=== PATIENT | female | born 1950 | race Caucasian/White ===

== ENCOUNTER 2018-03-30 14:56 | Emergency (ER) | payer MEDICARE, BC ==
[~2018-03-30] VITALS: Ht 165.1 cm; Wt 73.9 kg
--- OUTSIDE RECORDS SUMMARY | ~2018-03-30 | XMS | Encounter Summary ---
Demographics + + + | Address | [address] | | | [place] [address] | + + + | Home Phone | | + + + | Preferred Language | Unknown | + + + | Marital Status | | + + + | Taoism Affiliation | Unknown | + + + | Race | Unknown | + + + | Ethnic Group | Unknown | + + + Author + + + | Author | [facility] | | | and Nikoana | + + + | Organization | [facility] | | | and Nikoana | + + + | Address | Unknown | + + + | Phone | Unavailable | + + + Support + + +---------+ + | Name | Relationship | Address | Phone | + + +---------+ + | Javier Parra | ECON | Unknown | | + + +---------+ + Care Team Providers + +------+ + | Care Matte Cutter Name | Role | Phone | + +------+ + | Vince Cintron DO | PCP | | + +------+ + Encounter Details +--------+---------+ + + + | Date | Type | Department | Care Team | Description | +--------+---------+ + + + | 12/31/ | Office | [facility] | Keely Holt MS | Dizziness and | | 2018 | Visit | AUDIOLOGY AND | [facility] [address] | david (Primary | | | | HEARING AID SERVICES | [address] | Dx) | | | | [address] | [place] [address] | | | | | [address] | [phone] | | | | | [place] [address] | | | | | | [phone] | | | +--------+---------+ + + + Social History + +-------+ [...] + + + as of this encounter Progress Notes Keely Holt MS CCC-A - 12/31/2017 1330 PDTReferring Provider: No additional provider dorota dozier M.D. Ms. Parra related that she has been feeling dizzy recently. She suffered a heart attack last year. Results of Hearing Test: Right ear--Pure tone air and bone conduction testing showed 20-15d B threshold at 250 Hz through 2 KHz, sloping to 40-55dB at 4 KHz through 8 KHz. Left ear --Pure tone air and bone conduction testing showed 15-25dB at 250 Hz through 2 KHz, sloping to 45-60dB at 4 KHz through 8 KHz. Speech Recognition Thresholds were 20dB in the right ear and 25dB in the left ear. Speech Discrimination Scores were 92% in right ear and 96% in the left ear. Tympanometry showed normal type A tracings in both ears. Impression and Recommendation: Dizziness Follow-up care with Dr. Valles, ENT. Thank you. in this encounter Plan of Treatment Not on fileas of this encounter Procedures + +--------+ + + + | Procedure Name | Priori | Date/Time | Associated Diagnosis | Comments | | | ty | | | | + +--------+ + + + | DIAGNOSTIC REPORT - | | 12/31/2017 | | Results for this | | EXTERNAL SCAN | | 0000 PDT | | procedure are in the | | | | | | results section. | + +--------+ + + + in this encounter Results DIAGNOSTIC REPORT - EXTERNAL SCAN (12/31/2017) + + + | Narrative | Performed At | + + + | Ordered by an | | | unspecified provider. | | + + + in this encounter Visit Diagnoses + + | Diagnosis | + + | Dizziness and giddiness - Primary | + +"
--- OUTSIDE RECORDS SUMMARY | ~2018-03-30 | XMS | Encounter Summary ---
Demographics + + + | Address | [address] | | | [place] [address] | + + + | Home Phone | | + + + | Preferred Language | Unknown | + + + | Marital Status | | + + + | Latter-Day Affiliation | Unknown | + + + | Race | Unknown | + + + | Ethnic Group | Unknown | + + + Author + + + | Author | [facility] | | | and Nikoana | + + + | Organization | [facility] | | | and Nikoana | [...] Team Providers + +------+ + | Care Lead Technical Architect Name | Role | Phone | + [...] 2018 | Visit | AUDIOLOGY AND | [facility] [address] | david (Primary | | | | HEARING AID SERVICES | [address] | Dx) | | | | [address] | [place] [address] | | | | | [address] | [phone] | | | | | [place] [address] | | | | | | [phone] | | | +--------+---------+ + + + [...]
--- OUTSIDE RECORDS SUMMARY | ~2018-03-30 | XMS | Clinical Summary ---
Demographics + + + | Address | [address] | | | [place] [address] | + + + | Home Phone | | + + + | Preferred Language | Unknown | + + + | Marital Status | | + + + | Presybeterian Affiliation | Unknown | + + + | Race | Unknown | + + + | Ethnic Group | Unknown | + + + Author + + + | Author | [facility] | | | and Nikoana | + + + | Organization | [facility] | | | and Nikoana | [...] Team Providers + +------+ + | Care Police Officer Booking Name | Role | Phone | + [...] + +-------+---------+------+------+-------+ Active Problems Not on file Encounters +--------+---------+ + + + | Date | Type | Specialty | Care Team | Description | +--------+---------+ + + + | 12/31/ | Office | | Keely Holt MS | Dizziness and | | 2018 | Visit | | CCC-A | giddiness (Primary | | | | | | Dx) | +--------+---------+ + + + from Last 3 Months Social [...] + + from Last 3 Months Results DIAGNOSTIC REPORT - EXTERNAL SCAN (12/31/2017) + + + | Narrative | Performed At | + + + | Ordered by an | | | unspecified provider. | | + + + from Last 3 Months Insurance + +--------+ +--------+ +---------+ | Payer | Benefi | Subscriber | Type | Phone | Address | | | t Plan | ID | | | | | | / | | | | | | | Group | | | | | + +--------+ +--------+ +---------+ | MEDICARE | MEDICA | [id number] | Medica | [phone] | | | | RE | | re | [phone] | | | | PART A | | | | | | | AND B | | | | | + +--------+ +--------+ +---------+ | BCBS | BCBS | [id number] | PPO | | | | | [...] | Self | [birth year] | Home: | [address] | | | [place] | | 1950 | [phone] | [place] | | | tessie | | | [phone] | + +--------+ +--------+ + +"
--- OUTSIDE RECORDS SUMMARY | ~2018-03-30 | XMS | Clinical Summary ---
Demographics + + + | Address | [address] | | | [place] [address] | + + + | Home Phone | | + + + | Preferred Language | Unknown | + + + | Marital Status | | + + + | Buddhist Affiliation | Unknown | + + + | Race | Unknown | + + + | Ethnic Group | Unknown | + + + Author + + + | Author | [facility] | | | and Nikoana | + + + | Organization | [facility] | | | and Nikoana [...] Team Providers + +------+ + | Care Greige Goods Examiner Name | Role | Phone | + [...] +--------+ +---------+ | MEDICARE | MEDICA | [id number] | Medica | [phone] | | | | RE | | re | [phone] | | | | PART A | | | | | | | AND B | | | | | + +--------+ +--------+ +---------+ | BCBS | BCBS | [id number] | PPO | | | | | [...] | Self | [birth year] | Home: | [address] | | | [place] | | 1950 | [phone] | [place] | | | tessie | | | [phone] | + +--------+ +--------+ + +"
[~2018-03-30 14:56] MED LIST: AMITRIPTYLINE H50 MG PO; BENZONATATE200 MG PO; BETAXOLOL HCL10 MG PO; CRANBERRY200 MG PO; HYDROXYZINE HCL25 MG PO; IBUPROFEN600 MG PO; JANUVIA100 MG PO; LINZESS145 MCG; LINZESS145 MCG PO; LORAZEPAM0.5 MG PO; MAGNESIUM200 MG PO; NITROFURANTOIN100 MG PO; SUPER B COMPLE150 MG PO; TOVIAZ8 MG PO; VITAMIN D250000 UNIT PO; VITAMIN E400 UNI5 PO
--- NOTE | 2018-03-30 20:32 | EKG ---
[facility] [address] [facility] [address] [place] [address] Signed Normal sinus rhythm Left bundle branch block Abnormal ECG No previous ECGs available Confirmed by RADHA VELA MD ([id number]) on 03/30/2018 8:31:54 PM Electronically Signed By: RADHA VELA MD 03/30/182031 PATIENT NAME: STEFANI BHATIA Electrocardiogram DATE OF : 46 PHYSICIAN: RADHA VELA MD REPORT #: [id number] REPORT IS CONFIDENTIAL AND NOT TO BE RELEASED WITHOUT AUTHORIZATION
== END 2018-03-30 16:25 | disposition short-term general hospital (02) ==
LOC: ED 14:56
DX: S06.5X9A Traumatic subdural hemorrhage with loss of consciousness of unspecified duration, initial encounter (principal); W01.198A Fall on same level from slipping, tripping and stumbling with subsequent striking against other object, initial encounter; Z91.013 Allergy to seafood; Z79.899 Other long term (current) drug therapy
CPT/HCPCS: 70450; 71045; 73502; 80053; 84484; 85025; 85610; 85730; 93005; 93010; 96374; 99291; 99292; J1953

== ENCOUNTER 2018-05-11 15:05 | Emergency (ER) | payer MEDICARE, BC ==
[~2018-05-11] VITALS: Ht 165.1 cm; Wt 72.6 kg
--- OUTSIDE RECORDS SUMMARY | ~2018-05-11 | XMS | Encounter Summary ---
Demographics + + + | Address | [address] | | | [place] [address] | + + + | Home Phone | | + + + | Preferred Language | Unknown | + + + | Marital Status | | + + + | Baptist Affiliation | 1076 | + + + | Race | Unknown | + + + | Ethnic Group | Unknown | + + + Author + + + | Author | [facility] | + + + | Organization | [facility] [employer] [facility] | + + + | Address | Unknown | + + + | Phone | Unavailable | + + + Support + + + + + | Name | Relationship | Address | Phone | + + + + + | Jamaal Parra | ELSY | [address] | | | [place] | | [place] | | | | | [address] | | + + + + + Care Team Providers + +------+ + | Care Maintenance Parts Technician Name | Role | Phone | + +------+ + | Vince Cintron DO | PCP | | + +------+ + Encounter Details +--------+ + + + + | Date | Type | Department | Care Team | Description | +--------+ + + + + | 04/03/ | Procedure | [facility] | | | | 2018 | [facility] | | | | | | Inpatient Rehab [address] | | | | | | [address] | | | | | | [place] [address] | | | | | | [phone] | | | +--------+ + + + + Social History + +-------+ +--------+------+ | Tobacco Use | Types | Packs/Day | Years | Date | | | | | Used | | + +-------+ +--------+------+ | Never Smoker | | | | | + +-------+ +--------+------+ + +---+---+---+ | Smokeless Tobacco: | | | | | Never Used | | | | + +---+---+---+ + + + | Sex Assigned at | Date Recorded | | | | + + + | Not on file | | + + + as of this encounter Plan of Treatment Not on fileas of this encounter Visit Diagnoses Not on filein this encounter"
--- OUTSIDE RECORDS SUMMARY | ~2018-05-11 | XMS | Encounter Summary ---
Demographics + + + | Address | [address] | | | [place] [address] | + + + | Home Phone | | + + + | Preferred Language | Unknown | + + + | Marital Status | | + + + | Synagogue Affiliation | 1076 | + + + | Race | Unknown | + + + | Ethnic Group | Unknown | + + + Author + + + | Author | [facility] [employer] [employer] | + + + | Organization | [facility] [employer] [facility] | + + + | Address | Unknown | + + + | Phone | Unavailable | + + + Support + + + + + | Name | Relationship | Address | Phone | + + + + + | Jamaal Parra | ELSY | [address] | | | [place] | | [place] | | | | | [address] | | + + + + + Care Team Providers + +------+ + | Care Automatic Driller And Reamer Name | Role | Phone | + +------+ + PCP | Unavailable | + +------+ + Reason for Visit MRI/CAT Scan (Routine) + +--------+ + + [...] + + + + | 03/30/ | Hospital | [facility] | See, Medical | Diagnosis unknown | | 2018 | Encounter | [facility] | Record | | | | | RADIOLOGY [address] | | [address] | | | | | | [place] [address] | | | | | | [phone] | | | +--------+ + + + [...] + + + as of this encounter Medications at Time of Discharge + + + +---------+ + + | Medication | Sig. | Disp. | Refills | Start | End Date | | | | | | Date | | + + + +---------+ + + | Cholecalciferol | Take 2,000 Units by | | | 04/02/20 | | | 2000 units TABS | mouth daily. | | | 18 | 9 | + + + +---------+ + + | metoprolol | Take 1 tablet by | 60 | 11 | 04/02/20 | | | (LOPRESSOR) 25 MG | mouth 2 (two) times | tablet | | 18 | 9 | | tablet | daily. | | | | | + + + +---------+ + + | phosphorus (K PHOS | Take 1 tablet by | 30 | 11 | 04/02/20 | | | NEUTRAL) tablet | mouth daily. | tablet | | 18 | 9 | + + + +---------+ + + | acetaminophen | Take 2 tablets by | 30 | 0 | 04/02/20 | | | (TYLENOL) 325 MG | mouth every 6 (six) | tablet | | 18 | 8 | | tablet | hours as needed for | | | | | | | up to 10 days. | | | | | + + + +---------+ + + | acetaminophen | Place 1 suppository | 12 | 0 | 04/02/20 | | | (TYLENOL) 650 MG | rectally every 6 | supposito | | 18 | 8 | | suppository | (six) hours as | ry | | | | | | needed for up to 10 | | | | | | | days. | | | | | + + + +---------+ + + | amitriptyline | Take 50 mg by mouth | | | | | | (ELAVIL) 50 MG | nightly. | | | | 8 | | tablet | | | | | | + + + +---------+ + + | betaxolol | Take 10 mg by mouth | | | | | | (KERLONE) 10 MG | daily. | | | | 8 | | tablet | | | | | | + + + +---------+ + + | hydrOXYzine | Take 25 mg by mouth | | | | | | (ATARAX) 25 MG | 4 (four) times | | | | 8 | | tablet | daily. | | | | | + + + +---------+ + + | insulin detemir | Inject 10 Units into | 15 mL | 12 | 04/02/20 | | | (LEVEMIR) 100 | the skin 2 (two) | | | 18 | 8 | | UNIT/ML injection | times daily. | | | | | + + + +---------+ + + | insulin lispro, | Inject 0-3 Units | 10 mL | 12 | 04/02/20 | | | human, (HUMALOG) 100 | into the skin | | | 18 | 8 | | UNIT/ML injection | Nightly. | | | | | + + + +---------+ + + | insulin lispro, | Inject 0-6 Units | 10 mL | 12 | 04/02/20 | | | human, (HUMALOG) 100 | into the skin 3 | | | 18 | 8 | | UNIT/ML injection | (three) times daily | | | | | | | before meals. | | | | | + + + +---------+ + + | levetiracetam | Take 1 tablet by | 60 | 12 | 04/02/20 | | | (KEPPRA) 1000 MG | mouth 2 (two) times | tablet | | 18 | 8 | | tablet | daily. | | | | | + + + +---------+ + + | lisinopril | Take 1 tablet by | 30 | 11 | 04/02/20 | | | (ZESTRIL) 5 MG | mouth daily. | tablet | | 18 | 8 | | tablet | | | | | | + + + +---------+ + + | LORazepam (ATIVAN) | Take 0.5 mg by mouth | | | | | | 0.5 MG tablet | every evening. | | | | 8 | + + + +---------+ + + | nitrofurantoin | Take 100 mg by mouth | | | | | | (MACRODANTIN) 100 MG | nightly. | | | | 8 | | capsuleIndications: | | | | | | | Uncomplicated | | | | | | | Urinary Tract | | | | | | | Infection | | | | | | + + + +---------+ + + | ondansetron | Take 1 tablet by | 20 | 0 | 04/02/20 | | | (ZOFRAN-ODT) 4 MG | mouth every 6 (six) | tablet | | 18 | 8 | | disintegrating | hours as needed for | | | | | | tablet | up to 7 days. | | | | | + + + +---------+ + + | sitagliptan | Take 100 mg by mouth | | | | | | (JANUVIA) 100 MG | daily. | | | | 8 | | tablet | | | | | | + + + +---------+ + + as of this encounter Plan of Treatment Not on fileas of this encounter Procedures + +--------+ + + + | Procedure Name | Priori | Date/Time | Associated Diagnosis | Comments | | | ty | | | | + +--------+ + + + | CT HEAD WO CONTRAST | Routin | 03/30/2018 | Diagnosis unknown | Results for this | | | e | 3:26 PM | | procedure are in the | | | | PDT | | results section. | + +--------+ + + + in this encounter Results CT head without contrast (03/30/2018 3:26 PM) + + + | Narrative | Performed At | + + + | This is a non-reportable procedure without a radiologist report and | [facility] | | is used for image storage only | RADIOLOGY | + + + + + + + + | Performing | Address | City/State/Zipcode | Phone Number | | Organization | | | | + + + + + | [facility] | [address] | [place] [address] | | + + + + + in this encounter Visit Diagnoses + + | Diagnosis | + + | Diagnosis unknown | + + | Other unknown and unspecified cause of morbidity or mortality | + +"
--- OUTSIDE RECORDS SUMMARY | ~2018-05-11 | XMS | Encounter Summary ---
Demographics + + + | Address | [address] | | | [place] [address] | + + + | Home Phone | | + + + | Preferred Language | Unknown | + + + | Marital Status | | + + + | Latter-Day Affiliation | 1076 | + + + | Race | Unknown | + + + | Ethnic Group | Unknown | + + + Author + + + | Author | [facility] | + + + | Organization | [facility] [employer] [facility] | + + + | Address | Unknown | + + + | Phone | Unavailable | + + + Support + + + + + | Name | Relationship | Address | Phone | + + + + + | Jamaal Parra | ELSY | [address] | | | [place] | | [place] | | | | | [address] | | + + + + + Care Team Providers + +------+ + | Care Natural Foods Clerk Name | Role | Phone | + [...] + + | 03/30/ | Hospital | [facility] | See, Medical | Diagnosis unknown | | 2018 | Encounter | [facility] | Record | | | | | RADIOLOGY [address] | | | | | [address] | | | | | | [place] [address] | | | | | | [phone] | | | +--------+ + + + [...] | + + + + + | [facility] | [address] | [place] [address] | | + + + + + in this encounter Visit Diagnoses + + | Diagnosis | + + | Diagnosis unknown | + + | Other unknown and unspecified cause of morbidity or mortality | + +"
--- OUTSIDE RECORDS SUMMARY | ~2018-05-11 | XMS | Encounter Summary ---
Demographics + + + | Address | [address] | | | [place] [address] | + + + | Home Phone | | + + + | Preferred Language | Unknown | + + + | Marital Status | | + + + | Jainism Affiliation | 1076 | + + + | Race | Unknown | + + + | Ethnic Group | Unknown | + + + Author + + + | Author | [facility] | + + + | Organization | [facility] [employer] [facility] | + + + | Address | Unknown | + + + | Phone | Unavailable | + + + Support + + + + + | Name | Relationship | Address | Phone | + + + + + | Jamaal Parra | ELSY | [address] | | | [place] | | [place] | | | | | [address] | | + + + + + Care Team Providers + +------+ + | Care Cryptologic Support Specialist Name | Role | Phone | + [...] + + | 03/30/ | Ancillary | [facility] | See, Medical | Diagnosis unknown | | 2018 | [facility] | [facility] [address] | Record | | | | | [address] | | | | | | [place] [address] | | | | | | [phone] | | | +--------+ + + + [...] + + | [facility] | [address] | [place] [address] | | + + + + + in this encounter Visit Diagnoses + + | Diagnosis | + + | Diagnosis unknown | + + | Other unknown and unspecified cause of morbidity or mortality | + +"
--- OUTSIDE RECORDS SUMMARY | ~2018-05-11 | XMS | Encounter Summary ---
Demographics + + + | Address | [address] | | | [place] [address] | + + + | Home Phone | | + + + | Preferred Language | Unknown | + + + | Marital Status | | + + + | Evangelical Affiliation | 1076 | + + + | Race | Unknown | + + + | Ethnic Group | Unknown | + + + Author + + + | Author | [facility] | + + + | Organization | [facility] [facility] | + + + | Address | Unknown | + + + | Phone | Unavailable | + + + Support + + + + + | Name | Relationship | Address | Phone | + + + + + | Jamaal Parra | ELSY | [address] | | | [place] | | [place] | | | | | [address] | | + + + + + Care Team Providers + +------+ + | Care Family Practice Physician Assistant Name | Role | Phone | + [...] + + | 03/30/ | Ancillary | [facility] | See, Medical | Diagnosis unknown | | 2018 | [facility] | [facility] [address] | Record | | | | | [address] [facility] | | | | | | [place] [address] | | | | | | [phone] | | | +--------+ + + + [...] [facility] | [address] | [place] [address] | | + + + + + in this encounter Visit Diagnoses + + | Diagnosis | + + | Diagnosis unknown | + + | Other unknown and unspecified cause of morbidity or mortality | + +"
--- OUTSIDE RECORDS SUMMARY | ~2018-05-11 | XMS | Encounter Summary ---
Demographics + + + | Address | [address] | | | [place] [address] | + + + | Home Phone | | + + + | Preferred Language | Unknown | + + + | Marital Status | | + + + | Buddhism Affiliation | 1076 | + + + | Race | Unknown | + + + | Ethnic Group | Unknown | + + + Author + + + | Author | [facility] | + + + | Organization | [facility] [employer] [facility] | + + + | Address | Unknown | + + + | Phone | Unavailable | + + + Support + + + + + | Name | Relationship | Address | Phone | + + + + + | Jamaal Parra | ELSY | [address] | | | [place] | | [place] | | | | | [address] | | + + + + + Care Team Providers + +------+ + | Care River Crossing Supervisor Name | Role | Phone | + +------+ + | Vince Cintron DO | PCP | | + +------+ + Encounter Details +--------+ + + + + | Date | Type | Department | Care Team | Description | +--------+ + + + + | 04/03/ | Procedure | [facility] | | | | 2018 | [facility] | | | | | | Inpatient Rehab [address] | | | | | | [address] | | | | | | [place] [address] | | | | | | [phone] | | | +--------+ + + + [...]
--- OUTSIDE RECORDS SUMMARY | ~2018-05-11 | XMS | Clinical Summary ---
Demographics + + + | Address | [address] | | | [place] [address] | + + + | Home Phone | | + + + | Preferred Language | Unknown | + + + | Marital Status | | + + + | Denominational Affiliation | Unknown | + + + | Race | Unknown | + + + | Ethnic Group | Unknown | + + + Author + + + | Author | [facility] | | | and [place] | + + + | Organization | [facility] | | | and [place] | [...] Team Providers + +------+ + | Care Patternmaker Metal Bench Name | Role | Phone | + +------+ + | Vince Cintron DO | PP | | + +------+ + Allergies No Known Allergies Current Medications + + +-------+---------+------+------+-------+ | Prescription | Sig. | Disp. | Refills | Star | End | Statu | | | | | | t | Date | s | | | | | | Date | | | + + +-------+---------+------+------+-------+ | sitaGLIPtin | Take 100 mg by mouth | | | | | Activ | | (JANUVIA) 100 mg | Daily. | | | | | e | | tablet | | | | | | | + + +-------+---------+------+------+-------+ | triamcinolone | 80 g Topically as | | | | | Activ | | (KENALOG) 0.1% | needed | | | | | e | | ointment | | | | | | | + + +-------+---------+------+------+-------+ | tolterodine | Take 4 mg by mouth | | | | | Activ | | (DETROL LA) 4 MG 24 | Daily. | | | | | e | | hr capsule | | | | | | | + + +-------+---------+------+------+-------+ | Sertraline HCl | Take 150 mg by mouth | | | | | Activ | | (ZOLOFT PO) | Daily. | | | | | e | + + +-------+---------+------+------+-------+ | LORazepam (ATIVAN) | Take 0.5 mg by mouth | | | | | Activ | | 0.5 mg tablet | Daily. | | | | | e | + + +-------+---------+------+------+-------+ | estradiol | Take 2 mg by mouth | | | | | Activ | | (ESTRACE) 2 MG | Daily. | | | | | e | | tablet | | | | | | | + + +-------+---------+------+------+-------+ | diclofenac | Take 75 mg by mouth. | | | | | Activ | | (VOLTAREN) 75 mg EC | | | | | | e | | tablet | | | | | | | + + +-------+---------+------+------+-------+ | CRANBERRY EXTRACT | Take 300 mg by mouth | | | | | Activ | | PO | Daily. | | | | | e | + + +-------+---------+------+------+-------+ | Cinnamon 500 MG | Take 500 mg by | | | | | Activ | | TABS | mouth. 1-2 times | | | | | e | | | daily | | | | | | + + +-------+---------+------+------+-------+ | betaxolol | Take 10 mg by mouth | | | | | Activ | | (KERLONE) 10 mg | Daily. | | | | | e | | tablet | | | | | | | + + +-------+---------+------+------+-------+ | amitriptyline | Take 50 mg by mouth | | | | | Activ | | (ELAVIL) 50 mg | nightly. | | | | | e | | tablet | | | | | | | + + +-------+---------+------+------+-------+ | acyclovir | Apply topically as | | | | | Activ | | (ZOVIRAX) 5% | directed | | | | | e | | ointment | | | | | | | + + +-------+---------+------+------+-------+ | ALPRAZolam (XANAX) | Take 0.25 mg by | | | | | Activ | | 0.25 mg tablet | mouth as needed. | | | | | e | + + +-------+---------+------+------+-------+ Active Problems Not on file Social History + +-------+ +--------+------+ | Tobacco [...] on file | | + + + Plan of Treatment + + + + + | Health Maintenance | Due Date | Last Done | Comments | + + + + + | Hepatitis C | | | | | Screening | 8 | | | + + + + + | Vaccine: | | | | | Dtap/Tdap/Td (1 - | 7 | | | | Tdap) | | | | + + + + + | BREAST CANCER | | | | | SCREENING (MAMM Q2 | 8 | | | | YEARS 50-74) | | | | + + + + + | Colorectal Cancer | | | | | Screening | 8 | | | | (Colonoscopy) | | | | + + + + + | Vaccine: Zoster (1 | | | | | of 2) | 8 | | | + + + + + | Vaccine: Influenza | | 07/02/2017, 06/10/2016 | | | (#1) | 8 | | | + + + + + | Vaccine: | Completed | 06/10/2016, 08/07/2014, | | | Pneumococcal 65+ | | 07/27/2012 | | | Low/Medium Risk | | | | + + + + + Results Not on filefrom Last 3 Months Insurance + +--------+ +--------+ +---------+ | Payer | Benefi | Subscriber | Type | Phone | Address | | | t Plan | ID | | | | | | / | | | | | | | Group | | | | | + +--------+ +--------+ +---------+ | MEDICARE | MEDICA | [id number] | Medica | [phone]- | | | | RE | | re | [phone] | | | | PART A | | | | | | | AND B | | | | | + +--------+ +--------+ +---------+ | BCBS | BCBS | [id number] | PPO | | | | | [place] | | | | | | | L FEP | | | | | + +--------+ +--------+ +---------+ + +--------+ +--------+ + + | Guarantor Name | Accoun | Relation to | Date | Phone | Billing Address | | | t Type | Patient | of | | | | | | | | | | + +--------+ +--------+ + + | STEFANI PARRA | Person | Self [birth year] Home: | [address] | | | al/Randy | | 1950 | [phone] [place] | | | tessie | | | [phone] | [phone] | + +--------+ +--------+ + +"
--- OUTSIDE RECORDS SUMMARY | ~2018-05-11 | XMS | Encounter Summary ---
Demographics + + + | Address | [address] | | | [place] [address] | + + + | Home Phone | | + + + | Preferred Language | Unknown | + + + | Marital Status | | + + + | Islam Affiliation | [id number] | + + + | Race | Unknown | + + + | Ethnic Group | Unknown | + + + Author + + + | Author | [facility] [employer] | + + + | Organization | [facility] [employer] | + + + | Address | Unknown | + + + | Phone | Unavailable | + + + Support + + + + + | Name | Relationship | Address | Phone | + + + + + | Stefani Bhatia | ELSY | [address] | | | [place] | | [place] | | | | | [phone] | | + + + + + Care Team Providers + +------+ + | Care Cardiac Monitor Technician Name | Role | Phone | + +------+ + | Vince Cintron DO | PCP | | + +------+ + Reason for Visit Auth/Cert +--------+--------+ + + + + | Status | Reason | Specialty | Diagnoses / | Referred By | Referred To | | | | | Procedures | Contact | Contact | +--------+--------+ + + + + | | | | Diagnoses | | | | | | | Pain | | | | | | | Subdural | | | | | | | Hematoma | | | +--------+--------+ + + + + Encounter Details +--------+ + + + + | Date | Type | Department | Care Team | Description | +--------+ + + + + | 03/30/ | Hospital | [facility] | Dayan Schreiber, | Thrombocytopenia | | 2018 - | Encounter | [facility] | MD Mercedes PARIS | ([facility]) (Primary Dx); | | | | Floor [address] | [place] [address] | Pain; Chronic ITP | | 04/02/ | [address] | [phone] | (idiopathic | | 2018 | | [place] [address] | Piryani Robe | thrombocytopenia) | | | | [phone] | MD Mercedes Herbert | ([facility]) | | | | | vd [place], [place] | | | | | | [address] | | | | | | | | +--------+ + + [...] + + + | Blood Pressure | 138/77 | 04/02/2018 2:02 PM PDT | + + + + | Pulse | 63 | 04/02/2018 2:02 PM PDT | + + + + | Temperature | 36.8 C (98.3 F) | 04/02/2018 2:02 PM PDT | + + + + | Respiratory Rate | 16 | 04/02/2018 2:02 PM PDT | + + + + | Oxygen Saturation | 97% | 04/02/2018 2:02 PM PDT | + + + + | Inhaled Oxygen | - | - | | Concentration | | | + + + + | Weight | 69 kg (152 lb 1.9 | 03/31/2018 4:08 AM PDT | | | oz) | | + + + + | Height | 167.6 cm (5' 6") | 03/30/2018 6:00 PM PDT | + + + + | Body Mass Index | 24.55 | 03/31/2018 4:08 AM PDT | + + + + in this encounter Discharge Summaries Robe Ferguson MD - 04/02/2018 8:36 AM PDTFormatting of this note may be different from the original. [facility] Service: Hospitalist Physician Discharge Summary Pt: Stefani Bhatia AGE/SEX: 67 y.o. female ROOM: 9102/9102-1 PCP: VINCE CINTRON : 1950 Admit date: 03/30/2018 Discharge date and time: 04/02/18 Admitting Physician: Dayan Schreiber MD Discharge Physician: Robe Ferguson MD Consults: Dr. Khurram Duran Primary Discharge Diagnoses: Principal Problem: SDH (subdural hematoma) (HCC) Active Problems: Falls frequently Metabolic encephalopathy Thrombocytopenia (HCC) Chronic ITP (idiopathic thrombocytopenia) (HCC) Type 2 diabetes mellitus with complication (HCC) Essential hypertension H/O dizziness Resolved Problems: * No resolved hospital problems. * Secondary Discharge Diagnoses: Vitamin D deficiency. Hypertrophic cardiomyopathy Discharged Condition: stable Significant Diagnostic Studies: Cta Head Neck Result Date: 03/30/2018 1. Acute subdural hemorrhage noted along the left tentorium. Focus of acute subarachnoid h emorrhage along the left temporal lobe. 2. No hemodynamically significant narrowing seen in volving the major intracranial arteries of the anterior and posterior circulation. No aneury sm seen. 3. No hemodynamically significant narrowing seen involving the major extracranial arteries of the anterior and posterior circulation. Less than 50% narrowing of the internal carotid arteries utilizing NASCET criteria. 4. Multiple thyroid nodules. These can be lou r assessed with thyroid ultrasound examination if clinically warranted. Electronically sravan d by Oli Johnson MD on 03/30/2018 11:32 PM Echo Cardiac Adult Complete Result Date: 04/01/2018 1. Overall left ventricular systolic function is normal with, an EF between 60 - 65 %. 2. M oderate asymmetric septal hypertrophy with septal thickness 16 - 19 mm. 3. The right ventric le is mildly enlarged measuring between 3.4 - 3.7 cm. 4. The left atrium is mildly dilated. 5. The right atrium is mildly enlarged. 6. The aortic valve was not well visualized. 7. Ther e is mild aortic valve sclerosis without stenosis. 8. Trace amount of aortic regurgitation. 9. There is minimal aortic stenosis present. 10. Msqd-[id number] mitral regurgitation is pr esent. 11. There may be moderate pulmonary hypertension. 12. The right ventricular systolic pressure (pulmonary artery systolic pressure), as measured by Doppler, is . HPI and Hospital Course: Ms. Bhatia is a 67-year-old female who has a past medical history of idiopathic thrombocy topenic purpura and sees Dr. Green in [place], [place]. Her other problems are essen tial hypertension, diabetes mellitus, generalized anxiety disorder and depression. Patient was brought to the emergency department after she sustained a fall and became confused. CT of head showed left-sided subdural hematoma and mild subarachnoid hemorrhage. HOSPITAL COURSE: Patient was admitted to ICU and was monitored very closely. Dr. Jasmyn medellin, neurosurgeon, saw the patient and did not think the patient needs any surgical interventi on. She was started on Keppra for seizure prophylaxis. She remained stable and did not hav e any new deficits. She was transferred out of the unit on the next day of admission. Sinc e then patient has remained neurologically intact and denies any headache, difficulty swallo wing, difficulty talking, and also denies any focal motor or sensory deficits. Physical the rapist made her walk twice, and apart from mild dysequilibrium, patient performed well with the physical therapist. IPR consult was obtained and Dr. Wing Quintero was kind enough to see t his patient and agreed that she will benefit from transfer to inpatient rehab facility of [facility] for continuation of physical therapy and occupational therapy. I had a detailed discussion with the patient about her dizziness. She mentioned to me that for the last few years she has been falling a lot but does not lose any consciousness prior to fall but feels very dizzy and lightheaded. According to patient, she was diagnosed with a heart murmur and she may also have had a mild heart attack last year. Hence, I ordered e chocardiogram that showed asymmetric hypertrophy of septum. I reviewed echocardiogram with Dr. Patricio, who does not think that the patient has hypertrophic cardiomyopathy and finding s are likely due to hypertension. She also has history of ITP and follows with Dr. Petr bauer in [place], [place]. At the time of presentation, her platelet count was 93, but then it dropped to [address] Vee ordered IVIG times 2. Plan is to continue monitoring mervin mcdonald's platelet count, and if it remains stable, then she should follow with Dr. Green upon discharge. However, if she has further drop in platelet count or has another episode of bleeding, then we will formally consult Dr. Vee to see this patient in inpatient rehabi litation facility. Patient also has mild hypokalemia and that was supplemented. I also checked the vitamin D levels as vitamin D deficiency is known to cause falls. This came back low at 26; hence, I put patient on vitamin D 2000 units every day. Discharge Vitals: Vitals: 04/01/18 1900 04/02/18 0015 04/02/18 0530 04/02/18 0754 BP: (!) 152/101 175/71 164/74 172/76 BP Location: Right upper arm Left upper arm Pulse: 72 67 68 66 Resp: 16 20 20 Temp: 98.7 F (37.1 C) 98.2 F (36.8 C) 98.2 F (36.8 C) TempSrc: Oral Oral Axillary SpO2: 97% 94% Weight: Height: Discharge Exam: Constitutional: Alert and oriented to person, place, and time. Appears well-developed and w ell-nourished. Cardiovascular: Normal rate, regular rhythm, normal heart sounds with S1 and S2 and intact distal pulses. Exam reveals no gallop and no friction rub. Systolic Murmur grade II/ ov er left sternal border. Pulmonary/Chest: Effort normal and breath sounds normal. No stridor. No respiratory distres s. no wheezes. no rales. exhibits no tenderness. Abdominal: Soft. Bowel sounds are normal. exhibits no distension and no mass. There is no t enderness. There is no rebound and no guarding. Musculoskeletal: Normal range of motion.exhibits no tenderness. exhibits no edema. Neurological: Alert and oriented to person, place, and time. No cranial nerve deficit. Ex hibits normal muscle tone. Coordination normal. Skin: Skin is warm and dry. No rash noted. No erythema. No pallor. Mild ecchymosis over for ehead and neck. Psychiatric: Has a normal mood and affect. Behavior is normal. Impulsive at times. Short an d penitentiary memory impairment. LABS: Recent Labs Lab 04/02/18 0356 04/01/18 0405 03/31/18 1301 03/31/18 0402 WBC 4.24 4.83 -- 5.62 HGB 10.7* 10.9* -- 11.4 HCT 29.4* 30.1* -- 31.8* PLT 76* 78* 82* 93* NEUTOPHILPCT 52.94 60.83 -- 62.11 MONOPCT 14.10 9.88 -- 9.17 Recent Labs Lab 04/02/18 0356 04/01/18 0405 03/31/18 0402 03/30/18 2329 NA 140 139 140 140 K 3.4* 3.6 3.6 3.1* CL 104 102 104 104 CO2 24 28 27 29 BUN 6* 8 7* 8 CREATININE 0.4* 0.5 0.5 0.49* PROT -- -- -- 6.2* BILITOT -- -- -- 1.4 ALT -- -- -- 32 AST -- -- -- 30 Invalid input(s): LABALBU Recent Labs Lab 04/02/18 0356 04/01/18 0405 03/31/18 0402 MG 1.7 1.9 1.9 No results for input(s): AMYLASE in the last 168 hours. No results for input(s): PHART, PO2ART, QBY6BWR, Y1TFJLFJ, BEART in the last 168 hours. No results for input(s): APTT, INR, PTT in the last 168 hours. No results for input(s): CKTOTAL, TROPONINI, TROPONINT, CKMBINDEX in the last 168 hours. Disposition: Final discharge disposition not confirmed Patient Instructions: Medication List You have not been prescribed any medications. Activity: activity as tolerated Diet: cardiac diet Wound Care: not applicable Total time of discharge: 35 minutes. This included talking to patient, examining patient, d iscussing outpatient plan of care, reconciling home medications and dictating discharge summ jenn. Follow-up with PCP in 2 weeks. Signed: Robe Ferguson MD 04/02/2018 8:36 Jauregui this encounter Medications at Time of Discharge [...] + + + +---------+ + + | gabapentin | Take 1 capsule by | 30 | 0 | 04/15/20 | | | (NEURONTIN) 100 MG | mouth daily. | capsule | | 18 | 9 | | capsule | | | | | | + + + +---------+ + + | gabapentin | Take 1 [...] + + + +---------+ + + | scopolamine | Place 1 [...] +---------+ + + | sitagliptan | Take 1 tablet by | 30 | 0 | 04/14/20 | | | (JANUVIA) 100 MG | mouth daily. | tablet | | 18 | | | tablet | | | | | | + + + +---------+ + + | traMADol (ULTRAM) | Take [...] +---------+ + + as of this encounter Progress Notes Robe Ferguson MD - 04/01/2018 8:55 AM PDTFormatting of this note may be different from the original. [facility] Service: Hospitalist Progress Note Hospital Day: LOS: 2 days Post-Op Day: * No surgery found * SUBJECTIVE Patient Summary: Events Overnight: Transferred out of ICU yesterday. Admitted for acute left SDH and s ubarachnoid hemorrhage secondary to fall. History of ITP and sees Dr. Joseph, a hemat ologist in [place]. [place]. Hx. of dizziness and recurrent falls without loss of consciousness . Patient C/O SANCHES today but denies any confusion, focal weakness. No fever or chills. Scheduled Medications insulin detemir 10 Units Subcutaneous BID insulin lispro (human) 0-3 Units Subcutaneous Nightly insulin lispro (human) 0-6 Units Subcutaneous TID AC levETIRAcetam 1,000 mg Oral BID Continuous Infusions dextrose immune globulin (Human) Followed by immune globulin (Human) niCARdipine in NaCl Stopped (03/31/18 0557) PRN Medications acetaminophen OR acetaminophen, dextrose, dextrose, dextrose, glucagon, glucagon, HYDRO codone-acetaminophen, magnesium sulfate OR magnesium sulfate OR magnesium sulfate OR magnesium sulfate, nystatin, ondansetron OR ondansetron, petrolatum, phosphorus O R sodium phosphate IVPB 15 mmol OR sodium phosphate IVPB 30 mmol, potassium chloride * *OR potassium chloride OR potassium chloride OBJECTIVE Vital Signs: BP 155/69 (BP Location: Left upper arm) | Pulse 83 | Temp 98.5 F (36.9 C) (Oral) | R yarely 20 | Ht 1.676 m (5' 6") | Wt 69 kg (152 lb 1.9 oz) | SpO2 95% | ? No | BMI 24.55 kg/m Temp: [97.7 F (36.5 C)-98.9 F (37.2 C)] 98.5 F (36.9 C) (04/01 742) BP: (116-161)/(54-116) 155/69 (04/01 742) Heart Rate: [80-90] 83 (04/01 742) Resp: [17-42] 20 (04/01 742) SpO2: [81 %-98 %] 95 % (04/01 742) I&O Last 3 Shifts: 03/30 1900 - 04/01 0659 In: 1535 [I.V.:708] Out: 1585 [Urine:1585] Physical Exam Constitutional: She is oriented to person, place, and time. No distress. HENT: Head: Normocephalic. Mouth/Throat: No oropharyngeal exudate. Eyes: Pupils are equal, round, and reactive to light. No scleral icterus. Neck: Neck supple. No JVD present. Cardiovascular: Normal rate, regular rhythm and intact distal pulses. Exam reveals no gall op and no friction rub. Systolic murmur over lwft sternal border grade II/. Pulmonary/Chest: Effort normal and breath sounds normal. No respiratory distress. She has n o wheezes. She has no rales. She exhibits no tenderness. Abdomina/Gl: Soft. Bowel sounds are normal. She exhibits no distension and no mass. There i s no tenderness. There is no rebound and no guarding. No hernia. Musculoskeletal: She exhibits no edema, tenderness or deformity. Neurological: She is alert and oriented to person, place, and time. No cranial nerve defici t. Power 5/5 and symmetric. Skin: Skin is warm and dry. No rash noted. She is not diaphoretic. No erythema. No pallor. Small ecchymosis over forehead. Psychiatric: She has a normal mood and affect. Her behavior is normal. Thought content norm al. DATA CBC: Lab Results Component Value Date WBC 4.83 04/01/2018 RBC 3.27 (L) 04/01/2018 HGB 10.9 (L) 04/01/2018 HCT 30.1 (L) 04/01/2018 MCV 92.0 04/01/2018 MCH 33.3 04/01/2018 MCHC 36.1 (H) 04/01/2018 RDW 44.6 04/01/2018 PLT 78 (L) 04/01/2018 MPV 7.6 04/01/2018 DIFFTYPE AUTOMATED 04/01/2018 CMP: Lab Results Component Value Date NA 139 04/01/2018 K 3.6 04/01/2018 CL 102 04/01/2018 CO2 28 04/01/2018 ANIONGAP 13 04/01/2018 GLUF 93 04/01/2018 BUN 8 04/01/2018 CREATININE 0.5 04/01/2018 BCR 16 04/01/2018 CA 7.9 (L) 04/01/2018 PROT 6.2 (L) 03/30/2018 ALB 2.7 (L) 03/30/2018 GLOB 3.6 03/30/2018 BILITOT 1.4 03/30/2018 ALP 96 03/30/2018 AST 30 03/30/2018 ALT 32 03/30/2018 EGFR >60 04/01/2018 Magnesium: Lab Results Component Value Date MG 1.9 04/01/2018 Phosphorus: Lab Results Component Value Date PHOS 2.6 04/01/2018 Cta Head Neck Result Date: 03/30/2018 1. Acute subdural hemorrhage noted along the left tentorium. Focus of acute subarachnoid h emorrhage along the left temporal lobe. 2. No hemodynamically significant narrowing seen in volving the major intracranial arteries of the anterior and posterior circulation. No aneury sm seen. 3. No hemodynamically significant narrowing seen involving the major extracranial arteries of the anterior and posterior circulation. Less than 50% narrowing of the internal carotid arteries utilizing NASCET criteria. 4. Multiple thyroid nodules. These can be lou r assessed with thyroid ultrasound examination if clinically warranted. Electronically sravan d by Oli Johnson MD on 03/30/2018 11:32 PM PROBLEM LIST Principal Problem: SDH (subdural hematoma) (HCC) Active Problems: Falls frequently Metabolic encephalopathy Thrombocytopenia (HCC) Chronic ITP (idiopathic thrombocytopenia) (HCC) Type 2 diabetes mellitus with complication (HCC) Essential hypertension H/O dizziness ASSESSMENT & PLAN Subdural and subarachnoid hematoma due to fall. She also has history of ITP and platelet co unt was 93 at the time of admission and she received 2 units of platelets. Patient remains n eurologically intact. Dr. Duran has been following patient. No neurosurgical interventio n required at this stage. Will continue Keppra for 5 more days for seizure prophylaxis. ITP. Patient follows clinical geneticist in [place]. Dr. vee to evaluate patient. She will receive second dose of IVIG today. Further management of ITP per hematology services. Recurrent falls. Unclear etiology. Patient also has recurrent episodes of dizziness and has a significant murmur on physical examination. Will order echocardiogram and check vitamin D levels. Will check orthostatics. PT and OT consult obtained. DM type 2. Patient takes sitagliptan. A1C 6.8. Will continue sitagliptan. Essential hypertension. Will restart beta blockers that patient stopped taking on her own. She used to be on betaxolol. DVT prophylaxis only with SCDs. Disposition: Will benefit from either IPR or SNF upon discharge. Code Status: Full Code Robe Ferguson MD 04/01/2018Dayan Schreiber MD - 03/31/2018 9:02 AM PDTFormatting of this note may be differ ent from the original. [facility] Service: Crystal Report Developer Progress Note Stefani Mathew Fidel 67 y.o. Hospital Day: LOS: 1 day Post-Op Day: * No surgery found * Consulting Physicians Treatment Team: Consulting Physician: Elvira Duran MD Consulting Physician: Wing Tyshawn Quintero MD Admitting Provider: Dayan Schreiber MD SUBJECTIVE Patient Summary: The patient is a 67 y.o. female with significant past medical history of apparently chronic thrombocytopenia(no records), diabetic, hx of htn, anxiety and depression who presents with 2 week hx of frequent falls. Pt does not take any blood thinner per report. She fell the da y of admission and became confused, there is some report from neighbor that this confusion i s not acute. Of note that the pt takes ativan nightly, she was neurologically "stable " en r oute with EMS but became agitated after she was given 2 mg of ativan. At [facility] her plt count were 65 ct head with acute sdh along the left tentorium, and a/c left temporal sdh. ICU Timeline: 8-14: 3 units of plt transfused Events Overnight: REMaiNED ON NICRADIPINE, c colar in SCHEDULED MEDICATIONS CONTINUOUS INFUSIONS niCARdipine in NaCl Stopped (03/31/18 0557) OBJECTIVE VITAL SIGNS Temp: [97.5 F (36.4 C)-98.6 F (37 C)] 98.6 F (37 C) Heart Rate: [75-88] 78 Resp: [9-52] 21 BP: (107-193)/(51-106) 118/56 Intake/Output Summary (Last 24 hours) at 03/31/18 0902 Last data filed at 03/31/18 0757 Gross per 24 hour Intake 1535 ml Output 760 ml Net 775 ml EXAM GEN: awake, alert, oriented to person and place, calmer than admission NEURO: PERRLA, EOMI, shrugs shoulders bilat sym, protrudes tongue midline, no facial asymm etry, moves all extremities well prox and distally 5/5, no sensory deficits or levels GCS: 15 HEENT: sclerae clear, nonicteric, oral mmm, pink, no exudates NECK: supple, trachea midline CV: RRR,holosystolic diffuse murmur, peripheral pulses palpable, cap refill brisk LUNGS: clear b/l, no wheezing, rales or rhonchi, symmetric chest expansion, even/unlabored respirations ABD: soft, nondistended, nontender to palpation, no masses, no hepatosplenomegaly EXTR: no edema, clubbing or cyanosis SKIN: warm, dry, no rash or mottling; no e/o skin breakdown over the occiput, scapulae, elb ows, sacrum or heels. E/o bruises in both knees and front head LINES/TUBES: piv DATA Recent Labs Lab 03/31/18 0402 03/30/18 2329 WBC 5.62 5.91 RBC 3.45* 3.38* HGB 11.4 10.9* HCT 31.8* 31.7* MCV 92.4 93.9 MCH 33.0 32.4 MCHC 35.7* 34.5 RDW 42.9 44.6 PLT 93* 93* MPV 7.9 7.6 NEUTROABS 3.49 3.78 LYMPHSABS 1.08 1.06 MONOSABS 0.52 0.59 BASOSABS 0.05 0.03 EOSABS 0.48 0.45 Recent Labs Lab 03/31/18 0402 03/30/18 2329 NA 140 140 K 3.6 3.1* CL 104 104 CO2 27 29 ANIONGAP 13 11 GLUF 162* 137* BUN 7* 8 CREATININE 0.5 0.49* BCR 14 16 CA 8.0* 8.0* ALB -- 2.7* GLOB -- 3.6 AG -- 0.7* PROT -- 6.2* BILITOT -- 1.4 ALT -- 32 AST -- 30 EGFR >60 >60 PHOS 2.2* -- MG 1.9 -- No results for input(s): INR in the last 168 hours. IMAGING Reviewed PROBLEM LIST Active Problems: Falls frequently SDH (subdural hematoma) (HCC) Metabolic encephalopathy Thrombocytopenia (HCC) Resolved Problems: * No resolved hospital problems. * ASSESSMENT & PLAN NEURO: Sdh:will repeat cta head and neck , neuro checks and bp control per protocol, dr maricarmen roberson on board, will transfuse plt with goal to be as close to 100.000 as possible Keep c collar for now CV: bp control as per protocol PULM: Protecting her airway GI/NUTRITION: Speech eval RENAL/LYTES: No issues, watch uo ID: No e/o infection HEME: thrombocytopenia of itp origin per records, appreciate hematology input, start ivig. ENDO: bs goal 80-180 MUSC/SKIN: Early mobility when appropriate PROPHYLAXIS: Stress ulcer prophylaxis: n/a DVT prophylaxis: only scd's VAP bundle: chlorhexidine oral care, HOB >30 degrees. Disposition: Plan as above, might tx out of icu if ok with NS Code Status: Full Code *Please bill 45 minutes of critical care time spent evaluating the patient, reviewing the d shelley and formulating a plan exclusive of all other procedures. DAYAN SCHREIBER MD 03/31/2018 in this encounter Plan of Treatment + +--------+ + + | Name | Priori | Associated Diagnoses | Order Schedule | | | ty | | | + +--------+ + + | CBC w/auto diff (reflex to | Routin | Thrombocytopenia | Expected: | | manual) | e | ([facility]) | 04/03/2018, Expires: | | | | | 04/02/2019 | + +--------+ + + as of this encounter Procedures + +--------+ + [...] | + +--------+ + + + | EKG STANDARD 12 LEAD | STAT | 03/30/2018 [...] + + + in this encounter Results POCT glucose (04/02/2018 11:20 AM) + + + + + | Component | Value | Ref Range | Performed At | + + + + + | GLUCOSE,POC SCREEN | 143 (H)Comment: Testing | 65 - 99 mg/dL | [facility] | | | performed at [facility];[address] | | | | | [address];[place], [place] | | | | | [address] | | | + + + + + + + + + + | Performing | Address | City/State/Zipcode | Phone Number | | Organization | | | | + + + + + | [facility] | [address] | [place] [address] | | + + + + + POCT glucose (04/02/2018 5:30 AM) + + + + + | Component | Value | Ref Range | Performed At | + + + + + | GLUCOSE,POC SCREEN | 136 (H)Comment: Testing | 65 - 99 mg/dL | [facility] | | | performed at [facility];[address] | | | | | [address];[place] | | | | | [address] | | | + + + + + + + + + + | Performing | Address | City/State/Zipcode | Phone Number | | Organization | | | | + + + + + | [facility] | [address] | [place] [address] | | + + + + + Phosphorus (04/02/2018 3:56 AM) + + + + + | Component | Value | Ref Range | Performed At | + + + + + | PHOSPHORUS | 2.9Comment: Testing | 2.3 - 4.8 mg/dL | [facility] | | | performed at [facility], [address] | | LABORATORY | | | [address], | | | | | [place] [address] | | | + + + + + + + | Specimen | + + | Blood | + + + + + + + | Performing | Address | City/State/Zipcode | Phone Number | | Organization | | | | + + + + + | [facility] | [address] | [place] [address] | [phone] | | LABORATORY | [address] | | | + + + + + Magnesium (04/02/2018 3:56 AM) + + + + + | Component | Value | Ref Range | Performed At | + + + + + | MAGNESIUM | 1.7Comment: Testing | 1.7 - 2.4 mg/dL | [facility] | | | performed at [facility], [address] | | LABORATORY | | | [facility], | | | | | [place] [address] | | | + + + + + + + | Specimen | + + | Blood | + + + + + + + | Performing | Address | City/State/Zipcode | Phone Number | | Organization | | | | + + + + + | [facility] | [address] | [place] [address] | [phone] | | LABORATORY | [address] | | | + + + + + Basic metabolic panel (04/02/2018 3:56 AM) + + + + + | [...] + + | ANION GAP AGAP | 15 | 5 - 20 mmol/L | [facility] | | | | | LABORATORY | + + + + + | GLUCOSE | 131 (H) | 65 - 99 mg/dL | [facility] | | | | | LAB[facility]ATORY | + + + + + | BUN | 6 (L) | 8 - 25 mg/dL | [facility] | | | | | LABORATORY | + + + + + | CREATININE | 0.4 (L) | 0.50 - 1.00 mg/dL | [facility] | | | | | LABORATORY | + + + + + | BUN/CREAT | 15 | | [facility] | | | | | LABORATORY | + + + + + | CALCIUM | 7.9 (L) | 8.5 - 10.5 mg/dL | [...] | | | | | performed at [facility], [address] | | | | [facility], | | | | | [place] [address] | | | + + + + + + + | Specimen | + + | Blood | + + + + + + + | Performing | Address | City/State/Zipcode | Phone Number | | Organization | | | | + + + + + | [facility] | [address] | [place] [address] | [phone] | | LABORATORY | [address] | | | + + + + + CBC w/auto diff (reflex to manual) (04/02/2018 3:56 AM) + + + + + | Component | Value | Ref Range | Performed At | + + + + + | WBC | 4.24 | 3.80 - 11.00 K/uL | [facility] | | | | | LABORATORY | + + + + + | RBC | 3.21 (L) | 3.70 - 5.10 M/uL | [facility] | | | | | LABORATORY | + + + + + | HGB | 10.7 (L) | 11.3 - 15.5 g/dL | [facility] | | | | | LABORATORY | + + + + + | HCT | 29.4 (L) | 34.0 - 46.0 % | [facility] | | | | | LABORATORY | + + + + + | MCV | 91.6 | 80.0 - 100.0 fl | [facility] | | | | | LABORATORY | + + + + + | MCH | 33.3 | 27.0 - 34.0 pg | [facility] | | | | | LABORATORY | + + + + + | MCHC | 36.3 (H) | 32.0 - 35.5 g/dL | [facility] | | | | | LABORATORY | + + + + + | RDW SD | 43.8 | 37 - 53 fl | [facility] | | | | | LABORATORY | + + + + + | PLT | 76 (L) | 150 - 400 K/uL | [facility] | | | | | LABORATORY | + + + + + | MPV | 7.8 | fl | [facility] | | | | | LABORATORY | + + + + + | DIFF TYPE | AUTOMATED | | [facility] | | | | | LABORATORY | + + + + + | NEUTROPHILS | 52.94 | % | [facility] | | | | | LABORATORY | + + + + + | LYMPHOCYTES | 23.37 | % | [facility] | | | | | LABORATORY | + + + + + | MONOCYTES | 14.10 | % | [facility] | | | | | LABORATORY | + + + + + | EOSINOPHILS | 8.41 | % | [facility] | | | | | LABORATORY | + + + + + | BASOPHILS | 1.18 | % | [facility] | | | | | LABORATORY | + + + + + | NEUTROPHILS ABS | 2.25 | 1.90 - 7.40 K/uL | [facility] | | | | | LABORATORY | + + + + + | LYMPHOCYTES ABS | 0.99 (L) | 1.00 - 3.90 K/uL | [facility] | | | | | LABORATORY | + + + + + | MONOCYTES ABS | 0.60 | 0.00 - 0.80 K/uL | [facility] | | | | | LABORATORY | + + + + + | EOSINOPHILS ABS | 0.36 | 0.00 - 0.50 K/uL | [facility] | | | | | LABORATORY | + + + + + | BASOPHILS ABS | 0.05Comment: Testing | 0.00 - 0.10 K/uL | [facility] | | | performed at [facility], [address] | | LABORATORY | | | [place] [address], | | | | | [place] [address] | | | + + + + + + + | Specimen | + + | Blood | + + + + + + + | Performing | Address | City/State/Zipcode | Phone Number | | Organization | | | | + + + + + | [facility] | [address] | [place] [address] | [phone] | | LABORATORY | [address] | | | + + + + + POCT glucose (04/01/2018 9:46 PM) + + + + + | Component | Value | Ref Range | Performed At | + + + + + | GLUCOSE,POC SCREEN | 272 (H)Comment: Testing | 65 - 99 mg/dL | [facility] | | | performed at [facility];[address] | | | | | [address];[place] | | | | | [address] | | | + + + + + + + + + + | Performing | Address | City/State/Zipcode | Phone Number | | Organization | | | | + + + + + | [facility] | [address] | [place] [address] | | + + + + + POCT glucose (04/01/2018 4:48 PM) + + + + + | Component | Value | Ref Range | Performed At | + + + + + | GLUCOSE,POC SCREEN | 140 (H)Comment: Testing | 65 - 99 mg/dL | [facility] | | | performed at [place] [facility];[address] | | | | | [address];[place] | | | | | [address] | | | + + + + + + + + + + | Performing | Address | City/State/Zipcode | Phone Number | | Organization | | | | + + + + + | [facility] | [address] | [place] [address] | | + + + + + [...] There is minimal aortic stenosis present. 10. Xuqw-oy-yvdmmhlv | | | mitral regurgitation is present. 11. There may be moderate pulmonary | | | hypertension. 12. The right ventricular systolic pressure (pulmonary | | | artery systolic pressure), as measured by Doppler, is {RVSP}. | | + + + + + + | Narrative | Performed At | + + + | Patient Name: STEFANI BHATIA Date of : 1950 | [facility] | | Performing Physician: Emanuel Melissa MD [...] There is minimal aortic stenosis present. 10. Kzhe-is-ldgqmxac | | | mitral regurgitation is present. [...] stenosis present. Mitral Valve: | | | Ygpl-fe-czlpltwj mitral regurgitation is present. Mitral Valve: | [...] | | Michael: 0.68 m/s TV Dec [place]: 2.56 m/s2 TV Dec Time: | | | 264.67 ms TV E Michael: 0.67 m/s TV E/A Ratio: 0.99 | | | Comber Fixer: CM Authenticated by: Emanuel Melissa MD Report Date/Time: | | | 04-01-2018 16:50:35 | | + + + + + | Procedure Note | + + | Frank, Rad Results In - 04/01/2018 5:00 PM PDT Patient Name: Latoya BHATIA | | : 1950ccession: [id number] Physician: Emanuel Melissa | | INDICATIONS m [...] is minimal aortic stenosis | | present.10. Gpkb-ez-vbhvizvg mitral regurgitation is present.11. There may be [...] There is minimal aortic stenosis present.Mitral Valve: Pmlu-ab-cxxwfjkb mitral | | regurgitation is present. Mitral [...] | mlLVLs A4C: 7.06 cmLAAs A4C: 14.61 [id number] A-L A4C: 34.22 mlLALs A4C: 5.29 | | cmRAAd: 16.15 [id number] A-L: 43.57 mlRAEDV MOD: 43.26 mlRALd: 5.08 cmAo Diam: | | 3.17 cmAV Cusp: 1.81 cmTAPSE: 2.90 cmAV maxP.78 mmHgAV meanP.51 mmHgAV | | Vmax: 2.10 m/Haley Vmean: 1.53 m/Haley VTI: 57.45 cmAVA Vmax: 1.67 cm2AVA (VTI): | | 1.44 eg2NPLB Vmax: 0.00 cm2/m2AVAI (VTI): 0.00 cm2/m2LVCI Dopp: 3.21 l/pbxf3EBNQ | | Dopp: 5.72 l/minHR: 68.91 BPMLVOT [...] A Michael: 0.68 m/sTV Dec | | [place]: 2.56 m/s2TV Dec Time: 264.67 msTV E Michael: 0.67 m/sTV E/A Ratio: 0.99 | | Comber Fixer: CMAuthenticated by: Emanuel VAZQUEZeport Date/Time: 04-01-2018 | | 16:50:35IMPRESSION:1. Overall left [...] is minimal aortic stenosis present.10. | | Ecbe-fx-eecwqfqk mitral regurgitation is present.11. There may be [...] A Michael: 0.68 m/s | |TV Dec [place]: 2.56 m/s2 | |TV Dec Time: 264.67 ms | |TV E Michael: 0.67 m/s | |TV E/A Ratio: 0.99 | | | |Comber Fixer: CM | |Authenticated by: Emanuel Melissa MD [...] is minimal aortic stenosis present. | |10. Maff-wr-hbuqtppr mitral regurgitation is present. | |11. There may be moderate pulmonary hypertension. | |12. The right ventricular systolic pressure (pulmonary artery systolic pressure), as measur ed by Doppler, is {RVSP}. | + + + + + + + | Performing | Address | City/State/[facility] | Phone Number | | Organization | | | | + + + + + | [facility] | [address] | [place] [address] | | + + + + + POCT glucose (04/01/2018 12:26 PM) + + + + + | Component | Value | Ref Range | Performed At | + + + + + | GLUCOSE,POC SCREEN | 215 (H)Comment: Testing | 65 - 99 mg/dL | [facility] | | | performed at [facility];[address] | | | | | [address];[place] | | | | | [address] | | | + + + + + + + + + + | Performing | Address | City/State/Zipcode | Phone Number | | Organization | | | | + + + + + | [facility] | [address] | [place] [address] | | + + + + + [...] performed | | | | | at [facility], [address] | | | | | [facility], | | | | | [place] [address] | | | + + + + + + + | Specimen | + + | Blood | + + + + + + + | Performing | Address | City/State/Zipcode | Phone Number | | Organization | | | | + + + + + | [facility] | [address] | [place] [address] | [phone] | | LABORATORY | [address] | | | + + + + + POCT glucose (04/01/2018 5:29 AM) + + + + + | Component | Value | Ref Range | Performed At | + + + + + | GLUCOSE,POC SCREEN | 105 (H)Comment: Testing | 65 - 99 mg/dL | [facility] | | | performed at [facility];[address] | | | | | [address];[place] | | | | | [address] | | | + + + + + + + + + + | Performing | Address | City/State/Zipcode | Phone Number | | Organization | | | | + + + + + | [facility] | [address] | [place] [address] | | + + + + + Phosphorus (04/01/2018 4:05 AM) + + + + + | Component | Value | Ref Range | Performed At | + + + + + | PHOSPHORUS | 2.6Comment: Testing | 2.3 - 4.8 mg/dL | [facility] | | | performed at [facility], [address] | | LABORATORY | | | [address], | | | | | [place] [address] | | | + + + + + + + | Specimen | + + | Blood | + + + + + + + | Performing | Address | City/State/Zipcode | Phone Number | | Organization | | | | + + + + + | [facility] | [address] | [place] [address] | [phone] | | LABORATORY | [address] | | | + + + + + Magnesium (04/01/2018 4:05 AM) + + + + + | Component | Value | Ref Range | Performed At | + + + + + | MAGNESIUM | 1.9Comment: Testing | 1.7 - 2.4 mg/dL | [facility] | | | performed at [facility], [address] | | LABORATORY | | | [place], | | | | | [place] [address] | | | + + + + + + + | Specimen | + + | Blood | + + + + + + + | Performing | Address | City/State/Zipcode | Phone Number | | Organization | | | | + + + + + | [facility] | [address] | [place] [address] | [phone] | | LABORATORY | [address] | | | + + + + + Basic metabolic panel (04/01/2018 4:05 AM) + + + + + | Component | Value | Ref Range | Performed At | + + + + + | SODIUM | 139 | 135 - 145 mmol/L | [facility] | | | | | LABORATORY | + + + + + | POTASSIUM | 3.6 | 3.5 - 4.9 mmol/L | [facility] | | | | | LABORATORY | + + + + + | CHLORIDE | 102 | 99 - 109 mmol/L | [facility] [...] + + + + | GLUCOSE | 93 | 65 - 99 mg/dL | [facility] [...] + + + + | CALCIUM | 7.9 (L) | 8.5 - 10.5 mg/dL | [facility] | | | | | LABORATORY | + + + + + | EGFR | >60Comment: GFR <60: | >60 mL/min/1.73m2 | [facility] | | | CHRONIC KIDNEY DISEASE, | [...] | | | | | performed at [facility], [address] | | | | | [facility], | | | | | [place] [address] | | | + + + + + + + | Specimen | + + | Blood | + + + + + + + | Performing | Address | City/State/Zipcode | Phone Number | | Organization | | | | + + + + + | [facility] | [address] | [place] [address] | [phone] | | LABORATORY | [address] | | | + + + + + CBC w/auto diff (reflex to manual) (04/01/2018 4:05 AM) + + + + + | Component | Value | Ref Range | Performed At | + + + + + | WBC | 4.83 | 3.80 - 11.00 K/uL | [facility] | | | | | LABORATORY | + + + + + | RBC | 3.27 (L) | 3.70 - 5.10 M/uL | [facility] | | | | | LABORATORY | + + + + + | HGB | 10.9 (L) | 11.3 - 15.5 g/dL | [facility] | | | | | LABORATORY | + + + + + | HCT | 30.1 (L) | 34.0 - 46.0 % | [facility] | | | | | LABORATORY | + + + + + | MCV | 92.0 | 80.0 - 100.0 fl | [facility] | | | | | LABORATORY | + + + + + | MCH | 33.3 | 27.0 - 34.0 pg | [facility] | | | | | LABORATORY | + + + + + | MCHC | 36.1 (H) | 32.0 - 35.5 g/dL | [facility] | | | | | LABORATORY | + + + + + | RDW SD | 44.6 | 37 - 53 fl | [facility] | | | | | LABORATORY | + + + + + | PLT | 78 (L) | 150 - 400 K/uL | [facility] | | | | | LABORATORY | + + + + + | MPV | 7.6 | fl | [facility] | | | | | LABORATORY | + + + + + | DIFF TYPE | AUTOMATED | | [facility] | | | | | LABORATORY | + + + + + | NEUTROPHILS | 60.83 | % | [facility] | | | | | LABORATORY | + + + + + | LYMPHOCYTES | 21.68 | % | [facility] | | | | | LABORATORY | + + + + + | MONOCYTES | 9.88 | % | [facility] | | | | | LABORATORY | + + + + + | EOSINOPHILS | 6.70 | % | [facility] | | | | | LABORATORY | + + + + + | BASOPHILS | 0.91 | % | [facility] | | | | | LABORATORY | + + + + + | NEUTROPHILS ABS | 2.94 | 1.90 - 7.40 K/uL | [facility] | | | | | LABORATORY | + + + + + | LYMPHOCYTES ABS | 1.05 | 1.00 - 3.90 K/uL | [facility] | | | | | LABORATORY | + + + + + | MONOCYTES ABS | 0.48 | 0.00 - 0.80 K/uL | [facility] | | | | | LABORATORY | + + + + + | EOSINOPHILS ABS | 0.32 | 0.00 - 0.50 K/uL | [facility] | | | | | LABORATORY | + + + + + | BASOPHILS ABS | 0.04Comment: Testing | 0.00 - 0.10 K/uL | [facility] | | | performed at [facility], [address] | | LABORATORY | | | [place], | | | | | [place] [address] | | | + + + + + + + | Specimen | + + | Blood | + + + + + + + | Performing | Address | City/State/Zipcode | Phone Number | | Organization | | | | + + + + + | [facility] | [address] | [place] [address] | [phone] | | LABORATORY | [address] | | | + + + + + POCT glucose (03/31/2018 8:41 PM) + + + + + | Component | Value | Ref Range | Performed At | + + + + + | GLUCOSE,POC SCREEN | 247 (H)Comment: Testing | 65 - 99 mg/dL | [facility] | | | performed at [facility];[address] | | | | | [address];[place] | | | | | [address] | | | + + + + + + + + + + | Performing | Address | City/State/Zipcode | Phone Number | | Organization | | | | + + + + + | [facility] | [address] | [place] [address] | | + + + + + POCT glucose (03/31/2018 4:06 PM) + + + + + | Component | Value | Ref Range | Performed At | + + + + + | GLUCOSE,POC SCREEN | 284 (H)Comment: Testing | 65 - 99 mg/dL | [facility] | | | performed at [facility];[address] | | | | | [address];[place] | | | | | [address] | | | + + + + + + + + + + | Performing | Address | City/State/Zipcode | Phone Number | | Organization | | | | + + + + + | [facility] | [address] | [place] [address] | | + + + + + Platelet count (03/31/2018 1:01 PM) + + + + + | Component | Value | Ref Range | Performed At | + + + + + | PLT | 82 (L)Comment: Testing | 150 - 400 K/uL | [facility] | | | performed at [facility];[address] | | | | | [address];[place] | | | | | [address] | | | + + + + + + + | Specimen | + + | Blood | + + + + + + + | Performing | Address | City/State/Zipcode | Phone Number | | Organization | | | | + + + + + | [facility] | [address] | [place] [address] | | + + + + + POCT glucose (03/31/2018 10:57 AM) + + + + + | Component | Value | Ref Range | Performed At | + + + + + | GLUCOSE,POC SCREEN | 174 (H)Comment: Testing | 65 - 99 mg/dL | [facility] | | | performed at [facility];[address] | | | | | [address] [place] | | | | | [address] | | | + + + + + + + + + + | Performing | Address | City/State/Zipcode | Phone Number | | Organization | | | | + + + + + | [facility] | [address] | [place] [address] | | + + + + + Phosphorus (03/31/2018 4:02 AM) + + + + + | Component | Value | Ref Range | Performed At | + + + + + | PHOSPHORUS | 2.2 (L)Comment: Testing | 2.3 - 4.8 mg/dL | [facility] | | | performed at [facility], [address] | | LABORATORY | | | [facility] [address] | | | | | [place] [address] | | | + + + + + + + | Specimen | + + | Blood | + + + + + + + | Performing | Address | City/State/Zipcode | Phone Number | | Organization | | | | + + + + + | [facility] | [address] | [place] [address] | [phone] | | LABORATORY | [address] | | | + + + + + Magnesium (03/31/2018 4:02 AM) + + + + + | Component | Value | Ref Range | Performed At | + + + + + | MAGNESIUM | 1.9Comment: Testing | 1.7 - 2.4 mg/dL | [facility] | | | performed at [facility], [address] | | LABORATORY | | | [facility], | | | | | [place] [address] | | | + + + + + + + | Specimen | + + | Blood | + + + + + + + | Performing | Address | City/State/Zipcode | Phone Number | | Organization | | | | + + + + + | [facility] | [address] | [place] [address] | [phone] | | LABORATORY | [address] | | | + + + + + Basic metabolic panel (03/31/2018 4:02 AM) + + + [...] 27 | 23 - 32 mmol/L | [facility] | | | | | LABORATORY | + + + + + | ANION GAP AGAP | 13 | 5 - 20 mmol/L | [facility] | | | | | LABORATORY | + + + + + | GLUCOSE | 162 (H) | 65 - 99 mg/dL | [...] >60Comment: GFR <60: | >60 mL/min/1.73m2 | [facility] | | | CHRONIC KIDNEY DISEASE, | [...] the | | | | | MDRD [facility] traceable | | | | | equation.Testing | | | | | performed at [facility], [address] | | | | | [facility], | | | | | [place] [address] | | | + + + + + + + | Specimen | + + | Blood | + + + + + + + | Performing | Address | City/State/Zipcode | Phone Number | | Organization | | | | + + + + + | [facility] | [address] | [place] [address] | [phone] | | LABORATORY | [address] | | | + + + + + CBC w/auto diff (reflex to manual) (03/31/2018 4:02 AM) + + + + + | Component | Value | Ref Range | Performed At | + + + + + | WBC | 5.62 | 3.80 - 11.00 K/uL | [facility] | | | | | LABORATORY | + + + + + | RBC | 3.45 (L) | 3.70 - 5.10 M/uL | [facility] | | | | | LABORATORY | + + + + + | HGB | 11.4 | 11.3 - 15.5 g/dL | [facility] | | | | | LABORATORY | + + + + + | HCT | 31.8 (L) | 34.0 - 46.0 % | [facility] | | | | | LABORATORY | + + + + + | MCV | 92.4 | 80.0 - 100.0 fl | [facility] | | | | | LABORATORY | + + + + + | MCH | 33.0 | 27.0 - 34.0 pg | [facility] | | | | | LABORATORY | + + + + + | MCHC | 35.7 (H) | 32.0 - 35.5 g/dL | [facility] | | | | | LABORATORY | + + + + + | RDW SD | 42.9 | 37 - 53 fl | [facility] | | | | | LABORATORY | + + + + + | PLT | 93 (L) | 150 - 400 K/uL | [facility] | | | | | LABORATORY | + + + + + | MPV | 7.9 | fl | [facility] | | | | | LABORATORY | + + + + + | DIFF TYPE | AUTOMATED | | [facility] | | | | | LABORATORY | + + + + + | NEUTROPHILS | 62.11 | % | [facility] | | | | | LABORATORY | + + + + + | LYMPHOCYTES | 19.29 | % | [facility] | | | | | LABORATORY | + + + + + | MONOCYTES | 9.17 | % | [facility] | | | | | LABORATORY | + + + + + | EOSINOPHILS | 8.47 | % | [facility] | | | | | LABORATORY | + + + + + | BASOPHILS | 0.96 | % | [facility] | | | | | LABORATORY | + + + + + | NEUTROPHILS ABS | 3.49 | 1.90 - 7.40 K/uL | [facility] | | | | | LABORATORY | + + + + + | LYMPHOCYTES ABS | 1.08 | 1.00 - 3.90 K/uL | [facility] | | | | | LABORATORY | + + + + + | MONOCYTES ABS | 0.52 | 0.00 - 0.80 K/uL | [facility] | | | | | LABORATORY | + + + + + | EOSINOPHILS ABS | 0.48 | 0.00 - 0.50 K/uL | [facility] | | | | | LABORATORY | + + + + + | BASOPHILS ABS | 0.05Comment: Testing | 0.00 - 0.10 K/uL | [facility] | | | performed at [facility], [address] | | LABORATORY | | | [address], | | | | | [place] [address] | | | + + + + + + + | Specimen | + + | Blood | + + + + + + + | Performing | Address | City/State/Zipcode | Phone Number | | Organization | | | | + + + + + | [facility] | [address] | [place] [address] | [phone] | | LABORATORY | [address] | | [...] | [facility] | | | performed at [facility], [address] | | LABORATORY | | | [place], | | | | | [place] [address] | | | + + + + + + + | Specimen | + + | Blood | + + + + + + + | Performing | Address | City/State/Zipcode | Phone Number | | Organization | | | | + + + + + | [facility] | [address] | [place] [address] | [phone] | | LABORATORY | [address] | | [...] | ms | [facility] | | (Bezet) | | | | + + + + + | Calculated P Jasper | 26 | degrees | [facility] | + + + + + | Calculated R Jasper | -23 | degrees | [facility] | + + + + + | Calculated T Jasper | 144 | degrees | [facility] | + + + + + | Diagnosis | Sinus rhythm with 1st | | [facility] EKG | | | degree A-V block [...] | + + + + + | [facility] E[facility] | [address] | [place] [place] [place] [address] | | + + + + + Comprehensive metabolic panel (03/30/2018 11:29 PM) + + + + + | Component | Value | Ref Range | Performed At | + + + + + | SODIUM | 140 | 135 - 145 mmol/L | [facility] | + + + + + | POTASSIUM | 3.1 (L) | 3.5 - 4.9 mmol/L | [facility] | + + + + + | CHLORIDE | 104 | 99 - 109 mmol/L | [facility] | + + + + + | CO2 | 29 | 23 - 32 mmol/L | [facility] | + + + + + | ANION GAP AGAP | 11 | 5 - 20 mmol/L | [facility] | + + + + + | GLUCOSE | 137 (H) | 65 - 99 mg/dL | [facility] | + + + + + | BUN | 8 | 8 - 25 mg/dL | [facility] | + + + + + | CREATININE | 0.49 (L) | 0.50 - 1.00 mg/dL | [facility] | + + + + + | BUN/CREAT | 16 | | [facility] | + + + + + | CALCIUM | 8.0 (L) | 8.5 - 10.5 mg/dL | [facility] | + + + + + | TOTAL PROTEIN | 6.2 (L) | 6.3 - 8.2 g/dL | [facility] | + + + + + | Albumin | 2.7 (L) | 3.3 - 4.8 g/dL | [facility] | + + + + [...] 96 | 35 - 115 U/L | [facility] | + + + + + | AST | 30 | 10 - 45 U/L | [facility] | + + + + + | ALT | 32 | 10 - 65 U/L | [facility] | + + + + + | EGFR | >60Comment: GFR <60: | >60 mL/min/1.73m2 | [facility] | | | CHRONIC KIDNEY [...] the | | | | | MDRD IDWY traceable | | | | | equation.Testing | | | | | performed at [facility];[address] | | | | [facility];[place], [place] | | | | | [address] | | | + + + + + + + | Specimen | + + | Blood | + + + + + + + | Performing | Address | City/State/Zipcode | Phone Number | | Organization | | | | + + + + + | [facility] | [address] | [place] [address] | | + + + + + CBC w/auto diff (reflex to manual) (03/30/2018 11:29 PM) + + + + + | Component | Value | Ref Range | Performed At | + + + + + | WBC | 5.91 | 3.80 - 11.00 K/uL | [facility] | + + + + + | RBC | 3.38 (L) | 3.70 - 5.10 M/uL | [facility] | + + + + + | HGB | 10.9 (L) | 11.3 - 15.5 g/dL | [facility] | + + + + + | HCT | 31.7 (L) | 34.0 - 46.0 % | [facility] | + + + + + | MCV | 93.9 | 80.0 - 100.0 fl | [facility] | + + + + + | MCH | 32.4 | 27.0 - 34.0 pg | [facility] | + + + + + | MCHC | 34.5 | 32.0 - 35.5 g/dL | [facility] | + + + + + | RDW SD | 44.6 | 37 - 53 fl | [facility] | + + + + + | PLT | 93 (L) | 150 - 400 K/uL | [facility] | + + + + + | MPV | 7.6 | fl | [facility] | + + + + + | DIFF TYPE | AUTOMATED | | [facility] | + + + + + | NEUTROPHILS | 63.98 | % | [facility] | + + + + + | LYMPHOCYTES | 17.93 | % | [facility] | + + + + + | MONOCYTES | 10.01 | % | [facility] | + + + + + | EOSINOPHILS | 7.53 | % | [facility] | + + + + + | BASOPHILS | 0.55 | % | [facility] | + + + + + | NEUTROPHILS ABS | 3.78 | 1.90 - 7.40 K/uL | [facility] | + + + + + | LYMPHOCYTES ABS | 1.06 | 1.00 - 3.90 K/uL | [facility] | + + + + + | MONOCYTES ABS | 0.59 | 0.00 - 0.80 K/uL | [facility] | + + + + + | EOSINOPHILS ABS | 0.45 | 0.00 - 0.50 K/uL | [facility] | + + + + + | BASOPHILS ABS | 0.03Comment: Testing | 0.00 - 0.10 K/uL | [facility] | | | performed at [facility] [place] [facility];[address] | | | | | [address];[place] | | | | | [address] | | | + + + + + + + | Specimen | + + | Blood | + + + + + + + | Performing | Address | City/State/Zipcode | Phone Number | | Organization | | | | + + + + + | [facility] [facility] | [address] | [place] [address] | | + + + + + [...] years Female CTA HEAD NECK W | MIKKI | | WO CONTRAST 03/30/2018 11:12 PM [...] | data set was also examined with [employer] software for evaluation | | | [...] In - 03/30/2018 11:37 PM PDT STEFANI [id number] years | | FemaleCTA HEAD NECK W [...] The data set was also examined with [employer] | | software for evaluation of [...] [facility] | [address] | [place] [address] | | + + + + + X-ray Chest 1 View (03/30/2018 11:03 PM) + + + | Narrative | Performed At | + + + | This is a non-reportable procedure without a radiologist report and | [facility] | | is used for image storage only | [facility] | + + + + + + + + | Performing | Address | City/State/Zipcode | Phone Number | | Organization | | | | + + + + + | [facility] | [address] | [place] [address] | | + + + + + X-ray hip 2 view left (03/30/2018 10:50 PM) + + + | Narrative | [...] | + + + + + | [facility] | [address] | [facility] [address] | | + + + + + Prepare platelets (Blood Bank) (03/30/2018 6:47 PM) + + + + + | Component | Value | Ref Range | Performed At | + + + + + | BLOOD COMPONENT TYPE | PLATELET GROUP | | [facility] | + + + + + | UNITS ORDERED | 2 | | [facility] | + + + + + | Additional comment: | ORDER RECEIVED IN BLOOD | | [facility] | | | BANK. | | | + + + + + | UNIT NUMBER | [id number] | | [facility] | + + + + + | BLOOD COMPONENT TYPE | PLATELET PHERESIS,LD B | | [facility] | + + + + + | UNIT DIVISION | 00 | | [facility] | + + + + + | STATUS OF UNIT | ISSUED,FINAL | | [facility] | + + + + + | TRANSFUSION STATUS | OK TO TRANSFUSE | | [facility] | + + + + + | UNIT NUMBER | [id number] | | [facility] | + + + + + | BLOOD COMPONENT TYPE | PLATELET PHERESIS,LD B | | [facility] | + + + + + | UNIT DIVISION | 00 | | [facility] | + + + + + | STATUS OF UNIT | ISSUED,FINAL | | [facility] | + + + + + | TRANSFUSION STATUS | OK TO TRANSFUSETesting | | [facility] | | | performed at [facility];[address] | | | | | [address];[place] | | | | | [phone] | | | + + + + + + + | Specimen | + + | Blood | + + + + + + + | Performing | Address | City/State/Zipcode | Phone Number | | Organization | | | | + + + + + | [facility] | [address] | [place] [address] | | + + + + + POCT glucose (03/30/2018 6:42 PM) + + + + + | Component | Value | Ref Range | Performed At | + + + + + | GLUCOSE,POC SCREEN | 169 (H)Comment: Testing | 65 - 99 mg/dL | [facility] | | | performed at [facility];[address] | | | | | [address];[place] | | | | | [address] | | | + + + + + + + + + + | Performing | Address | City/State/Zipcode | Phone Number | | Organization | | | | + + + + + | [facility] | [address] | [place] [address] | | + + + + + Glycohemoglobin A1C (03/30/2018 6:31 PM) + + + + + | Component | Value | Ref Range | Performed At | + + + + + | HEMOGLOBIN A1C | 6.8 (H)Comment: The | 4.0 - 6.0 % | [facility] | | | [place] | | LABORATORY | | | [...] | 148Comment: The ADA | mg/dL | [facility] | | GLUCOSE | considers an eAG [...] | | | | | performed at [facility], [address] | | | | [facility], | | | | | [place], [place] [address] | | | + + + + + + + | Specimen | + + | Blood | + + + + + + + | Performing | Address | City/State/Zipcode | Phone Number | | Organization | | | | + + + + + | [facility] | [address] [facility] | [place] [address] | [phone] | | LABORATORY | [address] | | | + + + + + Type and screen (03/30/2018 6:31 PM) + + + + + | Component | Value | Ref Range | Performed At | + + + + + | ABO/RH(D) | A POSITIVE | | [facility] | + + + + + | ANTIBODY SCREEN | NEGATIVE | | [facility] | + + + + + | ARM BAND NUMBER | [id number] | | [facility] | | | performed at [facility];[address] | | | | | [address];[place] | | | | | [address] | | | + + + + + + + | Specimen | + + | Blood | + + + + + + + | Performing | Address | City/State/Zipcode | Phone Number | | Organization | | | | + + + + + | [facility] | [address] | [place] [address] | | + + + + + MRSA by PCR (03/30/2018 6:30 PM) + + + + + | Component | Value | Ref Range | Performed At | + + + + + | SOURCE | NARES(NOSE) | | [facility] | + + + + + | MRSA PCR | NEGATIVEComment: Testing | NEGATIVE | [facility] | | | performed at [facility];[address] | | | | | [address];[place] | | | | | [address] | | | + + + + + + + | Specimen | + + | Nasopharyngeal - | | Nasopharyngeal | | Culture | + + + + + + + | Performing | Address | City/State/Zipcode | Phone Number | | Organization | | | | + + + + + | [facility] | [address] | [place] [address] | | + + + + + in this encounter Visit Diagnoses + + | Diagnosis | + + | SDH (subdural hematoma) (HCC) - Primary | + + | Subdural hemorrhage | + + | Pain | + + | Generalized pain | + + | Thrombocytopenia (HCC) | + + | Thrombocytopenia, unspecified | + + | Chronic ITP (idiopathic thrombocytopenia) (HCC) | + + | Immune thrombocytopenic purpura | + + | Falls frequently | + + | Personal history of fall | + + | Metabolic encephalopathy | + + | Type 2 diabetes mellitus with complication (HCC) | + + | Essential hypertension | + + | Unspecified essential hypertension | + + | H/O dizziness | + + | Personal history of other specified diseases | + + Admitting Diagnoses + + | Diagnosis | + + | Thrombocytopenia (HCC) | + + | Thrombocytopenia, unspecified | + + | Pain | + + | Generalized pain | + + | Chronic ITP (idiopathic thrombocytopenia) (HCC) - Chronic ITP (idiopathic | | thrombocytopenia) (HCC) | + + | Immune thrombocytopenic purpura | + + | Subdural Hematoma | + + Administered Medications + +--------+---------+------+------+------+ | Medication Order | MAR | Action | Dose | Rate | Site | | | Action | Date | | | | + +--------+---------+------+------+------+ + +---+ | acetaminophen (TYLENOL) | | | suppository 650 mg 650 mg, | | | Rectal, Every 6 Hours PRN, Mild | | | Pain (1-3), Fever, Starting Tue | | | 03/30/18 at 1811 | | + +---+ | | | + +---+ + +-------+ +--------+---+---+ | acetaminophen (TYLENOL) tablet | Given | | 650 mg | | | | 650 mg 650 mg, Oral, Every 6 | | 8 19:57 | | | | | Hours PRN, Mild Pain (1-3), | | PDT | | | | | Fever, Starting 03/30/18 at | | | | | | | 1811 | | | | | | + +-------+ +--------+---+---+ +-------+ +--------+---+---+ | Given | | 650 mg | | | | | 8 19:58 | | | | | | PDT | | | | +-------+ +--------+---+---+ +---+---+ | | | +---+---+ + +-------+ +--------+---+---+ | acetaminophen (TYLENOL) tablet | Given | | 650 mg | | | | 650 mg 650 mg, Oral, Once, Fri | | 8 10:47 | | | | | 04/02/18 at 0930, For 1 dose | | PDT | | | | + +-------+ +--------+---+---+ +---+---+ | | | +---+---+ + +-------+ +--------+---+---+ | cholecalciferol (VITAMIN D-3) | Given | | 2,000 | | | | tablet 2,000 Units 2,000 Units, | | 8 10:47 | Units | | | | Oral, Daily, First dose on Fri | | PDT | | | | | 04/02/18 at 0900 | | | | | | + +-------+ +--------+---+---+ + +---+ | | | + +---+ | dextrose 10 % infusion at | | | 0-100 mL/hr, Intravenous, | | | Continuous PRN, Hypoglycemia, | | | Starting 03/31/18 at 0914, For | | | BG 70 or less run infusion at | | | 100 mL/ hr. Discontinue when BG | | | increases to 100 mg/dl or greater | | | x 2-3 hours and patient is | | | eating. Call provider if BG not | | | maintained after 2-3 hours. | | + +---+ | | | + +---+ | dextrose 50 % solution 12 mL | | | 12 mL, Intravenous, PRN, | | | Hypoglycemia (BG < 70 mg/dL), | | | Starting Thu03/31/18 at 0914 | | + +---+ | | | + +---+ | dextrose 50 % solution 25 mL | | | 25 mL, Intravenous, PRN, | | | Hypoglycemia (BG < 70 mg/dL), | | | Starting Thu03/31/18 at 0914 | | + +---+ | | | + +---+ + +-------+ +---------+---+---+ | diphenhydrAMINE (BENADRYL) | Given | | 12.5 mg | | | | injection 12.5 mg 12.5 mg, | | 8 12:32 | | | | | Intravenous, Once, 04/02/18 at | | PDT | | | | | 0930, For 1 dose | | | | | | + +-------+ +---------+---+---+ + +---+ | | | + +---+ | glucagon (GLUCAGEN) injection | | | 0.5 mg 0.5 mg, Intramuscular, | | | PRN, Hypoglycemia, (BG < 70 | | | mg/dL), Starting 03/31/18 at | | | 0914 | | + +---+ | | | + +---+ | glucagon (GLUCAGEN) injection 1 | | | mg 1 mg, Intramuscular, PRN, | | | Hypoglycemia, (BG < 70 mg/dL), | | | Starting 03/31/18 at 0914 | | + +---+ | | | + +---+ + +-------+ + +---+---+ | HYDROcodone-acetaminophen | Given | | 1 tablet | | | | (NORCO) 5-325 MG per tablet 1 | | 8 15:49 | | | | | tablet 1 tablet, Oral, Every 6 | | PDT | | | | | Hours PRN, Moderate Pain (4-6), | | | | | | | Starting 03/31/18 at 1345 | | | | | | + +-------+ + +---+---+ +-------+ + +---+---+ | Given | | 1 tablet | | | | | 8 22:11 | | | | | | PDT | | | | +-------+ + +---+---+ | Given | | 1 tablet | | | | | 8 13:55 | | | | | | PDT | | | | +-------+ + +---+---+ +---+---+ | | | +---+---+ + +---------+ +------+---+---+ | immune globulin (Human) | New Bag | | 20 g | | | | (GAMUNEX-C) infusion 20 g 20 g, | | 8 15:11 | | | | | Intravenous, Once, [facility] 03/31/18 at | | PDT | | | | | 1330, For 1 dose, Recommended | | | | | | | initial infusion rate is 1 | | | | | | | mg/kg/min. May gradually increase | | | | | | | by 0.5 mg/kg/min increments | | | | | | | every 15 minutes to max rate of 8 | | | | | | | mg/kg/min. | | | | | | + +---------+ +------+---+---+ +---+---+ | | | +---+---+ + +---------+ +------+---+---+ | immune globulin (Human) | New Bag | | 20 g | | | | (GAMUNEX-C) infusion 20 g 20 g, | | 8 14:56 | | | | | Intravenous, Once, [facility] 04/01/18 at | | PDT | | | | | 1300, For 1 dose, Recommended | | | | | | | initial infusion rate is 1 | | | | | | | mg/kg/min. May gradually increase | | | | | | | by 0.5 mg/kg/min increments | | | | | | | every 15 minutes to max rate of 8 | | | | | | | mg/kg/min. | | | | | | + +---------+ +------+---+---+ +---+---+ | | | +---+---+ + +---------+ +------+---+---+ | immune globulin (Human) | New Bag | | 20 g | | | | (GAMUNEX-C) infusion 20 g 20 g, | | 8 12:32 | | | | | Intravenous, Once, 04/02/18 at | | PDT | | | | | 1000, For 1 dose, Recommended | | | | | | | initial infusion rate is 1 | | | | | | | mg/kg/min. May gradually increase | | | | | | | by 0.5 mg/kg/min increments | | | | | | | every 15 minutes to max rate of 8 | | | | | | | mg/kg/min. | | | | | | + +---------+ +------+---+---+ +---+---+ | | | +---+---+ + +---------+ +-----+---+---+ | immune globulin (Human) | New Bag | | 5 g | | | | (GAMUNEX-C) infusion 5 g 5 g, | | 8 15:33 | | | | | Intravenous, Once, [facility] 03/31/18 at | | PDT | | | | | 1330, For 1 dose, Recommended | | | | | | | initial infusion rate is 1 | | | | | | | mg/kg/min. May gradually increase | | | | | | | by 0.5 mg/kg/min increments | | | | | | | every 15 minutes to max rate of 8 | | | | | | | mg/kg/min. | | | | | | + +---------+ +-----+---+---+ +---+---+ | | | +---+---+ + +---------+ +-----+---+---+ | immune globulin (Human) | New Bag | | 5 g | | | | (GAMUNEX-C) infusion 5 g 5 g, | | 8 14:11 | | | | | Intravenous, Once, [facility] 04/01/18 at | | PDT | | | | | 1300, For 1 dose, Recommended | | | | | | | initial infusion rate is 1 | | | | | | | mg/kg/min. May gradually increase | | | | | | | by 0.5 mg/kg/min increments | | | | | | | every 15 minutes to max rate of 8 | | | | | | | mg/kg/min. | | | | | | + +---------+ +-----+---+---+ +---+---+ | | | +---+---+ + +---------+ +-----+---+---+ | immune globulin (Human) | New Bag | | 5 g | | | | (GAMUNEX-C) infusion 5 g 5 g, | | 8 12:38 | | | | | Intravenous, Once, 04/02/18 at | | PDT | | | | | 1000, For 1 dose, Recommended | | | | | | | initial infusion rate is 1 | | | | | | | mg/kg/min. May gradually increase | | | | | | | by 0.5 mg/kg/min increments | | | | | | | every 15 minutes to max rate of 8 | | | | | | | mg/kg/min. | | | | | | + +---------+ +-----+---+---+ +---+---+ | | | +---+---+ + +-------+ + +---+---+ | insulin detemir (LEVEMIR) | Given | | 10 Units | | | | injection 10 Units 10 Units, | | 8 10:13 | | | | | Subcutaneous, 2 Times Daily, | | PDT | | | | | First dose on Thu03/31/18 at 1730 | | | | | | + +-------+ + +---+---+ +-------+ + +---+---+ | Given | | 10 Units | | | | | 8 22:12 | | | | | | PDT | | | | +-------+ + +---+---+ | Given | | 10 Units | | | | | 8 07:57 | | | | | | PDT | | | | +-------+ + +---+---+ +---+---+ | | | +---+---+ + +-------+ +---------+---+---+ | insulin lispro (human) | Given | | 1 Units | | | | (HUMALOG) injection 0-3 Units | | 8 20:45 | | | | | 0-3 Units, Subcutaneous, Nightly, | | PDT | | | | | First dose on Thu03/31/18 at | | | | | | | 2200 | | | | | | + +-------+ +---------+---+---+ +-------+ +---------+---+---+ | Given | | 1 Units | | | | | 8 22:13 | | | | | | PDT | | | | +-------+ +---------+---+---+ +---+---+ | | | +---+---+ + +-------+ +---------+---+---+ | insulin lispro (human) | Given | | 1 Units | | | | (HUMALOG) injection 0-6 Units | | 8 11:00 | | | | | 0-6 Units, Subcutaneous, 3 Times | | PDT | | | | | Daily Before Meals, First dose on | | | | | | | 03/31/18 at 1130 | | | | | | + +-------+ +---------+---+---+ +-------+ +---------+---+---+ | Given | | 3 Units | | | | | 8 16:07 | | | | | | PDT | | | | +-------+ +---------+---+---+ | Given | | 2 Units | | | | | 8 12:27 | | | | | | PDT | | | | +-------+ +---------+---+---+ +---+---+ | | | +---+---+ + +-------+ +--------+---+---+ | iopamidol (ISOVUE-370) 76 % | Given | | 70 mLs | | | | injection 100 mL 100 mL, | | 8 23:13 | | | | | Intravenous, Img Once PRN, Other, | | PDT | | | | | Starting 03/30/18 at 2258, | | | | | | | For 1 dose | | | | | | + +-------+ +--------+---+---+ +---+---+ | | | +---+---+ + +-------+ + +---+---+ | levETIRAcetam (KEPPRA) tablet | Given | | 1,000 mg | | | | 1,000 mg 1,000 mg, Oral, 2 Times | | 8 10:13 | | | | | Daily, First dose on Thu03/31/18 | | PDT | | | | | at 1700 | | | | | | + +-------+ + +---+---+ +-------+ + +---+---+ | Given | | 1,000 mg | | | | | 8 19:59 | | | | | | PDT | | | | +-------+ + +---+---+ | Given | | 1,000 mg | | | | | 8 07:54 | | | | | | PDT | | | | +-------+ + +---+---+ +---+---+ | | | +---+---+ + +-------+ +------+---+---+ | lisinopril (ZESTRIL) tablet 5 | Given | | 5 mg | | | | mg 5 mg, Oral, Daily, First dose | | 8 07:54 | | | | | on Thu04/02/18 at 0900 | | PDT | | | | + +-------+ +------+---+---+ + +---+ | | | + +---+ | magnesium sulfate 1 g/50 mL | | | IVPB 1 g, Intravenous, | | | Administer over 1 Hours, PRN, for | | | serum magnesium 1.9 to 2.1, | | | Starting 03/30/18 at 1812, | | | Recheck level immediately after | | | replacement and next am unless | | | previously ordered. | | + +---+ | | | + +---+ | magnesium sulfate 2 g/50 mL | | | IVPB 2 g, Intravenous, | | | Administer over 2 Hours, PRN, for | | | serum magnesium 1.6 to 1.8, | | | Starting 03/30/18 at 1812, | | | Recheck level immediately after | | | replacement and next am unless | | | previously ordered. | | + +---+ | | | + +---+ | magnesium sulfate 3 g/50 mL | | | IVPB 3 g, Intravenous, | | | Administer over 3 Hours, PRN, for | | | serum magnesium 1.2 to 1.5, | | | Starting 03/30/18 at 1812, | | | Recheck level immediately after | | | replacement and next am unless | | | previously ordered. | | + +---+ | | | + +---+ | magnesium sulfate IVPB 4 g 4 | | | g, Intravenous, Administer over 4 | | | Hours, PRN, for serum magnesium | | | less than or equal to 1.1, | | | Starting [facility] 03/30/18 at 1812, | | | Recheck level immediately after | | | replacement and next am unless | | | previously ordered. | | + +---+ | | | + +---+ + +-------+ +-------+---+---+ | metoprolol (LOPRESSOR) tablet | Given | | 25 mg | | | | 25 mg 25 mg, Oral, 2 Times | | 8 10:13 | | | | | Daily, First dose on [facility] 04/01/18 | | PDT | | | | | at 1000 | | | | | | + +-------+ +-------+---+---+ +-------+ +-------+---+---+ | Given | | 25 mg | | | | | 8 19:58 | | | | | | PDT | | | | +-------+ +-------+---+---+ | Given | | 25 mg | | | | | 8 07:54 | | | | | | PDT | | | | +-------+ +-------+---+---+ +---+---+ | | | +---+---+ + +-------+ +------+---+---+ | midazolam (VERSED) injection 4 | Given | | 4 mg | | | | mg 4 mg, Intravenous, Once, Tue | | 8 22:47 | | | | | 03/30/18 at 2300, For 1 dose | | PDT | | | | + +-------+ +------+---+---+ +---+---+ | | | +---+---+ + +---------+ +---------+ +---+ | niCARdipine in NaCl (CARDENE) | New Bag | | 5 mg/hr | 50 mL/hr | | | 100 mcg/mL infusion 0-15 mg/hr | | 8 22:44 | | | | | (0-150 mL/hr), Intravenous, at | | PDT | | | | | 0-150 mL/hr, Titrated, Starting | | | | | | | 03/30/18 at 1900, Initiate | | | | | | | infusion for SBP great than 160 | | | | | | | mmHg or DPB greater than 105 | | | | | | | mmHg. In emergent situations, | | | | | | | more rapid titration may be | | | | | | | clinically indicated. | | | | | | + +---------+ +---------+ +---+ + + +---------+ +---+ | New Bag | | 5 mg/hr | 50 mL/hr | | | | 8 02:48 | | | | | | PDT | | | | + + +---------+ +---+ | Rate/Dose Change | | 2.5 | 25 mL/hr | | | | 8 05:19 | mg/hr | | | | | PDT | | | | + + +---------+ +---+ +---+---+ | | | +---+---+ + +-------+ +------+---+---+ | ondansetron (ZOFRAN) injection | Given | | 4 mg | | | | 4 mg 4 mg, Intravenous, Every 6 | | 8 19:57 | | | | | Hours PRN, Nausea, Vomiting, | | PDT | | | | | Starting 03/30/18 at 1811 | | | | | | + +-------+ +------+---+---+ +-------+ +------+---+---+ | Given | | 4 mg | | | | | 8 08:58 | | | | | | PDT | | | | +-------+ +------+---+---+ + +---+ | | | + +---+ | ondansetron (ZOFRAN-ODT) | | | disintegrating tablet 4 mg 4 mg, | | | Oral, Every 6 Hours PRN, Nausea, | | | Vomiting, Starting 03/30/18 | | | at 1811 | | + +---+ | | | + +---+ | phosphorus (K PHOS NEUTRAL) | | | tablet 500 mg 500 mg, Oral, PRN, | | | for serum phosphate 2 to 2.2 (if | | | patient able to tolerate oral), | | | Starting [facility] 03/30/18 at 1812 | | + +---+ | | | + +---+ | potassium chloride 20 mEq in | | | 250 mL IVPB 20 mEq, Intravenous, | | | Administer over 2 Hours, PRN, | | | for serum potassium 3.8 to 4, | | | Starting [facility] 03/30/18 at 1812, 1) | | | Recheck level immediately after | | | replacement and next am unless | | | previously ordered. 2) Contact | | | physician if K+ > 5 or < 3. 3) If | | | any present contact physician | | | and verify use of protocol: | | | Dialysis, TPN, crush injury, | | | tumor lysis syndrome, hemolysis, | | | burn, rhabdomyolysis, DKA, UO | | | < 0.5ml/kg or 30 ml/hr x 2 | | | hours or Creatinine > 2 mg/dl. | | + +---+ | | | + +---+ | potassium chloride 40 mEq in | | | 520 mL IVPB 40 mEq, Intravenous, | | | Administer over 4 Hours, PRN, | | | for serum potassium 3.5 to 3.7, | | | Starting Thu03/30/18 at 1812, 1) | | | Recheck level immediately after | | | replacement and next am unless | | | previously ordered. 2) Contact | | | physician if K+ > 5 or < 3. 3) If | | | any present contact physician | | | and verify use of protocol: | | | Dialysis, TPN, crush injury, | | | tumor lysis syndrome, hemolysis, | | | burn, rhabdomyolysis, DKA, UO < | | | 0.5ml/kg or 30 ml/hr x 2 hours or | | | Creatinine > 2 mg/dl. | | + +---+ | | | + +---+ + +-------+ +--------+-------+---+ | potassium chloride 60 mEq in | Given | | 60 mEq | 88.3 | | | 530 mL IVPB 60 mEq, Intravenous, | | 8 02:54 | | mL/hr | | | Administer over 6 Hours, PRN, | | PDT | | | | | for serum potassium less than | | | | | | | 3.5, Starting Thu03/30/18 at | | | | | | | 1812, 1) Recheck level | | | | | | | immediately after replacement and | | | | | | | next am unless previously | | | | | | | ordered. 2) Contact physician if | | | | | | | K+ > 5 or < 3. 3) If any present | | | | | | | contact physician and verify use | | | | | | | of protocol: Dialysis, TPN, | | | | | | | crush injury, tumor lysis | | | | | | | syndrome, hemolysis, burn, | | | | | | | rhabdomyolysis, DKA, UO < | | | | | | | 0.5ml/kg or 30 ml/hr x 2 hours or | | | | | | | Creatinine > 2 mg/dl. | | | | | | + +-------+ +--------+-------+---+ +---+---+ | | | +---+---+ + +-------+ +-------+---+---+ | sitaGLIPtin (JANUVIA) tablet 50 | Given | | 50 mg | | | | mg 50 mg, Oral, Daily, First | | 8 12:21 | | | | | dose on [facility] 04/01/18 at 1000 | | PDT | | | | + +-------+ +-------+---+---+ +-------+ +-------+---+---+ | Given | | 50 mg | | | | | 8 10:49 | | | | | | PDT | | | | +-------+ +-------+---+---+ + +---+ | | | + +---+ | sodium phosphates 15 mmol in | | | sodium chloride (IV) 0.9 % 100 mL | | | IVPB 15 mmol, Intravenous, | | | Administer over 1.5 Hours, PRN, | | | for serum phosphate 2 to 2.2 , | | | Starting 03/30/18 at 1812, | | | Recheck level: immediately after | | | replacement and next am lab draw | | | unless previously ordered. | | + +---+ | | | + +---+ | sodium phosphates 30 mmol in | | | sodium chloride (IV) 0.9 % 100 mL | | | IVPB 30 mmol, Intravenous, | | | Administer over 3 Hours, PRN, for | | | serum phosphate less than 2, | | | Starting 03/30/18 at 1812, | | | Recheck level: immediately after | | | replacement and next am lab draw | | | unless previously ordered. | | + +---+ | | | + +---+ in this encounter
--- OUTSIDE RECORDS SUMMARY | ~2018-05-11 | XMS | Encounter Summary ---
Demographics + + + | Address | [address] | | | [place] [address] | + + + | Home Phone | | + + + | Preferred Language | Unknown | + + + | Marital Status | | + + + | Mormon Affiliation | 1076 | + + + | Race | Unknown | + + + | Ethnic Group | Unknown | + + + Author + + + | Author | [facility] | + + + | Organization | [facility] | + + + | Address | Unknown | + + + | Phone | Unavailable | + + + Support + + + + + | Name | Relationship | Address | Phone | + + + + + | Jamaal Parra | ELSY | [address] | | | [place] | | [place] | | | | | [address] | | + + + + + Care Team Providers + +------+ + | Care Weigher Packing Name | Role | Phone | + +------+ + | Vince Cintron DO | PCP | | + +------+ + Encounter Details +--------+ + + + + | Date | Type | Department | Care Team | Description | +--------+ + + + + | 03/31/ | Orders Only | [facility] | Jennifer Paulson, | | | 2018 | | Hematology and | [address] | | | | Oncology [address] | | | | | [address] | [place] [address] | | | | | [place] | [phone] | | | | | [address] | | | | | | [phone] | | | +--------+ + + + [...]
--- OUTSIDE RECORDS SUMMARY | ~2018-05-11 | XMS | Encounter Summary ---
Demographics + + + | Address | [address] | | | [place] [address] | + + + | Home Phone | | + + + | Preferred Language | Unknown | + + + | Marital Status | | + + + | Yazidism Affiliation | [id number] | + + + | Race | Unknown | + + + | Ethnic Group | Unknown | + + + Author + + + | Author | [facility] | + + + | Organization | [facility] | + + + | Address | Unknown | + + + | Phone | Unavailable | + + + Support + + + + + | Name | Relationship | Address | Phone | + + + + + | Stefani Bhatia | ELSY | [address] | | | [place] | | [place] | | | | | [address] | | + + + + + Care Team Providers + +------+ + | Care Survey Manager Name | Role | Phone | + +------+ + | Vince Cintron DO | PCP | | + +------+ + Encounter Details +--------+ + + + + | Date | Type | Department | Care Team | Description | +--------+ + + + + | 04/02/ | Hospital | [facility] | Missy Rivera, | Chronic ITP | | 2018 - | Encounter | [facility] | MD [address] | (idiopathic | | | | Inpatient Rehab [address] | [address] [place] | thrombocytopenia) | | 04/14/ | | [address] | [phone] | ([facility]); Essential | | 2018 | | [place] [address] | [phone] | hypertension; Falls | | | | [phone] | | frequently; Gait | | | | | Wing Tyshawn Quintero MD | disorder; H/O | | | | | [address] | dizziness; SDH | | | | | [place] [address] | (subdural hematoma) | | | | | [phone] | (HCC); Subarachnoid | | | | | | hemorrhage following | | | | | | injury without open | | | | | | intracranial wound | | | | | | and with no loss of | | | | | | consciousness, | | | | | | sequela ([facility]); | | | | | | Thrombocytopenia | | | | | | ([facility]); 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 [facility] Service: Physical Medicine & Rehab Discharge Summary [...] and has been seeing an Oncologist in [place]. She is a poor historian but does report falls. She could not figure out what happened but i mplied that her dogs might have caused her falls. 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 DATA PLAN the patient is ready for discharge home. Disposition: Home Condition: Good Code Status: Prior No discharge procedures on file. Follow up: DO JULIO Sherman [address] [place] [id number] Follow up Please follow-up with your primary care provider within 1-2 weeks after discharge. Neurology Follow up Please follow-up with a neurologist. [facility] [address] [place] [id number] Follow up A referral was made to [...] e and it works. Date Last Reviewed: 02/15/201619998212-5826 [employer]. [address] [place] [address]. All righ ts reserved. This information is not intended as a substitute for professional medical care. Always follow your healthcare professional's instructions. A 4 wheel walker was obtained from [facility] in [place] (ph [phone]). If you have any issues with the [...] note may be different from the original. [facility] Service: Internal Medicine Progress Note Hospital Day: [...] Chronic ITP. PLTs stable since admission to [facility]. Plan as per Heme. 5. Lower [...] alls, and possible syncope. . F/U with environmental science technician after discharge. Possible c 9. Disposition. SW to assist with discharge planning. Estimated discharge date 03/18. MISSY RIVERA MD 04/12/2018 Galilea Christianson, RD - 04/12/2018 4:04 PM PDTFormatting of this note may be different from t seda original. 04/12/18 7545 Subjective Timepoint Follow up Pt c/o Pt intake improved, no c/o's. Fluid / Beverage Intake Oral Fluids Amount ad morris thins Liquid Meal Replacement or Supplement politely declines supplement Food Intake Amount of Food eating average 70% meals over the past week Type of Food / Meals [facility] [place] working with pt - now on dysphagia advanced/thins for mild aspirat ion risk Meal / Snack Pattern house trays Nutrition-Focused Physical Findings Digestive System (Mouth to Rectum) mild aspiration risk - working with [facility] [place] Biochemical data, medical tests, and procedures reviewed Biochemical data, medical tests, and procedures reviewed labs reviewed Recommendations Recommended energy needs Continue diet as Rx'd, texture per [facility], with house trays. Will f/ u weekly and offer oral nutrition supplements if po intake decreases. Nutritional Risk Nutritional risk Low Follow up date 04/19/18 NICOLE Kruse Barbara, MD - 04/11/2018 5:34 PM PDTFormatting of this note may be different from the original. [facility] Service: Physical Medicine and Rehab Progress Note Hospital Day: LOS: 9 days Post-Op Day: * No surgery found * SUBJECTIVE Patient Summary: history of chronic thrombocytopenia(ITP), Diabetes, HTN, anxiety, and depressionwho presents with hx of frequent falls, confusion, Left Subdural Hematoma. Events Overnight: pt ambulated in hallway with RN and with PERFORATOR LOADER this morning. Contin ued c/o leg pain bilaterally. Mild Lower backache. No SOB or CP. Pt telling nurse that she is going home tomorrow. She refused [facility] in [place]. She thinks she is going home and [...] Chronic ITP. PLTs stable since admission to [facility]. Plan as per Heme. 5. Left [...] note may be different from the original. [facility] Service: Physical Medicine and Rehab Progress Note [...] planning. MISSY RIVERA MD 04/10/2018 Gisel Davies, MCKAYLA-[facility] [place] - 04/10/2018 9:00 AM PDTSPEECH - LANGUAGE - COGNITION [facility] [place] Received On: 04/10/18 Requires [facility] [place] Follow Up: Yes Treatment Plan: Continue with [...] evidence of learning [] Refused Gisel Davies CCC-[facility] [place] Wing Tyshawn Quintero MD - 04/09/2018 7:53 AM PDTFormatting of this note may be different from the original. [facility] Service: Physical Medicine & Rehab Progress Note [...] skin pain sleep. Wing Louisa Quintero MD 04/09/20187:53 AM Wing Tyshawn Quintero MD - 04/08/2018 11:52 AM PDTFormatting of this note may be different from the original. [facility] Service: Physical Medicine & Rehab Progress Note [...] may be differe nt from the original. [facility] Service: Hematology and Oncology Progress Note Hospital Day: LOS: 6 days Patient Summary: Ms. Stefani Bhatia is a 67 year old woman with a history of chronic thrombocytopenia followed by Dr. Green in [place] in addition to progressive confusion, gait inst ability, and multiple falls who apparently fell approximately two weeks prior to admission, hitting the back of her head. She was transported to [facility] in [facility] 2017 secondary to increased confusion and agitation after her most recent fall and fo und to have from cytopenia with platelet level 65,000. CT of the head was performed revealin g a subdural hematoma along the left tentorium and the patient was transferred to [facility] for f urther management and admitted to ICU. She is transitioned to hospitalist services March. The patient was given IVIG 400 mg/kg IV March 31-2017. She was transferred to [facility] April 02, 2018. Hematological opinion [...] thrombocytopenia followed by Dr. Milton dominguez at [facility] in [place], [place]. She is now admitted with subdural [...] may be di fferent from the original. [facility] Service: Physical Medicine & Rehab Progress Note [...] seemed somewhat relieved by this conversation, thanking [facility] for visit. Shannon Wick RD - 04/05/2018 [...] note may be different from the original. [facility] Service: Physical Medicine and Rehab Progress Note [...] disc disease with radiculopathy [facility] 67 [facility] Female with Hx of [...] IVIG x 2 prior to transfer to [facility]. Plts sli ghtly better today. Plan [...] may be elaina nt from the original. [facility] Service: Hematology and Oncology Progress Note Hospital Day: LOS: 3 days Patient Summary: Ms. Stefani Bhatia is a 67 year old woman with a history of chronic thrombocytopenia followed by Dr. Green in [place] in addition to progressive confusion, gait inst ability, and multiple falls who apparently fell approximately two weeks prior to admission, hitting the back of her head. She was transported to [facility] in [facility] 2017 secondary to increased confusion and agitation after her most recent fall and fo und to have from cytopenia with platelet level 65,000. CT of the head was performed revealin g a subdural hematoma along the left tentorium and the patient was transferred to [facility] for f urther management and admitted to ICU. She is transitioned to hospitalist services March. The patient was given IVIG 400 mg/kg IV March 31-2017. She was transferred to [facility] April 02, 2018. Hematological opinion [...] thrombocytopenia followed by Dr. Milton dominguez at [facility] in [place], [place]. She is now admitted with subdural [...] note may be different from the original. [facility] Service: Physical Medicine and Rehab Progress Note [...] to . He is working for the [employer] for [employer]. This is his busy season and he works 12 hours a day. He admits that pt has been confused for at least a franklin h and a half. He believes her fall was 3 weeks ago. She was alone and laid on the ground f or 3 hrs before she was able to get up. This is when she injured her neck. Nrfnoe-md-qnu is visiting pt and says that patient has been confused a long time. 1 1/2 yr s ago they were at pt's cabin in [place]. She fell fracturing ribs. She was extremely confu sed. Lcdkhl-ab-lrt called pt's to come get her because [...] while she was having dental implants but ceeffu-xm-quo thinks she forget s to eat. Scheduled [...] PT and OT. 3. Cognitive Dysfunction. Continue [facility] [place] Therapy. 4. Chronic ITP. Pt recd 2 units Plts and IVIG x 2 prior to transfer to [facility]. Plts sli ghtly better today. Plan [...] note may be different from the original. [facility] Service: Internal Medicine Progress Note Hospital Day: [...] and proprioception intact in all 4 extremities. 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 DATA CBC: Lab Results [...] Apr 2017 but is worse no w. [facility] [place] evaluation and therapy 4. Chronic ITP. Pt [...] Testing | 0.00 - 0.10 K/uL | [facility] | | | performed at [facility], [address] | | LABORATORY | | | [address], | | | | | [place] [address] | | | + + + + + + + | Specimen | + + | Blood | + + + + + + + | Performing | Address | City/State/Zipcode | Phone Number | | Organization | | | | + + + + + | [facility] | [address] | [place] [address] | [phone] | | LABORATORY | [address] | | | + + + + + POCT glucose (04/14/2018 5:34 AM) + + + + + | Component | Value | Ref Range | Performed At | + + + + + | GLUCOSE,POC SCREEN | 97Comment: Testing | 65 - 99 mg/dL | [facility] | | | performed at [facility];[address] | | | [address];[place], [place] | | | | | [address] | | | + + + + + + + + + + | Performing | Address | City/State/Zipcode | Phone Number | | Organization | | | | + + + + + | [facility] | [address] | [place] [address] | | + + + + + POCT glucose (04/13/2018 6:22 AM) + + + + + | Component | Value | Ref Range | Performed At | + + + + + | GLUCOSE,POC SCREEN | 112 (H)Comment: Testing | 65 - 99 mg/dL | [facility] | | | performed at [facility];[address] | | | | | [address];[place] | | | | | [address] | | | + + + + + + + + + + | Performing | Address | City/State/Zipcode | Phone Number | | Organization | | | | + + + + + | [facility] | [address] | [place] [address] | | + + + + + POCT glucose (04/12/2018 8:27 PM) + + + + + | Component | Value | Ref Range | Performed At | + + + + + | GLUCOSE,POC SCREEN | 223 (H)Comment: Testing | 65 - 99 mg/dL | [facility] | | | performed at [facility];[address] | | [address];[place], [place] | | | | | [address] | | | + + + + + + + + + + | Performing | Address | City/State/Zipcode | Phone Number | | Organization | | | | + + + + + | [facility] | [address] | [place] [address] | | + + + + + POCT glucose (04/12/2018 4:22 PM) + + + + + | Component | Value | Ref Range | Performed At | + + + + + | GLUCOSE,POC SCREEN | 146 (H)Comment: Testing | 65 - 99 mg/dL | [facility] | | | performed at [facility];[address] | | | | | [address];[place] | | | | | [address] | | | + + + + + + + + + + | Performing | Address | City/State/Zipcode | Phone Number | | Organization | | | | + + + + + | [facility] | [address] | [place] [address] | | + + + + + POCT glucose (04/12/2018 11:53 AM) + + + + + | Component | Value | Ref Range | Performed At | + + + + + | GLUCOSE,POC SCREEN | 222 (H)Comment: Testing | 65 - 99 mg/dL | [facility] | | | performed at [facility];[address] | | | | | [address];[place], [place] | | | | | [address] | | | + + + + + + + + + + | Performing | Address | City/State/Zipcode | Phone Number | | Organization | | | | + + + + + | [facility] | [address] | [place] [address] | | + + + + + POCT glucose (04/12/2018 6:28 AM) + + + + + | Component | Value | Ref Range | Performed At | + + + + + | GLUCOSE,POC SCREEN | 103 (H)Comment: Testing | 65 - 99 mg/dL | [facility] | | | performed at [facility];[address] | | | | | [address];[place] | | | | | [address] | | | + + + + + + + + + + | Performing | Address | City/State/Zipcode | Phone Number | | Organization | | | | + + + + + | [facility] | [address] | [place] [address] | | + + + + + POCT glucose (04/11/2018 8:47 PM) + + + + + | Component | Value | Ref Range | Performed At | + + + + + | GLUCOSE,POC SCREEN | 224 (H)Comment: Testing | 65 - 99 mg/dL | [facility] | | | performed at [facility];[address] | | | | | [address];[place] | | | | | [address] | | | + + + + + + + + + + | Performing | Address | City/State/Zipcode | Phone Number | | Organization | | | | + + + + + | [facility] | [address] | [place] [address] | | + + + + + POCT glucose (04/11/2018 4:36 PM) + + + + + | Component | Value | Ref Range | Performed At | + + + + + | GLUCOSE,POC SCREEN | 121 (H)Comment: Testing | 65 - 99 mg/dL | [facility] | | | performed at [facility];[address] | | | | | [address];[place] | | | | | [address] | | | + + + + + + + + + + | Performing | Address | City/State/Zipcode | Phone Number | | Organization | | | | + + + + + | [facility] | [address] | [place] [address] | | + + + + + POCT glucose (04/11/2018 11:41 AM) + + + + + | Component | Value | Ref Range | Performed At | + + + + + | GLUCOSE,POC SCREEN | 123 (H)Comment: Testing | 65 - 99 mg/dL | [facility] | | | performed at [facility];[address] | | | | | [address];[place] | | | | | [address] | | | + + + + + + + + + + | Performing | Address | City/State/Zipcode | Phone Number | | Organization | | | | + + + + + | [facility] | [address] | [place] [address] | | + + + + + POCT glucose (04/11/2018 6:02 AM) + + + + + | Component | Value | Ref Range | Performed At | + + + + + | GLUCOSE,POC SCREEN | 126 (H)Comment: Testing | 65 - 99 mg/dL | [facility] | | | performed at [facility];[address] | | | | | [address] [facility];[place], [place] | | | | | [address] | | | + + + + + + + + + + | Performing | Address | City/State/Zipcode | Phone Number | | Organization | | | | + + + + + | [facility] | [address] | [place] [address] | | + + + + + [...] | [facility] | | | performed at [facility], [address] | | LABORATORY | | | [address], | | | | | [place] [address] | | | + + + + + + + | Specimen | + + | Blood | + + + + + + + | Performing | Address | City/State/Zipcode | Phone Number | | Organization | | | | + + + + + | [facility] | [address] | [place] [address] | [phone] | | LABORATORY | [address] | | | + + + + + POCT glucose (04/10/2018 8:46 PM) + + + + + | Component | Value | Ref Range | Performed At | + + + + + | GLUCOSE,POC SCREEN | 254 (H)Comment: Testing | 65 - 99 mg/dL | [facility] | | | performed at [facility];[address] | | | | | [address];[place] | | | | | [address] | | | + + + + + + + + + + | Performing | Address | City/State/Zipcode | Phone Number | | Organization | | | | + + + + + | [facility] | [address] | [place] [address] | | + + + + + POCT glucose (04/10/2018 4:31 PM) + + + + + | Component | Value | Ref Range | Performed At | + + + + + | GLUCOSE,POC SCREEN | 93Comment: Testing | 65 - 99 mg/dL | [facility] | | | performed at [facility];[address] | | | | | [address];[place], [place] | | | | | [address] | | | + + + + + + + + + + | Performing | Address | City/State/Zipcode | Phone Number | | Organization | | | | + + + + + | [facility] | [address] | [place] [address] | | + + + + + POCT glucose (04/10/2018 11:31 AM) + + + + + | Component | Value | Ref Range | Performed At | + + + + + | GLUCOSE,POC SCREEN | 301 (H)Comment: Testing | 65 - 99 mg/dL | [facility] | | | performed at [facility];[address] | | | | | [address];[place] | | | | | [address] | | | + + + + + + + + + + | Performing | Address | City/State/Zipcode | Phone Number | | Organization | | | | + + + + + | [facility] | [address] | [place] [address] | | + + + + + POCT glucose (04/10/2018 5:54 AM) + + + + + | Component | Value | Ref Range | Performed At | + + + + + | GLUCOSE,POC SCREEN | 132 (H)Comment: Testing | 65 - 99 mg/dL | [facility] | | | performed at [facility];[address] | | | | | [address];[place] | | | | | [address] | | | + + + + + + + + + + | Performing | Address | City/State/Zipcode | Phone Number | | Organization | | | | + + + + + | [facility] | [address] | [place] [address] | | + + + + + [...] >60Comment: GFR <60: | >60 mL/min/1.73m2 | [facility] | | | CHRONIC KIDNEY DISEASE, | [...] the | | | | | MDRD IDOR traceable | | | | | equation.Testing | | | | | performed at [facility], [address] | | | | | [facility] [place], | | | | | [place] [address] | | | + + + + + + + | Specimen | + + | Blood | + + + + + + + | Performing | Address | City/State/Zipcode | Phone Number | | Organization | | | | + + + + + | [facility] | [address] | [place] [address] | [phone] | | LABORATORY | [address] | | | + + + + + POCT glucose (04/09/2018 8:54 PM) + + + + + | Component | Value | Ref Range | Performed At | + + + + + | GLUCOSE,POC SCREEN | 185 (H)Comment: Testing | 65 - 99 mg/dL | [facility] | | | performed at [facility];[address] | | | | | [address];[place] | | | | | [address] | | | + + + + + + + + + + | Performing | Address | City/State/Zipcode | Phone Number | | Organization | | | | + + + + + | [facility] | [address] | [place] [address] | | + + + + + POCT glucose (04/09/2018 4:39 PM) + + + + + | Component | Value | Ref Range | Performed At | + + + + + | GLUCOSE,POC SCREEN | 152 (H)Comment: Testing | 65 - 99 mg/dL | [facility] | | | performed at [facility];[address] | | | | | [address];[place] | | | | | [address] | | | + + + + + + + + + + | Performing | Address | City/State/Zipcode | Phone Number | | Organization | | | | + + + + + | [facility] | [address] | [place] [address] | | + + + + + POCT glucose (04/09/2018 11:35 AM) + + + + + | Component | Value | Ref Range | Performed At | + + + + + | GLUCOSE,POC SCREEN | 178 (H)Comment: Testing | 65 - 99 mg/dL | [facility] | | | performed at [facility];[address] | | | | | [address];[place] | | | | | [address] | | | + + + + + + + + + + | Performing | Address | City/State/Zipcode | Phone Number | | Organization | | | | + + + + + | [facility] | [address] | [place] [address] | | + + + + + POCT glucose (04/09/2018 6:10 AM) + + + + + | Component | Value | Ref Range | Performed At | + + + + + | GLUCOSE,POC SCREEN | 181 (H)Comment: Testing | 65 - 99 mg/dL | [facility] | | | performed at [facility];[address] | | | | | [address];[place] | | | | | [address] | | | + + + + + + + + + + | Performing | Address | City/State/Zipcode | Phone Number | | Organization | | | | + + + + + | [facility] | [address] | [place] [address] | | + + + + + [...] | | | | | performed at [facility], [address] | | | | | [facility], [place], | | | | | [place] [address] | | | + + + + + + + | Specimen | + + | Blood | + + + + + + + | Performing | Address | City/State/Zipcode | Phone Number | | Organization | | | | + + + + + | [facility] | [address] | [place] [address] | [phone] | | LABORATORY | [address] | | | + + + + + POCT glucose (04/08/2018 8:35 PM) + + + + + | Component | Value | Ref Range | Performed At | + + + + + | GLUCOSE,POC SCREEN | 218 (H)Comment: Testing | 65 - 99 mg/dL | [facility] | | | performed at [facility];[address] | | | | | [address];[place] | | | | | [address] | | | + + + + + + + + + + | Performing | Address | City/State/Zipcode | Phone Number | | Organization | | | | + + + + + | [facility] | [address] | [place] [address] | | + + + + + POCT glucose (04/08/2018 4:22 PM) + + + + + | Component | Value | Ref Range | Performed At | + + + + + | GLUCOSE,POC SCREEN | 152 (H)Comment: Testing | 65 - 99 mg/dL | [facility] | | | performed at [facility];[address] | | | | | [address] [facility];[place], [place] | | | | | [address] | | | + + + + + + + + + + | Performing | Address | City/State/Zipcode | Phone Number | | Organization | | | | + + + + + | [facility] | [address] | [place] [address] | | + + + + + POCT glucose (04/08/2018 11:26 AM) + + + + + | Component | Value | Ref Range | Performed At | + + + + + | GLUCOSE,POC SCREEN | 274 (H)Comment: Testing | 65 - 99 mg/dL | [facility] | | | performed at [facility];[address] | | | | | [address];[place] | | | | | [address] | | | + + + + + + + + + + | Performing | Address | City/State/Zipcode | Phone Number | | Organization | | | | + + + + + | [facility] | [address] | [place] [address] | | + + + + + [...] MIKKI HERNANDEZ | [address] | [place] [address] | | + + + + + POCT glucose (04/08/2018 6:15 AM) + + + + + | Component | Value | Ref Range | Performed At | + + + + + | GLUCOSE,POC SCREEN | 133 (H)Comment: Testing | 65 - 99 mg/dL | [facility] | | | performed at [facility];[address] | | | | | [address];[place] | | | | | [address] | | | + + + + + + + + + + | Performing | Address | City/State/Zipcode | Phone Number | | Organization | | | | + + + + + | [facility] | [address] | [place] [address] | | + + + + + [...] | [facility] | | | performed at [facility], [address] | | LABORATORY | | | [address], | | | | | [place] [address] | | | + + + + + + + | Specimen | + + | Blood | + + + + + + + | Performing | Address | City/State/Zipcode | Phone Number | | Organization | | | | + + + + + | [facility] | [address] | [place] [address] | [phone] | | LABORATORY | [address] | | [...] (L) | 0.50 - 1.00 mg/dL | [facility] | | | | | LABORATORY | + + + + + | BUN/CREAT | 18 | | [facility] | | | | | LABORATORY | + + + + + | CALCIUM | 8.2 (L) | 8.5 - 10.5 mg/dL | [facility] | | | | | LABORATORY | + + + + + | EGFR | >60Comment: GFR <60: | >60 mL/min/1.73m2 | [facility] | | | CHRONIC KIDNEY DISEASE, | [...] | | | | | performed at [facility], [address] | | | | | [facility] [place], | | | | | [place] [address] | | | + + + + + + + | Specimen | + + | Blood | + + + + + + + | Performing | Address | City/State/Zipcode | Phone Number | | Organization | | | | + + + + + | [facility] | [address] | [place] [address] | [phone] | | LABORATORY | [address]vd[address] | | | + + + + + POCT glucose (04/07/2018 8:55 PM) + + + + + | Component | Value | Ref Range | Performed At | + + + + + | GLUCOSE,POC SCREEN | 231 (H)Comment: Testing | 65 - 99 mg/dL | [facility] | | | performed at [facility];[address] | | | | | [address];[place] | | | | | [address] | | | + + + + + + + + + + | Performing | Address | City/State/Zipcode | Phone Number | | Organization | | | | + + + + + | [facility] | [address] | [place] [address] | | + + + + + POCT glucose (04/07/2018 11:23 AM) + + + + + | Component | Value | Ref Range | Performed At | + + + + + | GLUCOSE,POC SCREEN | 153 (H)Comment: Testing | 65 - 99 mg/dL | [facility] | | | performed at [facility];[address] | | | | | [address];[place] | | | | | [address] | | | + + + + + + + + + + | Performing | Address | City/State/Zipcode | Phone Number | | Organization | | | | + + + + + | [facility] | [address] | [place] [address] | | + + + + + POCT glucose (04/07/2018 6:06 AM) + + + + + | Component | Value | Ref Range | Performed At | + + + + + | GLUCOSE,POC SCREEN | 121 (H)Comment: Testing | 65 - 99 mg/dL | [facility] | | | performed at [facility];[address] | | | | | [address];[place] | | | | | [address] | | | + + + + + + + + + + | Performing | Address | City/State/Zipcode | Phone Number | | Organization | | | | + + + + + | [facility] | [address] | [place] [address] | | + + + + + [...] | [facility] | | | performed at [facility], [address] | | LABORATORY | | | [address], | | | | | [place] [address] | | | + + + + + + + | Specimen | + + | Blood | + + + + + + + | Performing | Address | City/State/Zipcode | Phone Number | | Organization | | | | + + + + + | [facility] | [address] | [place] [address] | [phone] | | LABORATORY | Blvd[address] | | [...] | | | | | performed at [facility], [address] | | | | | [address], | | | | | [place] [address] | | | + + + + + + + | Specimen | + + | Blood | + + + + + + + | Performing | Address | City/State/Zipcode | Phone Number | | Organization | | | | + + + + + | [facility] | [address] | [place] [address] | [phone] | | LABORATORY | [address] | | | + + + + + POCT glucose (04/06/2018 8:22 PM) + + + + + | Component | Value | Ref Range | Performed At | + + + + + | GLUCOSE,POC SCREEN | 190 (H)Comment: Testing | 65 - 99 mg/dL | [facility] | | | performed at [facility];[address] | | | | | [address] [facility];[place], [place] | | | | | [address] | | | + + + + + + + + + + | Performing | Address | City/State/Zipcode | Phone Number | | Organization | | | | + + + + + | [facility] | [address] | [place] [address] | | + + + + + POCT glucose (04/06/2018 4:56 PM) + + + + + | Component | Value | Ref Range | Performed At | + + + + + | GLUCOSE,POC SCREEN | 178 (H)Comment: Testing | 65 - 99 mg/dL | [facility] | | | performed at [facility];[address] | | | | | [address];[place] | | | | | [address] | | | + + + + + + + + + + | Performing | Address | City/State/Zipcode | Phone Number | | Organization | | | | + + + + + | [facility] | [address] | [place] [address] | | + + + + + POCT glucose (04/06/2018 12:09 PM) + + + + + | Component | Value | Ref Range | Performed At | + + + + + | GLUCOSE,POC SCREEN | 266 (H)Comment: Testing | 65 - 99 mg/dL | [facility] | | | performed at [facility];[address] | | | | | [address];[place] | | | | | [address] | | | + + + + + + + + + + | Performing | Address | City/State/Zipcode | Phone Number | | Organization | | | | + + + + + | [facility] | [address] | [place] [address] | | + + + + + POCT glucose (04/06/2018 6:09 AM) + + + + + | Component | Value | Ref Range | Performed At | + + + + + | GLUCOSE,POC SCREEN | 90Comment: Testing | 65 - 99 mg/dL | [facility] | | | performed at [facility];[address] | | | | | [address];[place] | | | | | [address] | | | + + + + + + + + + + | Performing | Address | City/State/Zipcode | Phone Number | | Organization | | | | + + + + + | [facility] | [address] | [place] [address] | | + + + + + CBC w/auto diff (reflex to manual) (04/06/2018 5:44 AM) + + + + + | Component | Value | Ref Range | Performed At | + + + + + | WBC | 6.15 | 3.80 - 11.00 K/uL | [facility] | + + + + + | RBC | 3.58 (L) | 3.70 - 5.10 M/uL | [facility] | + + + + + | HGB | 11.7 | 11.3 - 15.5 g/dL | [facility] | + + + + + [...] 34.9 | 32.0 - 35.5 g/dL | [facility] | + + + + + [...] 0.22 | 0.00 - 0.50 K/uL | [facility] | + + + + + | BASOPHILS ABS | 0.07Comment: Testing | 0.00 - 0.10 K/uL | [facility] | | | performed at [facility];[address] | | | | | [address];[place] | | | | | [address] | | | + + + + + + + | Specimen | + + | Blood | + + + + + + + | Performing | Address | City/State/Zipcode | Phone Number | | Organization | | | | + + + + + | [facility] | [address] | [place] [address] | | + + + + + Basic metabolic panel (04/06/2018 5:44 AM) + + + + + | Component | Value | Ref Range | Performed At | + + + + + | SODIUM | 144 | 135 - 145 mmol/L | [facility] | + + + + + | POTASSIUM | 3.4 (L) | 3.5 - 4.9 mmol/L | [facility] | + + + [...] (L) | 0.50 - 1.00 mg/dL | [facility] | + + + + + | BUN/CREAT | 18 | | [facility] | + + + + + | CALCIUM | 8.3 (L) | 8.5 - 10.5 mg/dL | [facility] | + + + + + | EGFR | >60Comment: GFR <60: | >60 mL/min/1.73m2 | [facility] | | | CHRONIC [...] the | | | | | MDRD AKMS traceable | | | | | equation.Testing | | | | | performed at [facility];[address] | | | | | [facility];[place], [place] | | | | | [address] | | | + + + + + + + | Specimen | + + | Blood | + + + + + + + | Performing | Address | City/State/Zipcode | Phone Number | | Organization | | | | + + + + + | [facility] | [address] | [place] [address] | | + + + + + POCT glucose (04/05/2018 8:19 PM) + + + + + | Component | Value | Ref Range | Performed At | + + + + + | GLUCOSE,POC SCREEN | 213 (H)Comment: Testing | 65 - 99 mg/dL | [facility] | | | performed at [facility];[address] | | | | | [address];[place] | | | | | [address] | | | + + + + + + + + + + | Performing | Address | City/State/Zipcode | Phone Number | | Organization | | | | + + + + + | [facility] | [address] | [place] [address] | | + + + + + POCT glucose (04/05/2018 4:28 PM) + + + + + | Component | Value | Ref Range | Performed At | + + + + + | GLUCOSE,POC SCREEN | 162 (H)Comment: Testing | 65 - 99 mg/dL | [facility] | | | performed at [facility];[address] | | | | | [address];[place], [place] | | | | | [address] | | | + + + + + + + + + + | Performing | Address | City/State/Zipcode | Phone Number | | Organization | | | | + + + + + | [facility] | [address] | [place] [address] | | + + + + + POCT glucose (04/05/2018 11:43 AM) + + + + + | Component | Value | Ref Range | Performed At | + + + + + | GLUCOSE,POC SCREEN | 129 (H)Comment: Testing | 65 - 99 mg/dL | [facility] | | | performed at [facility];[address] | | | | | [address] [facility];[place] | | | | | [address] | | | + + + + + + + + + + | Performing | Address | City/State/Zipcode | Phone Number | | Organization | | | | + + + + + | [facility] | [address] | [place] [address] | | + + + + + POCT glucose (04/05/2018 6:26 AM) + + + + + | Component | Value | Ref Range | Performed At | + + + + + | GLUCOSE,POC SCREEN | 103 (H)Comment: Testing | 65 - 99 mg/dL | [facility] | | | performed at [facility];[address] | | | | | [address];[place] | | | | | [address] | | | + + + + + + + + + + | Performing | Address | City/State/Zipcode | Phone Number | | Organization | | | | + + + + + | [facility] | [address] | [place] [address] | | + + + + + [...] | [facility] | | | performed at [facility], [address] | | LABORATORY | | | [address], | | | | | [place] [address] | | | + + + + + + + | Specimen | + + | Blood | + + + + + + + | Performing | Address | City/State/Zipcode | Phone Number | | Organization | | | | + + + + + | [facility] | [address] | [place] [address] | [phone] | | LABORATORY | [address] | | [...] (L) | 0.50 - 1.00 mg/dL | [facility] | | | | | LABORATORY | + + + + + | BUN/CREAT | 25 | | [facility] | | | | | LABORATORY | + + + + + | CALCIUM | 8.0 (L) | 8.5 - 10.5 mg/dL | [facility] | | | | | LABORATORY | + + + + + | EGFR | >60Comment: GFR <60: | >60 mL/min/1.73m2 | [facility] | | | CHRONIC KIDNEY DISEASE, | [...] | | | | | performed at [facility], [address] | | | | | [facility] [place], | | | | | [place] [address] | | | + + + + + + + | Specimen | + + | Blood | + + + + + + + | Performing | Address | City/State/Zipcode | Phone Number | | Organization | | | | + + + + + | [facility] | [address] | [place] [address] | [phone] | | LABORATORY | [address] | | | + + + + + POCT glucose (04/04/2018 8:42 PM) + + + + + | Component | Value | Ref Range | Performed At | + + + + + | GLUCOSE,POC SCREEN | 224 (H)Comment: Testing | 65 - 99 mg/dL | [facility] | | | performed at [facility];[address] | | | | | [address];[place] | | | | | [address] | | | + + + + + + + + + + | Performing | Address | City/State/Zipcode | Phone Number | | Organization | | | | + + + + + | [facility] | [address] | [place] [address] | | + + + + + POCT glucose (04/04/2018 4:49 PM) + + + + + | Component | Value | Ref Range | Performed At | + + + + + | GLUCOSE,POC SCREEN | 124 (H)Comment: Testing | 65 - 99 mg/dL | [facility] | | | performed at [facility];[address] | | | | | [address];[place] | | | | | [address] | | | + + + + + + + + + + | Performing | Address | City/State/Zipcode | Phone Number | | Organization | | | | + + + + + | [facility] | [address] | [place] [address] | | + + + + + POCT glucose (04/04/2018 11:38 AM) + + + + + | Component | Value | Ref Range | Performed At | + + + + + | GLUCOSE,POC SCREEN | 187 (H)Comment: Testing | 65 - 99 mg/dL | [facility] | | | performed at [facility];[address] | | | | | [facility];[place] | | | | | [address] | | | + + + + + + + + + + | Performing | Address | City/State/Zipcode | Phone Number | | Organization | | | | + + + + + | [facility] | [address] | [place] [place] [place] [address] | | + + + + + POCT glucose (04/04/2018 6:18 AM) + + + + + | Component | Value | Ref Range | Performed At | + + + + + | GLUCOSE,POC SCREEN | 100 (H)Comment: Testing | 65 - 99 mg/dL | [facility] | | | performed at [facility];[address] | | | | | [address];[place] | | | | | [address] | | | + + + + + + + + + + | Performing | Address | City/State/Zipcode | Phone Number | | Organization | | | | + + + + + | [facility] | [address] | [place] [address] | | + + + + + [...] | [facility] | | | performed at [facility], [address] | | LABORATORY | | | [address], | | | | | [place] [address] | | | + + + + + + + | Specimen | + + | Blood | + + + + + + + | Performing | Address | City/State/Zipcode | Phone Number | | Organization | | | | + + + + + | [facility] | [address] | [place] [address] | [phone] | | LABORATORY | [address] | | [...] 0.5 | 0.50 - 1.00 mg/dL | [facility] | | | | | LABORATORY | + + + + + | BUN/CREAT | 20 | | [facility] | | | | | LABORATORY | + + + + + | CALCIUM | 8.4 (L) | 8.5 - 10.5 mg/dL | [facility] | | | | | LABORATORY | + + + + + | EGFR | >60Comment: GFR <60: | >60 mL/min/1.73m2 | [facility] | | | CHRONIC KIDNEY DISEASE, | [...] | | | | | performed at [facility], [address] | | | | | [facility], [place], | | | | | [place] [address] | | | + + + + + + + | Specimen | + + | Blood | + + + + + + + | Performing | Address | City/State/Zipcode | Phone Number | | Organization | | | | + + + + + | [facility] | [address] | [place] [address] | [phone] | | LABORATORY | [address] | | | + + + + + POCT glucose (04/03/2018 8:45 PM) + + + + + | Component | Value | Ref Range | Performed At | + + + + + | GLUCOSE,POC SCREEN | 142 (H)Comment: Testing | 65 - 99 mg/dL | [facility] | | | performed at [facility];[address] | | | | | [address];[place] | | | | | [address] | | | + + + + + + + + + + | Performing | Address | City/State/Zipcode | Phone Number | | Organization | | | | + + + + + | [facility] | [address] | [place] [address] | | + + + + + POCT glucose (04/03/2018 4:35 PM) + + + + + | Component | Value | Ref Range | Performed At | + + + + + | GLUCOSE,POC SCREEN | 156 (H)Comment: Testing | 65 - 99 mg/dL | [facility] | | | performed at [facility];[address] | | | | | [facility];[place] | | | | | [address] | | | + + + + + + + + + + | Performing | Address | City/State/Zipcode | Phone Number | | Organization | | | | + + + + + | [facility] | [address] | [place] [address] | | + + + + + [...] | [address] | [place] [address] | | + + + + + [...] - 04/03/2018 4:23 PM PDT PATRICADYLAN WILLINGHAM [id number] years | | FemaleMRI LUMBAR SPINE WO [...] | [address] | [place] [address] | | + + + + + POCT glucose (04/03/2018 11:33 AM) + + + + + | Component | Value | Ref Range | Performed At | + + + + + | GLUCOSE,POC SCREEN | 125 (H)Comment: Testing | 65 - 99 mg/dL | [facility] | | | performed at [facility];[address] | | | | | [address];[place], [place] | | | | | [address] | | | + + + + + + + + + + | Performing | Address | City/State/Zipcode | Phone Number | | Organization | | | | + + + + + | [facility] | [address] | [place] [address] | | + + + + + [...] [facility] | [address] | [place] [address] | | + + + + + POCT glucose (04/03/2018 6:04 AM) + + + + + | Component | Value | Ref Range | Performed At | + + + + + | GLUCOSE,POC SCREEN | 159 (H)Comment: Testing | 65 - 99 mg/dL | [facility] | | | performed at [facility];[address] | | | | | [address];[place] | | | | | [address] | | | + + + + + + + + + + | Performing | Address | City/State/Zipcode | Phone Number | | Organization | | | | + + + + + | [facility] | [address] | [place] [address] | | + + + + + [...] | [facility] | | | performed at [facility], [address] | | LABORATORY | | | [address], | | | | | [place] [address] | | | + + + + + + + | Specimen | + + | Blood | + + + + + + + | Performing | Address | City/State/Zipcode | Phone Number | | Organization | | | | + + + + + | [facility] | [address] | [place] [address] | [phone] | | LABORATORY | [address] | | [...] | | | | | performed at [facility], [address] | | | | | [facility], [place], | | | | | [place] [address] | | | + + + + + + + | Specimen | + + | Blood | + + + + + + + | Performing | Address | City/State/Zipcode | Phone Number | | Organization | | | | + + + + + | [facility] | [address] | [place] [address] | [phone] | | LABORATORY | [address] | | | + + + + + POCT glucose (04/02/2018 8:48 PM) + + + + + | Component | Value | Ref Range | Performed At | + + + + + | GLUCOSE,POC SCREEN | 201 (H)Comment: Testing | 65 - 99 mg/dL | [facility] | | | performed at [facility];[address] | | | | | [address];[place], [place] | | | | | [address] | | | + + + + + + + + + + | Performing | Address | City/State/Zipcode | Phone Number | | Organization | | | | + + + + + | [facility] | [address] | [place] [address] | | + + + + + POCT glucose (04/02/2018 5:17 PM) + + + + + | Component | Value | Ref Range | Performed At | + + + + + | GLUCOSE,POC SCREEN | 123 (H)Comment: Testing | 65 - 99 mg/dL | [facility] | | | performed at [facility];[address] | | | | | [address];[place] | | | | | [address] | | | + + + + + + + + + + | Performing | Address | City/State/Zipcode | Phone Number | | Organization | | | | + + + + + | [facility] | [address] | [place] [address] | | + + + + + [...]
--- OUTSIDE RECORDS SUMMARY | ~2018-05-11 | XMS | Encounter Summary ---
Demographics + + + | Address | [address] | | | [place] [address] | + + + | Home Phone | | + + + | Preferred Language | Unknown | + + + | Marital Status | | + + + | Adventist Affiliation | [id number] | + + + | Race | Unknown | + + + | Ethnic Group | Unknown | + + + Author + + + | Author | [facility] | + + + | Organization | [facility] | + + + | Address | Unknown | + + + | Phone | Unavailable | + + + Support + + + + + | Name | Relationship | Address | Phone | + + + + + | Stefani Bhatia | ELSY | [address] | | | [place] | | [place] | | | | | [address] | | + + + + + Care Team Providers + +------+ + | Care Telesales Agent Name | Role | Phone | + [...] + + | 03/30/ | Hospital | [facility] | Dayan Schreiber, | Thrombocytopenia | | 2018 - | Encounter | [facility] | MD Mercedes PARIS | ([facility]) (Primary Dx); | | | | Floor [address] | [place] [address] | Pain; Chronic ITP | | 04/02/ | [address] | [phone] | (idiopathic | | 2018 | | [place] [address] | Piryani Robe | thrombocytopenia) | | | | [phone] | MD Mercedes Herbert | ([facility]) | | | | | vd [place], [place] | | | | | | [address] | | | | | | | [...] note may be different from the original. [facility] Service: Hospitalist Physician Discharge Summary Pt: Stefani [...] There is minimal aortic stenosis present. 10. Qdax-xq-yicnligx mitral regurgitation is pr esent. 11. There may be moderate pulmonary hypertension. 12. The right ventricular systolic pressure (pulmonary artery systolic pressure), as measured by Doppler, is . HPI and Hospital Course: Ms. Bhatia is a 67-year-old female who has a past medical history of idiopathic thrombocy topenic purpura and sees Dr. Green in [place], [place]. Her other problems are essen tial [...] from transfer to inpatient rehab facility of [facility] for continuation of physical therapy [...] and follows with Dr. Petr bauer in [place], [place]. At the time of presentation, her [...] normal. Impulsive at times. Short an d alf memory impairment. LABS: Recent Labs Lab 04/02/18 [...] hours. No results for input(s): PHART, PO2ART, FYP7RYG, Q2JPQQYJ, BEART in the last 168 hours. No [...] note may be different from the original. [facility] Service: Hospitalist Progress Note Hospital Day: LOS: 2 days Post-Op Day: * No surgery found * SUBJECTIVE Patient Summary: Events Overnight: Transferred out of ICU yesterday. Admitted for acute left SDH and s ubarachnoid hemorrhage secondary to fall. History of ITP and sees Dr. Joseph, a hemat ologist in [place]. [place]. Hx. of dizziness and recurrent falls [...] days for seizure prophylaxis. ITP. 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 Dr. vee to evaluate patient. She will [...] may be differ ent from the original. [facility] Service: Desktop Operator Progress Note Stefani Mathew Fidel 67 y.o. [...] was given 2 mg of ativan. At [facility] her plt count were 65 ct head [...] Expected: | | manual) | e | ([facility]) | 04/03/2018, Expires: | | | | [...] Testing | 65 - 99 mg/dL | [facility] | | | performed at [facility];[address] | | | | | [address];[place], [place] | | | | | [address] | | | + + + + + + + + + + | Performing | Address | City/State/Zipcode | Phone Number | | Organization | | | | + + + + + | [facility] | [address] | [place] [address] | | + + + + + POCT glucose (04/02/2018 5:30 AM) + + + + + | Component | Value | Ref Range | Performed At | + + + + + | GLUCOSE,POC SCREEN | 136 (H)Comment: Testing | 65 - 99 mg/dL | [facility] | | | performed at [facility];[address] | | | | | [address];[place] | | | | | [address] | | | + + + + + + + + + + | Performing | Address | City/State/Zipcode | Phone Number | | Organization | | | | + + + + + | [facility] | [address] | [place] [address] | | + + + + + Phosphorus (04/02/2018 3:56 AM) + + + + + | Component | Value | Ref Range | Performed At | + + + + + | PHOSPHORUS | 2.9Comment: Testing | 2.3 - 4.8 mg/dL | [facility] | | | performed at [facility], [address] | | LABORATORY | | | [address], | | | | | [place] [address] | | | + + + + + + + | Specimen | + + | Blood | + + + + + + + | Performing | Address | City/State/Zipcode | Phone Number | | Organization | | | | + + + + + | [facility] | [address] | [place] [address] | [phone] | | LABORATORY | [address]vd[address] | | | + + + + + Magnesium (04/02/2018 3:56 AM) + + + + + | Component | Value | Ref Range | Performed At | + + + + + | MAGNESIUM | 1.7Comment: Testing | 1.7 - 2.4 mg/dL | [facility] | | | performed at [facility], [address] | | LABORATORY | | | [facility], | | | | | [place] [address] | | | + + + + + + + | Specimen | + + | Blood | + + + + + + + | Performing | Address | City/State/Zipcode | Phone Number | | Organization | | | | + + + + + | [facility] | [address] | [place] [address] | [phone] | | LABORATORY | Blvd. | | [...] | | | | | performed at [facility], [address] | | | | | [facility], | | | | | [place] [address] | | | + + + + + + + | Specimen | + + | Blood | + + + + + + + | Performing | Address | City/State/Zipcode | Phone Number | | Organization | | | | + + + + + | [facility] | [address] | [place] [address] | [phone] | | LABORATORY | Blvd. | | [...] | [facility] | | | performed at [facility], [address] | | LABORATORY | | | [address], | | | | | [place] [address] | | | + + + + + + + | Specimen | + + | Blood | + + + + + + + | Performing | Address | City/State/Zipcode | Phone Number | | Organization | | | | + + + + + | [facility] | [address] | [place] [address] | [phone] | | LABORATORY | [address] | | | + + + + + POCT glucose (04/01/2018 9:46 PM) + + + + + | Component | Value | Ref Range | Performed At | + + + + + | GLUCOSE,POC SCREEN | 272 (H)Comment: Testing | 65 - 99 mg/dL | [facility] | | | performed at [facility];[address] | | | | | [address];[place] | | | | | [address] | | | + + + + + + + + + + | Performing | Address | City/State/Zipcode | Phone Number | | Organization | | | | + + + + + | [facility] | [address] | [place] [address] | | + + + + + POCT glucose (04/01/2018 4:48 PM) + + + + + | Component | Value | Ref Range | Performed At | + + + + + | GLUCOSE,POC SCREEN | 140 (H)Comment: Testing | 65 - 99 mg/dL | [facility] | | | performed at [facility];[address] | | | | | [address];[place] | | | | | [address] | | | + + + + + + + + + + | Performing | Address | City/State/Zipcode | Phone Number | | Organization | | | | + + + + + | [facility] | [address] | [place] [address] | | + + + + + [...] There is minimal aortic stenosis present. 10. Rbou-rs-ckikaurr | | | mitral regurgitation is present. 11. There may be moderate pulmonary | | | hypertension. 12. The right ventricular systolic pressure (pulmonary | | | artery systolic pressure), as measured by Doppler, is {RVSP}. | | + + + + + + | Narrative | Performed At | + + + | Patient Name: STEFANI BHATIA Date of : 1950 | [facility] | | Performing Physician: Emanuel Melissa [...] There is minimal aortic stenosis present. 10. Mnnw-us-ajjahxbi | | | mitral regurgitation is present. [...] stenosis present. Mitral Valve: | | | Aslt-bg-kjlnfiwn mitral regurgitation is present. Mitral Valve: | [...] | | Michael: 0.68 m/s TV Dec [place]: 2.56 m/s2 TV Dec Time: | | | 264.67 ms TV E Michael: 0.67 m/s TV E/A Ratio: 0.99 | | | Yacht Master: CM Authenticated by: Emanuel Melissa MD Report Date/Time: | | | 04-01-2018 16:50:35 | | + + + + + | Procedure Note | + + | Frank, Rad Results In - 04/01/2018 5:00 PM PDT Patient Name: Latoya BHATIA | | : 1950ccession: [id number] Physician: Emanuel Melissa | | INDICATIONS m [...] is minimal aortic stenosis | | present.10. Pbtn-cu-vuuouyll mitral regurgitation is present.11. There may be [...] There is minimal aortic stenosis present.Mitral Valve: Wwmx-yg-akhljhth mitral | | regurgitation is present. Mitral [...] | mlLVLs A4C: 7.06 cmLAAs A4C: 14.61 ik0LOZAY A-L A4C: 34.22 mlLALs A4C: 5.29 | | cmRAAd: 16.15 he9UJFEY A-L: 43.57 mlRAEDV MOD: 43.26 mlRALd: 5.08 cmAo Diam: | | 3.17 cmAV Cusp: 1.81 cmTAPSE: 2.90 cmAV maxP.78 mmHgAV meanP.51 mmHgAV | | Vmax: 2.10 m/Haley Vmean: 1.53 m/Haley VTI: 57.45 cmAVA Vmax: 1.67 cm2AVA (VTI): | | 1.44 du1RQZV Vmax: 0.00 cm2/m2AVAI (VTI): 0.00 cm2/m2LVCI Dopp: 3.21 l/olaq4KJDZ | | Dopp: 5.72 l/minHR: 68.91 BPMLVOT [...] A Michael: 0.68 m/sTV Dec | | [place]: 2.56 m/s2TV Dec Time: 264.67 msTV E Michael: 0.67 m/sTV E/A Ratio: 0.99 | | Yacht Master: CMAuthenticated by: Emanuel VAZQUEZeport Date/Time: 04-01-2018 | [...] is minimal aortic stenosis present.10. | | Qpjk-ff-ekmmqjpz mitral regurgitation is present.11. There may be [...] A Michael: 0.68 m/s | |TV Dec [place]: 2.56 m/s2 | |TV Dec Time: 264.67 ms | |TV E Michael: 0.67 m/s | |TV E/A Ratio: 0.99 | | | |Yacht Master: CM | |Authenticated by: Emanuel Melissa MD [...] is minimal aortic stenosis present. | |10. Wzbe-zh-mrxgshdr mitral regurgitation is present. | |11. There may be moderate pulmonary hypertension. | |12. The right ventricular systolic pressure (pulmonary artery systolic pressure), as measur ed by Doppler, is {RVSP}. | + + + + + + + | Performing | Address | City/State/[facility] | Phone Number | | Organization | | | | + + + + + | [facility] | [address] | [place] [address] | | + + + + + POCT glucose (04/01/2018 12:26 PM) + + + + + | Component | Value | Ref Range | Performed At | + + + + + | GLUCOSE,POC SCREEN | 215 (H)Comment: Testing | 65 - 99 mg/dL | [facility] | | | performed at [facility];[address] | | | | | [address];[place] | | | | | [address] | | | + + + + + + + + + + | Performing | Address | City/State/Zipcode | Phone Number | | Organization | | | | + + + + + | [facility] | [address] | [place] [address] | | + + + + + [...] performed | | | | | at [facility], [address] | | | | | [facility], | | | | | [place] [address] | | | + + + + + + + | Specimen | + + | Blood | + + + + + + + | Performing | Address | City/State/Zipcode | Phone Number | | Organization | | | | + + + + + | [facility] | [address] | [place] [address] | [phone] | | LABORATORY | [address]vd[address] | | | + + + + + POCT glucose (04/01/2018 5:29 AM) + + + + + | Component | Value | Ref Range | Performed At | + + + + + | GLUCOSE,POC SCREEN | 105 (H)Comment: Testing | 65 - 99 mg/dL | [facility] | | | performed at [facility];[address] | | | | | [address];[place] | | | | | [address] | | | + + + + + + + + + + | Performing | Address | City/State/Zipcode | Phone Number | | Organization | | | | + + + + + | [facility] | [address] | [place] [address] | | + + + + + Phosphorus (04/01/2018 4:05 AM) + + + + + | Component | Value | Ref Range | Performed At | + + + + + | PHOSPHORUS | 2.6Comment: Testing | 2.3 - 4.8 mg/dL | [facility] | | | performed at [facility], [address] | | LABORATORY | | | [address], | | | | | [place] [address] | | | + + + + + + + | Specimen | + + | Blood | + + + + + + + | Performing | Address | City/State/Zipcode | Phone Number | | Organization | | | | + + + + + | [facility] | [address] | [place] [address] | [phone] | | LABORATORY | [address] | | | + + + + + Magnesium (04/01/2018 4:05 AM) + + + + + | Component | Value | Ref Range | Performed At | + + + + + | MAGNESIUM | 1.9Comment: Testing | 1.7 - 2.4 mg/dL | [facility] | | | performed at [facility], [address] | | LABORATORY | | | [address], | | | | | [place] [address] | | | + + + + + + + | Specimen | + + | Blood | + + + + + + + | Performing | Address | City/State/Zipcode | Phone Number | | Organization | | | | + + + + + | [facility] | [address] | [place] [address] | [phone] | | LABORATORY | [address] | | [...] >60Comment: GFR <60: | >60 mL/min/1.73m2 | [facility] | | | CHRONIC KIDNEY DISEASE, [...] | | | | | performed at [facility], [address] | | | | | [facility], | | | | | [place] [address] | | | + + + + + + + | Specimen | + + | Blood | + + + + + + + | Performing | Address | City/State/Zipcode | Phone Number | | Organization | | | | + + + + + | [facility] | [address] | [place] [address] | [phone] | | LABORATORY | [address]vd[address] | | [...] | [facility] | | | performed at [facility], [address] | | LABORATORY | | | [address], | | | | | [place] [address] | | | + + + + + + + | Specimen | + + | Blood | + + + + + + + | Performing | Address | City/State/Zipcode | Phone Number | | Organization | | | | + + + + + | [facility] | [address] | [place] [address] | [phone] | | LABORATORY | [address]vd[address] | | | + + + + + POCT glucose (03/31/2018 8:41 PM) + + + + + | Component | Value | Ref Range | Performed At | + + + + + | GLUCOSE,POC SCREEN | 247 (H)Comment: Testing | 65 - 99 mg/dL | [facility] | | | performed at [facility];[address] | | | | | [address];[place] | | | | | [address] | | | + + + + + + + + + + | Performing | Address | City/State/Zipcode | Phone Number | | Organization | | | | + + + + + | [facility] | [address] | [place] [address] | | + + + + + POCT glucose (03/31/2018 4:06 PM) + + + + + | Component | Value | Ref Range | Performed At | + + + + + | GLUCOSE,POC SCREEN | 284 (H)Comment: Testing | 65 - 99 mg/dL | [facility] | | | performed at [facility];[address] | | | | | [address];[place] | | | | | [address] | | | + + + + + + + + + + | Performing | Address | City/State/Zipcode | Phone Number | | Organization | | | | + + + + + | [facility] | [address] | [place] [address] | | + + + + + Platelet count (03/31/2018 1:01 PM) + + + + + | Component | Value | Ref Range | Performed At | + + + + + | PLT | 82 (L)Comment: Testing | 150 - 400 K/uL | [facility] | | | performed at [facility];[address] | | | | | [employer];[place] | | | | | [address] | | | + + + + + + + | Specimen | + + | Blood | + + + + + + + | Performing | Address | City/State/Zipcode | Phone Number | | Organization | | | | + + + + + | [facility] | [address] | [place] [address] | | + + + + + POCT glucose (03/31/2018 10:57 AM) + + + + + | Component | Value | Ref Range | Performed At | + + + + + | GLUCOSE,POC SCREEN | 174 (H)Comment: Testing | 65 - 99 mg/dL | [facility] | | | performed at [facility];[address] | | | | | [address];[place] | | | | | [address] | | | + + + + + + + + + + | Performing | Address | City/State/Zipcode | Phone Number | | Organization | | | | + + + + + | [facility] | [address] | [place] [address] | | + + + + + Phosphorus (03/31/2018 4:02 AM) + + + + + | Component | Value | Ref Range | Performed At | + + + + + | PHOSPHORUS | 2.2 (L)Comment: Testing | 2.3 - 4.8 mg/dL | [facility] | | | performed at [facility], [address] | | LABORATORY | | | [facility] [address], | | | | | [place] [address] | | | + + + + + + + | Specimen | + + | Blood | + + + + + + + | Performing | Address | City/State/Zipcode | Phone Number | | Organization | | | | + + + + + | [facility] | [address] | [place] [address] | [phone] | | LABORATORY | [address]vd[address] | | | + + + + + Magnesium (03/31/2018 4:02 AM) + + + + + | Component | Value | Ref Range | Performed At | + + + + + | MAGNESIUM | 1.9Comment: Testing | 1.7 - 2.4 mg/dL | [facility] | | | performed at [facility], [address] | | LABORATORY | | | [facility], | | | | | [place] [address] | | | + + + + + + + | Specimen | + + | Blood | + + + + + + + | Performing | Address | City/State/Zipcode | Phone Number | | Organization | | | | + + + + + | [facility] | [address] | [place] [address] | [phone] | | LABORATORY | [address] | | [...] >60Comment: GFR <60: | >60 mL/min/1.73m2 | [facility] | | | CHRONIC KIDNEY DISEASE, [...] the | | | | | MDRD [facility] traceable | | | | | equation.Testing | | | | | performed at [facility], [address] | | | | | [facility], | | | | | [place] [address] | | | + + + + + + + | Specimen | + + | Blood | + + + + + + + | Performing | Address | City/State/Zipcode | Phone Number | | Organization | | | | + + + + + | [facility] | [address] | [place] [address] | [phone] | | LABORATORY | Blvd. | | [...] | [facility] | | | performed at [facility], [address] | | LABORATORY | | | [address], | | | | | [place] [address] | | | + + + + + + + | Specimen | + + | Blood | + + + + + + + | Performing | Address | City/State/Zipcode | Phone Number | | Organization | | | | + + + + + | [facility] | [address] | [place] [address] | [phone] | | LABORATORY | Blvd. | | [...] | [facility] | | | performed at [facility], [address] | | LABORATORY | | | [address], | | | | | [place] [address] | | | + + + + + + + | Specimen | + + | Blood | + + + + + + + | Performing | Address | City/State/Zipcode | Phone Number | | Organization | | | | + + + + + | [facility] | [address] | [place] [address] | [phone] | | LABORATORY | Blvd. | | [...] + + + + | Calculated P Chandler | 26 | degrees | [facility] | + + + + + | Calculated R [place] | -23 | degrees | [facility] | + + + + + | Calculated T Chandler | 144 | degrees | [facility] | + + + + + | Diagnosis | Sinus rhythm with 1st | | [facility] | | | degree A-V [...] | + + + + + | [facility] | [address] | [place] [address] | | + + + + + Comprehensive metabolic panel (03/30/2018 11:29 PM) + + + + + | Component | Value | Ref Range | Performed At | + + + + + | SODIUM | 140 | 135 - 145 mmol/L | [facility] | + + + + + | POTASSIUM | 3.1 (L) | 3.5 - 4.9 mmol/L | [facility] | + + + + + | CHLORIDE | 104 | 99 - 109 mmol/L | [facility] | + + + + + | CO2 | 29 | 23 - 32 mmol/L | [facility] | + + + + + | ANION GAP AGAP | 11 | 5 - 20 mmol/L | [facility] | + + + + + | GLUCOSE | 137 (H) | 65 - 99 mg/dL | [facility] | + + + + + | BUN | 8 | 8 - 25 mg/dL | [facility] | + + + + + | CREATININE | 0.49 (L) | 0.50 - 1.00 mg/dL | [facility] | + + + + + | BUN/CREAT | 16 | | [facility] | + + + + + | CALCIUM | 8.0 (L) | 8.5 - 10.5 mg/dL | [facility] | + + + + + | TOTAL PROTEIN | 6.2 (L) | 6.3 - 8.2 g/dL | [facility] | + + + + + | Albumin | 2.7 (L) | 3.3 - 4.8 g/dL | [facility] | + + + + [...] >60Comment: GFR <60: | >60 mL/min/1.73m2 | [facility] | | | CHRONIC KIDNEY [...] the | | | | | MDRD [facility] traceable | | | | | equation.Testing | | | | | performed at [facility];[address] | | | | | [address];[place], [place] | | | | | [address] | | | + + + + + + + | Specimen | + + | Blood | + + + + + + + | Performing | Address | City/State/Zipcode | Phone Number | | Organization | | | | + + + + + | [facility] | [address] | [place] [address] | | + + + + + CBC w/auto diff (reflex to manual) (03/30/2018 11:29 PM) + + + + + | Component | Value | Ref Range | Performed At | + + + + + | WBC | 5.91 | 3.80 - 11.00 K/uL | [facility] | + + + + + | RBC | 3.38 (L) | 3.70 - 5.10 M/uL | [facility] | + + + + + | HGB | 10.9 (L) | 11.3 - 15.5 g/dL | [facility] | + + + + + [...] 44.6 | 37 - 53 fl | [facility] | + + + + + | PLT | 93 (L) | 150 - 400 K/uL | [facility] | + + + + + | MPV | 7.6 | fl | [facility] | + + + + + | DIFF TYPE | AUTOMATED | | [facility] | + + + + + | NEUTROPHILS | 63.98 | % | [facility] | + + + + + | LYMPHOCYTES | 17.93 | % | [facility] | + + + + + [...] Testing | 0.00 - 0.10 K/uL | [facility] | | | performed at [facility];[address] | | | | | [address];[place] | | | | | [address] | | | + + + + + + + | Specimen | + + | Blood | + + + + + + + | Performing | Address | City/State/Zipcode | Phone Number | | Organization | | | | + + + + + | [facility] | [address] | [place] [address] | | + + + + + [...] years Female CTA HEAD NECK W | MIKIK | | WO CONTRAST 03/30/2018 11:12 PM [...] | data set was also examined with [employer] software for evaluation | | | [...] In - 03/30/2018 11:37 PM PDT STEFANI [id number] years | | FemaleCTA HEAD NECK W [...] The data set was also examined with [employer] | | software for evaluation of [...] [facility] | [address] | [place] [address] | | + + + + + [...] | + + + + + | [facility] | [address] | [place] [address] | | + + + + + [...] [facility] | [address] | [place] [address] | | + + + + + Prepare platelets (Blood Bank) (03/30/2018 6:47 PM) + + + + + | Component | Value | Ref Range | Performed At | + + + + + | BLOOD COMPONENT TYPE | PLATELET GROUP | | [facility] | + + + + + | UNITS ORDERED | 2 | | [facility] | + + + + + | Additional comment: | ORDER RECEIVED IN BLOOD | | [facility] | | | BANK. | | | + + + + + | UNIT NUMBER | [id number] | | [facility] | + + + + + | BLOOD COMPONENT TYPE | PLATELET PHERESIS,LD B | | [facility] | + + + + + | UNIT DIVISION | 00 | | [facility] | + + + + + | STATUS OF UNIT | ISSUED,FINAL | | [facility] | + + + + + | TRANSFUSION STATUS | OK TO TRANSFUSE | | [facility] | + + + + + | UNIT NUMBER | [id number] | | [facility] | + + + + + | BLOOD COMPONENT TYPE | PLATELET PHERESIS,LD B | | [facility] | + + + + + | UNIT DIVISION | 00 | | [facility] | + + + + + | STATUS OF UNIT | ISSUED,FINAL | | [facility] | + + + + + | TRANSFUSION STATUS | OK TO TRANSFUSETesting | | [facility] | | | performed at [facility];[address] | | | | | [address] [place] | | | | | [id number] | | | + + + + + + + | Specimen | + + | Blood | + + + + + + + | Performing | Address | City/State/Zipcode | Phone Number | | Organization | | | | + + + + + | [facility] | [address] | [place] [address] | | + + + + + POCT glucose (03/30/2018 6:42 PM) + + + + + | Component | Value | Ref Range | Performed At | + + + + + | GLUCOSE,POC SCREEN | 169 (H)Comment: Testing | 65 - 99 mg/dL | [facility] | | | performed at [facility];[address] | | | | | [address] [place] | | | | | [address] | | | + + + + + + + + + + | Performing | Address | City/State/Zipcode | Phone Number | | Organization | | | | + + + + + | [facility] | [address] | [place] [address] | | + + + + + Glycohemoglobin A1C (03/30/2018 6:31 PM) + + + + + | Component | Value | Ref Range | Performed At | + + + + + | HEMOGLOBIN A1C | 6.8 (H)Comment: The | 4.0 - 6.0 % | [facility] | | | [facility] Diabetes | | LABORATORY | | | [...] | 148Comment: The ADA | mg/dL | [facility] | | GLUCOSE | considers an eAG [...] | | | | | performed at [facility], [address] | | | | [facility], | | | | | [place], [place] [address] | | | + + + + + + + | Specimen | + + | Blood | + + + + + + + | Performing | Address | City/State/Zipcode | Phone Number | | Organization | | | | + + + + + | [facility] | [address] | [place] [address] | [phone] | | LABORATORY | [address] | | | + + + + + Type and screen (03/30/2018 6:31 PM) + + + + + | Component | Value | Ref Range | Performed At | + + + + + | ABO/RH(D) | A POSITIVE | | [facility] | + + + + + | ANTIBODY SCREEN | NEGATIVE | | [facility] | + + + + + | ARM BAND NUMBER | [id number] | | [facility] | | | performed at [facility];[address] | | | | | [place] | | | | | [address] | | | + + + + + + + | Specimen | + + | Blood | + + + + + + + | Performing | Address | City/State/Zipcode | Phone Number | | Organization | | | | + + + + + | [facility] | [address] | [place] [address] | | + + + + + MRSA by PCR (03/30/2018 6:30 PM) + + + + + | Component | Value | Ref Range | Performed At | + + + + + | SOURCE | NARES(NOSE) | | [facility] | + + + + + | MRSA PCR | NEGATIVEComment: Testing | NEGATIVE | [facility] | | | performed at [facility];[address] | | | | | [address];[place] | | | | | [address] | | | + + + + + + + | Specimen | + + | Nasopharyngeal - | | Nasopharyngeal | | Culture | + + + + + + + | Performing | Address | City/State/Zipcode | Phone Number | | Organization | | | | + + + + + | [facility] | [address] | [place] [address] | | + + + + + [...] | | | | | Intravenous, Once, [facility] 03/31/18 at | | PDT | | [...] | | | | | Intravenous, Once, [facility] 04/01/18 at | | PDT | [...] | | | | | Intravenous, Once, [facility] 03/31/18 at | | PDT | | [...] | | | | | Intravenous, Once, [facility] 04/01/18 at | | PDT | [...] equal to 1.1, | | | Starting [facility] 03/30/18 at 1812, | | | Recheck [...] | | | Daily, First dose on [facility] 04/01/18 | | PDT | | [...] to tolerate oral), | | | Starting [facility] 03/30/18 at 1812 | | + +---+ | | | + +---+ | potassium chloride 20 mEq in | | | 250 mL IVPB 20 mEq, Intravenous, | | | Administer over 2 Hours, PRN, | | | for serum potassium 3.8 to 4, | | | Starting [facility] 03/30/18 at 1812, 1) | | | [...] | | | | | dose on [facility] 04/01/18 at 1000 | | PDT [...]
--- OUTSIDE RECORDS SUMMARY | ~2018-05-11 | XMS | Clinical Summary ---
Demographics + + + | Address | [address] | | | [place] [address] | + + + | Home Phone | | + + + | Preferred Language | Unknown | + + + | Marital Status | | + + + | Mandaeism Affiliation | 1076 | + + + | Race | Unknown | + + + | Ethnic Group | Unknown | + + + Author + + + | Author | [facility] | + + + | Organization | [facility] [employer] [facility] | + + + | Address | Unknown | + + + | Phone | Unavailable | + + + Support + + + + + | Name | Relationship | Address | Phone | + + + + + | Stefani Bhatia | ELSY | [address] | | | [place] | | [place] | | | | | [address] | | + + + + + Care Team Providers + +------+ + | Care Him Director Name | Role | Phone | + +------+ + | Juan José Cintron DO | PP | | + [...] + + + Current Medications + + + +---------+------+------+-------+ | Prescription | Sig. | Disp. | Refills | Star | End | Statu | | | | | | t | Date | s | | | | | | Date | | | + + + +---------+------+------+-------+ | Cholecalciferol | Take 2,000 Units by | | | 03/17 | 03/17 | Activ | | 2000 units TABS | mouth daily. | | | 03/05 | 03/05 | e | | | | | | 18 | 19 | | + + + +---------+------+------+-------+ | metoprolol | Take 1 tablet by | 60 | 11 | 03/17 | 03/17 | Activ | | (LOPRESSOR) 25 MG | mouth 2 (two) times | tablet | | 03/05 | 03/05 | e | | tablet | daily. | | | 18 | 19 | | + + + +---------+------+------+-------+ | phosphorus (K PHOS | Take 1 tablet by | 30 | 11 | 08 | 08 | Activ | | NEUTRAL) tablet | mouth daily. | tablet | | /20 | 7 | e | | | | | | 18 | 19 | | + + + +---------+------+------+-------+ | gabapentin | Take 1 capsule by | 30 | 0 | 08/3 | 08/3 | Activ | | (NEURONTIN) 100 MG | mouth daily. | capsule | | 0/20 | 0/20 | e | | capsule | | | | 18 | 19 | | + + + +---------+------+------+-------+ | gabapentin | Take 1 capsule by | 30 | 0 | 08/2 | 08/2 | Activ | | (NEURONTIN) 300 MG | mouth nightly. | capsule | | 05/06 | 05/06 | e | | capsule | | | | 18 | 19 | | + + + +---------+------+------+-------+ | lisinopril | Take 1 tablet by | 30 | 0 | 08/3 | 08/3 | Activ | | (ZESTRIL) 10 MG | mouth daily. | tablet | | 0/20 | 0/20 | e | | tablet | | | | 18 | 19 | | + + + +---------+------+------+-------+ | scopolamine | Place 1 patch onto [...] | | | | + + + +---------+------+------+-------+ | traMADol (ULTRAM) | Take 2 tablets by | 60 | 0 | 08/2 | | Activ | | 50 MG tablet | mouth every 8 | tablet | | 9/20 | | e | | | (eight) hours as | | | 18 | | | | | needed. | | | | | | + + + +---------+------+------+-------+ | sitagliptan | Take 1 tablet by | 30 | 0 | 08/2 | | Activ | | (JANUVIA) 100 MG | mouth daily. | tablet | | 9/20 | | e | | tablet | | | | 18 | | | + + + +---------+------+------+-------+ | sitagliptan | Take 100 mg by mouth | | | | 08/2 | Disco | | (JANUVIA) 100 MG | daily. | | | | 9/20 | ntinu | | tablet | | | | | 18 | ed | + + + +---------+------+------+-------+ | acetaminophen | Take 2 tablets by | 30 | 0 | 08/1 | 08/2 | Disco | | (TYLENOL) 325 MG | mouth every 6 (six) | tablet | | 7/20 | 9/20 | ntinu | | tablet | hours as needed for | | | 18 | 18 | ed | | | up to 10 days. | | | | | | + + + +---------+------+------+-------+ | acetaminophen | Place 1 suppository | 12 | 0 | 08/1 | 08/2 | Disco | | (TYLENOL) 650 MG | rectally every 6 | supposito | | 7/20 | 9/20 | ntinu | | suppository | (six) hours as | ry | | 18 | 18 | ed | | | needed for up to 10 | | | | | | | | days. | | | | | | + + + +---------+------+------+-------+ | insulin detemir | Inject 10 Units into | 15 mL | 12 | 08/1 | 08/2 | Disco | | (LEVEMIR) 100 | the skin 2 (two) | | | 7/20 | 9/20 | ntinu | | UNIT/ML injection | times daily. | | | 18 | 18 | ed | + + + +---------+------+------+-------+ | insulin lispro, | Inject 0-3 Units | 10 mL | 12 | 08/1 | 08/2 | Disco | | human, (HUMALOG) 100 | into the skin | | | 7/20 | 9/20 | ntinu | | UNIT/ML injection | Nightly. | | | 18 | 18 | ed | + + + +---------+------+------+-------+ | insulin lispro, | Inject 0-6 Units | 10 mL | 12 | 08/1 | 08/2 | Disco | | human, (HUMALOG) 100 | into the skin 3 | | | 7/20 | 9/20 | ntinu | | UNIT/ML injection | (three) times daily | | | 18 | 18 | ed | | | before meals. | | | | | | + + + +---------+------+------+-------+ | levetiracetam | Take 1 tablet by | 60 | 12 | 08/1 | 08/2 | Disco | | (KEPPRA) 1000 MG | mouth 2 (two) times | tablet | | 7/20 | 9/20 | ntinu | | tablet | daily. | | | 18 | 18 | ed | + + + +---------+------+------+-------+ | lisinopril | Take 1 tablet by | 30 | 11 | 08/1 | 08/2 | Disco | | (ZESTRIL) 5 MG | mouth daily. | tablet | | 7/20 | 9/20 | ntinu | | tablet | | | | 18 | 18 | ed | + + + +---------+------+------+-------+ | ondansetron | Take 1 tablet by | 20 | 0 | 08/1 | 08/2 | Disco | | (ZOFRAN-ODT) 4 MG | mouth every 6 (six) | tablet | | 7/20 | 9/20 | ntinu | | disintegrating | hours as needed for | | | 18 | 18 | ed | | tablet | up to 7 days. | | | | | | + + + +---------+------+------+-------+ Active Problems + + + | Problem [...] | | | | | | insulin (HCC); | | | | | | Lumbar [...] | | Wing Jasso | | | Leon | | | Treatment | | | Team: | | | Admitting | | | Provider: | | | Karina | | | Wily, | | | MDDischarge | | | [...] | | | in | | | [place]. 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 Manager Location | | | weaker on | | [...] | | | file.Follow | | | up:Juan José | | | [place], | | | [address] | | | [address] | | | on [place] | | | [id number] | | | [phone] | | | [...] | | | Physical | | | [id number] | | | | | | [place] | | | [place] | | | [id number] | | | [phone] | | | [...] | | | discharge | | | summary.Michael | | | rola Quintero, | | | 04/15/2018 | +---+ + +--------+ +---+ + + | 03/31/ | Orders Only | | Jennifer Paulson, | | | 2017 | | | MD | | +--------+ +---+ + + | 03/30/ | Hospital | | AbdoulCarlos, | Thrombocytopenia | | 2017 - | Encounter | | Robe Dougherty | ([facility]) (Primary Dx); | | | | | MD Keon | Pain; 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 | | | female | | | MRN: | | | [id number] | | | OM: | | | [id number] | | | PCP: JUAN JOSÉ | | | WALK[place] | | | : | | | 1950 | | | Admit | | | date: | | | 03/30/2018Di | | | scharge | | | date and | | | time: | | | 04/02/18 | | | Admitting | | | Physician: | | | Carlos E | | | Abdoul, MD | | | Discharge | | | [...] | | | in | | | [place], | | | [place]. | | | Her other | | [...] | | obtained | | | and | | | Wing Quintero | | [...] | | follows | | | with Dr. | | | Peter | | | in | | | [place], | | | [place]. At | | | the time | [...] | | | Vitals: | | | 16/18 | | | 1900 | | | 04/02/18 | | | 0015 | | | 18 | | | 0530 | | | [...] | | Short and | | | fci | | | memory | | | [...] | | | PO2ART, | | | [id number], | | | [id number], | | | BEART in | | [...] | [facility] | | | performed at [facility], [address] | | LABORATORY | | | [address], | | | | | [place] [address] | | | + + + + + + + | Specimen | + + | Blood | + + + + + + + | Performing | Address | City/State/Zipcode | Phone Number | | Organization | | | | + + + + + | [facility] | [address] | [place] [address] | [phone] | | LABORATORY | [address]vd[address] | | | + + + + + POCT glucose (04/14/2018 5:34 AM)Only the most recent of 53 results within the time period is included. + + + + + | Component | Value | Ref Range | Performed At | + + + + + | GLUCOSE,POC SCREEN | 97Comment: Testing | 65 - 99 mg/dL | [facility] | | | performed at [facility];[address] | | | | | [address];[place] | | | | | [address] | | | + + + + + + + + + + | Performing | Address | City/State/Zipcode | Phone Number | | Organization | | | | + + + + + | [facility] | [address] | [place] [address] | | + + + + + Basic metabolic panel (04/10/2018 5:50 AM)Only the most recent of 11 results within the ti ks period is included. + + + + [...] | | | | | performed at [facility], [address] | | | | | [facility], | | | | | [place] [address] | | | + + + + + + + | Specimen | + + | Blood | + + + + + + + | Performing | Address | City/State/Zipcode | Phone Number | | Organization | | | | + + + + + | [facility] | [address] | [place] [address] | [phone] | | LABORATORY | Blvd[address] | | [...] HEAD WO CONTRAST 04/08/2018 8:00 AM | K[facility] | | HISTORY: 67 years. Female. Subdural [...] | + + + + + | [facility] | [address] | [place] [address] | | + + + + + [...] | + + + + + | [facility] | [address] | [place] [address] | | + + + + + MRI lumbar spine without contrast (04/03/2018 4:03 PM) + + + | Impressions | Performed At | + + + | 1. Annular fissuring of the disc is present at L5-S1. 2. Fat | [facility] | | attenuation lesion is noted at L4-L5 and L5-S1 extending caudally. | RADIOLOGY | | 3. Potential impingement of multiple exiting and transiting nerve | | | roots as discussed above. | | + + + + + + | Narrative | Performed At | + + + | STEFANI BHATIA 1950 67 years Female MRI LUMBAR SPINE | [facility] | | WO CONTRAST 04/03/2018 4:03 PM [...] Rad Results In - 04/03/2018 4:23 PM MYA [id number] years | | FemaleMRI LUMBAR SPINE WO [...] | + + + + + | [facility] | [address] | [place] [address] | | + + + + + X-ray hip 2 view left (04/03/2018 10:27 AM)Only the most recent of 2 results within the is included. + + + | Impressions | Performed At | + + + | 1. No evidence of displaced fractures or dislocations left hip. | [facility] | | If the patient continues to [...] + + | Nate Marie In - 04/03/2018 11:48 AM MYA JAMES 2 VIEW | | LEFT04/03/2018 10:27 AMHISTORY:67 [...] + + | [facility] | [address] | [place] [address] | | + + + + + Phosphorus (04/02/2018 3:56 AM)Only the most recent of 3 results within the time period is included. + + + + + | Component | Value | Ref Range | Performed At | + + + + + | PHOSPHORUS | 2.9Comment: Testing | 2.3 - 4.8 mg/dL | [facility] | | | performed at [facility], [address] | | LABORATORY | | | [address], | | | | | [place] [address] | | | + + + + + + + | Specimen | + + | Blood | + + + + + + + | Performing | Address | City/State/Zipcode | Phone Number | | Organization | | | | + + + + + | [facility] | [address] | [place] [address] | [phone] | | LABORATORY | Blvd[address] | | [...] | [facility] | | | performed at [facility], [address] | | LABORATORY | | | [facility], | | | | | [place] [address] | | | + + + + + + + | Specimen | + + | Blood | + + + + + + + | Performing | Address | City/State/Zipcode | Phone Number | | Organization | | | | + + + + + | [facility] | [address] | [place] [address] | [phone] | | LABORATORY | [address]vd[address] | | [...] There is minimal aortic stenosis present. 10. Fugs-bs-nfzkazye | | | mitral regurgitation is present. 11. There may be moderate pulmonary | | | hypertension. 12. The right ventricular systolic pressure (pulmonary | | | artery systolic pressure), as measured by Doppler, is {RVSP}. | | + + + + + + | Narrative | Performed At | + + + | Patient Name: STEFANI BHATIA Date of : 1950 | [facility] | | Performing Physician: Emanuel Melissa MD [...] There is minimal aortic stenosis present. 10. Nwxg-bj-thgdwguo | | | mitral regurgitation is present. [...] stenosis present. Mitral Valve: | | | Gsvp-df-gehgqrfi mitral regurgitation is present. Mitral Valve: | [...] | | Michael: 0.68 m/s TV Dec Schoolcraft: 2.56 m/s2 TV Dec Time: | | | 264.67 ms TV E Michael: 0.67 m/s TV E/A Ratio: 0.99 | | | Maid Cleaning Cooking: CM Authenticated by: Emanuel Melissa MD Report Date/Time: | | | 04-01-2018 16:50:35 | | + + + + + | Procedure Note | + + | Nate Marie Results In - 04/01/2018 5:00 PM PDT Patient Name: PATRICA BHATIADeon of | | : 1950ccession: [id number] Physician: Emanuel Melissa | | INDICATIONS m [...] is minimal aortic stenosis | | present.10. Sfvz-rw-sybmndbo mitral regurgitation is present.11. There may be [...] There is minimal aortic stenosis present.Mitral Valve: Zvqs-ll-phjblzgg mitral | | regurgitation is present. Mitral [...] | mlLVLs A4C: 7.06 cmLAAs A4C: 14.61 ot1POBOL A-L A4C: 34.22 mlLALs A4C: 5.29 | | cmRAAd: 16.15 jf0TLTVT A-L: 43.57 mlRAEDV MOD: 43.26 mlRALd: 5.08 cmAo Diam: | | 3.17 cmAV Cusp: 1.81 cmTAPSE: 2.90 cmAV maxP.78 mmHgAV meanP.51 mmHgAV | | Vmax: 2.10 m/Haley Vmean: 1.53 m/Haley VTI: 57.45 cmAVA Vmax: 1.67 cm2AVA (VTI): | | 1.44 fg3HMVV Vmax: 0.00 cm2/m2AVAI (VTI): 0.00 cm2/m2LVCI Dopp: 3.21 l/uruw1BNFA | | Dopp: 5.72 l/minHR: 68.91 BPMLVOT [...] A Michael: 0.68 m/sTV Dec | | Schoolcraft: 2.56 m/s2TV Dec Time: 264.67 msTV E Michael: 0.67 m/sTV E/A Ratio: 0.99 | | Maid Cleaning Cooking: CMAuthenticated by: Emanuel VAZQUEZeport Date/Time: 04-01-2018 | [...] is minimal aortic stenosis present.10. | | Fxxy-wd-majjhebr mitral regurgitation is present.11. There may be [...] A Michael: 0.68 m/s | |TV Dec Schoolcraft: 2.56 m/s2 | |TV Dec Time: 264.67 ms | |TV E Michael: 0.67 m/s | |TV E/A Ratio: 0.99 | | | |Maid Cleaning Cooking: CM | |Authenticated by: Emanuel Melissa MD [...] is minimal aortic stenosis present. | |10. Nfno-zv-ypvjzppj mitral regurgitation is present. | |11. There may be moderate pulmonary hypertension. | |12. The right ventricular systolic pressure (pulmonary artery systolic pressure), as measur ed by Doppler, is {RVSP}. | + + + + + + + | Performing | Address | City/State/Zipcode | Phone Number | | Organization | | | | + + + + + | [facility] | [address] | [place] [address] | | + + + + + [...] performed | | | | | at [facility], [address] | | | | | [address], | | | | | [place] [address] | | | + + + + + + + | Specimen | + + | Blood | + + + + + + + | Performing | Address | City/State/Zipcode | Phone Number | | Organization | | | | + + + + + | [facility] | [address] | [place] [address] | [phone] | | LABORATORY | [address]vd[address] | | | + + + + + Platelet count (03/31/2018 1:01 PM) + + + + + | Component | Value | Ref Range | Performed At | + + + + + | PLT | 82 (L)Comment: Testing | 150 - 400 K/uL | [facility] | | | performed at [facility];[address] | | | | | [address];[place] | | | | | [address] | | | + + + + + + + | Specimen | + + | Blood | + + + + + + + | Performing | Address | City/State/Zipcode | Phone Number | | Organization | | | | + + + + + | [facility] | [address] | [place] [address] | | + + + + + [...] | [facility] | | | performed at [facility], [address] | | LABORATORY | | | [address], | | | | | [place] [address] | | | + + + + + + + | Specimen | + + | Blood | + + + + + + + | Performing | Address | City/State/Zipcode | Phone Number | | Organization | | | | + + + + + | [facility] | [address] | [place] [address] | [phone] | | LABORATORY | [address] | | [...] + + + + | Calculated P Wyckoff | 26 | degrees | [facility] | + + + + + | Calculated R Wyckoff | -23 | degrees | [facility] EKG | + + + + + | Calculated T Wyckoff | 144 | degrees | [facility] EKG [...] | + + + + + | [facility] | [address] | [place] [address] | | + + + + + [...] 11 | 5 - 20 mmol/L | [facility] | + + + + + | GLUCOSE | 137 (H) | 65 - 99 mg/dL | [facility] | + + + + + | BUN | 8 | 8 - 25 mg/dL | [facility] | + + + + + | CREATININE | 0.49 (L) | 0.50 - 1.00 mg/dL | [facility] | + + + + + | BUN/CREAT | 16 | | [facility] | + + + + + | CALCIUM | 8.0 (L) | 8.5 - 10.5 mg/dL | [facility] | + + + + + | TOTAL PROTEIN | 6.2 (L) | 6.3 - 8.2 g/dL | [facility] | + + + + + | Albumin | 2.7 (L) | 3.3 - 4.8 g/dL | [facility] | + + + + + | GLOBULIN | 3.6 | 1.3 - 4.9 g/dL | [facility] | + + + + + | A/G | 0.7 (L) | 1.0 - 2.4 | [facility] | + + + + [...] >60Comment: GFR <60: | >60 mL/min/1.73m2 | [facility] | | | CHRONIC KIDNEY [...] | | | | | performed at [facility];[address] | | | | | [address];[place] | | | | | [address] | | | + + + + + + + | Specimen | + + | Blood | + + + + + + + | Performing | Address | City/State/Zipcode | Phone Number | | Organization | | | | + + + + + | [facility] | [address] | [place] [address] | | + + + + + [...] | + + + | STEFANI WILLINGHAM JANNETTE 1950 67 years Female CTA HEAD NECK W | [facility] | | WO CONTRAST 03/30/2018 11:12 PM [...] | data set was also examined with Versa 3D software for evaluation | | | [...] - 03/30/2018 11:37 PM PDT STEFANI WILLINGHAM [id number] years | | FemaleCTA HEAD NECK W [...] The data set was also examined with Versa 3D | | software for evaluation of [...] | + + + + + | [facility] | [address] | [place] [address] | | + + + + + [...] + + | [facility] | [address] | [place] [address] | | + + + + + Transfuse platelets (Nursing) (03/30/2018 10:04 PM)Only the most recent of 2 results within the time period is included.Prepare platelets (Blood Bank) (03/30/2018 6:47 PM) + + + + + | Component | Value | Ref Range | Performed At | + + + + + | BLOOD COMPONENT TYPE | PLATELET GROUP | | [facility] | + + + + + | UNITS ORDERED | 2 | | [facility] | + + + + + | Additional comment: | ORDER RECEIVED IN BLOOD | | [facility] | | | BANK. | | | + + + + + | UNIT NUMBER | [id number] | | [facility] | + + + + + | BLOOD COMPONENT TYPE | PLATELET PHERESIS,LD B | | [facility] | + + + + + | UNIT DIVISION | 00 | | [facility] | + + + + + | STATUS OF UNIT | ISSUED,FINAL | | [facility] | + + + + + | TRANSFUSION STATUS | OK TO TRANSFUSE | | [facility] | + + + + + | UNIT NUMBER | [id number] | | [facility] | + + + + + | BLOOD COMPONENT TYPE | PLATELET PHERESIS,LD B | | [facility] | + + + + + | UNIT DIVISION | 00 | | [facility] | + + + + + | STATUS OF UNIT | ISSUED,FINAL | | [facility] | + + + + + | TRANSFUSION STATUS | OK TO TRANSFUSETesting | | [facility] | | | performed at [facility];[address] | | | | | [address];[place] | | | | | [address] | | | + + + + + + + | Specimen | + + | Blood | + + + + + + + | Performing | Address | City/State/Zipcode | Phone Number | | Organization | | | | + + + + + | [facility] | [address] | [place] [address] | | + + + + + Type and screen (03/30/2018 6:31 PM) + + + + + | Component | Value | Ref Range | Performed At | + + + + + | ABO/RH(D) | A POSITIVE | | [facility] | + + + + + | ANTIBODY SCREEN | NEGATIVE | | [facility] | + + + + + | ARM BAND NUMBER | [id number] | | [facility] | | | performed at [facility];[address] | | | | | [address];[place], [place] | | | | | [address] | | | + + + + + + + | Specimen | + + | Blood | + + + + + + + | Performing | Address | City/State/Zipcode | Phone Number | | Organization | | | | + + + + + | [facility] | [address] | [place] [address] | | + + + + + Glycohemoglobin A1C (03/30/2018 6:31 PM) + + + + + | Component | Value | Ref Range | Performed At | + + + + + | HEMOGLOBIN A1C | 6.8 (H)Comment: The | 4.0 - 6.0 % | [facility] | | | [place] | | LABORATORY | | | [...] | | | | | performed at [facility], [address] | | | | | [facility], | | | | | [place] [address] | | | + + + + + + + | Specimen | + + | Blood | + + + + + + + | Performing | Address | City/State/Zipcode | Phone Number | | Organization | | | | + + + + + | [facility] | [address] | [place] [address] | [phone] | | LABORATORY | [address]vd[address] | | | + + + + + MRSA by PCR (03/30/2018 6:30 PM) + + + + + | Component | Value | Ref Range | Performed At | + + + + + | SOURCE | NARES(NOSE) | | [facility] | + + + + + | MRSA PCR | NEGATIVEComment: Testing | NEGATIVE | [facility] | | | performed at [facility];[address] | | | | | [address];[place] | | | | | [address] | | | + + + + + + + | Specimen | + + | Nasopharyngeal - | | Nasopharyngeal | | Culture | + + + + + + + | Performing | Address | City/State/Zipcode | Phone Number | | Organization | | | | + + + + + | [facility] | [address] | [facility] [place] [address] | | + + + + + [...] +------+-------+ + | MEDICARE | MEDICA | [id number] | | | [address] | | | RE | | | | [place] [address] | | | IP-OP | | | | | + +--------+ +------+-------+ + | PREMERA | PREMER | [id number] | | | [address] [address] | | | A BLUE | | | | [place] | | | CROSS | | | | [address] | | | FED | | | [...] | Self [birth year] Home: | [address] | | PRI[place]ANKA | leeann/Randy | | 1950 | [phone] | [place] | | | tessie | | | [address] | [phone] | + +--------+ +--------+ + +
--- OUTSIDE RECORDS SUMMARY | ~2018-05-11 | XMS | Encounter Summary ---
Demographics + + + | Address | [address] | | | [place] [address] | + + + | Home Phone | | + + + | Preferred Language | Unknown | + + + | Marital Status | | + + + | Orthodox Affiliation | 1076 | + + + | Race | Unknown | + + + | Ethnic Group | Unknown | + + + Author + + + | Author | [facility] | + + + | Organization | [facility] | + + + | Address | Unknown | + + + | Phone | Unavailable | + + + Support + + + + + | Name | Relationship | Address | Phone | + + + + + | Jamaal Parra | ELSY | [address] | | | [place] | | [place] | | | | | [address] | | + + + + + Care Team Providers + +------+ + | [employer] Consultant Name | Role | Phone | + +------+ + | Vince Cintron DO | PCP | | + +------+ + Encounter Details +--------+ + + + + | Date | Type | Department | Care Team | Description | +--------+ + + + + | 04/03/ | Procedure | [facility] | | | | 2018 | [facility] | | | | | | Inpatient Rehab [address] | | | | | | [address] | | | | | | [place] [address] | | | | | | [phone] | | | +--------+ + + + [...]
--- OUTSIDE RECORDS SUMMARY | ~2018-05-11 | XMS | Encounter Summary ---
Demographics + + + | Address | [address] | | | [place] [address] | + + + | Home Phone | | + + + | Preferred Language | Unknown | + + + | Marital Status | | + + + | Scientologist Affiliation | [id number] | + + + | Race | Unknown | + + + | Ethnic Group | Unknown | + + + Author + + + | Author | [facility] | + + + | Organization | [facility] [email or web address] [facility] | + + + | Address | Unknown | + + + | Phone | Unavailable | + + + Support + + + + + | Name | Relationship | Address | Phone | + + + + + | Jamaal Parra | ELSY | [address] | | | [place] | | [place] | | | | | [address] | | + + + + + Care Team Providers + +------+ + | Care Resident Manager Name | Role | Phone | + +------+ + | Vince Cintron DO | PCP | | + +------+ + Encounter Details +--------+ + + + + | Date | Type | Department | Care Team | Description | +--------+ + + + + | 04/03/ | Procedure | [facility] | | | | 2018 | [facility] | | | | | | Inpatient Rehab [address] | | | | | | [address] | | | | | | [place] [address] | | | | | | [phone] | | | +--------+ + + + [...]
--- OUTSIDE RECORDS SUMMARY | ~2018-05-11 | XMS | Encounter Summary ---
Demographics + + + | Address | [address] | | | [place] [address] | + + + | Home Phone | | + + + | Preferred Language | Unknown | + + + | Marital Status | | + + + | Yazidi Affiliation | [id number] | + + + | Race | Unknown | + + + | Ethnic Group | Unknown | + + + Author + + + | Author | [facility] | + + + | Organization | [facility] | + + + | Address | Unknown | + + + | Phone | Unavailable | + + + Support + + + + + | Name | Relationship | Address | Phone | + + + + + | Stefani Bhatia | ELSY | [address] | | | [place] | | [place] | | | | | [address] | | + + + + + Care Team Providers + +------+ + | Care Staff Physical Therapist Name | Role | Phone | + +------+ + | Vince Cintron DO | PCP | | + +------+ + Encounter Details +--------+ + + + + | Date | Type | Department | Care Team | Description | +--------+ + + + + | 04/02/ | Hospital | [facility] | Missy Rivera, | Chronic ITP | | 2018 - | Encounter | [facility] | MD [address] | (idiopathic | | | | Inpatient Rehab [address] | [place] | thrombocytopenia) | | 04/14/ | | [address] | [address] | ([facility]); Essential | | 2018 | | [place] [address] | [phone] | hypertension; Falls | | | | [phone] | | frequently; Gait | | | | | Wing Tyshawn Quintero MD | disorder; H/O | | | | | [address] | dizziness; SDH | | | | | [place] [address] | (subdural hematoma) | | | | | [phone] | (HCC); Subarachnoid | | | | | | hemorrhage following | | | | | | injury without open | | | | | | intracranial wound | | | | | | and with no loss of | | | | | | consciousness, | | | | | | sequela ([facility]); | | | | | | Thrombocytopenia | | | | | | ([facility]); 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 [facility] Service: Physical Medicine & Rehab Discharge [...] and has been seeing an Oncologist in [place]. She is a poor historian but does report falls. She could not figure out what happened but i mplied that her dogs might have caused her falls. 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 Imaging Clerk weaker on right. DATA PLAN the patient is ready for discharge home. Disposition: Home Condition: Good Code Status: Prior No discharge procedures on file. Follow up: DO JULIO Sheramn [address] [place] [id number] Follow up Please follow-up with your primary care provider within 1-2 weeks after discharge. Neurology Follow up Please follow-up with a neurologist. [facility] [address] [place] [id number] Follow up A referral was made to [...] and eat a healthy diet. Get regular kelsae rs of sleep. Have an active social [...] e and it works. Date Last Reviewed: 02/15/[id number] [employer]. [address] [place] [address]. All righ ts reserved. This information is not intended as a substitute for professional medical care. Always follow your healthcare professional's instructions. A 4 wheel walker was obtained from [facility] in [place] (ph [phone]). If you have any issues with the [...] note may be different from the original. [facility] Service: Internal Medicine Progress Note Hospital [...] Chronic ITP. PLTs stable since admission to [facility]. Plan as per Heme. 5. Lower Back [...] alls, and possible syncope. . F/U with portable trackman after discharge. Possible c 9. Disposition. SW to assist with discharge planning. Estimated discharge date 03/18. MISSY RIVERA MD 04/12/2018 Galilea Christianson, RD - 04/12/2018 4:04 PM PDTFormatting of this note may be different from t seda original. 04/12/18 3914 Subjective Timepoint Follow up Pt c/o Pt intake improved, no c/o's. Fluid / Beverage Intake Oral Fluids Amount ad morris thins Liquid Meal Replacement or Supplement politely declines supplement Food Intake Amount of Food eating average 70% meals over the past week Type of Food / Meals HOSPITAL MEDICAL ASSISTANT working with pt - now on dysphagia advanced/thins for mild aspirat ion risk Meal / Snack Pattern house trays Nutrition-Focused Physical Findings Digestive System (Mouth to Rectum) mild aspiration risk - working with HOSPITAL MEDICAL ASSISTANT Biochemical data, medical tests, and procedures reviewed Biochemical data, medical tests, and procedures reviewed labs reviewed Recommendations Recommended energy needs Continue diet as Rx'd, texture per HOSPITAL MEDICAL ASSISTANT, with house trays. Will f/ u weekly and offer oral nutrition supplements if po intake decreases. Nutritional Risk Nutritional risk Low Follow up date 04/19/18 NICOLE Kruse Barbara, MD - 04/11/2018 5:34 PM PDTFormatting of this note may be different from the original. [facility] Service: Physical Medicine and Rehab Progress Note Hospital Day: LOS: 9 days Post-Op Day: * No surgery found * SUBJECTIVE Patient Summary: history of chronic thrombocytopenia(ITP), Diabetes, HTN, anxiety, and depressionwho presents with hx of frequent falls, confusion, Left Subdural Hematoma. Events Overnight: pt ambulated in hallway with RN and with PHARMACY SCHEDULER this morning. Contin ued c/o leg pain bilaterally. Mild Lower backache. No SOB or CP. Pt telling nurse that she is going home tomorrow. She refused [facility] in [place]. She thinks she is going home and [...] Chronic ITP. PLTs stable since admission to [facility]. Plan as per Heme. 5. Left leg/HipPain: [...] note may be different from the original. [facility] Service: Physical Medicine and Rehab Progress [...] planning. MISSY RIVERA MD 04/10/2018 Gisel Davies, MCKAYLA-HOSPITAL MEDICAL ASSISTANT - 04/10/2018 9:00 AM PDTSPEECH - LANGUAGE - COGNITION HOSPITAL MEDICAL ASSISTANT Received On: 04/10/18 Requires HOSPITAL MEDICAL ASSISTANT Follow Up: Yes Treatment Plan: Continue with [...] evidence of learning [] Refused Gisel Davies CCC-HOSPITAL MEDICAL ASSISTANT Wing Tyshawn Quintero MD - 04/09/2018 7:53 AM PDTFormatting of this note may be different from the original. [facility] Service: Physical Medicine & Rehab Progress [...] note may be different from the original. [facility] Service: Physical Medicine & Rehab Progress [...] may be differe nt from the original. [facility] Service: Hematology and Oncology Progress Note Hospital Day: LOS: 6 days Patient Summary: Ms. Stefani Bhatia is a 67 year old woman with a history of chronic thrombocytopenia followed by Dr. Green in [place] in addition to progressive confusion, gait inst ability, and multiple falls who apparently fell approximately two weeks prior to admission, hitting the back of her head. She was transported to [facility] in [facility] 2017 secondary to increased confusion and agitation after her most recent fall and fo und to have from cytopenia with platelet level 65,000. CT of the head was performed revealin g a subdural hematoma along the left tentorium and the patient was transferred to [facility] for f urther management and admitted to ICU. She is transitioned to hospitalist services March. The patient was given IVIG 400 mg/kg IV March 31-2017. She was transferred to [facility] April 02, 2018. Hematological opinion was [...] thrombocytopenia followed by Dr. Milton dominguez at [facility] in [place], [place]. She is now admitted with subdural [...] may be di fferent from the original. [facility] Service: Physical Medicine & Rehab Progress [...] seemed somewhat relieved by this conversation, thanking [place] for visit. Shannon Wick RD - 04/05/2018 [...] note may be different from the original. [facility] Service: Physical Medicine and Rehab Progress [...] disc disease with radiculopathy [facility] 67 [facility] Female with Hx of [...] IVIG x 2 prior to transfer to [facility]. Plts sli ghtly better today. Plan as [...] may be elaina nt from the original. [facility] Service: Hematology and Oncology Progress Note Hospital Day: LOS: 3 days Patient Summary: Ms. Stefani Bhatia is a 67 year old woman with a history of chronic thrombocytopenia followed by Dr. Green in [place] in addition to progressive confusion, gait inst ability, and multiple falls who apparently fell approximately two weeks prior to admission, hitting the back of her head. She was transported to [facility] in [facility] 2017 secondary to increased confusion and agitation after her most recent fall and fo und to have from cytopenia with platelet level 65,000. CT of the head was performed revealin g a subdural hematoma along the left tentorium and the patient was transferred to [facility] for f urther management and admitted to ICU. She is transitioned to hospitalist services March. The patient was given IVIG 400 mg/kg IV March 31-2017. She was transferred to [facility] April 02, 2018. Hematological opinion was [...] thrombocytopenia followed by Dr. Milton dominguez at [facility] in [place], [place]. She is now admitted with subdural [...] note may be different from the original. [facility] Service: Physical Medicine and Rehab Progress [...] to . He is working for the [employer] for [employer]. This is his busy season and he works 12 hours a day. He admits that pt has been confused for at least a franklin h and a half. He believes her fall was 3 weeks ago. She was alone and laid on the ground f or 3 hrs before she was able to get up. This is when she injured her neck. Tljgwg-zc-eqh is visiting pt and says that patient has been confused a long time. 1 1/2 yr s ago they were at pt's cabin in [place]. She fell fracturing ribs. She was extremely confu sed. Aagzif-go-tyd called pt's to come get her because [...] while she was having dental implants but ahnjzu-zo-dgz thinks she forget s to eat. Scheduled [...] PT and OT. 3. Cognitive Dysfunction. Continue HOSPITAL MEDICAL ASSISTANT Therapy. 4. Chronic ITP. Pt recd 2 units Plts and IVIG x 2 prior to transfer to [facility]. Plts sli ghtly better today. Plan as [...] note may be different from the original. [facility] Service: Internal Medicine Progress Note Hospital [...] and proprioception intact in all 4 extremities. Imaging Clerk weaker on right. DATA CBC: Lab Results [...] Apr 2017 but is worse no w. HOSPITAL MEDICAL ASSISTANT evaluation and therapy 4. Chronic ITP. Pt [...] Testing | 0.00 - 0.10 K/uL | [facility] | | | performed at [facility], [address] | | LABORATORY | | | [address], | | | | | [place] [address] | | | + + + + + + + | Specimen | + + | Blood | + + + + + + + | Performing | Address | City/State/Zipcode | Phone Number | | Organization | | | | + + + + + | [facility] | [address] | [place] [address] | [phone] | | LABORATORY | [address] | | | + + + + + POCT glucose (04/14/2018 5:34 AM) + + + + + | Component | Value | Ref Range | Performed At | + + + + + | GLUCOSE,POC SCREEN | 97Comment: Testing | 65 - 99 mg/dL | [facility] | | | performed at [facility];[address] | | | | [address];[place], [place] | | | | | [address] | | | + + + + + + + + + + | Performing | Address | City/State/Zipcode | Phone Number | | Organization | | | | + + + + + | [facility] | [address] | [place] [address] | | + + + + + POCT glucose (04/13/2018 6:22 AM) + + + + + | Component | Value | Ref Range | Performed At | + + + + + | GLUCOSE,POC SCREEN | 112 (H)Comment: Testing | 65 - 99 mg/dL | [facility] | | | performed at [facility];[address] | | | | | [address];[place] | | | | | [address] | | | + + + + + + + + + + | Performing | Address | City/State/Zipcode | Phone Number | | Organization | | | | + + + + + | [facility] | [address] | [place] [address] | | + + + + + POCT glucose (04/12/2018 8:27 PM) + + + + + | Component | Value | Ref Range | Performed At | + + + + + | GLUCOSE,POC SCREEN | 223 (H)Comment: Testing | 65 - 99 mg/dL | [facility] | | | performed at [facility];[address] | | | | | [address];[place], [place] | | | | | [address] | | | + + + + + + + + + + | Performing | Address | City/State/Zipcode | Phone Number | | Organization | | | | + + + + + | [facility] | [address] | [place] [address] | | + + + + + POCT glucose (04/12/2018 4:22 PM) + + + + + | Component | Value | Ref Range | Performed At | + + + + + | GLUCOSE,POC SCREEN | 146 (H)Comment: Testing | 65 - 99 mg/dL | [facility] | | | performed at [facility];[address] | | | | | [address];[place] | | | | | [address] | | | + + + + + + + + + + | Performing | Address | City/State/Zipcode | Phone Number | | Organization | | | | + + + + + | [facility] | [address] | [place] [address] | | + + + + + POCT glucose (04/12/2018 11:53 AM) + + + + + | Component | Value | Ref Range | Performed At | + + + + + | GLUCOSE,POC SCREEN | 222 (H)Comment: Testing | 65 - 99 mg/dL | [facility] | | | performed at [facility];[address] | | | | | [address];[place], [place] | | | | | [address] | | | + + + + + + + + + + | Performing | Address | City/State/Zipcode | Phone Number | | Organization | | | | + + + + + | [facility] | [address] | [place] [address] | | + + + + + POCT glucose (04/12/2018 6:28 AM) + + + + + | Component | Value | Ref Range | Performed At | + + + + + | GLUCOSE,POC SCREEN | 103 (H)Comment: Testing | 65 - 99 mg/dL | [facility] | | | performed at [facility];[address] | | | | | [address];[place] | | | | | [address] | | | + + + + + + + + + + | Performing | Address | City/State/Zipcode | Phone Number | | Organization | | | | + + + + + | [facility] | [address] | [place] [address] | | + + + + + POCT glucose (04/11/2018 8:47 PM) + + + + + | Component | Value | Ref Range | Performed At | + + + + + | GLUCOSE,POC SCREEN | 224 (H)Comment: Testing | 65 - 99 mg/dL | [facility] | | | performed at [facility];[address] | | | | | [address];[place] | | | | | [address] | | | + + + + + + + + + + | Performing | Address | City/State/Zipcode | Phone Number | | Organization | | | | + + + + + | [facility] | [address] | [place] [address] | | + + + + + POCT glucose (04/11/2018 4:36 PM) + + + + + | Component | Value | Ref Range | Performed At | + + + + + | GLUCOSE,POC SCREEN | 121 (H)Comment: Testing | 65 - 99 mg/dL | [facility] | | | performed at [facility];[address] | | | | | [address];[place] | | | | | [address] | | | + + + + + + + + + + | Performing | Address | City/State/Zipcode | Phone Number | | Organization | | | | + + + + + | [facility] | [address] | [place] [address] | | + + + + + POCT glucose (04/11/2018 11:41 AM) + + + + + | Component | Value | Ref Range | Performed At | + + + + + | GLUCOSE,POC SCREEN | 123 (H)Comment: Testing | 65 - 99 mg/dL | [facility] | | | performed at [facility];[address] | | | | | [address];[place] | | | | | [address] | | | + + + + + + + + + + | Performing | Address | City/State/Zipcode | Phone Number | | Organization | | | | + + + + + | [facility] | [address] | [place] [address] | | + + + + + POCT glucose (04/11/2018 6:02 AM) + + + + + | Component | Value | Ref Range | Performed At | + + + + + | GLUCOSE,POC SCREEN | 126 (H)Comment: Testing | 65 - 99 mg/dL | [facility] | | | performed at [facility];[address] | | | | | [address] [facility];[place], [place] | | | | | [address] | | | + + + + + + + + + + | Performing | Address | City/State/Zipcode | Phone Number | | Organization | | | | + + + + + | [facility] | [address] | [place] [address] | | + + + + + [...] [facility] | | | performed at [facility], [address] | | LABORATORY | | | [address], | | | | | [place] [address] | | | + + + + + + + | Specimen | + + | Blood | + + + + + + + | Performing | Address | City/State/Zipcode | Phone Number | | Organization | | | | + + + + + | [facility] | [address] | [place] [address] | [phone] | | LABORATORY | [address] | | | + + + + + POCT glucose (04/10/2018 8:46 PM) + + + + + | Component | Value | Ref Range | Performed At | + + + + + | GLUCOSE,POC SCREEN | 254 (H)Comment: Testing | 65 - 99 mg/dL | [facility] | | | performed at [facility];[address] | | | | | [address];[place] | | | | | [address] | | | + + + + + + + + + + | Performing | Address | City/State/Zipcode | Phone Number | | Organization | | | | + + + + + | [facility] | [address] | [place] [address] | | + + + + + POCT glucose (04/10/2018 4:31 PM) + + + + + | Component | Value | Ref Range | Performed At | + + + + + | GLUCOSE,POC SCREEN | 93Comment: Testing | 65 - 99 mg/dL | [facility] | | | performed at [facility];[address] | | | | | [address];[place], [place] | | | | | [address] | | | + + + + + + + + + + | Performing | Address | City/State/Zipcode | Phone Number | | Organization | | | | + + + + + | [facility] | [address] | [place] [address] | | + + + + + POCT glucose (04/10/2018 11:31 AM) + + + + + | Component | Value | Ref Range | Performed At | + + + + + | GLUCOSE,POC SCREEN | 301 (H)Comment: Testing | 65 - 99 mg/dL | [facility] | | | performed at [facility];[address] | | | | | [address];[place] | | | | | [address] | | | + + + + + + + + + + | Performing | Address | City/State/Zipcode | Phone Number | | Organization | | | | + + + + + | [facility] | [address] | [place] [address] | | + + + + + POCT glucose (04/10/2018 5:54 AM) + + + + + | Component | Value | Ref Range | Performed At | + + + + + | GLUCOSE,POC SCREEN | 132 (H)Comment: Testing | 65 - 99 mg/dL | [facility] | | | performed at [facility];[address] | | | | | [address];[place] | | | | | [address] | | | + + + + + + + + + + | Performing | Address | City/State/Zipcode | Phone Number | | Organization | | | | + + + + + | [facility] | [address] | [place] [address] | | + + + + + [...] >60Comment: GFR <60: | >60 mL/min/1.73m2 | [facility] | | | CHRONIC KIDNEY DISEASE, | [...] the | | | | | MDRD IDPA traceable | | | | | equation.Testing | | | | | performed at [facility], [address] | | | | | [facility], | | | | | [place] [address] | | | + + + + + + + | Specimen | + + | Blood | + + + + + + + | Performing | Address | City/State/Zipcode | Phone Number | | Organization | | | | + + + + + | [facility] | [address] | [place] [address] | [phone] | | LABORATORY | [address] | | | + + + + + POCT glucose (04/09/2018 8:54 PM) + + + + + | Component | Value | Ref Range | Performed At | + + + + + | GLUCOSE,POC SCREEN | 185 (H)Comment: Testing | 65 - 99 mg/dL | [facility] | | | performed at [facility];[address] | | | | | [address];[place] | | | | | [address] | | | + + + + + + + + + + | Performing | Address | City/State/Zipcode | Phone Number | | Organization | | | | + + + + + | [facility] | [address] | [place] [address] | | + + + + + POCT glucose (04/09/2018 4:39 PM) + + + + + | Component | Value | Ref Range | Performed At | + + + + + | GLUCOSE,POC SCREEN | 152 (H)Comment: Testing | 65 - 99 mg/dL | [facility] | | | performed at [facility];[address] | | | | | [address];[place] | | | | | [address] | | | + + + + + + + + + + | Performing | Address | City/State/Zipcode | Phone Number | | Organization | | | | + + + + + | [facility] | [address] | [place] [address] | | + + + + + POCT glucose (04/09/2018 11:35 AM) + + + + + | Component | Value | Ref Range | Performed At | + + + + + | GLUCOSE,POC SCREEN | 178 (H)Comment: Testing | 65 - 99 mg/dL | [facility] | | | performed at [facility];[address] | | | | | [address];[place] | | | | | [address] | | | + + + + + + + + + + | Performing | Address | City/State/Zipcode | Phone Number | | Organization | | | | + + + + + | [facility] | [address] | [place] [address] | | + + + + + POCT glucose (04/09/2018 6:10 AM) + + + + + | Component | Value | Ref Range | Performed At | + + + + + | GLUCOSE,POC SCREEN | 181 (H)Comment: Testing | 65 - 99 mg/dL | [facility] | | | performed at [facility];[address] | | | | | [address];[place] | | | | | [address] | | | + + + + + + + + + + | Performing | Address | City/State/Zipcode | Phone Number | | Organization | | | | + + + + + | [facility] | [address] | [place] [address] | | + + + + + [...] | | | | performed at [facility], [address] | | | | | [facility], | | | | | [place] [address] | | | + + + + + + + | Specimen | + + | Blood | + + + + + + + | Performing | Address | City/State/Zipcode | Phone Number | | Organization | | | | + + + + + | [facility] | [address] | [place] [address] | [phone] | | LABORATORY | [address] | | | + + + + + POCT glucose (04/08/2018 8:35 PM) + + + + + | Component | Value | Ref Range | Performed At | + + + + + | GLUCOSE,POC SCREEN | 218 (H)Comment: Testing | 65 - 99 mg/dL | [facility] | | | performed at [facility];[address] | | | | | [address];[place] | | | | | [address] | | | + + + + + + + + + + | Performing | Address | City/State/Zipcode | Phone Number | | Organization | | | | + + + + + | [facility] | [address] | [place] [address] | | + + + + + POCT glucose (04/08/2018 4:22 PM) + + + + + | Component | Value | Ref Range | Performed At | + + + + + | GLUCOSE,POC SCREEN | 152 (H)Comment: Testing | 65 - 99 mg/dL | [facility] | | | performed at [facility];[address] | | | | | [address] [facility];[place], [place] | | | | | [address] | | | + + + + + + + + + + | Performing | Address | City/State/Zipcode | Phone Number | | Organization | | | | + + + + + | [facility] | [address] | [place] [address] | | + + + + + POCT glucose (04/08/2018 11:26 AM) + + + + + | Component | Value | Ref Range | Performed At | + + + + + | GLUCOSE,POC SCREEN | 274 (H)Comment: Testing | 65 - 99 mg/dL | [facility] | | | performed at [facility];[address] | | | | | [address];[place] | | | | | [address] | | | + + + + + + + + + + | Performing | Address | City/State/Zipcode | Phone Number | | Organization | | | | + + + + + | [facility] | [address] | [place] [address] | | + + + + + [...] MIKKI HERNANDEZ | [address] | [place] [address] | | + + + + + POCT glucose (04/08/2018 6:15 AM) + + + + + | Component | Value | Ref Range | Performed At | + + + + + | GLUCOSE,POC SCREEN | 133 (H)Comment: Testing | 65 - 99 mg/dL | [facility] | | | performed at [facility];[address] | | | | | [address];[place] | | | | | [address] | | | + + + + + + + + + + | Performing | Address | City/State/Zipcode | Phone Number | | Organization | | | | + + + + + | [facility] | [address] | [place] [address] | | + + + + + [...] [facility] | | | performed at [facility], [address] | | LABORATORY | | | [address], | | | | | [place] [address] | | | + + + + + + + | Specimen | + + | Blood | + + + + + + + | Performing | Address | City/State/Zipcode | Phone Number | | Organization | | | | + + + + + | [facility] | [address] | [place] [address] | [phone] | | LABORATORY | [address] | | [...] (L) | 0.50 - 1.00 mg/dL | [facility] | | | | | LABORATORY | + + + + + | BUN/CREAT | 18 | | [facility] | | | | | LABORATORY | + + + + + | CALCIUM | 8.2 (L) | 8.5 - 10.5 mg/dL | [facility] | | | | | LABORATORY | + + + + + | EGFR | >60Comment: GFR <60: | >60 mL/min/1.73m2 | [facility] | | | CHRONIC KIDNEY DISEASE, | [...] | | | | performed at [facility], [address] | | | | | [facility], | | | | | [place] [address] | | | + + + + + + + | Specimen | + + | Blood | + + + + + + + | Performing | Address | City/State/Zipcode | Phone Number | | Organization | | | | + + + + + | [facility] | [address] | [place] [address] | [phone] | | LABORATORY | [address]vd[address] | | | + + + + + POCT glucose (04/07/2018 8:55 PM) + + + + + | Component | Value | Ref Range | Performed At | + + + + + | GLUCOSE,POC SCREEN | 231 (H)Comment: Testing | 65 - 99 mg/dL | [facility] | | | performed at [facility];[address] | | | | | [address];[place] | | | | | [address] | | | + + + + + + + + + + | Performing | Address | City/State/Zipcode | Phone Number | | Organization | | | | + + + + + | [facility] | [address] | [place] [address] | | + + + + + POCT glucose (04/07/2018 11:23 AM) + + + + + | Component | Value | Ref Range | Performed At | + + + + + | GLUCOSE,POC SCREEN | 153 (H)Comment: Testing | 65 - 99 mg/dL | [facility] | | | performed at [facility];[address] | | | | | [address];[place] | | | | | [address] | | | + + + + + + + + + + | Performing | Address | City/State/Zipcode | Phone Number | | Organization | | | | + + + + + | [facility] | [address] | [place] [address] | | + + + + + POCT glucose (04/07/2018 6:06 AM) + + + + + | Component | Value | Ref Range | Performed At | + + + + + | GLUCOSE,POC SCREEN | 121 (H)Comment: Testing | 65 - 99 mg/dL | [facility] | | | performed at [facility];[address] | | | | | [address];[place] | | | | | [address] | | | + + + + + + + + + + | Performing | Address | City/State/Zipcode | Phone Number | | Organization | | | | + + + + + | [facility] | [address] | [place] [address] | | + + + + + [...] [facility] | | | performed at [facility], [address] | | LABORATORY | | | [address], | | | | | [place] [address] | | | + + + + + + + | Specimen | + + | Blood | + + + + + + + | Performing | Address | City/State/Zipcode | Phone Number | | Organization | | | | + + + + + | [facility] | [address] | [place] [address] | [phone] | | LABORATORY | Blvd[address] | | [...] | | | | performed at [facility], [address] | | | | | [facility], | | | | | [place] [address] | | | + + + + + + + | Specimen | + + | Blood | + + + + + + + | Performing | Address | City/State/Zipcode | Phone Number | | Organization | | | | + + + + + | [facility] | [address] | [place] [address] | [phone] | | LABORATORY | [address] | | | + + + + + POCT glucose (04/06/2018 8:22 PM) + + + + + | Component | Value | Ref Range | Performed At | + + + + + | GLUCOSE,POC SCREEN | 190 (H)Comment: Testing | 65 - 99 mg/dL | [facility] | | | performed at [facility];[address] | | | | | [address] [facility];[place], [place] | | | | | [address] | | | + + + + + + + + + + | Performing | Address | City/State/Zipcode | Phone Number | | Organization | | | | + + + + + | [facility] | [address] | [place] [address] | | + + + + + POCT glucose (04/06/2018 4:56 PM) + + + + + | Component | Value | Ref Range | Performed At | + + + + + | GLUCOSE,POC SCREEN | 178 (H)Comment: Testing | 65 - 99 mg/dL | [facility] | | | performed at [facility];[address] | | | | | [address];[place] | | | | | [address] | | | + + + + + + + + + + | Performing | Address | City/State/Zipcode | Phone Number | | Organization | | | | + + + + + | [facility] | [address] | [place] [address] | | + + + + + POCT glucose (04/06/2018 12:09 PM) + + + + + | Component | Value | Ref Range | Performed At | + + + + + | GLUCOSE,POC SCREEN | 266 (H)Comment: Testing | 65 - 99 mg/dL | [facility] | | | performed at [facility];[address] | | | | | [address];[place] | | | | | [address] | | | + + + + + + + + + + | Performing | Address | City/State/Zipcode | Phone Number | | Organization | | | | + + + + + | [facility] | [address] | [place] [address] | | + + + + + POCT glucose (04/06/2018 6:09 AM) + + + + + | Component | Value | Ref Range | Performed At | + + + + + | GLUCOSE,POC SCREEN | 90Comment: Testing | 65 - 99 mg/dL | [facility] | | | performed at [facility];[address] | | | | | [address];[place] | | | | | [address] | | | + + + + + + + + + + | Performing | Address | City/State/Zipcode | Phone Number | | Organization | | | | + + + + + | [facility] | [address] | [place] [address] | | + + + + + CBC w/auto diff (reflex to manual) (04/06/2018 5:44 AM) + + + + + | Component | Value | Ref Range | Performed At | + + + + + | WBC | 6.15 | 3.80 - 11.00 K/uL | [facility] | + + + + + | RBC | 3.58 (L) | 3.70 - 5.10 M/uL | [facility] | + + + + + | HGB | 11.7 | 11.3 - 15.5 g/dL | [facility] | + + + + + [...] 34.9 | 32.0 - 35.5 g/dL | [facility] | + + + + + [...] 0.22 | 0.00 - 0.50 K/uL | [facility] | + + + + + | BASOPHILS ABS | 0.07Comment: Testing | 0.00 - 0.10 K/uL | [facility] | | | performed at [facility];[address] | | | | | [address];[place] | | | | | [address] | | | + + + + + + + | Specimen | + + | Blood | + + + + + + + | Performing | Address | City/State/Zipcode | Phone Number | | Organization | | | | + + + + + | [facility] | [address] | [place] [address] | | + + + + + Basic metabolic panel (04/06/2018 5:44 AM) + + + + + | Component | Value | Ref Range | Performed At | + + + + + | SODIUM | 144 | 135 - 145 mmol/L | [facility] | + + + + + | POTASSIUM | 3.4 (L) | 3.5 - 4.9 mmol/L | [facility] | + + + [...] (L) | 0.50 - 1.00 mg/dL | [facility] | + + + + + | BUN/CREAT | 18 | | [facility] | + + + + + | CALCIUM | 8.3 (L) | 8.5 - 10.5 mg/dL | [facility] | + + + + + | EGFR | >60Comment: GFR <60: | >60 mL/min/1.73m2 | [facility] | | | CHRONIC [...] the | | | | | MDRD ILMS traceable | | | | | equation.Testing | | | | | performed at [facility];[address] | | | | | [facility];[place], [place] | | | | | [address] | | | + + + + + + + | Specimen | + + | Blood | + + + + + + + | Performing | Address | City/State/Zipcode | Phone Number | | Organization | | | | + + + + + | [facility] | [address] | [place] [address] | | + + + + + POCT glucose (04/05/2018 8:19 PM) + + + + + | Component | Value | Ref Range | Performed At | + + + + + | GLUCOSE,POC SCREEN | 213 (H)Comment: Testing | 65 - 99 mg/dL | [facility] | | | performed at [facility];[address] | | | | | [address];[place] | | | | | [address] | | | + + + + + + + + + + | Performing | Address | City/State/Zipcode | Phone Number | | Organization | | | | + + + + + | [facility] | [address] | [place] [address] | | + + + + + POCT glucose (04/05/2018 4:28 PM) + + + + + | Component | Value | Ref Range | Performed At | + + + + + | GLUCOSE,POC SCREEN | 162 (H)Comment: Testing | 65 - 99 mg/dL | [facility] | | | performed at [facility];[address] | | | | | [address];[place], [place] | | | | | [address] | | | + + + + + + + + + + | Performing | Address | City/State/Zipcode | Phone Number | | Organization | | | | + + + + + | [facility] | [address] | [place] [address] | | + + + + + POCT glucose (04/05/2018 11:43 AM) + + + + + | Component | Value | Ref Range | Performed At | + + + + + | GLUCOSE,POC SCREEN | 129 (H)Comment: Testing | 65 - 99 mg/dL | [facility] | | | performed at [facility];[address] | | | | | [address] [facility];[place] | | | | | [address] | | | + + + + + + + + + + | Performing | Address | City/State/Zipcode | Phone Number | | Organization | | | | + + + + + | [facility] | [address] | [place] [address] | | + + + + + POCT glucose (04/05/2018 6:26 AM) + + + + + | Component | Value | Ref Range | Performed At | + + + + + | GLUCOSE,POC SCREEN | 103 (H)Comment: Testing | 65 - 99 mg/dL | [facility] | | | performed at [facility];[address] | | | | | [address];[place] | | | | | [address] | | | + + + + + + + + + + | Performing | Address | City/State/Zipcode | Phone Number | | Organization | | | | + + + + + | [facility] | [address] | [place] [address] | | + + + + + [...] [facility] | | | performed at [facility], [address] | | LABORATORY | | | [address], | | | | | [place] [address] | | | + + + + + + + | Specimen | + + | Blood | + + + + + + + | Performing | Address | City/State/Zipcode | Phone Number | | Organization | | | | + + + + + | [facility] | [address] | [place] [address] | [phone] | | LABORATORY | [address] | | [...] (L) | 0.50 - 1.00 mg/dL | [facility] | | | | | LABORATORY | + + + + + | BUN/CREAT | 25 | | [facility] | | | | | LABORATORY | + + + + + | CALCIUM | 8.0 (L) | 8.5 - 10.5 mg/dL | [facility] | | | | | LABORATORY | + + + + + | EGFR | >60Comment: GFR <60: | >60 mL/min/1.73m2 | [facility] | | | CHRONIC KIDNEY DISEASE, | [...] | | | | performed at [facility], [address] | | | | | [facility], | | | | | [place] [address] | | | + + + + + + + | Specimen | + + | Blood | + + + + + + + | Performing | Address | City/State/Zipcode | Phone Number | | Organization | | | | + + + + + | [facility] | [address] | [place] [address] | [phone] | | LABORATORY | [address] | | | + + + + + POCT glucose (04/04/2018 8:42 PM) + + + + + | Component | Value | Ref Range | Performed At | + + + + + | GLUCOSE,POC SCREEN | 224 (H)Comment: Testing | 65 - 99 mg/dL | [facility] | | | performed at [facility];[address] | | | | | [address];[place] | | | | | [address] | | | + + + + + + + + + + | Performing | Address | City/State/Zipcode | Phone Number | | Organization | | | | + + + + + | [facility] | [address] | [place] [address] | | + + + + + POCT glucose (04/04/2018 4:49 PM) + + + + + | Component | Value | Ref Range | Performed At | + + + + + | GLUCOSE,POC SCREEN | 124 (H)Comment: Testing | 65 - 99 mg/dL | [facility] | | | performed at [facility];[address] | | | | | [address];[place] | | | | | [address] | | | + + + + + + + + + + | Performing | Address | City/State/Zipcode | Phone Number | | Organization | | | | + + + + + | [facility] | [address] | [place] [address] | | + + + + + POCT glucose (04/04/2018 11:38 AM) + + + + + | Component | Value | Ref Range | Performed At | + + + + + | GLUCOSE,POC SCREEN | 187 (H)Comment: Testing | 65 - 99 mg/dL | [facility] | | | performed at [facility];[address] | | | | | [facility] | | | | | [address] | | | + + + + + + + + + + | Performing | Address | City/State/Zipcode | Phone Number | | Organization | | | | + + + + + | [facility] | [address] | [place] [address] | | + + + + + POCT glucose (04/04/2018 6:18 AM) + + + + + | Component | Value | Ref Range | Performed At | + + + + + | GLUCOSE,POC SCREEN | 100 (H)Comment: Testing | 65 - 99 mg/dL | [facility] | | | performed at [facility];[address] | | | | | [address];[place] | | | | | [address] | | | + + + + + + + + + + | Performing | Address | City/State/Zipcode | Phone Number | | Organization | | | | + + + + + | [facility] | [address] | [place] [address] | | + + + + + [...] [facility] | | | performed at [facility], [address] | | LABORATORY | | | [address], | | | | | [place] [address] | | | + + + + + + + | Specimen | + + | Blood | + + + + + + + | Performing | Address | City/State/Zipcode | Phone Number | | Organization | | | | + + + + + | [facility] | [address] | [place] [address] | [phone] | | LABORATORY | [address] | | [...] 0.5 | 0.50 - 1.00 mg/dL | [facility] | | | | | LABORATORY | + + + + + | BUN/CREAT | 20 | | [facility] | | | | | LABORATORY | + + + + + | CALCIUM | 8.4 (L) | 8.5 - 10.5 mg/dL | [facility] | | | | | LABORATORY | + + + + + | EGFR | >60Comment: GFR <60: | >60 mL/min/1.73m2 | [facility] | | | CHRONIC KIDNEY DISEASE, | [...] | | | | performed at [facility], [address] | | | | | [facility], | | | | | [place] [address] | | | + + + + + + + | Specimen | + + | Blood | + + + + + + + | Performing | Address | City/State/Zipcode | Phone Number | | Organization | | | | + + + + + | [facility] | [address] | [place] [address] | [phone] | | LABORATORY | [address] | | | + + + + + POCT glucose (04/03/2018 8:45 PM) + + + + + | Component | Value | Ref Range | Performed At | + + + + + | GLUCOSE,POC SCREEN | 142 (H)Comment: Testing | 65 - 99 mg/dL | [facility] | | | performed at [facility];[address] | | | | | [address];[place] | | | | | [address] | | | + + + + + + + + + + | Performing | Address | City/State/Zipcode | Phone Number | | Organization | | | | + + + + + | [facility] | [address] | [place] [address] | | + + + + + POCT glucose (04/03/2018 4:35 PM) + + + + + | Component | Value | Ref Range | Performed At | + + + + + | GLUCOSE,POC SCREEN | 156 (H)Comment: Testing | 65 - 99 mg/dL | [facility] | | | performed at [facility];[address] | | | | | [facility] | | | | | [address] | | | + + + + + + + + + + | Performing | Address | City/State/Zipcode | Phone Number | | Organization | | | | + + + + + | [facility] | [address] | [place] [address] | | + + + + + [...] | [address] | [place] [address] | | + + + + + [...] - 04/03/2018 4:23 PM PDT PATRICADYLAN WILLINGHAM [id number] years | | FemaleMRI LUMBAR SPINE WO [...] | [address] | [place] [address] | | + + + + + POCT glucose (04/03/2018 11:33 AM) + + + + + | Component | Value | Ref Range | Performed At | + + + + + | GLUCOSE,POC SCREEN | 125 (H)Comment: Testing | 65 - 99 mg/dL | [facility] | | | performed at [facility];[address] | | | | | [address];[place], [place] | | | | | [address] | | | + + + + + + + + + + | Performing | Address | City/State/Zipcode | Phone Number | | Organization | | | | + + + + + | [facility] | [address] | [place] [address] | | + + + + + [...] [facility] | [address] | [place] [address] | | + + + + + POCT glucose (04/03/2018 6:04 AM) + + + + + | Component | Value | Ref Range | Performed At | + + + + + | GLUCOSE,POC SCREEN | 159 (H)Comment: Testing | 65 - 99 mg/dL | [facility] | | | performed at [facility];[address] | | | | | [address];[place] | | | | | [address] | | | + + + + + + + + + + | Performing | Address | City/State/Zipcode | Phone Number | | Organization | | | | + + + + + | [facility] | [address] | [place] [address] | | + + + + + [...] [facility] | | | performed at [facility], [address] | | LABORATORY | | | [address], | | | | | [place] [address] | | | + + + + + + + | Specimen | + + | Blood | + + + + + + + | Performing | Address | City/State/Zipcode | Phone Number | | Organization | | | | + + + + + | [facility] | [address] | [place] [address] | [phone] | | LABORATORY | [address] | | [...] | | | | performed at [facility], [address] | | | | | [facility], | | | | | [place] [address] | | | + + + + + + + | Specimen | + + | Blood | + + + + + + + | Performing | Address | City/State/Zipcode | Phone Number | | Organization | | | | + + + + + | [facility] | [address] | [place] [address] | [phone] | | LABORATORY | [address] | | | + + + + + POCT glucose (04/02/2018 8:48 PM) + + + + + | Component | Value | Ref Range | Performed At | + + + + + | GLUCOSE,POC SCREEN | 201 (H)Comment: Testing | 65 - 99 mg/dL | [facility] | | | performed at [facility];[address] | | | | | [address];[place], [place] | | | | | [address] | | | + + + + + + + + + + | Performing | Address | City/State/Zipcode | Phone Number | | Organization | | | | + + + + + | [facility] | [address] | [place] [address] | | + + + + + POCT glucose (04/02/2018 5:17 PM) + + + + + | Component | Value | Ref Range | Performed At | + + + + + | GLUCOSE,POC SCREEN | 123 (H)Comment: Testing | 65 - 99 mg/dL | [facility] | | | performed at [facility];[address] | | | | | [address];[place] | | | | | [address] | | | + + + + + + + + + + | Performing | Address | City/State/Zipcode | Phone Number | | Organization | | | | + + + + + | [facility] | [address] | [place] [address] | | + + + + + [...]
--- OUTSIDE RECORDS SUMMARY | ~2018-05-11 | XMS | Clinical Summary ---
Demographics + + + | Address | [address] | | | [place] [address] | + + + | Home Phone | | + + + | Preferred Language | Unknown | + + + | Marital Status | | + + + | Oriental Orthodox Affiliation | 1076 | + + + | Race | Unknown | + + + | Ethnic Group | Unknown | + + + Author + + + | Author | [facility] [employer] | + + + | Organization | [facility] | + + + | Address | Unknown | + + + | Phone | Unavailable | + + + Support + + + + + | Name | Relationship | Address | Phone | + + + + + | Stefani Bhatia | ELS[place] | [address] | | | [place] | | [place] | | | | | [address] | | + + + + + Care Team Providers + +------+ + | Care Agriculture Intern Name | Role | Phone | + [...] | | ranch in | | | [place] | | | with | | | [...] | | extremities | | | . 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 | | | Her other | | [...] | | | [place], | | | [place]. At | | | the time | [...] | | Short and | | | long-term | | | memory | | | [...] | | | PO2ART, | | | [id number], | | | [id number], | | | BEART in | | [...] | [facility] | | | performed at [facility], [address] | | LABORATORY | | | [address], | | | | | [place] [address] | | | + + + + + + + | Specimen | + + | Blood | + + + + + + + | Performing | Address | City/State/Zipcode | Phone Number | | Organization | | | | + + + + + | [facility] | [address] | [place] [address] | [phone] | | LABORATORY | [address] | | | + + + + + POCT glucose (04/14/2018 5:34 AM)Only the most recent of 53 results within the time period is included. + + + + + | Component | Value | Ref Range | Performed At | + + + + + | GLUCOSE,POC SCREEN | 97Comment: Testing | 65 - 99 mg/dL | [facility] | | | performed at [facility];[address] | | | | | [address];[place] | | | | | [address] | | | + + + + + + + + + + | Performing | Address | City/State/Zipcode | Phone Number | | Organization | | | | + + + + + | [facility] | [address] | [place] [address] | | + + + + + Basic metabolic panel (04/10/2018 5:50 AM)Only the most recent of 11 results within the ti wv period is included. + + + + [...] | | | | | performed at [facility], [address] | | | | | [facility], | | | | | [place] [address] | | | + + + + + + + | Specimen | + + | Blood | + + + + + + + | Performing | Address | City/State/Zipcode | Phone Number | | Organization | | | | + + + + + | [facility] | [address] | [place] [address] | [phone] | | LABORATORY | [address]vd[address] | | [...] | + + + + + | [facility] | [address] | [place] [address] | | + + + + + [...] | + + + + + | [facility] | [address] | [place] [address] | | + + + + + MRI lumbar spine without contrast (04/03/2018 4:03 PM) + + + | Impressions | Performed At | + + + | 1. Annular fissuring of the disc is present at L5-S1. 2. Fat | [facility] | | attenuation lesion is noted [...] Results In - 04/03/2018 4:23 PM MYA [id number] years | | FemaleMRI LUMBAR SPINE WO [...] | + + + + + | [facility] | [address] | [place] [address] | | + + + + + [...] [facility] | [address] | [place] [address] | | + + + + + Phosphorus (04/02/2018 3:56 AM)Only the most recent of 3 results within the time period is included. + + + + + | Component | Value | Ref Range | Performed At | + + + + + | PHOSPHORUS | 2.9Comment: Testing | 2.3 - 4.8 mg/dL | [facility] | | | performed at [facility], [address] | | LABORATORY | | | [address], | | | | | [place] [address] | | | + + + + + + + | Specimen | + + | Blood | + + + + + + + | Performing | Address | City/State/Zipcode | Phone Number | | Organization | | | | + + + + + | [facility] | [address] | [place] [address] | [phone] | | LABORATORY | Blvd[address] | | [...] | [facility] | | | performed at [facility], [address] | | LABORATORY | | | [facility], | | | | | [place] [address] | | | + + + + + + + | Specimen | + + | Blood | + + + + + + + | Performing | Address | City/State/Zipcode | Phone Number | | Organization | | | | + + + + + | [facility] | [address] | [place] [address] | [phone] | | LABORATORY | [address] | | [...] There is minimal aortic stenosis present. 10. Pnpn-hp-xbbgafnf | | | mitral regurgitation is present. 11. There may be moderate pulmonary | | | hypertension. 12. The right ventricular systolic pressure (pulmonary | | | artery systolic pressure), as measured by Doppler, is {RVSP}. | | + + + + + + | Narrative | Performed At | + + + | Patient Name: STEFANI BHATIA Date of : 1950 | [facility] | | Performing Physician: Emanuel [...] There is minimal aortic stenosis present. 10. Awnw-ip-ztjykmjm | | | mitral regurgitation is present. [...] stenosis present. Mitral Valve: | | | Zfuj-sb-dsdhqdfx mitral regurgitation is present. Mitral Valve: | [...] | | Michael: 0.68 m/s TV Dec Marin: 2.56 m/s2 TV Dec Time: | | | 264.67 ms TV E Michael: 0.67 m/s TV E/A Ratio: 0.99 | | | Pearl Stringer: CM Authenticated by: Emanuel Melissa MD Report Date/Time: | | | 04-01-2018 16:50:35 | | + + + + + | Procedure Note | + + | Nate Marie Results In - 04/01/2018 5:00 PM PDT Patient Name: PATRICA BHATIADeon of | | : 1950ccession: [id number] Physician: Emanuel Melissa | | INDICATIONS m [...] is minimal aortic stenosis | | present.10. Voys-yy-zqbagmlj mitral regurgitation is present.11. There may be [...] There is minimal aortic stenosis present.Mitral Valve: Rrwr-qk-nbnsiivn mitral | | regurgitation is present. Mitral [...] | mlLVLs A4C: 7.06 cmLAAs A4C: 14.61 yh6PDSAQ A-L A4C: 34.22 mlLALs A4C: 5.29 | | cmRAAd: 16.15 im4KHIUM A-L: 43.57 mlRAEDV MOD: 43.26 mlRALd: 5.08 cmAo Diam: | | 3.17 cmAV Cusp: 1.81 cmTAPSE: 2.90 cmAV maxP.78 mmHgAV meanP.51 mmHgAV | | Vmax: 2.10 m/Haley Vmean: 1.53 m/Haley VTI: 57.45 cmAVA Vmax: 1.67 cm2AVA (VTI): | | 1.44 ip7DVGC Vmax: 0.00 cm2/m2AVAI (VTI): 0.00 cm2/m2LVCI Dopp: 3.21 l/xoqh9MVXO | | Dopp: 5.72 l/minHR: 68.91 BPMLVOT [...] A Michael: 0.68 m/sTV Dec | | Marin: 2.56 m/s2TV Dec Time: 264.67 msTV E Michael: 0.67 m/sTV E/A Ratio: 0.99 | | Pearl Stringer: CMAuthenticated by: Emanuel AVZQUEZeport Date/Time: 04-01-2018 | | 16:50:35IMPRESSION:1. Overall left [...] is minimal aortic stenosis present.10. | | Jjkb-ye-kxhxjkjf mitral regurgitation is present.11. There may be [...] A Michael: 0.68 m/s | |TV Dec Marin: 2.56 m/s2 | |TV Dec Time: 264.67 ms | |TV E Michael: 0.67 m/s | |TV E/A Ratio: 0.99 | | | |Pearl Stringer: CM | |Authenticated by: Emanuel Melissa MD [...] is minimal aortic stenosis present. | |10. Rprh-kr-rmsyqunq mitral regurgitation is present. | |11. There may be moderate pulmonary hypertension. | |12. The right ventricular systolic pressure (pulmonary artery systolic pressure), as measur ed by Doppler, is {RVSP}. | + + + + + + + | Performing | Address | City/State/Zipcode | Phone Number | | Organization | | | | + + + + + | [facility] | [address] | [place] [address] | | + + + + + [...] performed | | | | | at [facility], [address] | | | | | [address], | | | | | [place] [address] | | | + + + + + + + | Specimen | + + | Blood | + + + + + + + | Performing | Address | City/State/Zipcode | Phone Number | | Organization | | | | + + + + + | [facility] | [address] | [place] [address] | [phone] | | LABORATORY | [address]vd[address] | | | + + + + + Platelet count (03/31/2018 1:01 PM) + + + + + | Component | Value | Ref Range | Performed At | + + + + + | PLT | 82 (L)Comment: Testing | 150 - 400 K/uL | [facility] | | | performed at [facility];[address] | | | | | [address];[place] | | | | | [address] | | | + + + + + + + | Specimen | + + | Blood | + + + + + + + | Performing | Address | City/State/Zipcode | Phone Number | | Organization | | | | + + + + + | [facility] | [address] | [place] [address] | | + + + + + [...] | [facility] | | | performed at [facility], [address] | | LABORATORY | | | [address], | | | | | [place] [address] | | | + + + + + + + | Specimen | + + | Blood | + + + + + + + | Performing | Address | City/State/Zipcode | Phone Number | | Organization | | | | + + + + + | [facility] | [address] | [place] [address] | [phone] | | LABORATORY | [address] | | [...] + + + + | Calculated P Kenton | 26 | degrees | [facility] | + + + + + | Calculated R [place]on | -23 | degrees | [facility] E[facility] | + + + + + | Calculated T [place]on | 144 | degrees | [facility] EKG [...] | + + + + + | [facility] | [address] | [place] [address] | | + + + + + [...] 8 | 8 - 25 mg/dL | [facility] | + + + + + | CREATININE | 0.49 (L) | 0.50 - 1.00 mg/dL | [facility] | + + + + + | BUN/CREAT | 16 | | [facility] | + + + + + | CALCIUM | 8.0 (L) | 8.5 - 10.5 mg/dL | [facility] | + + + + + | TOTAL PROTEIN | 6.2 (L) | 6.3 - 8.2 g/dL | [facility] | + + + + + | Albumin | 2.7 (L) | 3.3 - 4.8 g/dL | [facility] | + + + + + | GLOBULIN | 3.6 | 1.3 - 4.9 g/dL | [facility] | + + + + + | A/G | 0.7 (L) | 1.0 - 2.4 | [facility] | + + + [...] >60Comment: GFR <60: | >60 mL/min/1.73m2 | [facility] | | | CHRONIC [...] | | | | | performed at [facility];[address] | | | | | [address];[place] | | | | | [address] | | | + + + + + + + | Specimen | + + | Blood | + + + + + + + | Performing | Address | City/State/Zipcode | Phone Number | | Organization | | | | + + + + + | [facility] | [address] | [place] [address] | | + + + + + [...] | data set was also examined with Jammin Java 3D software for evaluation | | | [...] - 03/30/2018 11:37 PM PDT STEFANI WILLINGHAM [id number] years | | FemaleCTA HEAD NECK W [...] The data set was also examined with [employer] Java 3D | | software for evaluation of [...] | + + + + + | [facility] | [address] | [place] [address] | | + + + + + [...] [facility] | [address] | [place] [address] | | + + + + + Transfuse platelets (Nursing) (03/30/2018 10:04 PM)Only the most recent of 2 results within the time period is included.Prepare platelets (Blood Bank) (03/30/2018 6:47 PM) + + + + + | Component | Value | Ref Range | Performed At | + + + + + | BLOOD COMPONENT TYPE | PLATELET GROUP | | [facility] | + + + + + | UNITS ORDERED | 2 | | [facility] | + + + + + | Additional comment: | ORDER RECEIVED IN BLOOD | | [facility] | | | BANK. | | | + + + + + | UNIT NUMBER | [id number] | | [facility] | + + + + + | BLOOD COMPONENT TYPE | PLATELET PHERESIS,LD B | | [facility] | + + + + + | UNIT DIVISION | 00 | | [facility] | + + + + + | STATUS OF UNIT | ISSUED,FINAL | | [facility] | + + + + + | TRANSFUSION STATUS | OK TO TRANSFUSE | | [facility] | + + + + + | UNIT NUMBER | [id number] | | [facility] | + + + + + | BLOOD COMPONENT TYPE | PLATELET PHERESIS,LD B | | [facility] | + + + + + | UNIT DIVISION | 00 | | [facility] | + + + + + | STATUS OF UNIT | ISSUED,FINAL | | [facility] | + + + + + | TRANSFUSION STATUS | OK TO TRANSFUSETesting | | [facility] | | | performed at [facility];[address] | | | | | [address];[place] | | | | | [address] | | | + + + + + + + | Specimen | + + | Blood | + + + + + + + | Performing | Address | City/State/Zipcode | Phone Number | | Organization | | | | + + + + + | [facility] | [address] | [place] [address] | | + + + + + Type and screen (03/30/2018 6:31 PM) + + + + + | Component | Value | Ref Range | Performed At | + + + + + | ABO/RH(D) | A POSITIVE | | [facility] | + + + + + | ANTIBODY SCREEN | NEGATIVE | | [facility] | + + + + + | ARM BAND NUMBER | [id number] | | [facility] | | | performed at [facility];[address] | | | | | [address];[place], [place] | | | | | [address] | | | + + + + + + + | Specimen | + + | Blood | + + + + + + + | Performing | Address | City/State/Zipcode | Phone Number | | Organization | | | | + + + + + | [facility] | [address] | [place] [address] | | + + + + + Glycohemoglobin A1C (03/30/2018 6:31 PM) + + + + + | Component | Value | Ref Range | Performed At | + + + + + | HEMOGLOBIN A1C | 6.8 (H)Comment: The | 4.0 - 6.0 % | [facility] | | | [facility] | | LABORATORY | | | [...] | | | | | performed at [facility], [address] | | | | | [facility], | | | | | [place] [address] | | | + + + + + + + | Specimen | + + | Blood | + + + + + + + | Performing | Address | City/State/Zipcode | Phone Number | | Organization | | | | + + + + + | [facility] | [address] | [place] [address] | [phone] | | LABORATORY | [address]vd[address] | | | + + + + + MRSA by PCR (03/30/2018 6:30 PM) + + + + + | Component | Value | Ref Range | Performed At | + + + + + | SOURCE | NARES(NOSE) | | [facility] | + + + + + | MRSA PCR | NEGATIVEComment: Testing | NEGATIVE | [facility] | | | performed at [facility];[address] | | | | | [address];[place] | | | | | [address] | | | + + + + + + + | Specimen | + + | Nasopharyngeal - | | Nasopharyngeal | | Culture | + + + + + + + | Performing | Address | City/State/Zipcode | Phone Number | | Organization | | | | + + + + + | [facility] | [address] | [place] [address] | | + + + + + [...] +------+-------+ + | MEDICARE | MEDICA | [id number] | | | [address] | | | RE | | | | [place] [address] | | | IP-OP | | | | | + +--------+ +------+-------+ + | PREMERA | PREMER | [id number] | | | [address] [address] | | | A BLUE | | | | [place] | | | CROSS | | | | [address] | | | FED | | | [...] | Self | [birth year] | Home: | [address] | | [place] | leeann/[place] | | 1950 | [phone] | [place] | | | [place] | | | [phone] | [phone] | + +--------+ +--------+ + +
--- OUTSIDE RECORDS SUMMARY | ~2018-05-11 | XMS | Encounter Summary ---
Demographics + + + | Address | [address] | | | [place] [address] | + + + | Home Phone | | + + + | Preferred Language | Unknown | + + + | Marital Status | | + + + | Nondenominational Affiliation | 1076 | + + + | Race | Unknown | + + + | Ethnic Group | Unknown | + + + Author + + + | Author | [facility] | + + + | Organization | [facility] | + + + | Address | Unknown | + + + | Phone | Unavailable | + + + Support + + + + + | Name | Relationship | Address | Phone | + + + + + | Jamaal Parra | [place] | [address] | | | [place] | | [place] | | | | | [address] | | + + + + + Care Team Providers + +------+ + | Care Advanced Practice Rn Name | Role | Phone | + +------+ + | Vince Cintron DO | PCP | | + +------+ + Encounter Details +--------+ + + + + | Date | Type | Department | Care Team | Description | +--------+ + + + + | 03/31/ | Orders Only | [facility] | Jennifer Paulson, | | | 2018 | | Hematology and | [address] | | | | Oncology [address] | | | | | [address] | [place] [address] | | | | | [place] | [phone] | | | | | [address] | | | | | | [phone] | | | +--------+ + + + [...]
--- OUTSIDE RECORDS SUMMARY | ~2018-05-11 | XMS | Clinical Summary ---
Demographics + + + | Address | [address] | | | [place] [address] | + + + | Home Phone | | + + + | Preferred Language | Unknown | + + + | Marital Status | | + + + | Yarsanism Affiliation | Unknown | + + + | Race | Unknown | + + + | Ethnic Group | Unknown | + + + Author + + + | Author | [facility] | | | and Nikoana | + + + | Organization | [facility] | | | and Nikoana [...] Team Providers + +------+ + | Care Member Of Technical Staff Name | Role | Phone | + [...] +--------+ +---------+ | MEDICARE | MEDICA | [id number] | Medica | +1- | | | | RE | | re | [phone] | | | | PART A | | | | | | | AND B | | | | | + +--------+ +--------+ +---------+ | BCBS | BCBS | [id number] | PPO | | | | | [...] | Self | [birth year] | Home: | [address] | | | al/[place]andy | | 1950 | [phone] | [place] | | | [place] | | | [phone] | [phone] | + +--------+ +--------+ + +"
[2018-05-11] MEDS ORDERED: TRANSDERM-SCOP1 EACH TD (15:23)
[2018-05-11] MEDS ORDERED: GABAPENTIN100 MG PO (15:24)
[2018-05-11] MEDS ORDERED: GABAPENTIN300 MG PO (15:24)
[2018-05-11] MEDS ORDERED: SIMVASTATIN10 MG PO (15:25)
[2018-05-11] MEDS ORDERED: LISINOPRIL10 MG PO (15:25)
[2018-05-11] MEDS ORDERED: MOTION RELIEF25 MG PO (16:54)
== END 2018-05-11 17:15 | disposition home or self-care (01) ==
LOC: ED 15:05
DX: S01.81XA Laceration without foreign body of other part of head, initial encounter (principal); S01.112A Laceration without foreign body of left eyelid and periocular area, initial encounter; W01.198A Fall on same level from slipping, tripping and stumbling with subsequent striking against other object, initial encounter; I10 Essential (primary) hypertension; E11.9 Type 2 diabetes mellitus without complications; F41.9 Anxiety disorder, unspecified; Z91.013 Allergy to seafood; Z88.8 Allergy status to other drugs, medicaments and biological substances; Z79.899 Other long term (current) drug therapy
CPT/HCPCS: 70450; 99283

== ENCOUNTER 2018-05-20 16:12 | Emergency (ER) | payer MEDICARE, BC ==
[~2018-05-20] VITALS: Ht 165.1 cm; Wt 72.6 kg
--- OUTSIDE RECORDS SUMMARY | ~2018-05-20 | XMS | Encounter Summary ---
Demographics + + + | Address | [address] | | | [place] [address] | + + + | Home Phone | | + + + | Preferred Language | Unknown | + + + | Marital Status | | + + + | Jew Affiliation | 1076 | + + + | Race | Unknown | + + + | Ethnic Group | Unknown | + + + Author + + + | Author | [facility] | + + + | Organization | [facility] | + + + | Address | Unknown | + + + | Phone | Unavailable | + + + Support + + + + + | Name | Relationship | Address | Phone | + + + + + | Jamaal Parra | [place] | [address] | | | [place] | | [place] | | | | | [address] | | + + + + + Care Team Providers + +------+ + | Care Job Printer Apprentice Name | Role | Phone | + +------+ + | Vince Cintron DO | PCP | | + +------+ + Reason for Referral MRI/CAT Scan (Routine) + +--------+ + + + + | Status | Reason | Specialty | Diagnoses / | Referred By | Referred To | | | | | Procedures | Contact | Contact | + +--------+ + + + + | Pending | | Radiology | Diagnoses | See, | | | Review | | | Diagnosis | Medical | | | | | | unknown | Record | | | | | | Procedures | | | | | | | CT head | | | | | | | without | | | | | | | contrast | | | + +--------+ + + + + Encounter Details +--------+ + + + + | Date | Type | Department | Care Team | Description | +--------+ + + + + | 03/30/ | Ancillary | [facility] | See, Medical | Diagnosis unknown | | 2018 | [facility] | [facility] | Record | | | | | [address] | | | | | | [place] [address] | | | | | | [phone] | | | +--------+ + + + + Social History + +-------+ +--------+------+ | Tobacco Use | Types | Packs/Day | Years | Date | | | | | Used | | + +-------+ +--------+------+ | Never Assessed | | | | | + +-------+ +--------+------+ + + + | Sex Assigned at | Date Recorded | | | | + + + | Not on file | | + + + as of this encounter Plan of Treatment Not on fileas of this encounter Results CT head without contrast (03/30/2018 3:26 PM) + + + | Narrative | Performed At | + + + | This is a non-reportable procedure without a radiologist report and | [facility] | | is used for image storage only | RADIOLOGY | + + + + + + + + | Performing | Address | City/State/Zipcode | Phone Number | | Organization | | | | + + + + + | [facility] | [address] | [place] [address] | | + + + + + in this encounter Visit Diagnoses + + | Diagnosis | + + | Diagnosis unknown | + + | Other unknown and unspecified cause of morbidity or mortality | + +"
--- OUTSIDE RECORDS SUMMARY | ~2018-05-20 | XMS | Encounter Summary ---
Demographics + + + | Address | [address] | | | [place] [address] | + + + | Home Phone | | + + + | Preferred Language | Unknown | + + + | Marital Status | | + + + | Zoroastrian Affiliation | [id number] | + + + | Race | Unknown | + + + | Ethnic Group | Unknown | + + + Author + + + | Author | [facility] [employer] | + + + | Organization | Located Within [facility] | + + + | Address | Unknown | + + + | Phone | Unavailable | + + + Support + + + + + | Name | Relationship | Address | Phone | + + + + + | Stefani Bhatia | ELSY | [address] | | | [place] | | [place] | | | | | [phone] | | + + + + + Care Team Providers + +------+ + | Care Retail Greeter Name | Role | Phone | + +------+ + | Vince Cintron DO | PCP | | + +------+ + Encounter Details +--------+ + + + + | Date | Type | Department | Care Team | Description | +--------+ + + + + | 04/02/ | Hospital | [facility] | Missy Rivera, | Chronic ITP | | 2018 - | Encounter | [facility] | MD [address] | (idiopathic | | | | Inpatient Rehab [address] | [place] | thrombocytopenia) | | 04/14/ | | Calvin Chun | [address] | ([facility]); Essential | | 2018 | | [place] [address] | [phone] | hypertension; Falls | | | | [phone] | | frequently; Gait | | | | | Wing Tyshawn Quintero MD | disorder; H/O | | | | | [address] | dizziness; SDH | | | | | [place] [address] | (subdural hematoma) | | | | | [phone] | (HCC); Subarachnoid | | | | | | hemorrhage following | | | | | | injury without open | | | | | | intracranial wound | | | | | | and with no loss of | | | | | | consciousness, | | | | | | sequela ([facility]); | | | | | | Thrombocytopenia | | | | | | ([facility]); Type 2 | | | | | | diabetes mellitus | | | | | | with complication, | | | | | | without long-term | | | | | | current use of | | | | | | insulin ([facility]); | | | | | | Lumbar disc disease | | | | | | with radiculopathy | +--------+ + + + + Social [...] + + + as of this encounter Last Filed Vital Signs + + + + | Vital Sign | Reading | Time Taken | + + + + | Blood Pressure | 157/77 | 04/14/2018 9:01 AM PDT | + + + + | Pulse | 76 | 04/14/2018 9:01 AM PDT | + + + + | Temperature | 36.8 C (98.3 F) | 04/14/2018 5:35 AM PDT | + + + + | Respiratory Rate | 18 | 04/14/2018 5:35 AM PDT | + + + + | Oxygen Saturation | 97% | 04/13/2018 7:31 PM PDT | + + + + | Inhaled Oxygen | - | - | | Concentration | | | + + + + | Weight | 68.9 kg (152 lb) | 04/02/2018 3:00 PM PDT | + + + + | Height | 167.6 cm (5' 6") | 04/02/2018 3:00 PM PDT | + + + + | Body Mass Index | 24.53 | 04/02/2018 3:00 PM PDT | + + + + in this encounter Discharge Summaries Wing Tyshawn Quintero MD - 04/14/2018 3:00 PM PDTFormatting of this note may be different from the original. [facility] Service: Physical Medicine & Rehab Discharge Summary Date of Admission: 04/02/2018 Date of Discharge: 04/14/2018 Discharge Provider: Wing Louisa Quintero MD Treatment Team: Admitting Provider: Missy Rivera MD Discharge Diagnoses: Principal Problem: Subarachnoid hemorrhage following injury without open intracranial wound and with no loss of consciousness (HCC) Active Problems: Falls frequently SDH (subdural hematoma) (HCC) Thrombocytopenia (HCC) Chronic ITP (idiopathic thrombocytopenia) (HCC) Type 2 diabetes mellitus with complication (HCC) Essential hypertension Gait disorder Lumbar disc disease with radiculopathy Asymmetric septal hypertrophy (HCC) Mitral regurgitation Resolved Problems: * No resolved hospital problems. * Final Diagnoses: CVA Procedures: * No surgery found * Significant Diagnostic Studies: BRIEF HISTORY OF PRESENTATION: The patient is a 67 y.o. female with significant past medical history of chronic throm bocytopenia(ITP), Diabetes, HTN, anxiety, and depressionwho presents with a2 week hx of frequent falls, confusion, Left Subdural Hematoma. The patient reports chronic low Platelets and has been seeing an Oncologist in [place]. She is a poor historian but does report falls. She could not figure out what happened but i mplied that her dogs might have caused her falls. 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 Pt unsure when the falls started but it m ight have been as far back as November of this year. It sounds like there may have been an ti luation in [place] after a syncope episode but w/u was negative. Per the records the pt had 2 falls with head injuries in the last 2 weeks. When asked about the bruises on the back of her neck she is unsure how these happened. All that she can recall about the falls is that she was out with the animals. I was told that the pt had c/o Hip pain but when I examined pt she complained of bilateral leg pain from her thigh down to her shins. HOSPITAL COURSE: The patient has been afebrile, vital signs have been stable. She is eating well and sleepi ng adequately. She is continent of bowel and bladder. Patient denied pain. The patient has done well with IPR. By discharge, her functional status is as follows: Activities of Daily Living: Stefani is completing her eating/feeding independently. She is completing her grooming tasks standing at the sink with supervision. She is completing bath ing tasks with assist for obtaining items, opening containers and with supervision. She ask s for assistance with upper body dressing but is able to complete it independently/supervise d. Lower body dressing she is also able to complete independently/supervised but requests a ssistance at times. She is toileting with modified independence, using the grab bars and carl bal cues. Functional Transfers:She is performing in/out of bed mobility with modified independent a ssist. She is performing sit to stand and stand pivot transfers with minimal to stand by a ssist. She can require maximum verbal, visual, and manual cues to sequence transfers. Garrett vogel appears limited in participation in therapy due to limited attention span and memory. She appears very flat in her affect. She is performing toilet and shower transfers with mini mal assist to supervision using grab bars. She completes her toilet and shower transfers w ith supervision for safety. Mobility: She is walking bouts of 200-500+ft with and without a seated walker with stand by to modified independent assist. She verbalizes that she does not notice less back pain whe n she walks with the walker vs. wthout the walker. Though, it should be noted that the patie nt tends to walk with her left hand rubbing her back when she is walking without an assistiv e device and she walks significantly faster with a seated walker (0.47m/s without walker vs. 0.75m/s with walker). Patient verbalizes occasional low back pain and Left > right lower e xtremity radicular nerve pain down to her calf and toes. Imaging indicates annular fissuri ng of the disc at L5-S1. Therapy has educated patient to avoid bending, lifting, and twist ing per conservative back precautions. Therapy will continue to work on balance, functional endurance, fall prevention education, leg strengthening, and overall safety education prior to discharge. Fall Risk: Tinetti Balance Assessment on 04/03; timed up and go 15.19 seconds on 04/12 Cognition/Communication: Speech therapy has been targeting increasing Stefani's attention ski lls. She benefits from having reminders about looking at papers one line at a time, going to p to bottom, left to right. When she is having conversation, it is difficult for her to take turns with the conversational partner, as she likes to continue talking non-stop, but enjoy s answering questions asked of her. She is 70% accurate responding to simple questions relat ed to her whiteboard in her room.The Cognitive Linguistic Quick Test was completed to measur e her thinking skills compared to other adults her age. In sessions and in standardized test ing, she exhibits severe deficits in paying attention, remembering information required of h er, problem-solving, and scanning/processing information she sees. She has moderate deficits in language. She is at risk for not knowing how to keep herself safe and problem-solving he r way out of a situation where she could be hurt. She is at risk for making errors in taking medications, paying bills, and transporting herself. It is highly recommended that she rece susan 24/ supervision upon discharge. Swallowing: Stefani has made progress in her diet tolerance, upgraded now to dysphagia advanc ed for her solid foods, meaning that her food comes up cut-up and she isn't eating foods chrissie t are very dry or crunchy. She states that she appreciates that the food is cut-up so she do esn't have to do it and that it's a little soft as she doesn't have her dental implants curr ently. No past medical history on file. No past surgical history on file. Allergies Allergen Reactions Shellfish Allergy GI Distress No prescriptions prior to admission. DISCHARGE EXAM Vital Signs: BP 157/77 (BP Location: Right forearm) | Pulse 76 | Temp 98.3 F (36.8 C) (Oral) | Re sp 18 | Ht 1.676 m (5' 6") | Wt 68.9 kg (152 lb) | SpO2 97% | ? No | BMI 2 4.53 kg/m Physical Exam GEN: Agitated but cooperative. RESP: Lungs Clear to A & P. No wheezing. CV: No Murmur, Gallop, Carotid Bruit, Pedal Edema. ABD: + BS. Nondistended. Nontender. No HSM. No rebound. SKIN: Bruising on neck - linear. EXT: Calves Nontender. Negative Gilberto's sign.Shins non tender. Thigh non tender. NEURO: A&O x to name and year but cannot tell me month. She knows she is in the hospital but does not know city. Pupils equal. CN 2 - 12 grossly normal. Rambling speech. Pt leong s not understand directions (I asked her to look at light and she looked out the window. Moving all 4 extremities. Ataxia. Sensations of light touch and proprioception intact in all 4 extremities. Obiee Architect weaker on right. DATA PLAN the patient is ready for discharge home. Disposition: Home Condition: Good Code Status: Prior No discharge procedures on file. Follow up: DO JULIO [facility] [address] [place] [id number] Follow up Please follow-up with your primary care provider within 1-2 weeks after discharge. Neurology Follow up Please follow-up with a neurologist. [facility] [address] [place] [id number] Follow up A referral was made to [facility] department for physical, occupationa l and speech therapy. If you do not hear from them within 24/48 hours after discharge, plea se call them. Medication List START taking these medications * gabapentin 300 MG capsule QTY: 30 capsule Refills: 0 Commonly known as: NEURONTIN Take 1 capsule by mouth nightly. * gabapentin 100 MG capsule QTY: 30 capsule Refills: 0 Commonly known as: NEURONTIN Take 1 capsule by mouth daily. scopolamine 1 mg/3days patch QTY: 10 patch Refills: 0 Commonly known as: TRANSDERM-SCOP Place 1 patch onto the skin every third day. Apply to hairless area of skin behind the ear. traMADol 50 MG tablet QTY: 60 tablet Refills: 0 Commonly known as: ULTRAM Take 2 tablets by mouth every 8 (eight) hours as needed. * This list has 2 medication(s) that are the same as other medications prescribed for you. Read the directions carefully, and ask your doctor or other care provider to review them wit h you. CHANGE how you take these medications lisinopril 10 MG tablet QTY: 30 tablet Refills: 0 Commonly known as: ZESTRIL Take 1 tablet by mouth daily. What changed: medication strength how much to take CONTINUE taking these medications Cholecalciferol 2000 units Tabs Refills: 0 Take 2,000 Units by mouth daily. metoprolol 25 MG tablet QTY: 60 tablet Refills: 11 Commonly known as: LOPRESSOR Take 1 tablet by mouth 2 (two) times daily. phosphorus 250 MG tablet QTY: 30 tablet Refills: 11 Commonly known as: K PHOS NEUTRAL Take 1 tablet by mouth daily. sitagliptan 100 MG tablet QTY: 30 tablet Refills: 0 Commonly known as: JANUVIA Take 1 tablet by mouth daily. You might also be taking other medications not listed above. If you have questions about an y of your other medications, talk to the person who prescribed them or your Primary Care Pro vider. STOP taking these medications acetaminophen 325 MG tablet Commonly known as: TYLENOL acetaminophen 650 MG suppository Commonly known as: TYLENOL insulin detemir 100 UNIT/ML injection Commonly known as: LEVEMIR insulin lispro (human) 100 UNIT/ML injection Commonly known as: HUMALOG levetiracetam 1000 MG tablet Commonly known as: KEPPRA ondansetron 4 MG disintegrating tablet Commonly known as: ZOFRAN-ODT Where to Get Your Medications You can get these medications from any pharmacy Bring a paper prescription for each of these medications gabapentin 100 MG capsule gabapentin 300 MG capsule lisinopril 10 MG tablet scopolamine 1 mg/3days patch sitagliptan 100 MG tablet traMADol 50 MG tablet Discharge took 60 minutes, to include final examination, discussion of admission, and prepa ration of prescriptions, instructions for on-going care, follow-up and documentation of disc harge summary. Wing Louisa Quintero MD 04/15/2018in this encounter Discharge Instructions Micah Larson RN - 04/13/2018 Adjustment Disorder and Traumatic Brain Injury A traumatic brain injury (TBI) is an injury to your brain that can change the way you think , act, and feel. Falls, fights, sports, and car accidents are common causes of a TBI. Having a TBI and getting better after a TBI are life-changing and stressful events. Some pe ople develop a group of symptoms called adjustment disorder after a trauma like a TBI. Diagnosing adjustment disorder along with a TBI is important. Adjustment disorder may make it harder for you to get involved in your TBI recovery program. It may also put you at a hig her risk for drug and alcohol problems. If it is not treated, adjustment disorder may even l ead to thoughts of suicide. Symptoms of adjustment disorder Adjustment disorder symptoms usually start within three months of a traumatic event. The tr aumatic event could have caused your TBI. It could also be a divorce, of a loved one, worries about money, or other major changes taking place in your life. Symptoms of adjustmen t disorder can be bad enough to affect your everyday life at home or at work. They may inclu de: Sadness Worry Trouble sleeping Trouble concentrating Being very tense and nervous Crying Trembling Heart palpitations Making poor decisions What to do for adjustment disorder Many symptoms of adjustment disorder are similar to TBI symptoms. It is important to let yo healthcare provider know about all your symptoms. They are aware of the dangers of adjust ment disorder. They can connect you with a mental health professional who can help you. Treatment for adjustment disorder is very effective. It may include a type of counseling ca lled cognitive behavioral therapy (CBT). CBT is a form of talk therapy. It teaches you to re place negative thinking and behaviors with healthier thoughts and behaviors. You may benefit from individual sessions or group therapy. Family therapy sessions and self-help support groups may also help. Joining a support group is a good way to share your feelings. You can also get support from others with similar pro blems. Medicines may be used for symptoms like trouble sleeping or anxiety, but talk therapy is the main treatment. Adjusting to recovery Having a TBI changes your life in many ways. Stick with your treatment and rehabilitation. Here are some steps you can take to make your adjustment easier: Take good care of yourself. Get regular exercise and eat a healthy diet. Get regular kelsea rs of sleep. Have an active social life. Let your friends and family become part of your recovery. Ta ke advantage of their help and emotional support. Find ways to reduce your stress. Ideas include deep breathing, recreation, massage, medi tation, music, and spending quality time with loved ones. Be patient with your recovery. Everybody s brain recovers at its own pace. Give yourse lf more time to do the things you need to do. Don t treat your symptoms with alcohol or drugs. These substances make symptoms worse. And they will slow down the healing process. Adjusting to life after TBI is hard, but it does get better. Remember that you are not johanne e. Work with your healthcare team and get support from friends and family. Be sure to let yo healthcare provider know about any symptoms of adjustment disorder. Treatment is availabl e and it works. Date Last Reviewed: 02/15/201619994111-7995 [employer]. [address] [place] [address]. All righ ts reserved. This information is not intended as a substitute for professional medical care. Always follow your healthcare professional's instructions. A 4 wheel walker was obtained from [facility] in [place] (ph [phone]). If you have any issues with the walker, please call them.in this encounter Medications at Time of Discharge + + +---------+---------+ + + | Medication | Sig. | Disp. | Refills | Start | End Date | | | | | | Date | | + + +---------+---------+ + + | Cholecalciferol | Take 2,000 Units by | | | 04/02/20 | | | 2000 units TABS | mouth daily. | | | 18 | 9 | + + +---------+---------+ + + | gabapentin | Take 1 capsule by | 30 | 0 | 04/15/20 | | | (NEURONTIN) 100 MG | mouth daily. | capsule | | 18 | 9 | | capsule | | | | | | + + +---------+---------+ + + | gabapentin | Take 1 capsule by | 30 | 0 | 04/14/20 | | | (NEURONTIN) 300 MG | mouth nightly. | capsule | | 18 | 9 | | capsule | | | | | | + + +---------+---------+ + + | lisinopril | Take 1 tablet by | 30 | 0 | 04/15/20 | | | (ZESTRIL) 10 MG | mouth daily. | tablet | | 18 | 9 | | tablet | | | | | | + + +---------+---------+ + + | metoprolol | Take 1 tablet by | 60 | 11 | 04/02/20 | | | (LOPRESSOR) 25 MG | mouth 2 (two) times | tablet | | 18 | 9 | | tablet | daily. | | | | | + + +---------+---------+ + + | phosphorus (K PHOS | Take 1 tablet by | 30 | 11 | 04/02/20 | | | NEUTRAL) tablet | mouth daily. | tablet | | 18 | 9 | + + +---------+---------+ + + | scopolamine | Place 1 patch onto | 10 | 0 | 04/14/20 | | | (TRANSDERM-SCOP) 1 | the skin every third | patch | | 18 | | | mg/3days patch | day. Apply to | | | | | | | hairless area of | | | | | | | skin behind the ear. | | | | | + + +---------+---------+ + + | sitagliptan | Take 1 tablet by | 30 | 0 | 04/14/20 | | | (JANUVIA) 100 MG | mouth daily. | tablet | | 18 | | | tablet | | | | | | + + +---------+---------+ + + | traMADol (ULTRAM) | Take 2 tablets by | 60 | 0 | 04/14/20 | | | 50 MG tablet | mouth every 8 | tablet | | 18 | | | | (eight) hours as | | | | | | | needed. | | | | | + + +---------+---------+ + + as of this encounter Progress Missy Tolentino MD - 04/12/2018 7:16 PM PDTFormatting of this note may be different from the original. [facility] Service: Internal Medicine Progress Note Hospital Day: LOS: 10 days Post-Op Day: * No surgery found * SUBJECTIVE Patient Summary: history of chronic thrombocytopenia(ITP), Diabetes, HTN, anxiety, and depressionwho presents with hx of frequent falls, confusion, Left Subdural Hematoma. Events Overnight: Lower back mildly tender. Bilateral Leg pain 5 - 6 /10. No SOB, CP , GI sx. Pt's appetite better. Pt has hand written list of questions. Pt's cousing, Julianne , is here and is ready to care for pt at home per pt. Scheduled Medications acetaminophen 500 mg Oral 4x Daily cholecalciferol 2,000 Units Oral Daily gabapentin 300 mg Oral Nightly insulin detemir 10 Units Subcutaneous BID insulin lispro (human) 0-3 Units Subcutaneous Nightly insulin lispro (human) 0-6 Units Subcutaneous TID AC Lidocaine 1 patch Transdermal Daily lisinopril 10 mg Oral Daily metoprolol 25 mg Oral BID scopolamine 1 patch Transdermal Q72H sitaGLIPtin 50 mg Oral Daily Continuous Infusions PRN Medications acetaminophen OR acetaminophen, diclofenac, LORazepam, magnesium hydroxide, nystatin, p etrolatum, polyethylene glycol, traMADol, traMADol OBJECTIVE Vital Signs: BP 159/77 (BP Location: Right upper arm) | Pulse 94 | Temp 97 F (36.1 C) (Oral) | Re sp 18 | Ht 1.676 m (5' 6") | Wt 68.9 kg (152 lb) | SpO2 96% | ? No | BMI 2 4.53 kg/m Intake/Output Summary (Last 24 hours) at 04/12/18 1919 Last data filed at 04/12/18 1743 Gross per 24 hour Intake 600 ml Output 0 ml Net 600 ml RESP: Lungs Clear to A &P. No wheezing. CV: + Murmur heard throughout precordium. No Gallop, Carotid Bruit, Pedal Edema. ABD: + BS. Nondistended. Nontender. EXT: Calves Nontender. Negative Gilberto's sign. MUSC: Lower back paraspinal muscles R>L and R SI joint tender. Spine non tender. Weakly positive straight leg raise R > L. NEURO: A&O x3. Short term memory loss. Mild confusion. Pt feeding herself. Movin g all 4 extremities. Ataxia. Sensation of light touch intact in feet. DATA BSs 103, 222, 146. PROBLEM LIST Principal Problem: Subarachnoid hemorrhage following injury without open intracranial wound and with no loss of consciousness (HCC) Active Problems: Falls frequently SDH (subdural hematoma) (HCC) Thrombocytopenia (HCC) Chronic ITP (idiopathic thrombocytopenia) (HCC) Type 2 diabetes mellitus with complication (HCC) Essential hypertension Gait disorder Lumbar disc disease with radiculopathy Asymmetric septal hypertrophy (HCC) Mitral regurgitation ASSESSMENT & PLAN @PROBHOSPPOA@ 67 y/o Female with Hx of ITP, NIDDM, HTN, MR, Cardiomegaly admitted withacute left SDH an d subarachnoid hemorrhage secondary to falls. 1. left SDH and subarachnoid hemorrhage. OffKeppra.Monitor for new Neurologic S igns or symptomsand Seizures. 2. Gait Disorder with leg weakness and Imbalance. Continueaggressive PT and OT. 3. Cognitive Dysfunction. ContinueSLP Therapy. 4. Chronic ITP. PLTs stable since admission to [facility]. Plan as per Heme. 5. Lower Back and Bilateral Leg Pain due to Radiculopathy. Annular fissuring of the disc is present at L5-S1/ Multi-level Lumbar Nerve impingement/ Fatty lesion at L4-L5 and L5-S -1. Pt cannot have NSAIDs due to SAH and ITP. She is not a candidate for Epidural inje ctions due to ITP. Increase Tylenol 1000 mg tid not prn. Tramadol for pain. Add Nuno pentin during the day. 6. Hx of Confusion, Frequent Falls, Imbalance > 1 year. Pt to F/U with Neurology as outp atient to determine cause of symptoms that were present before recent SDH and subarachnoid hemorrhage. Question whether or not pt has an underlying neurologic condition. 7. Frequent Falls. IHigh Fall Risk. 8. NIDDM. BSs elevated before lunch. Not clear if this was before eating. Monitor. . 9. Moderate Mitral Regurgitation and Septal Hypertrophy. This may be part of dizziness, f alls, and possible syncope. . F/U with package liner after discharge. Possible c 9. Disposition. SW to assist with discharge planning. Estimated discharge date 03/18. MISSY RIVERA MD 04/12/2018 Galilea Christianson, RD - 04/12/2018 4:04 PM PDTFormatting of this note may be different from t seda original. 04/12/18 8324 Subjective Timepoint Follow up Pt c/o Pt intake improved, no c/o's. Fluid / Beverage Intake Oral Fluids Amount ad morris thins Liquid Meal Replacement or Supplement politely declines supplement Food Intake Amount of Food eating average 70% meals over the past week Type of Food / Meals LYE TREATER working with pt - now on dysphagia advanced/thins for mild aspirat ion risk Meal / Snack Pattern house trays Nutrition-Focused Physical Findings Digestive System (Mouth to Rectum) mild aspiration risk - working with LYE TREATER Biochemical data, medical tests, and procedures reviewed Biochemical data, medical tests, and procedures reviewed labs reviewed Recommendations Recommended energy needs Continue diet as Rx'd, texture per LYE TREATER, with house trays. Will f/ u weekly and offer oral nutrition supplements if po intake decreases. Nutritional Risk Nutritional risk Low Follow up date 04/19/18 NICOLE Kruse Barbara, MD - 04/11/2018 5:34 PM PDTFormatting of this note may be different from the original. [facility] Service: Physical Medicine and Rehab Progress Note Hospital Day: LOS: 9 days Post-Op Day: * No surgery found * SUBJECTIVE Patient Summary: history of chronic thrombocytopenia(ITP), Diabetes, HTN, anxiety, and depressionwho presents with hx of frequent falls, confusion, Left Subdural Hematoma. Events Overnight: pt ambulated in hallway with RN and with TECHNOLOGY ARCHITECT this morning. Contin ued c/o leg pain bilaterally. Mild Lower backache. No SOB or CP. Pt telling nurse that she is going home tomorrow. She refused [facility] in [place]. She thinks she is going home and that her cousin Julianne is caring for her. Good appetite today - pt requested seconds of Tomato soup and Tuna sandwich. Pt requests Scopolamine patch again. It fell off last night and pt feels it helped dizziness. Scheduled Medications acetaminophen 500 mg Oral 4x Daily cholecalciferol 2,000 Units Oral Daily gabapentin 300 mg Oral Nightly insulin detemir 10 Units Subcutaneous BID insulin lispro (human) 0-3 Units Subcutaneous Nightly insulin lispro (human) 0-6 Units Subcutaneous TID AC Lidocaine 1 patch Transdermal Daily lisinopril 10 mg Oral Daily metoprolol 25 mg Oral BID scopolamine 1 patch Transdermal Q72H sitaGLIPtin 50 mg Oral Daily Continuous Infusions PRN Medications acetaminophen OR acetaminophen, diclofenac, LORazepam, nystatin, petrolatum, polyethyle ne glycol, traMADol, traMADol OBJECTIVE Vital Signs: BP 178/85 (BP Location: Left forearm) | Pulse 65 | Temp 98.1 F (36.7 C) (Oral) | Res p 16 | Ht 1.676 m (5' 6") | Wt 68.9 kg (152 lb) | SpO2 95% | ? No | BMI 24 .53 kg/m Intake/Output Summary (Last 24 hours) at 04/11/18 1735 Last data filed at 04/11/18 0903 Gross per 24 hour Intake 1155 ml Output 0 ml Net 1155 ml RESP: Lungs Clear to A &P. No wheezing. CV: + Murmur heard throughout precordium. No Gallop, Carotid Bruit, Pedal Edema. ABD: + BS. Nondistended. Nontender. EXT: Calves Nontender. Negative Gilberto's sign. NEURO: A&O x3. Short term memory loss. Mild confusion. Pt feeding herself. Moving a ll 4 extremities. Ataxia. DATA CBC: Lab Results Component Value Date WBC 4.66 04/11/2018 RBC 3.24 (L) 04/11/2018 HGB 10.9 (L) 04/11/2018 HCT 30.0 (L) 04/11/2018 MCV 92.6 04/11/2018 MCH 33.5 04/11/2018 MCHC 36.2 (H) 04/11/2018 RDW 47.3 04/11/2018 PLT 88 (L) 04/11/2018 MPV 7.2 04/11/2018 DIFFTYPE AUTOMATED 04/11/2018 BMP: Lab Results Component Value Date NA 142 04/10/2018 K 3.6 04/10/2018 CL 105 04/10/2018 CO2 28 04/10/2018 ANIONGAP 13 04/10/2018 GLUF 128 (H) 04/10/2018 BUN 10 04/10/2018 CREATININE 0.4 (L) 04/10/2018 BCR 25 04/10/2018 CA 8.5 04/10/2018 EGFR >60 04/10/2018 BSs = 126,123,121. PROBLEM LIST Principal Problem: Subarachnoid hemorrhage following injury without open intracranial wound and with no loss of consciousness (HCC) Active Problems: Falls frequently SDH (subdural hematoma) (HCC) Thrombocytopenia (HCC) Chronic ITP (idiopathic thrombocytopenia) (HCC) Type 2 diabetes mellitus with complication (HCC) Essential hypertension Gait disorder Lumbar disc disease with radiculopathy ASSESSMENT & PLAN @DEBBIE@ 67 y/o Female with Hx of ITP, NIDDM, HTN, MR, Cardiomegaly admitted withacute left SDH an d subarachnoid hemorrhage secondary to falls. 1. left SDH and subarachnoid hemorrhage. Off Keppra.Monitor for new Neurologic Si gns or symptoms and Seizures. 2. Gait Disorder with leg weakness and Imbalance. Continueaggressive PT and OT. 3. Cognitive Dysfunction. ContinueSLP Therapy. 4. Chronic ITP. PLTs stable since admission to [facility]. Plan as per Heme. 5. Left leg/HipPain: Annular fissuring of the disc is present at L5-S1/ Multi-le rhys Lymbar Radiculopathy/ Fatty lesion at L4-L5 and L5-S-1. Pt cannot have NSAIDs due to SAH and ITP. She is not a candidate for Epidural injections due to ITP. Tylenol 500 mg qid not prn. Tramadol for pain. Gabapentin at night. 6. Potassium now normal. Daily BMP no longer needed. 7. Frequent Falls. Interestingly, her Murmur was audible today. ECHO reviewed. Moderat e Mitral Valve disease, Septal hypertrophy, cardiomegaly(LA, RV). Suspect that Septal Hyper trophy related to falls. This condition can cause syncope. F/U with Cardiology after dis charge. Avoid Nitrates and Digoxin due to Septal Hypertrophy. Metoprolol should be helpful . 8. NIDDM. BSs now controlled. 9. Disposition. SW to assist with discharge planning. MISSY RIVERA MD 04/11/2018 Missy Rivera MD - 04/10/2018 2:46 PM PDTFormatting of this note may be different from the original. [facility] Service: Physical Medicine and Rehab Progress Note Hospital Day: LOS: 8 days Post-Op Day: * No surgery found * SUBJECTIVE Patient Summary: history of chronic thrombocytopenia(ITP), Diabetes, HTN, anxiety, and depressionwho presents with hx of frequent falls, confusion, Left Subdural Hematoma. Events Overnight: c/o leg pain bilaterally. Mild Lower backache. No SOB or CP. Scheduled Medications acetaminophen 500 mg Oral 4x Daily cholecalciferol 2,000 Units Oral Daily gabapentin 300 mg Oral Nightly insulin detemir 10 Units Subcutaneous BID insulin lispro (human) 0-3 Units Subcutaneous Nightly insulin lispro (human) 0-6 Units Subcutaneous TID AC Lidocaine 1 patch Transdermal Daily lisinopril 10 mg Oral Daily metoprolol 25 mg Oral BID scopolamine 1 patch Transdermal Q72H sitaGLIPtin 50 mg Oral Daily Continuous Infusions PRN Medications acetaminophen OR acetaminophen, diclofenac, LORazepam, nystatin, petrolatum, polyethyle ne glycol, traMADol, traMADol OBJECTIVE Vital Signs: BP 136/82 (BP Location: Right upper arm) | Pulse 68 | Temp 98.7 F (37.1 C) (Oral) | Resp 16 | Ht 1.676 m (5' 6") | Wt 68.9 kg (152 lb) | SpO2 98% | ? No | BMI 24.53 kg/m Intake/Output Summary (Last 24 hours) at 04/10/18 1448 Last data filed at 04/10/18 1200 Gross per 24 hour Intake 1085 ml Output 0 ml Net 1085 ml GEN: Cooperative. RESP: Lungs Clear to A &P. No wheezing. CV: No Murmur, Gallop, Carotid Bruit, Pedal Edema. ABD: + BS. Nondistended. Nontender. EXT: Calves Nontender. Negative Gilberto's sign. NEURO: A&O x3. Short term memory loss. Mild confusion. Work finding problems. Pt feedi ng herself. Moving all 4 extremities. Ataxia. DATA CBC: Lab Results Component Value Date WBC 5.07 04/08/2018 RBC 3.25 (L) 04/08/2018 HGB 10.8 (L) 04/08/2018 HCT 29.9 (L) 04/08/2018 MCV 92.2 04/08/2018 MCH 33.4 04/08/2018 MCHC 36.2 (H) 04/08/2018 RDW 45.9 04/08/2018 PLT 94 (L) 04/08/2018 MPV 7.3 04/08/2018 DIFFTYPE AUTOMATED 04/08/2018 BMP: Lab Results Component Value Date NA 142 04/10/2018 K 3.6 04/10/2018 CL 105 04/10/2018 CO2 28 04/10/2018 ANIONGAP 13 04/10/2018 GLUF 128 (H) 04/10/2018 BUN 10 04/10/2018 CREATININE 0.4 (L) 04/10/2018 BCR 25 04/10/2018 CA 8.5 04/10/2018 EGFR >60 04/10/2018 PROBLEM LIST Principal Problem: Subarachnoid hemorrhage following injury without open intracranial wound and with no loss of consciousness (HCC) Active Problems: Falls frequently SDH (subdural hematoma) (HCC) Thrombocytopenia (HCC) Chronic ITP (idiopathic thrombocytopenia) (HCC) Type 2 diabetes mellitus with complication (HCC) Essential hypertension Gait disorder Lumbar disc disease with radiculopathy ASSESSMENT & PLAN @PETERPOA@ 67 y/o Female with Hx of ITP, NIDDM, HTN, MR, Cardiomegaly admitted withacute left SDH an d subarachnoid hemorrhage secondary to falls. 1. left SDH and subarachnoid hemorrhage. Off Keppra.Monitor for new Neurologic Si gns or symptoms and Seizures. 2. Gait Disorder with leg weakness and Imbalance. Continueaggressive PT and OT. 3. Cognitive Dysfunction. ContinueSLP Therapy. 4. Chronic ITP. Plan as per Heme. 5. Left leg/HipPain: Annular fissuring of the disc is present at L5-S1/ Multi-le rhys Lymbar Radiculopathy/ Fatty lesion at L4-L5 and L5-S-1. Pt cannot have NSAIDs due to SAH and ITP. She is not a candidate for Epidural injections due to ITP. Tylenol 500 mg qid not prn. Tramadol for pain. Gabapentin at night. 6. Potassium now normal. Daily BMP no longer needed. 7. Disposition. SW to assist with discharge planning. MISSY RIVERA MD 04/10/2018 Gisel Davies, MCKAYLA-LYE TREATER - 04/10/2018 9:00 AM PDTSPEECH - LANGUAGE - COGNITION LYE TREATER Received On: 04/10/18 Requires LYE TREATER Follow Up: Yes Treatment Plan: Continue with current plan Treatment Frequency: 4-6 x/week Session type: Treatment Additional Pertinent History: Targeted responding to questions and sustained attention with whiteboard navigation for improved orientation and in-room problem solving. Family/Caregiver Present: No Commands Comment: 70% accurate responding to simple wh- questions to navigate whiteboard. P t continues to present tangential remarks and impiared sustained attention. Benefit from con stant repetition of task instructions and gestural cues. Limited retention of activity, susp ected impaired new learning memory. Cognition Sustained Attention Deficit: Maximal cues Education Completed Education Topics: [x] Cognition: Educate on speech-language pathology role, sessions activities, results, sa fety precautions, plan of care, and homework activities [] Speech: Educate on speech-language pathology role, sessions activities, results, plan of care, and homework activities. [] Language: Educate on speech-language pathology role, sessions activities, results, pl an of care, and homework activities. Completed with: [x] Patient [] Spouse [] Significant other [] Family [] C aregiver [] Other Completed by: [x] Verbal education [x] Demonstration [] Handout [] Other: Response to Education: [x] Stated Understanding [x] Reinforcement necessary [] Retur raine demonstration [] Demonstrated understanding [] No evidence of learning [] Refused Gisel Davies CCC-LYE TREATER Wing Tyshawn Quintero MD - 04/09/2018 7:53 AM PDTFormatting of this note may be different from the original. [facility] Service: Physical Medicine & Rehab Progress Note Hospital Day: LOS: 7 days SUBJECTIVE Patient Summary: The patient is continuing to work well with therapists. No complain t of pain. emphasis for dynamic balance challenge, dual task and environmental scanning for obstacles and objects. Pt with good stability while self initiating increased MARCELLA in proactive/reactiv e task with poor ability to motor plan increased number of steps and multi dimensional direc tion challenge during 4 square step test. Pt requiring frequent cueing to continue to scan f or light on DynaVision with poor recall for task directions indicating ongoing concern for o verall safety and effective independence in new or crowded environment. Pt to continue to be nefit from ongoing skilled PT with high repetition for balance tasks to improve all reaction s ROS: No current complaints of neurological problems such as new weakness, numbness, tinglin g, visual changes. No complaints of CVS, pulmonary, GI, , integument, probs. No complaints of SOB,CP,NAUSEA, swallowing problems or pain problems. No complaints of sleeping difficult y. No complaints of anxiety or depression. Scheduled Medications acetaminophen 500 mg Oral 4x Daily cholecalciferol 2,000 Units Oral Daily gabapentin 200 mg Oral Nightly insulin detemir 10 Units Subcutaneous BID insulin lispro (human) 0-3 Units Subcutaneous Nightly insulin lispro (human) 0-6 Units Subcutaneous TID AC Lidocaine 1 patch Transdermal Daily lisinopril 5 mg Oral Daily metoprolol 25 mg Oral BID scopolamine 1 patch Transdermal Q72H sitaGLIPtin 50 mg Oral Daily PRN Medications acetaminophen OR acetaminophen, diclofenac, LORazepam, nystatin, petrolatum, polyethyle ne glycol, traMADol, traMADol OBJECTIVE Vital Signs: BP 154/80 (BP Location: Right forearm) | Pulse 68 | Temp 96.9 F (36.1 C) (Oral) | Re sp 16 | Ht 1.676 m (5' 6") | Wt 68.9 kg (152 lb) | SpO2 97% | ? No | BMI 2 4.53 kg/m General Appearance: Alert, cooperative, no distress. Head: symmetrical Eyes: reactive Lungs: clear Chest wall: nontender Heart: regular Abdomen: soft Extremities: Negative edema Pulses: regular Skin: intact DATA Results for orders placed or performed during the hospital encounter of 04/02/18 (from the past 24 hour(s)) POCT glucose Collection Time: 04/08/18 11:26 AM Result Value Ref Range GLUCOSE,POC SCREEN 274 (H) 65 - 99 mg/dL POCT glucose Collection Time: 04/08/18 4:22 PM Result Value Ref Range GLUCOSE,POC SCREEN 152 (H) 65 - 99 mg/dL POCT glucose Collection Time: 04/08/18 8:35 PM Result Value Ref Range GLUCOSE,POC SCREEN 218 (H) 65 - 99 mg/dL Basic metabolic panel Collection Time: 04/09/18 5:21 AM Result Value Ref Range SODIUM 142 135 - 145 mmol/L POTASSIUM 3.7 3.5 - 4.9 mmol/L CHLORIDE 106 99 - 109 mmol/L CO2 28 23 - 32 mmol/L ANION GAP AGAP 12 5 - 20 mmol/L GLUCOSE 156 (H) 65 - 99 mg/dL BUN 8 8 - 25 mg/dL CREATININE 0.5 0.50 - 1.00 mg/dL BUN/CREAT 16 CALCIUM 8.5 8.5 - 10.5 mg/dL EGFR >60 >60 mL/min/1.73m2 POCT glucose Collection Time: 04/09/18 6:10 AM Result Value Ref Range GLUCOSE,POC SCREEN 181 (H) 65 - 99 mg/dL ASSESSMENT & PLAN Patient Active Hospital Problem List: Subarachnoid hemorrhage following injury without open intracranial wound and with no loss of consciousness (HCC) (04/02/2018) Assessment: stable Plan: monitor neuro status Falls frequently (03/30/2018) Assessment: improving Plan: cont with PT and OT Type 2 diabetes mellitus with complication (HCC) (04/01/2018) Assessment: stable Plan: monitor CBG Essential hypertension (04/01/2018) Assessment: stable Plan: cont with current meds Gait disorder (04/02/2018) Assessment: improving Plan: cont with TP and OT Lumbar disc disease with radiculopathy (04/03/2018) Assessment: stable Plan: pain management A/Plan 1) Mobility dysfunction - continue Physical therapy for bed mobility, functional transfers, gait training, equipment evaluation, and family/caregiver training. 2) Mobility ADL/dysfunction - continue OT for ADL's, IADL's, functional transfers, equipmen t evaluation, family training. 3) Mobility dysfunction - continue 24 hr. Rehab nursing for bowel, bladder skin pain sleep. Wing Louisa Quinetro MD 04/09/20187:53 AM Wing Tyshawn Quintero MD - 04/08/2018 11:52 AM PDTFormatting of this note may be different from the original. [facility] Service: Physical Medicine & Rehab Progress Note Hospital Day: LOS: 6 days SUBJECTIVE Patient Summary: The patient repeat head CT showed significant improvement with bleed . Her family is working to try and get 24/7 care at home instead of going to SNF. Pt demonstrating increased step length and gait velocity with use of 4ww with reduced level of physical assistance, however poor path finding with obstacles present and frequent colli josephine in addition absent walker safety or ability to follow single step commands to appropria tely utilize walker brakes ROS: No current complaints of neurological problems such as new weakness, numbness, tinglin g, visual changes. No complaints of CVS, pulmonary, GI, , integument, probs. No complaints of SOB,CP,NAUSEA, swallowing problems or pain problems. No complaints of sleeping difficult y. No complaints of anxiety or depression. Scheduled Medications acetaminophen 500 mg Oral 4x Daily cholecalciferol 2,000 Units Oral Daily gabapentin 200 mg Oral Nightly insulin detemir 10 Units Subcutaneous BID insulin lispro (human) 0-3 Units Subcutaneous Nightly insulin lispro (human) 0-6 Units Subcutaneous TID AC Lidocaine 1 patch Transdermal Daily lisinopril 5 mg Oral Daily metoprolol 25 mg Oral BID scopolamine 1 patch Transdermal Q72H sitaGLIPtin 50 mg Oral Daily PRN Medications acetaminophen OR acetaminophen, diclofenac, LORazepam, nystatin, petrolatum, traMADol, traMADol OBJECTIVE Vital Signs: BP 151/83 (BP Location: Right upper arm) | Pulse 72 | Temp 97.5 F (36.4 C) (Oral) | Resp 18 | Ht 1.676 m (5' 6") | Wt 68.9 kg (152 lb) | SpO2 97% | ? No | BMI 24.53 kg/m General Appearance: Alert, cooperative, no distress. Head: symmetrical Eyes: reactive Lungs: clear Chest wall: nontender Heart: regular Abdomen: soft Extremities: Negative edema Pulses: regular Skin: intact DATA Results for orders placed or performed during the hospital encounter of 04/02/18 (from the past 24 hour(s)) POCT glucose Collection Time: 04/07/18 8:55 PM Result Value Ref Range GLUCOSE,POC SCREEN 231 (H) 65 - 99 mg/dL Basic metabolic panel Collection Time: 04/08/18 5:04 AM Result Value Ref Range SODIUM 143 135 - 145 mmol/L POTASSIUM 3.5 3.5 - 4.9 mmol/L CHLORIDE 107 99 - 109 mmol/L CO2 29 23 - 32 mmol/L ANION GAP AGAP 11 5 - 20 mmol/L GLUCOSE 128 (H) 65 - 99 mg/dL BUN 7 (L) 8 - 25 mg/dL CREATININE 0.4 (L) 0.50 - 1.00 mg/dL BUN/CREAT 18 CALCIUM 8.2 (L) 8.5 - 10.5 mg/dL EGFR >60 >60 mL/min/1.73m2 CBC w/auto diff (reflex to manual) Collection Time: 04/08/18 5:04 AM Result Value Ref Range WBC 5.07 3.80 - 11.00 K/uL RBC 3.25 (L) 3.70 - 5.10 M/uL HGB 10.8 (L) 11.3 - 15.5 g/dL HCT 29.9 (L) 34.0 - 46.0 % MCV 92.2 80.0 - 100.0 fl MCH 33.4 27.0 - 34.0 pg MCHC 36.2 (H) 32.0 - 35.5 g/dL RDW SD 45.9 37 - 53 fl PLT 94 (L) 150 - 400 K/uL MPV 7.3 fl DIFF TYPE AUTOMATED NEUTROPHILS 55.66 % LYMPHOCYTES 28.34 % MONOCYTES 10.16 % EOSINOPHILS 4.68 % BASOPHILS 1.16 % NEUTROPHILS ABS 2.82 1.90 - 7.40 K/uL LYMPHOCYTES ABS 1.44 1.00 - 3.90 K/uL MONOCYTES ABS 0.52 0.00 - 0.80 K/uL EOSINOPHILS ABS 0.24 0.00 - 0.50 K/uL BASOPHILS ABS 0.06 0.00 - 0.10 K/uL POCT glucose Collection Time: 04/08/18 6:15 AM Result Value Ref Range GLUCOSE,POC SCREEN 133 (H) 65 - 99 mg/dL POCT glucose Collection Time: 04/08/18 11:26 AM Result Value Ref Range GLUCOSE,POC SCREEN 274 (H) 65 - 99 mg/dL ASSESSMENT & PLAN Patient Active Hospital Problem List: Subarachnoid hemorrhage following injury without open intracranial wound and with no loss of consciousness (HCC) (04/02/2018) Assessment: stable Plan: monitor neuro status Falls frequently (03/30/2018) Assessment: improving Plan: cont with PT and OT Type 2 diabetes mellitus with complication (HCC) (04/01/2018) Assessment: stable Plan: monitor CBG Essential hypertension (04/01/2018) Assessment: stable Plan: cont with current meds Gait disorder (04/02/2018) Assessment: improving Plan: cont with TP and OT Lumbar disc disease with radiculopathy (04/03/2018) Assessment: stable Plan: pain management A/Plan 1) Mobility dysfunction - continue Physical therapy for bed mobility, functional transfers, gait training, equipment evaluation, and family/caregiver training. 2) Mobility ADL/dysfunction - continue OT for ADL's, IADL's, functional transfers, equipmen t evaluation, family training. 3) Mobility dysfunction - continue 24 hr. Rehab nursing for bowel, bladder skin pain sleep. Wing Louisa Quintero MD 04/08/201811:52 AM Pat Love ARNP - 04/08/2018 7:44 AM PDTFormatting of this note may be differe nt from the original. [facility] Service: Hematology and Oncology Progress Note Hospital Day: LOS: 6 days Patient Summary: Ms. Stefani Bhatia is a 67 year old woman with a history of chronic thrombocytopenia followed by Dr. Green in [place] in addition to progressive confusion, gait inst ability, and multiple falls who apparently fell approximately two weeks prior to admission, hitting the back of her head. She was transported to [facility] in [facility] 2017 secondary to increased confusion and agitation after her most recent fall and fo und to have from cytopenia with platelet level 65,000. CT of the head was performed revealin g a subdural hematoma along the left tentorium and the patient was transferred to [facility] for f urther management and admitted to ICU. She is transitioned to hospitalist services March. The patient was given IVIG 400 mg/kg IV March 31-2017. [facility], [facility]. Hematological opinion was requested and the patient seen by Dr. Paulson April 03, 2018. SUBJECTIVE: Events Overnight: The patient had her repeat CT of the head this morning revealing a previ ously seen subdural hemorrhage at the inferior aspect of the medial mid left temporal lobe s ignificantly decreased in size compared to March 30 with no other acute intracranial findin gs. The patient is doing well today. She is participating in physical therapy. She is enjoying a visit with her friend. She denies headache. OBJECTIVE: Scheduled Medications acetaminophen 500 mg Oral 4x Daily cholecalciferol 2,000 Units Oral Daily gabapentin 200 mg Oral Nightly insulin detemir 10 Units Subcutaneous BID insulin lispro (human) 0-3 Units Subcutaneous Nightly insulin lispro (human) 0-6 Units Subcutaneous TID AC Lidocaine 1 patch Transdermal Daily lisinopril 5 mg Oral Daily metoprolol 25 mg Oral BID scopolamine 1 patch Transdermal Q72H sitaGLIPtin 50 mg Oral Daily Continuous Infusions PRN Medications acetaminophen 650 mg Q6H PRN Or acetaminophen 650 mg Q6H PRN diclofenac 2 g 4x Daily PRN LORazepam 0.5 mg Nightly PRN nystatin TID PRN petrolatum PRN traMADol 100 mg Q6H PRN traMADol 50 mg Q6H PRN Patient Vitals for the past 24 hrs: BP Temp Temp src Pulse Resp SpO2 04/08/18 0612 153/65 97.5 F (36.4 C) Oral 66 18 97 % 04/07/18 2050 145/80 98.6 F (37 C) Oral 92 20 91 % 04/07/18 1647 166/76 98.5 F (36.9 C) Oral 70 20 100 % 04/07/18 0846 144/70 - - 77 - - 04/07/18 0838 152/69 - - - - - Intake/Output Summary (Last 24 hours) at 04/08/18 0744 Last data filed at 04/07/18 1759 Gross per 24 hour Intake 473 ml Output 0 ml Net 473 ml No data found. DATA Recent Labs Lab 04/08/18 0504 04/07/18 0508 04/06/18 0544 04/05/18 0516 04/04/18 0504 WBC 5.07 5.29 6.15 5.92 5.10 RBC 3.25* 3.47* 3.58* 3.40* 3.64* HGB 10.8* 11.5 11.7 11.4 12.2 HCT 29.9* 32.1* 33.6* 31.0* 33.2* MCV 92.2 92.6 93.8 91.0 91.2 MCH 33.4 33.2 32.7 33.6 33.4 MCHC 36.2* 35.8* 34.9 36.9* 36.6* RDW 45.9 45.9 45.9 44.6 44.6 PLT 94* 66* 94* 89* 84* MPV 7.3 8.5 7.4 7.0 7.4 NEUTROABS 2.82 3.45 4.10 3.63 3.44 LYMPHSABS 1.44 1.00 1.12 1.34 0.90* MONOSABS 0.52 0.57 0.63 0.62 0.49 BASOSABS 0.06 0.05 0.07 0.08 0.06 EOSABS 0.24 0.22 0.22 0.25 0.21 Recent Labs Lab 04/08/18 0504 04/07/18 0508 04/06/18 0544 04/05/18 0516 04/04/18 0504 04/02/18 0356 NA 143 141 144 141 140 < > 140 K 3.5 3.8 3.4* 3.3* 3.2* < > 3.4* CL 107 107 108 106 105 < > 104 CO2 29 26 27 29 25 < > 24 ANIONGAP 11 12 12 9 13 < > 15 GLUF 128* 129* 84 96 97 < > 131* BUN 7* 7* 8 10 10 < > 6* CREATININE 0.4* 0.5 0.43* 0.4* 0.5 < > 0.4* BCR 18 14 18 25 20 < > 15 CA 8.2* 8.2* 8.3* 8.0* 8.4* < > 7.9* EGFR >60 >60 >60 >60 >60 < > >60 PHOS -- -- -- -- -- -- 2.9 MG -- -- -- -- -- -- 1.7 < > = values in this interval not displayed. IMAGING PHYSICAL EXAM: BP 153/65 (BP Location: Right upper arm) | Pulse 66 | Temp 97.5 F (36.4 C) (Oral) | Resp 18 | Ht 1.676 m (5' 6") | Wt 68.9 kg (152 lb) | SpO2 97% | ? No | BMI 24.53 kg/m General: Alert. Conversive. In no acute distress. Skin: No obvious bruises. HEENT: Anicteric. Conjunctiva clear. Lungs: Respiratory effort relaxed. Musculoskeletal: Bones and joints are unremarkable. Psychiatric: No signs of depression or anxiety. Asks questions appropriately. PROBLEM LIST Principal Problem: Subarachnoid hemorrhage following injury without open intracranial wound and with no loss of consciousness (HCC) Active Problems: Falls frequently SDH (subdural hematoma) (HCC) Thrombocytopenia (HCC) Chronic ITP (idiopathic thrombocytopenia) (HCC) Type 2 diabetes mellitus with complication (HCC) Essential hypertension Gait disorder Lumbar disc disease with radiculopathy ASSESSMENT & PLAN Thrombocytopenia This is a 67-year-old woman with a history of chronic thrombocytopenia followed by Dr. Milton dominguez at [facility] in [place], [place]. She is now admitted with subdural hematoma in the setting of thrombocytopenia. She received IVIG 400 mg/kg IV March [id number]. Current imaging with a CT reveals improvement from her subdural hemorrhage. Platelets are i mproved today to 94,000. I will change CBCs to every 3 days. I will also liberalize the threshold for platelet trans fusion to less than 30,000. Code Status: Full Code PAT SAVANNAH STONE 04/08/20187:44 Wing Tyshawn Pearl MD - 04/07/2018 7:20 AM PDTFormatting of this note may be di fferent from the original. [facility] Service: Physical Medicine & Rehab Progress Note Hospital Day: LOS: 5 days SUBJECTIVE Patient Summary: The patient has significant cognitive deficits. She and casper l not be able to provided necessary care at home. SW is working on placement in SNF. working on attention skills in therapy and is in the process of being assessed for safety with independence while conducting activities of daily living as she was independent with bi ll pay and medication management at baseline. The [place] Cognitive Assessment (MoCA) was a dministered April [id number] to measure her thinking skills with results indicating severe de ficits in the areas of higher level thinking skills (memory, reasoning, problem-solving) as well as attention and language. Her strength was orientation during her test. Currently her therapeutic progress in speech therapy has been impacted by her difficulties with attention and low tolerance to structured task. ROS: No current complaints of neurological problems such as new weakness, numbness, tinglin g, visual changes. No complaints of CVS, pulmonary, GI, , integument, probs. No complaints of SOB,CP,NAUSEA, swallowing problems or pain problems. No complaints of sleeping difficult y. No complaints of anxiety or depression. Scheduled Medications acetaminophen 500 mg Oral 4x Daily cholecalciferol 2,000 Units Oral Daily gabapentin 200 mg Oral Nightly insulin detemir 10 Units Subcutaneous BID insulin lispro (human) 0-3 Units Subcutaneous Nightly insulin lispro (human) 0-6 Units Subcutaneous TID AC Lidocaine 1 patch Transdermal Daily lisinopril 5 mg Oral Daily metoprolol 25 mg Oral BID scopolamine 1 patch Transdermal Q72H sitaGLIPtin 50 mg Oral Daily PRN Medications acetaminophen OR acetaminophen, diclofenac, LORazepam, nystatin, petrolatum, traMADol, traMADol OBJECTIVE Vital Signs: BP 162/74 (BP Location: Right upper arm) | Pulse 72 | Temp 98.8 F (37.1 C) (Oral) | Resp 18 | Ht 1.676 m (5' 6") | Wt 68.9 kg (152 lb) | SpO2 100% | ? No | BM I 24.53 kg/m General Appearance: Alert, cooperative, no distress. Head: symmetrical Eyes: reactive Lungs: clear Chest wall: nontender Heart: regular Abdomen: soft Extremities: Negative edema Pulses: regular Skin: intact DATA Results for orders placed or performed during the hospital encounter of 04/02/18 (from the past 24 hour(s)) POCT glucose Collection Time: 04/06/18 12:09 PM Result Value Ref Range GLUCOSE,POC SCREEN 266 (H) 65 - 99 mg/dL POCT glucose Collection Time: 04/06/18 4:56 PM Result Value Ref Range GLUCOSE,POC SCREEN 178 (H) 65 - 99 mg/dL POCT glucose Collection Time: 04/06/18 8:22 PM Result Value Ref Range GLUCOSE,POC SCREEN 190 (H) 65 - 99 mg/dL Basic metabolic panel Collection Time: 04/07/18 5:08 AM Result Value Ref Range SODIUM 141 135 - 145 mmol/L POTASSIUM 3.8 3.5 - 4.9 mmol/L CHLORIDE 107 99 - 109 mmol/L CO2 26 23 - 32 mmol/L ANION GAP AGAP 12 5 - 20 mmol/L GLUCOSE 129 (H) 65 - 99 mg/dL BUN 7 (L) 8 - 25 mg/dL CREATININE 0.5 0.50 - 1.00 mg/dL BUN/CREAT 14 CALCIUM 8.2 (L) 8.5 - 10.5 mg/dL EGFR >60 >60 mL/min/1.73m2 CBC w/auto diff (reflex to manual) Collection Time: 04/07/18 5:08 AM Result Value Ref Range WBC 5.29 3.80 - 11.00 K/uL RBC 3.47 (L) 3.70 - 5.10 M/uL HGB 11.5 11.3 - 15.5 g/dL HCT 32.1 (L) 34.0 - 46.0 % MCV 92.6 80.0 - 100.0 fl MCH 33.2 27.0 - 34.0 pg MCHC 35.8 (H) 32.0 - 35.5 g/dL RDW SD 45.9 37 - 53 fl PLT 66 (L) 150 - 400 K/uL MPV 8.5 fl DIFF TYPE AUTOMATED NEUTROPHILS 65.21 % LYMPHOCYTES 18.97 % MONOCYTES 10.75 % EOSINOPHILS 4.22 % BASOPHILS 0.85 % NEUTROPHILS ABS 3.45 1.90 - 7.40 K/uL LYMPHOCYTES ABS 1.00 1.00 - 3.90 K/uL MONOCYTES ABS 0.57 0.00 - 0.80 K/uL EOSINOPHILS ABS 0.22 0.00 - 0.50 K/uL BASOPHILS ABS 0.05 0.00 - 0.10 K/uL ASSESSMENT & PLAN Patient Active Hospital Problem List: Subarachnoid hemorrhage following injury without open intracranial wound and with no loss of consciousness (HCC) (04/02/2018) Assessment: stable Plan: monitor neuro status Falls frequently (03/30/2018) Assessment: improving Plan: cont with PT and OT Type 2 diabetes mellitus with complication (HCC) (04/01/2018) Assessment: stable Plan: monitor CBG Essential hypertension (04/01/2018) Assessment: stable Plan: cont with current meds Gait disorder (04/02/2018) Assessment: improving Plan: cont with TP and OT Lumbar disc disease with radiculopathy (04/03/2018) Assessment: stable Plan: pain management A/Plan 1) Mobility dysfunction - continue Physical therapy for bed mobility, functional transfers, gait training, equipment evaluation, and family/caregiver training. 2) Mobility ADL/dysfunction - continue OT for ADL's, IADL's, functional transfers, equipmen t evaluation, family training. 3) Mobility dysfunction - continue 24 hr. Rehab nursing for bowel, bladder skin pain sleep. Wing Louisa Quintero MD 04/07/20187:20 AM Souleymane Liu - 04/06/2018 7:57 PM PDTVisit per pt req. Pt sitting up in chair, welcomed vis it. Pt said "I've been a bawl baby all day." p asked re: crying. Pt gave extensive life re view of current injury/illness, broken relationships w/siblings, father's several year s ago & its aftermath. Pt expressed persistent sense that she's going to . As we explored this, it came out that this may be about her having been able to handle everything before - but now she doesn't know what the future holds, doesn't know if she can handle whatever it is, to the extent that she may not even be ready to hear what the future may hold. And for p t this feels like impending . That is this p's impression of pt state of mind. p en couraged pt to honor those feelings, & let herself become ready to hear what the future may hold. Pt seemed somewhat relieved by this conversation, thanking [facility] for visit. Shannon Wick RD - 04/05/2018 3:20 PM PDTFormatting of this note ma y be different from the original. 04/05/18 1515 Subjective Timepoint Admit (consult - poor PO intake) Pt c/o Met with pt who reports her appetite is improving each day. Pt has no complaints abo ut the menu or food offerings. Fluid / Beverage Intake Oral Fluids Amount ad morris - likes Diet Pepsi Liquid Meal Replacement or Supplement pt does not think she needs a supplement Food Intake Amount of Food ate 1/2 meatloaf, most of mashed potatoes and all of squash, likes the cranb erry coffee cake dessert Type of Food / Meals mechanical soft diet Meal / Snack Pattern house trays Anthropometrics Weight change Pt is 117% IBW with BMI 24.5 Biochemical data, medical tests, and procedures reviewed Biochemical data, medical tests, and procedures reviewed K 3.3 Recommendations Recommended energy needs Continue mechanical soft diet with house trays. Pt encouraged to o rder her own meals. Offer supplements if PO intake is poor. Nutritional Risk Nutritional risk Low / moderate Follow up date 04/12/[address], Missy Guaman MD - 04/05/2018 12:46 PM PDTFormatting of this note may be different from the original. [facility] Service: Physical Medicine and Rehab Progress Note Hospital Day: LOS: 3 days Post-Op Day: * No surgery found * SUBJECTIVE Patient Summary: history of chronic thrombocytopenia(ITP), Diabetes, HTN, anxiety, and depressionwho presents with hx of frequent falls, confusion, Left Subdural Hematoma. Events Overnight: Pt feels less confused today. Requesting cranberry muffin (She rem embers this from yesterday and liked it). Pt continues to c/o leg pain o/o. No SOB or CP. Nausea this am - now gone. Scheduled Medications acetaminophen 500 mg Oral 4x Daily cholecalciferol 2,000 Units Oral Daily insulin detemir 10 Units Subcutaneous BID insulin lispro (human) 0-3 Units Subcutaneous Nightly insulin lispro (human) 0-6 Units Subcutaneous TID AC levETIRAcetam 1,000 mg Oral BID Lidocaine 1 patch Transdermal Daily lisinopril 5 mg Oral Daily metoprolol 25 mg Oral BID sitaGLIPtin 50 mg Oral Daily Continuous Infusions PRN Medications acetaminophen OR acetaminophen, diclofenac, LORazepam, nystatin, petrolatum, traMADol, traMADol OBJECTIVE Vital Signs: BP 171/81 | Pulse 67 | Temp 97.3 F (36.3 C) (Oral) | Resp 18 | Ht 1.676 m (5' 6") | Wt 68.9 kg (152 lb) | SpO2 98% | ? No | BMI 24.53 kg/m No intake or output data in the 24 hours ending 04/05/18 1249 GEN: Calm and cooperative. RESP: Lungs Clear to A &P. No wheezing. CV: No Murmur, Gallop, Carotid Bruit, Pedal Edema. ABD: + BS. Nondistended. Nontender. No HSM. EXT: Calves Nontender. Negative Gilberto's sign.Shins non tender. Thigh and legs non ten you. NEURO: A&O x3. Mental Status improved.Pt feeding herself. Moving all 4 extremities. Ataxia. DATA CBC: Lab Results Component Value Date WBC 5.92 04/05/2018 RBC 3.40 (L) 04/05/2018 HGB 11.4 04/05/2018 HCT 31.0 (L) 04/05/2018 MCV 91.0 04/05/2018 MCH 33.6 04/05/2018 MCHC 36.9 (H) 04/05/2018 RDW 44.6 04/05/2018 PLT 89 (L) 04/05/2018 MPV 7.0 04/05/2018 DIFFTYPE AUTOMATED 04/05/2018 BMP: Lab Results Component Value Date NA 141 04/05/2018 K 3.3 (L) 04/05/2018 CL 106 04/05/2018 CO2 29 04/05/2018 ANIONGAP 9 04/05/2018 GLUF 96 04/05/2018 BUN 10 04/05/2018 CREATININE 0.4 (L) 04/05/2018 BCR 25 04/05/2018 CA 8.0 (L) 04/05/2018 EGFR >60 04/05/2018 PROBLEM LIST Principal Problem: Subarachnoid hemorrhage following injury without open intracranial wound and with no loss of consciousness (HCC) Active Problems: Falls frequently SDH (subdural hematoma) (HCC) Thrombocytopenia (HCC) Chronic ITP (idiopathic thrombocytopenia) (HCC) Type 2 diabetes mellitus with complication (HCC) Essential hypertension Gait disorder Lumbar disc disease with radiculopathy [facility] 67 [facility] Female with Hx of ITP, NIDDM, HTN, MR, Cardiomegaly admitted withacute left SDH an d subarachnoid hemorrhage secondary to falls. 1. left SDH and subarachnoid hemorrhage. Neurosurgeon, recommended Keppra for 2 more days. Monitor for new Neurologic Sxs and Seizures. 2. Gait Disorder with leg weakness and Imbalance. It is interesting that Cognitive defi cit and Ataxia have been present for over a year. This makes me wonder whether or not the p t has another cause for her longer term symptoms such as previous strokes, Inherited Ataxia syndrome, MS, etc. Consider Neuro consult / Head MRI. Continueaggressive PT and OT. 3. Cognitive Dysfunction. ContinueSLP Therapy. 4. Chronic ITP. Pt recd 2 units Plts and IVIG x 2 prior to transfer to [facility]. Plts sli ghtly better today. Plan as per Heme. Pat NUÑEZ saw her today and felt pt was stable. Monitor. 5. Left leg/HipPain: Annular fissuring of the disc is present at L5-S1/ Multi-le rhys Lymbar Radiculopathy/ Fatty lesion at L4-L5 and L5-S-1. Pt cannot have NSAIDs due to S AH and ITP. She is not a candidate for Epidural injections due to ITP. Tylenol 500 mg qi d not prn. Voltaren Gel does not last long enough per pt. Lidocaine Patch trial. Hydroco done may have made her more confused so discontinued. Tramadol for pain. Add Gabapentin at night. 6. Potassium still low today. Continue to replete. 7. Disposition. SW to assist with discharge planning. 70 mins spent counseling pt and family, examining pt, reviewing data. MISSY RIVERA MD 04/05/2018 Pat Love ARNP - 04/05/2018 7:39 AM PDTFormatting of this note may be elaina nt from the original. [facility] Service: Hematology and Oncology Progress Note Hospital Day: LOS: 3 days Patient Summary: Ms. Stefani Bhatia is a 67 year old woman with a history of chronic thrombocytopenia followed by Dr. Green in [place] in addition to progressive confusion, gait inst ability, and multiple falls who apparently fell approximately two weeks prior to admission, hitting the back of her head. She was transported to [facility] in [facility] 2017 secondary to increased confusion and agitation after her most recent fall and fo und to have from cytopenia with platelet level 65,000. CT of the head was performed revealin g a subdural hematoma along the left tentorium and the patient was transferred to [facility] for f urther management and admitted to ICU. She is transitioned to hospitalist services March. The patient was given IVIG 400 mg/kg IV March 31-2017. [facility], [facility]. Hematological opinion was requested and the patient seen by Dr. Paulson April 03, 2018. SUBJECTIVE: Events Overnight: The patient is currently participating in physical therapy. She is repor alley as cooperative but very forgetful. No bleeding or bruising noted. OBJECTIVE: Scheduled Medications acetaminophen 500 mg Oral 4x Daily cholecalciferol 2,000 Units Oral Daily insulin detemir 10 Units Subcutaneous BID insulin lispro (human) 0-3 Units Subcutaneous Nightly insulin lispro (human) 0-6 Units Subcutaneous TID AC levETIRAcetam 1,000 mg Oral BID Lidocaine 1 patch Transdermal Daily lisinopril 5 mg Oral Daily metoprolol 25 mg Oral BID sitaGLIPtin 50 mg Oral Daily Continuous Infusions PRN Medications acetaminophen 650 mg Q6H PRN Or acetaminophen 650 mg Q6H PRN diclofenac 2 g 4x Daily PRN LORazepam 0.5 mg Nightly PRN nystatin TID PRN petrolatum PRN traMADol 100 mg Q6H PRN traMADol 50 mg Q6H PRN Patient Vitals for the past 24 hrs: BP Temp Temp src Pulse Resp SpO2 04/05/18 0512 136/62 97.3 F (36.3 C) Oral 64 18 98 % 04/04/18 2046 142/59 - - - - - 04/04/18 1854 148/67 98.6 F (37 C) Oral 68 18 98 % 04/04/18 1521 148/82 96.6 F (35.9 C) Oral 66 18 100 % 04/04/18 0954 169/82 - - 76 - - Intake/Output Summary (Last 24 hours) at 04/05/18 0739 Last data filed at 04/04/18 0954 Gross per 24 hour Intake 300 ml Output 0 ml Net 300 ml Patient Vitals for the past 96 hrs: Weight 04/02/18 1500 68.9 kg (152 lb) DATA Recent Labs Lab 04/05/18 0516 04/04/18 0504 04/03/18 0448 04/02/18 0356 04/01/18 0405 WBC 5.92 5.10 5.07 4.24 4.83 RBC 3.40* 3.64* 3.40* 3.21* 3.27* HGB 11.4 12.2 11.5 10.7* 10.9* HCT 31.0* 33.2* 31.4* 29.4* 30.1* MCV 91.0 91.2 92.4 91.6 92.0 MCH 33.6 33.4 33.9 33.3 33.3 MCHC 36.9* 36.6* 36.7* 36.3* 36.1* RDW 44.6 44.6 44.6 43.8 44.6 PLT 89* 84* 85* 76* 78* MPV 7.0 7.4 7.6 7.8 7.6 NEUTROABS 3.63 3.44 3.05 2.25 2.94 LYMPHSABS 1.34 0.90* 1.03 0.99* 1.05 MONOSABS 0.62 0.49 0.66 0.60 0.48 BASOSABS 0.08 0.06 0.06 0.05 0.04 EOSABS 0.25 0.21 0.29 0.36 0.32 Recent Labs Lab 04/05/18 0516 04/04/18 0504 04/03/18 0448 04/02/18 0356 04/01/18 0405 03/31/18 0402 03/30/18 2329 NA 141 140 140 140 139 140 140 K 3.3* 3.2* 3.5 3.4* 3.6 3.6 3.1* CL 106 105 104 104 102 104 104 CO2 29 25 24 24 28 27 29 ANIONGAP 9 13 16 15 13 13 11 GLUF 96 97 144* 131* 93 162* 137* BUN 10 10 10 6* 8 7* 8 CREATININE 0.4* 0.5 0.5 0.4* 0.5 0.5 0.49* BCR 25 20 20 15 16 14 16 CA 8.0* 8.4* 8.1* 7.9* 7.9* 8.0* 8.0* ALB -- -- -- -- -- -- 2.7* GLOB -- -- -- -- -- -- 3.6 AG -- -- -- -- -- -- 0.7* PROT -- -- -- -- -- -- 6.2* BILITOT -- -- -- -- -- -- 1.4 ALT -- -- -- -- -- -- 32 AST -- -- -- -- -- -- 30 EGFR >60 >60 >60 >60 >60 >60 >60 PHOS -- -- -- 2.9 2.6 2.2* -- MG -- -- -- 1.7 1.9 1.9 -- IMAGING PHYSICAL EXAM: BP 136/62 (BP Location: Left upper arm) | Pulse 64 | Temp 97.3 F (36.3 C) (Oral) | R yarely 18 | Ht 1.676 m (5' 6") | Wt 68.9 kg (152 lb) | SpO2 98% | ? No | BMI 24.53 kg/m General: Alert. Following directions. Skin: No obvious bruises. Lungs: Respiratory effort relaxed. Musculoskeletal: Bones and joints are unremarkable. Psychiatric: No signs of depression or anxiety. PROBLEM LIST Principal Problem: Subarachnoid hemorrhage following injury without open intracranial wound and with no loss of consciousness (HCC) Active Problems: Falls frequently SDH (subdural hematoma) (HCC) Thrombocytopenia (HCC) Chronic ITP (idiopathic thrombocytopenia) (HCC) Type 2 diabetes mellitus with complication (HCC) Essential hypertension Gait disorder Lumbar disc disease with radiculopathy ASSESSMENT & PLAN Thrombocytopenia This is a 67-year-old woman with a history of chronic thrombocytopenia followed by Dr. Milton dominguez at [facility] in [place], [place]. She is now admitted with subdural hematoma in the setting of thrombocytopenia. She received IVIG 400 mg/kg IV March [id number]. Platelets are currently stable at 89,000. No indication for further intervention at present . We will continue to follow CBC daily. Should her platelets decrease, we will consider pred nisone. Code Status: Prior SAVANNAH ZAFAR 04/05/20187:39 Missy Bruno MD - 04/04/2018 2:50 PM PDTFormatting of this note may be different from the original. [facility] Service: Physical Medicine and Rehab Progress Note Hospital Day: LOS: 2 days Post-Op Day: * No surgery found * SUBJECTIVE Patient Summary: history of chronic thrombocytopenia(ITP), Diabetes, HTN, anxiety, and depressionwho presents with hx of frequent falls, confusion, Left Subdural Hematoma. Events Overnight: Hips still hurt. No SOB or GI sx. Pt complaining that new room is too noisy and no privacy in bathroom. I spoke to . He is working for the [employer] for [employer]. This is his busy season and he works 12 hours a day. He admits that pt has been confused for at least a franklin h and a half. He believes her fall was 3 weeks ago. She was alone and laid on the ground f or 3 hrs before she was able to get up. This is when she injured her neck. Rdxqna-bl-com is visiting pt and says that patient has been confused a long time. 1 1/2 yr s ago they were at pt's cabin in [place]. She fell fracturing ribs. She was extremely confu sed. Vrgjoe-uw-rkn called pt's to come get her because she did not feel she could l eave pt alone. Balance and falls have also been a problem for at least 1 1/2 yrs. Pt was o carl weight (230 lbs) per sister in law but has lost a large amount of weight in the last yea r. Pt couldn't eat while she was having dental implants but [id number]-[id number] thinks she forget s to eat. Scheduled Medications acetaminophen 500 mg Oral 4x Daily cholecalciferol 2,000 Units Oral Daily insulin detemir 10 Units Subcutaneous BID insulin lispro (human) 0-3 Units Subcutaneous Nightly insulin lispro (human) 0-6 Units Subcutaneous TID AC levETIRAcetam 1,000 mg Oral BID Lidocaine 1 patch Transdermal Daily lisinopril 5 mg Oral Daily metoprolol 25 mg Oral BID sitaGLIPtin 50 mg Oral Daily Continuous Infusions PRN Medications acetaminophen OR acetaminophen, diclofenac, HYDROcodone-acetaminophen, LORazepam, nysta tin, petrolatum OBJECTIVE Vital Signs: BP 169/82 | Pulse 76 | Temp 97.5 F (36.4 C) (Oral) | Resp 16 | Ht 1.676 m (5' 6") | Wt 68.9 kg (152 lb) | SpO2 95% | ? No | BMI 24.53 kg/m Intake/Output Summary (Last 24 hours) at 04/04/18 1451 Last data filed at 04/04/18 0954 Gross per 24 hour Intake 500 ml Output 0 ml Net 500 ml GEN: Agitated but cooperative. RESP: Lungs Clear to A &P. No wheezing. CV: No Murmur, Gallop, Carotid Bruit, Pedal Edema. ABD: + BS. Nondistended. Nontender. No HSM. EXT: Calves Nontender. Negative Gilberto's sign.Shins non tender. Thigh and legs non ten you. NEURO: A&O x to name and year but cannot tell me month, day, city. Mental Status improved - pt can remember some of the events today.Moving all 4 extremities. Ataxia. DATA CBC: Lab Results Component Value Date WBC 5.10 04/04/2018 RBC 3.64 (L) 04/04/2018 HGB 12.2 04/04/2018 HCT 33.2 (L) 04/04/2018 MCV 91.2 04/04/2018 MCH 33.4 04/04/2018 MCHC 36.6 (H) 04/04/2018 RDW 44.6 04/04/2018 PLT 84 (L) 04/04/2018 MPV 7.4 04/04/2018 DIFFTYPE AUTOMATED 04/04/2018 BMP: Lab Results Component Value Date NA 140 04/04/2018 K 3.2 (L) 04/04/2018 CL 105 04/04/2018 CO2 25 04/04/2018 ANIONGAP 13 04/04/2018 GLUF 97 04/04/2018 BUN 10 04/04/2018 CREATININE 0.5 04/04/2018 BCR 20 04/04/2018 CA 8.4 (L) 04/04/2018 EGFR >60 04/04/2018 PROBLEM LIST Principal Problem: Subarachnoid hemorrhage following injury without open intracranial wound and with no loss of consciousness (HCC) Active Problems: Falls frequently SDH (subdural hematoma) (HCC) Thrombocytopenia (HCC) Chronic ITP (idiopathic thrombocytopenia) (HCC) Type 2 diabetes mellitus with complication (HCC) Essential hypertension Gait disorder Lumbar disc disease with radiculopathy ASSESSMENT & PLAN @[facility]@ 67 y/o Female with Hx of ITP, NIDDM, HTN, MR, Cardiomegaly admitted withacute left SDH an d subarachnoid hemorrhage secondary to falls. 1. left SDH and subarachnoid hemorrhage. Neurosurgeon, recommended Keppra for 2 more days. Monitor for new Neurologic Sxs and Seizures. 2. Gait Disorder with leg weakness and Imbalance. It is interesting that Cognitive defi cit and Ataxia have been present for over a year. This makes me wonder whether or not the p t has another cause for her longer term symptoms such as previous strokes, Lamont Ataxia , MS, etc. Consider Neuro consult / Head MRI. Continue aggressive PT and OT. 3. Cognitive Dysfunction. Continue LYE TREATER Therapy. 4. Chronic ITP. Pt recd 2 units Plts and IVIG x 2 prior to transfer to [facility]. Plts sli ghtly better today. Plan as per Heme. Dr. Paulson saw her today and will monitor. 5. Left leg/HipPain: Annular fissuring of the disc is present at L5-S1/ Multi-le rhys Lymbar Radiculopathy/ Fatty lesion at L4-L5 and L5-S-1. Pt cannot have NSAIDs due to S AH and ITP. Tylenol 500 mg qid not prn. Voltaren Gel does not last long enough. Lidocaine Patch. Pt also has Hydrocodone ordered but RN thinks this may make her more confused. D/c Hydrocodone and change to Tramadol. 6. Disposition. I spoke to about the probable need for 24 hr care when pt is dis charged in 2 - 3 weeks. She may need SNIF or caregiver in home. Pt cannot be left alone. SW to assist with discharge planning. 70 mins spent counseling pt and family, examining pt, reviewing data. MISSY RIVERA MD 04/04/2018 Missy Rivera MD - 04/03/2018 2:07 PM PDTFormatting of this note may be different from the original. [facility] Service: Internal Medicine Progress Note Hospital Day: LOS: 1 day Post-Op Day: * No surgery found * SUBJECTIVE Patient Summary: history of chronic thrombocytopenia(ITP), Diabetes, HTN, anxiety, a nd depressionwho presents with hx of frequent falls, confusion, Left Subdural Hematoma. Events Overnight: Friend Checo here today. 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 She continued to b e confused all winter. Pt went to [place] where she hads a ranch. [place] she [place] in [place], she had lost weight and had falls. Checo thought the weight loss was due to dental work/ implants/sores in mouth. Pt became more and more unstable on feet. Pt fell backwards hitti ng her head one month ago causing the bruises on the back of her neck. About 2 weeks ago th e pt fell at home when she was alone. She laid there for hours until her came home from work because her legs were so weak. She fell the next day and her was sleeping upstairs and couldn't hear her so she called Checo. Her legs were so weak that Checo had a hard time getting her up. She refused to go to ER. She was in so much pain the next day t hat she did see her doctor. Scheduled Medications ALPRAZolam 0.5 mg Oral Once cholecalciferol 2,000 Units Oral Daily insulin detemir 10 Units Subcutaneous BID insulin lispro (human) 0-3 Units Subcutaneous Nightly insulin lispro (human) 0-6 Units Subcutaneous TID AC levETIRAcetam 1,000 mg Oral BID lisinopril 5 mg Oral Daily LORazepam 0.5 mg Intravenous Once metoprolol 25 mg Oral BID sitaGLIPtin 50 mg Oral Daily Continuous Infusions PRN Medications acetaminophen OR acetaminophen, diclofenac, HYDROcodone-acetaminophen, nystatin, petrol atum OBJECTIVE Vital Signs: BP (!) 161/94 (BP Location: Left upper arm) | Pulse 70 | Temp 97.3 F (36.3 C) (Oral) | Resp 18 | Ht 1.676 m (5' 6") | Wt 68.9 kg (152 lb) | SpO2 95% | ? No | BMI 24.53 kg/m Intake/Output Summary (Last 24 hours) at 04/03/18 1420 Last data filed at 04/03/18 1300 Gross per 24 hour Intake 518 ml Output 0 ml Net 518 ml GEN: Agitated but cooperative. RESP: Lungs Clear to A & P. No wheezing. CV: No Murmur, Gallop, Carotid Bruit, Pedal Edema. ABD: + BS. Nondistended. Nontender. No HSM. SKIN: Bruising on posteriorneck - linear. EXT: Calves Nontender. Negative Gilberto's sign.Shins non tender. Thigh non tender. NEURO: A&O x to name and year but cannot tell me month. She knows she is in the hospital but does not know city. Pupils equal. CN 2 - 12 grossly normal. Rambling speech. Pt leong s not understand directions (I asked her to look at light and she looked out the window. Moving all 4 extremities. Ataxia. Sensations of light touch and proprioception intact in all 4 extremities. Obiee Architect weaker on right. DATA CBC: Lab Results Component Value Date WBC 5.07 04/03/2018 RBC 3.40 (L) 04/03/2018 HGB 11.5 04/03/2018 HCT 31.4 (L) 04/03/2018 MCV 92.4 04/03/2018 MCH 33.9 04/03/2018 MCHC 36.7 (H) 04/03/2018 RDW 44.6 04/03/2018 PLT 85 (L) 04/03/2018 MPV 7.6 04/03/2018 DIFFTYPE AUTOMATED 04/03/2018 BMP: Lab Results Component Value Date NA 140 04/03/2018 K 3.5 04/03/2018 CL 104 04/03/2018 CO2 24 04/03/2018 ANIONGAP 16 04/03/2018 GLUF 144 (H) 04/03/2018 BUN 10 04/03/2018 CREATININE 0.5 04/03/2018 BCR 20 04/03/2018 CA 8.1 (L) 04/03/2018 EGFR >60 04/03/2018 Left Hip Xray Negative for Fracture or Dislocation. DJD of Lumbar Spine. PROBLEM LIST Principal Problem: Subarachnoid hemorrhage following injury without open intracranial wound and with no loss of consciousness (HCC) Active Problems: Falls frequently SDH (subdural hematoma) (HCC) Thrombocytopenia (HCC) Chronic ITP (idiopathic thrombocytopenia) (HCC) Type 2 diabetes mellitus with complication (HCC) Essential hypertension Gait disorder ASSESSMENT & PLAN @PROBHOSPPOA@ 67 y/o Female with Hx of ITP, NIDDM, HTN, MR, Cardiomegaly admitted withacute left SDH an d subarachnoid hemorrhage secondary to falls. 1. left SDH and subarachnoid hemorrhage. Elvira Duran MD, Neurosurgeon, rec ommended Keppra for 3 more days, Evaluation for thrombocytopenia and recurrent falls. No mor e repeat imaging needed. Monitor for new Neurologic Sxs and Seizures. 2. Gait Disorder with leg weakness and Imbalance. Continue aggressive PT and OT. Hx of f alls for several months, leg weakness after falls, falling backwards suggests possible other etiologies of sx besides Subdural Hematoma and subarrachnoid hemorrhage.. 3. Cognitive Dysfunction. Confusion may have been present since Apr 2017 but is worse no w. LYE TREATER evaluation and therapy 4. Chronic ITP. Pt recd 2 units Plts and IVIG x 2. Plan as per Heme. Dr. Paulson saw he r today and will monitor. 5. Left leg/Hip Pain: Pt able to walk making fractures less likely. Suspect soft tissue injuries from falls vs radiculopathy. Pain severe this morning. Hydrocodone and Tylenol p rn. Unable to obtain report on Outside Hip Xray. Repeat Left Hip Xray negative for Fractur e. In view of severity of pain interfering with therapy in a patient with Hx of multiple fa lls, Check Lumbar Pelvic MRI. 6. Disposition. SW to assist with discharge planning. Addendum: Pelvic MRI: Impression: 1. Abnormal signal intensity involving the right gluteal musculature which ma y reflect a muscular strain/partial tear of the gluteus medius and minimus. Lumbar MRI:Impression: 1. Annular fissuring of the disc is present at L5-S1. 2. Fat attenuation lesion is noted at L4-L5 and L5-S1 extending caudally. 3. Potential impingement of multiple exiting and transiting nerve roots as discussed above . Therefore, pain is due to Gluteal muscle strain, Multiple bulging discs, multi-level lumbar nerve impingement. Start Gabapentin. Ice to R Gluteus and Lumbar spine. MISSY RIVERA MD 04/03/2018 in this encounter Plan of Treatment Not on fileas of this encounter Procedures + +--------+ + + + | Procedure Name | Priori | Date/Time | Associated Diagnosis | Comments | | | ty | | | | + +--------+ + + + | CBC W/AUTO DIFF | Timed | 04/14/2018 | | Results for this | | (REFLEX TO MANUAL) | | 6:05 AM | | procedure are in the | | | | PDT | | results section. | + +--------+ + + + | POCT GLUCOSE | Routin | 04/14/2018 | | Results for this | | | e | 5:34 AM | | procedure are in the | | | | PDT | | results section. | + +--------+ + + + | POCT GLUCOSE | Routin | 04/13/2018 | | Results for this | | | e | 6:22 AM | | procedure are in the | | | | PDT | | results section. | + +--------+ + + + | POCT GLUCOSE | Routin | 04/12/2018 | | Results for this | | | e | 8:27 PM | | procedure are in the | | | | PDT | | results section. | + +--------+ + + + | POCT GLUCOSE | Routin | 04/12/2018 | | Results for this | | | e | 4:22 PM | | procedure are in the | | | | PDT | | results section. | + +--------+ + + + | POCT GLUCOSE | Routin | 04/12/2018 | | Results for this | | | e | 11:53 AM | | procedure are in the | | | | PDT | | results section. | + +--------+ + + + | POCT GLUCOSE | Routin | 04/12/2018 | | Results for this | | | e | 6:28 AM | | procedure are in the | | | | PDT | | results section. | + +--------+ + + + | POCT GLUCOSE | Routin | 04/11/2018 | | Results for this | | | e | 8:47 PM | | procedure are in the | | | | PDT | | results section. | + +--------+ + + + | POCT GLUCOSE | Routin | 04/11/2018 | | Results for this | | | e | 4:36 PM | | procedure are in the | | | | PDT | | results section. | + +--------+ + + + | POCT GLUCOSE | Routin | 04/11/2018 | | Results for this | | | e | 11:41 AM | | procedure are in the | | | | PDT | | results section. | + +--------+ + + + | POCT GLUCOSE | Routin | 04/11/2018 | | Results for this | | | e | 6:02 AM | | procedure are in the | | | | PDT | | results section. | + +--------+ + + + | CBC W/AUTO DIFF | Timed | 04/11/2018 | | Results for this | | (REFLEX TO MANUAL) | | 5:52 AM | | procedure are in the | | | | PDT | | results section. | + +--------+ + + + | POCT GLUCOSE | Routin | 04/10/2018 | | Results for this | | | e | 8:46 PM | | procedure are in the | | | | PDT | | results section. | + +--------+ + + + | POCT GLUCOSE | Routin | 04/10/2018 | | Results for this | | | e | 4:31 PM | | procedure are in the | | | | PDT | | results section. | + +--------+ + + + | POCT GLUCOSE | Routin | 04/10/2018 | | Results for this | | | e | 11:31 AM | | procedure are in the | | | | PDT | | results section. | + +--------+ + + + | POCT GLUCOSE | Routin | 04/10/2018 | | Results for this | | | e | 5:54 AM | | procedure are in the | | | | PDT | | results section. | + +--------+ + + + | BASIC METABOLIC | Routin | 04/10/2018 | | Results for this | | PANEL | e | 5:50 AM | | procedure are in the | | | | PDT | | results section. | + +--------+ + + + | POCT GLUCOSE | Routin | 04/09/2018 | | Results for this | | | e | 8:54 PM | | procedure are in the | | | | PDT | | results section. | + +--------+ + + + | POCT GLUCOSE | Routin | 04/09/2018 | | Results for this | | | e | 4:39 PM | | procedure are in the | | | | PDT | | results section. | + +--------+ + + + | POCT GLUCOSE | Routin | 04/09/2018 | | Results for this | | | e | 11:35 AM | | procedure are in the | | | | PDT | | results section. | + +--------+ + + + | POCT GLUCOSE | Routin | 04/09/2018 | | Results for this | | | e | 6:10 AM | | procedure are in the | | | | PDT | | results section. | + +--------+ + + + | BASIC METABOLIC | Routin | 04/09/2018 | | Results for this | | PANEL | e | 5:21 AM | | procedure are in the | | | | PDT | | results section. | + +--------+ + + + | POCT GLUCOSE | Routin | 04/08/2018 | | Results for this | | | e | 8:35 PM | | procedure are in the | | | | PDT | | results section. | + +--------+ + + + | POCT GLUCOSE | Routin | 04/08/2018 | | Results for this | | | e | 4:22 PM | | procedure are in the | | | | PDT | | results section. | + +--------+ + + + | POCT GLUCOSE | Routin | 04/08/2018 | | Results for this | | | e | 11:26 AM | | procedure are in the | | | | PDT | | results section. | + +--------+ + + + | CT HEAD WO CONTRAST | Routin | 04/08/2018 | | Results for this | | | e | 8:00 AM | | procedure are in the | | | | PDT | | results section. | + +--------+ + + + | POCT GLUCOSE | Routin | 04/08/2018 | | Results for this | | | e | 6:15 AM | | procedure are in the | | | | PDT | | results section. | + +--------+ + + + | CBC W/AUTO DIFF | Routin | 04/08/2018 | | Results for this | | (REFLEX TO MANUAL) | e | 5:04 AM | | procedure are in the | | | | PDT | | results section. | + +--------+ + + + | BASIC METABOLIC | Routin | 04/08/2018 | | Results for this | | PANEL | e | 5:04 AM | | procedure are in the | | | | PDT | | results section. | + +--------+ + + + | POCT GLUCOSE | Routin | 04/07/2018 | | Results for this | | | e | 8:55 PM | | procedure are in the | | | | PDT | | results section. | + +--------+ + + + | POCT GLUCOSE | Routin | 04/07/2018 | | Results for this | | | e | 11:23 AM | | procedure are in the | | | | PDT | | results section. | + +--------+ + + + | POCT GLUCOSE | Routin | 04/07/2018 | | Results for this | | | e | 6:06 AM | | procedure are in the | | | | PDT | | results section. | + +--------+ + + + | CBC W/AUTO DIFF | Routin | 04/07/2018 | | Results for this | | (REFLEX TO MANUAL) | e | 5:08 AM | | procedure are in the | | | | PDT | | results section. | + +--------+ + + + | BASIC METABOLIC | Routin | 04/07/2018 | | Results for this | | PANEL | e | 5:08 AM | | procedure are in the | | | | PDT | | results section. | + +--------+ + + + | POCT GLUCOSE | Routin | 04/06/2018 | | Results for this | | | e | 8:22 PM | | procedure are in the | | | | PDT | | results section. | + +--------+ + + + | POCT GLUCOSE | Routin | 04/06/2018 | | Results for this | | | e | 4:56 PM | | procedure are in the | | | | PDT | | results section. | + +--------+ + + + | POCT GLUCOSE | Routin | 04/06/2018 | | Results for this | | | e | 12:09 PM | | procedure are in the | | | | PDT | | results section. | + +--------+ + + + | POCT GLUCOSE | Routin | 04/06/2018 | | Results for this | | | e | 6:09 AM | | procedure are in the | | | | PDT | | results section. | + +--------+ + + + | CBC W/AUTO DIFF | JENISE | 04/06/2018 | | Results for this | | (REFLEX TO MANUAL) | | 5:44 AM | | procedure are in the | | | | PDT | | results section. | + +--------+ + + + | BASIC METABOLIC | JENISE | 04/06/2018 | | Results for this | | PANEL | | 5:44 AM | | procedure are in the | | | | PDT | | results section. | + +--------+ + + + | POCT GLUCOSE | Routin | 04/05/2018 | | Results for this | | | e | 8:19 PM | | procedure are in the | | | | PDT | | results section. | + +--------+ + + + | POCT GLUCOSE | Routin | 04/05/2018 | | Results for this | | | e | 4:28 PM | | procedure are in the | | | | PDT | | results section. | + +--------+ + + + | POCT GLUCOSE | Routin | 04/05/2018 | | Results for this | | | e | 11:43 AM | | procedure are in the | | | | PDT | | results section. | + +--------+ + + + | POCT GLUCOSE | Routin | 04/05/2018 | | Results for this | | | e | 6:26 AM | | procedure are in the | | | | PDT | | results section. | + +--------+ + + + | CBC W/AUTO DIFF | Routin | 04/05/2018 | | Results for this | | (REFLEX TO MANUAL) | e | 5:16 AM | | procedure are in the | | | | PDT | | results section. | + +--------+ + + + | BASIC METABOLIC | Routin | 04/05/2018 | | Results for this | | PANEL | e | 5:16 AM | | procedure are in the | | | | PDT | | results section. | + +--------+ + + + | POCT GLUCOSE | Routin | 04/04/2018 | | Results for this | | | e | 8:42 PM | | procedure are in the | | | | PDT | | results section. | + +--------+ + + + | POCT GLUCOSE | Routin | 04/04/2018 | | Results for this | | | e | 4:49 PM | | procedure are in the | | | | PDT | | results section. | + +--------+ + + + | POCT GLUCOSE | Routin | 04/04/2018 | | Results for this | | | e | 11:38 AM | | procedure are in the | | | | PDT | | results section. | + +--------+ + + + | POCT GLUCOSE | Routin | 04/04/2018 | | Results for this | | | e | 6:18 AM | | procedure are in the | | | | PDT | | results section. | + +--------+ + + + | CBC W/AUTO DIFF | Routin | 04/04/2018 | | Results for this | | (REFLEX TO MANUAL) | e | 5:04 AM | | procedure are in the | | | | PDT | | results section. | + +--------+ + + + | BASIC METABOLIC | Routin | 04/04/2018 | | Results for this | | PANEL | e | 5:04 AM | | procedure are in the | | | | PDT | | results section. | + +--------+ + + + | POCT GLUCOSE | Routin | 04/03/2018 | | Results for this | | | e | 8:45 PM | | procedure are in the | | | | PDT | | results section. | + +--------+ + + + | POCT GLUCOSE | Routin | 04/03/2018 | | Results for this | | | e | 4:35 PM | | procedure are in the | | | | PDT | | results section. | + +--------+ + + + | MRI PELVIS WO | Routin | 04/03/2018 | | Results for this | | CONTRAST | e | 4:20 PM | | procedure are in the | | | | PDT | | results section. | + +--------+ + + + | MRI LUMBAR SPINE WO | Routin | 04/03/2018 | | Results for this | | CONTRAST | e | 4:03 PM | | procedure are in the | | | | PDT | | results section. | + +--------+ + + + | POCT GLUCOSE | Routin | 04/03/2018 | | Results for this | | | e | 11:33 AM | | procedure are in the | | | | PDT | | results section. | + +--------+ + + + | XR HIP 2 VIEW LEFT | Routin | 04/03/2018 | | Results for this | | | e | 10:27 AM | | procedure are in the | | | | PDT | | results section. | + +--------+ + + + | POCT GLUCOSE | Routin | 04/03/2018 | | Results for this | | | e | 6:04 AM | | procedure are in the | | | | PDT | | results section. | + +--------+ + + + | CBC W/AUTO DIFF | Routin | 04/03/2018 | | Results for this | | (REFLEX TO MANUAL) | e | 4:48 AM | | procedure are in the | | | | PDT | | results section. | + +--------+ + + + | BASIC METABOLIC | Routin | 04/03/2018 | | Results for this | | PANEL | e | 4:48 AM | | procedure are in the | | | | PDT | | results section. | + +--------+ + + + | POCT GLUCOSE | Routin | 04/02/2018 | | Results for this | | | e | 8:48 PM | | procedure are in the | | | | PDT | | results section. | + +--------+ + + + | POCT GLUCOSE | Routin | 04/02/2018 | | Results for this | | | e | 5:17 PM | | procedure are in the | | | | PDT | | results section. | + +--------+ + + + in this encounter Results CBC w/auto diff (reflex to manual) (04/14/2018 6:05 AM) + + + + + | Component | Value | Ref Range | Performed At | + + + + + | WBC | 4.70 | 3.80 - 11.00 K/uL | [facility] | | | | | [facility] | + + + + + | RBC | 3.37 (L) | 3.70 - 5.10 M/uL | [facility] | | | | | [facility] | + + + + + | HGB | 11.2 (L) | 11.3 - 15.5 g/dL | [facility] | | | | | [facility] | + + + + + | HCT | 31.6 (L) | 34.0 - 46.0 % | [facility] | | | | | [facility] | + + + + + | MCV | 93.7 | 80.0 - 100.0 fl | [facility] | | | | | [facility] | + + + + + | MCH | 33.2 | 27.0 - 34.0 pg | [facility] | | | | | [facility] | + + + + + | MCHC | 35.4 | 32.0 - 35.5 g/dL | [facility] | | | | | [facility] | + + + + + | RDW SD | 48.1 | 37 - 53 fl | [facility] | | | | | [facility] | + + + + + | PLT | 94 (L) | 150 - 400 K/uL | [facility] | | | | | [facility] | + + + + + | MPV | 7.2 | fl | [facility] | | | | | [facility] | + + + + + | DIFF TYPE | AUTOMATED | | [facility] | | | | | [facility] | + + + + + | NEUTROPHILS | 45.86 | % | [facility] | | | | | [facility] | + + + + + | LYMPHOCYTES | 33.47 | % | [facility] | | | | | [facility] | + + + + + | MONOCYTES | 8.86 | % | [facility] | | | | | [facility] | + + + + + | EOSINOPHILS | 10.51 | % | [facility] | | | | | [facility] | + + + + + | BASOPHILS | 1.30 | % | [facility] | | | | | [facility] | + + + + + | NEUTROPHILS ABS | 2.15 | 1.90 - 7.40 K/uL | [facility] | | | | | [facility] | + + + + + | LYMPHOCYTES ABS | 1.57 | 1.00 - 3.90 K/uL | [facility] | | | | | [facility] | + + + + + | MONOCYTES ABS | 0.42 | 0.00 - 0.80 K/uL | [facility] | | | | | [facility] | + + + + + | EOSINOPHILS ABS | 0.49 | 0.00 - 0.50 K/uL | [facility] | | | | | [facility] | + + + + + | BASOPHILS ABS | 0.06Comment: Testing | 0.00 - 0.10 K/uL | [facility] | | | performed at [facility], [address] | | LABORATORY | | | [address], | | | | | [place] [address] | | | + + + + + + + | Specimen | + + | Blood | + + + + + + + | Performing | Address | City/State/Zipcode | Phone Number | | Organization | | | | + + + + + | [facility] | [address] | [place] [address] | [phone] | | LABORATORY | [address] | | | + + + + + POCT glucose (04/14/2018 5:34 AM) + + + + + | Component | Value | Ref Range | Performed At | + + + + + | GLUCOSE,POC SCREEN | 97Comment: Testing | 65 - 99 mg/dL | [facility] | | | performed at [facility];[place], [place] | | | | | [address] | | | + + + + + + + + + + | Performing | Address | City/State/Zipcode | Phone Number | | Organization | | | | + + + + + | [facility] | [address] | [place] [address] | | + + + + + POCT glucose (04/13/2018 6:22 AM) + + + + + | Component | Value | Ref Range | Performed At | + + + + + | GLUCOSE,POC SCREEN | 112 (H)Comment: Testing | 65 - 99 mg/dL | [facility] | | | performed at [facility] | | | | | [address];[place] | | | | | [address] | | | + + + + + + + + + + | Performing | Address | City/State/Zipcode | Phone Number | | Organization | | | | + + + + + | [facility] | [address] | [place] [address] | | + + + + + POCT glucose (04/12/2018 8:27 PM) + + + + + | Component | Value | Ref Range | Performed At | + + + + + | GLUCOSE,POC SCREEN | 223 (H)Comment: Testing | 65 - 99 mg/dL | [facility] | | | performed at [facility];[place], [place] | | | | | [address] | | | + + + + + + + + + + | Performing | Address | City/State/Zipcode | Phone Number | | Organization | | | | + + + + + | [facility] | [address] | [place] [address] | | + + + + + POCT glucose (04/12/2018 4:22 PM) + + + + + | Component | Value | Ref Range | Performed At | + + + + + | GLUCOSE,POC SCREEN | 146 (H)Comment: Testing | 65 - 99 mg/dL | [facility] | | | performed at [facility] | | | | | [address];[place] | | | | | [address] | | | + + + + + + + + + + | Performing | Address | City/State/Zipcode | Phone Number | | Organization | | | | + + + + + | [facility] | [address] | [place] [address] | | + + + + + POCT glucose (04/12/2018 11:53 AM) + + + + + | Component | Value | Ref Range | Performed At | + + + + + | GLUCOSE,POC SCREEN | 222 (H)Comment: Testing | 65 - 99 mg/dL | [facility] | | | performed at [facility];[address] | | | | | [address];[place], [place] | | | | | [address] | | | + + + + + + + + + + | Performing | Address | City/State/Zipcode | Phone Number | | Organization | | | | + + + + + | [facility] | [address] | [place] [address] | | + + + + + POCT glucose (04/12/2018 6:28 AM) + + + + + | Component | Value | Ref Range | Performed At | + + + + + | GLUCOSE,POC SCREEN | 103 (H)Comment: Testing | 65 - 99 mg/dL | [facility] | | | performed at [facility];[address] | [address];[place] | | | | | [address] | | | + + + + + + + + + + | Performing | Address | City/State/Zipcode | Phone Number | | Organization | | | | + + + + + | [facility] | [address] | [place] [address] | | + + + + + POCT glucose (04/11/2018 8:47 PM) + + + + + | Component | Value | Ref Range | Performed At | + + + + + | GLUCOSE,POC SCREEN | 224 (H)Comment: Testing | 65 - 99 mg/dL | [facility] | | | performed at [facility];[address] | [address];[place] | | | | | [address] | | | + + + + + + + + + + | Performing | Address | City/State/Zipcode | Phone Number | | Organization | | | | + + + + + | [facility] | [address] | [place] [address] | | + + + + + POCT glucose (04/11/2018 4:36 PM) + + + + + | Component | Value | Ref Range | Performed At | + + + + + | GLUCOSE,POC SCREEN | 121 (H)Comment: Testing | 65 - 99 mg/dL | [facility] | | | performed at [facility];[address] | | | | | [address];[place] | | | | | [address] | | | + + + + + + + + + + | Performing | Address | City/State/Zipcode | Phone Number | | Organization | | | | + + + + + | [facility] | [address] | [place] [address] | | + + + + + POCT glucose (04/11/2018 11:41 AM) + + + + + | Component | Value | Ref Range | Performed At | + + + + + | GLUCOSE,POC SCREEN | 123 (H)Comment: Testing | 65 - 99 mg/dL | [facility] | | | performed at [facility];[address] | | | | | [address];[place] | | | | | [address] | | | + + + + + + + + + + | Performing | Address | City/State/Zipcode | Phone Number | | Organization | | | | + + + + + | [facility] | [address] | [place] [address] | | + + + + + POCT glucose (04/11/2018 6:02 AM) + + + + + | Component | Value | Ref Range | Performed At | + + + + + | GLUCOSE,POC SCREEN | 126 (H)Comment: Testing | 65 - 99 mg/dL | [facility] | | | performed at [facility] | | | | | [address] [facility];[place], [place] | | | | | [address] | | | + + + + + + + + + + | Performing | Address | City/State/Zipcode | Phone Number | | Organization | | | | + + + + + | [facility] | [address] | [place] [address] | | + + + + + CBC w/auto diff (reflex to manual) (04/11/2018 5:52 AM) + + + + + | Component | Value | Ref Range | Performed At | + + + + + | WBC | 4.66 | 3.80 - 11.00 K/uL | [facility] | | | | | LAB[facility] | + + + + + | RBC | 3.24 (L) | 3.70 - 5.10 M/uL | [facility] | | | | | [facility] | + + + + + | HGB | 10.9 (L) | 11.3 - 15.5 g/dL | [facility] | | | | | LAB[facility] | + + + + + | HCT | 30.0 (L) | 34.0 - 46.0 % | [facility] | | | | | LAB[facility]AT[facility] | + + + + + | MCV | 92.6 | 80.0 - 100.0 fl | [facility] | | | | | LAB[facility]AT[facility] | + + + + + | MCH | 33.5 | 27.0 - 34.0 pg | [facility] | | | | | LAB[facility] | + + + + + | MCHC | 36.2 (H) | 32.0 - 35.5 g/dL | [facility] | | | | | [facility] | + + + + + | RDW SD | 47.3 | 37 - 53 fl | [facility] | | | | | LAB[facility] | + + + + + | PLT | 88 (L) | 150 - 400 K/uL | [facility] | | | | | [facility] | + + + + + | MPV | 7.2 | fl | [facility] | | | | | LAB[facility] | + + + + + | DIFF TYPE | AUTOMATED | | [facility] | | | | | [facility] | + + + + + | NEUTROPHILS | 44.18 | % | [facility] | | | | | [facility] | + + + + + | LYMPHOCYTES | 35.80 | % | [facility] | | | | | [facility] | + + + + + | MONOCYTES | 11.00 | % | [facility] | | | | | [facility] | + + + + + | EOSINOPHILS | 7.76 | % | [facility] | | | | | [facility] | + + + + + | BASOPHILS | 1.26 | % | [facility] | | | | | [facility]ORY | + + + + + | NEUTROPHILS ABS | 2.06 | 1.90 - 7.40 K/uL | [facility] | | | | | LABORATORY | + + + + + | LYMPHOCYTES ABS | 1.67 | 1.00 - 3.90 K/uL | [facility] | | | | | LABORATORY | + + + + + | MONOCYTES ABS | 0.51 | 0.00 - 0.80 K/uL | [facility] | | | | | LABORATORY | + + + + + | EOSINOPHILS ABS | 0.36 | 0.00 - 0.50 K/uL | [facility] | | | | | LABORATORY | + + + + + | BASOPHILS ABS | 0.06Comment: Testing | 0.00 - 0.10 K/uL | [facility] | | | performed at [facility], [address] | LABORATORY | | | [address], | | | | | [place] [address] | | | + + + + + + + | Specimen | + + | Blood | + + + + + + + | Performing | Address | City/State/Zipcode | Phone Number | | Organization | | | | + + + + + | [facility] | [address] | [place] [address] | [phone] | | LABORATORY | [address] | | | + + + + + POCT glucose (04/10/2018 8:46 PM) + + + + + | Component | Value | Ref Range | Performed At | + + + + + | GLUCOSE,POC SCREEN | 254 (H)Comment: Testing | 65 - 99 mg/dL | [facility] | | | performed at [facility] [place] | | | | | [address];[place] | | | | | [address] | | | + + + + + + + + + + | Performing | Address | City/State/Zipcode | Phone Number | | Organization | | | | + + + + + | [facility] | [address] | [place] [address] | | + + + + + POCT glucose (04/10/2018 4:31 PM) + + + + + | Component | Value | Ref Range | Performed At | + + + + + | GLUCOSE,POC SCREEN | 93Comment: Testing | 65 - 99 mg/dL | [facility] | | | performed at [facility] [place] | | | | | [address];[place], [place] | | | | | [address] | | | + + + + + + + + + + | Performing | Address | City/State/Zipcode | Phone Number | | Organization | | | | + + + + + | [facility] | [address] | [place] [address] | | + + + + + POCT glucose (04/10/2018 11:31 AM) + + + + + | Component | Value | Ref Range | Performed At | + + + + + | GLUCOSE,POC SCREEN | 301 (H)Comment: Testing | 65 - 99 mg/dL | [facility] | | | performed at [facility] | | | | | [address];[place] | | | | | [address] | | | + + + + + + + + + + | Performing | Address | City/State/Zipcode | Phone Number | | Organization | | | | + + + + + | [facility] | [address] | [place] [address] | | + + + + + POCT glucose (04/10/2018 5:54 AM) + + + + + | Component | Value | Ref Range | Performed At | + + + + + | GLUCOSE,POC SCREEN | 132 (H)Comment: Testing | 65 - 99 mg/dL | [facility] | | | performed at [facility];[address] | | | | | [address];[place] | | | | | [address] | | | + + + + + + + + + + | Performing | Address | City/State/Zipcode | Phone Number | | Organization | | | | + + + + + | [facility] | [address] | [place] [address] | | + + + + + Basic metabolic panel (04/10/2018 5:50 AM) + + + + + | Component | Value | Ref Range | Performed At | + + + + + | SODIUM | 142 | 135 - 145 mmol/L | [facility] | | | | | LABORATORY | + + + + + | POTASSIUM | 3.6 | 3.5 - 4.9 mmol/L | [facility] | | | | | LABORATORY | + + + + + | CHLORIDE | 105 | 99 - 109 mmol/L | [facility] | | | | | LABORATORY | + + + + + | CO2 | 28 | 23 - 32 mmol/L | [facility] | | | | | LABORATORY | + + + + + | ANION GAP AGAP | 13 | 5 - 20 mmol/L | [facility] | | | | | LABORATORY | + + + + + | GLUCOSE | 128 (H) | 65 - 99 mg/dL | [facility] | | | | | LABORATORY | + + + + + | BUN | 10 | 8 - 25 mg/dL | [facility] | | | | | LABORATORY | + + + + + | CREATININE | 0.4 (L) | 0.50 - 1.00 mg/dL | [facility] | | | | | LABORATORY | + + + + + | BUN/CREAT | 25 | | [facility] | | | | | LABORATORY | + + + + + | CALCIUM | 8.5 | 8.5 - 10.5 mg/dL | [facility] | | | | | LABORATORY | + + + + + | EGFR | >60Comment: GFR <60: | >60 mL/min/1.73m2 | [facility] | | | CHRONIC KIDNEY DISEASE, | | LABORATORY | | | IF FOUND OVER A 3 MONTH | | | | | PERIOD.GFR <15: KIDNEY | | | | | FAILURE.FOR | | | | | AMERICANS, MULTIPLY THE | | | | | CALCULATED GFR BY | | | | | 1.210.This eGFR is | | | | | calculated using the | | | | | MDRD IDRI traceable | | | | | equation.Testing | | | | | performed at [facility], [address] | | | | [facility], | | | | | [place] [address] | | | + + + + + + + | Specimen | + + | Blood | + + + + + + + | Performing | Address | City/State/Zipcode | Phone Number | | Organization | | | | + + + + + | [facility] | [address] | [place] [address] | [phone] | | LABORATORY | [address] | | | + + + + + POCT glucose (04/09/2018 8:54 PM) + + + + + | Component | Value | Ref Range | Performed At | + + + + + | GLUCOSE,POC SCREEN | 185 (H)Comment: Testing | 65 - 99 mg/dL | [facility] | | | performed at [facility];[address] | | | | | [address];[place] | | | | | [address] | | | + + + + + + + + + + | Performing | Address | City/State/Zipcode | Phone Number | | Organization | | | | + + + + + | [facility] | [address] | [place] [address] | | + + + + + POCT glucose (04/09/2018 4:39 PM) + + + + + | Component | Value | Ref Range | Performed At | + + + + + | GLUCOSE,POC SCREEN | 152 (H)Comment: Testing | 65 - 99 mg/dL | [facility] | | | performed at [facility];[address] | | | | | [address];[place] | | | | | [address] | | | + + + + + + + + + + | Performing | Address | City/State/Zipcode | Phone Number | | Organization | | | | + + + + + | [facility] | [address] | [place] [address] | | + + + + + POCT glucose (04/09/2018 11:35 AM) + + + + + | Component | Value | Ref Range | Performed At | + + + + + | GLUCOSE,POC SCREEN | 178 (H)Comment: Testing | 65 - 99 mg/dL | [facility] | | | performed at [facility];[address] | | | | | [address];[place] | | | | | [address] | | | + + + + + + + + + + | Performing | Address | City/State/Zipcode | Phone Number | | Organization | | | | + + + + + | [facility] | [address] | [place] [address] | | + + + + + POCT glucose (04/09/2018 6:10 AM) + + + + + | Component | Value | Ref Range | Performed At | + + + + + | GLUCOSE,POC SCREEN | 181 (H)Comment: Testing | 65 - 99 mg/dL | [facility] | | | performed at [facility];[address] | | | | | [address];[place] | | | | | [address] | | | + + + + + + + + + + | Performing | Address | City/State/Zipcode | Phone Number | | Organization | | | | + + + + + | [facility] | [address] | [place] [address] | | + + + + + Basic metabolic panel (04/09/2018 5:21 AM) + + + + + | Component | Value | Ref Range | Performed At | + + + + + | SODIUM | 142 | 135 - 145 mmol/L | [facility] | | | | | LABORATORY | + + + + + | POTASSIUM | 3.7 | 3.5 - 4.9 mmol/L | [facility] | | | | | LABORATORY | + + + + + | CHLORIDE | 106 | 99 - 109 mmol/L | [facility] | | | | | LABORATORY | + + + + + | CO2 | 28 | 23 - 32 mmol/L | [facility] | | | | | LABORATORY | + + + + + | ANION GAP AGAP | 12 | 5 - 20 mmol/L | [facility] | | | | | LABORATORY | + + + + + | GLUCOSE | 156 (H) | 65 - 99 mg/dL | [facility] | | | | | LABORATORY | + + + + + | BUN | 8 | 8 - 25 mg/dL | [facility] | | | | | LABORATORY | + + + + + | CREATININE | 0.5 | 0.50 - 1.00 mg/dL | [facility] | | | | | LABORATORY | + + + + + | BUN/CREAT | 16 | | [facility] | | | | | LABORATORY | + + + + + | CALCIUM | 8.5 | 8.5 - 10.5 mg/dL | [facility] | | | | | LABORATORY | + + + + + | EGFR | >60Comment: GFR <60: | >60 mL/min/1.73m2 | [facility] | | | CHRONIC KIDNEY DISEASE, | | LABORATORY | | | IF FOUND OVER A 3 MONTH | | | | | PERIOD.GFR <15: KIDNEY | | | | | FAILURE.FOR | | | | | AMERICANS, MULTIPLY THE | | | | | CALCULATED GFR BY | | | | | 1.210.This eGFR is | | | | | calculated using the | | | | | MDRD IDMS traceable | | | | | equation.Testing | | | | | performed at [facility], [address] | | | | [facility], | | | | | [place] [address] | | | + + + + + + + | Specimen | + + | Blood | + + + + + + + | Performing | Address | City/State/Zipcode | Phone Number | | Organization | | | | + + + + + | [facility] | [address] | [place] [address] | [phone] | | LABORATORY | [address] | | | + + + + + POCT glucose (04/08/2018 8:35 PM) + + + + + | Component | Value | Ref Range | Performed At | + + + + + | GLUCOSE,POC SCREEN | 218 (H)Comment: Testing | 65 - 99 mg/dL | [facility] | | | performed at [facility];[address] | | | | | [address];[place] | | | | | [address] | | | + + + + + + + + + + | Performing | Address | City/State/Zipcode | Phone Number | | Organization | | | | + + + + + | [facility] | [address] | [place] [address] | | + + + + + POCT glucose (04/08/2018 4:22 PM) + + + + + | Component | Value | Ref Range | Performed At | + + + + + | GLUCOSE,POC SCREEN | 152 (H)Comment: Testing | 65 - 99 mg/dL | [facility] | | | performed at [facility];[address] | | | | | [address] [facility];[place], [place] | | | | | [address] | | | + + + + + + + + + + | Performing | Address | City/State/Zipcode | Phone Number | | Organization | | | | + + + + + | [facility] | [address] | [place] [address] | | + + + + + POCT glucose (04/08/2018 11:26 AM) + + + + + | Component | Value | Ref Range | Performed At | + + + + + | GLUCOSE,POC SCREEN | 274 (H)Comment: Testing | 65 - 99 mg/dL | [facility] | | | performed at [facility];[address] | | | | | [address];[place] | | | | | [address] | | | + + + + + + + + + + | Performing | Address | City/State/Zipcode | Phone Number | | Organization | | | | + + + + + | [facility] | [address] | [place] [address] | | + + + + + CT head without contrast (04/08/2018 8:00 AM) + + + | Impressions | Performed At | + + + | 1. The previously seen subdural hemorrhage at the inferior aspect | [facility] | | of the medial mid left temporal lobe situated above the tentorium | RADIOLOGY | | cerebelli has significantly decreased in size since 03/30/2018. See | | | above measurements. 2. No other acute intracranial findings are | | | identified. Electronically signed by Toni Cook DO on | | | 04/08/2018 8:19 AM | | + + + + + + | Narrative | Performed At | + + + | [facility] CT HEAD WO CONTRAST 04/08/2018 8:00 AM | [facility] | | HISTORY: 67 years. Female. Subdural hematoma. Falls | RADIOLOGY | | frequently. Thrombocytopenia. Subarachnoid hemorrhage following | | | injury without open intracranial wound and with no loss of | | | consciousness, sequela. TECHNIQUE: 5-mm axial noncontrast images | | | were acquired from the foramen magnum through the cranial | | | vertex. Radiation dose reduction was performed with automated | | | exposure control. COMPARISON: Outside CT head performed at seen | | | at the hospital 03/30/2018, CTA head and neck performed here | | | 03/30/2018 FINDINGS: The previously seen area of subdural | | | hemorrhage at the inferior aspect of the medial mid left temporal lobe | | | situated above the tentorium cerebelli is again seen but has | | | significantly decreased in size since 03/30/2018. Currently this | | | measures 2.7 x 2.0 x 0.6 cm compared with 4.1 x 3.4 x 1.6 cm on | | | 03/30/2018. The ventricles, cisterns and sulci are normal in size | | | and configuration. Normal wright-white differentiation is | | | preserved. No new areas of extra-axial hemorrhage or intra-axial | | | hemorrhage are identified. There is no midline shift or significant | | | mass effect currently identified. No cerebral edema is | | | seen. The orbits and their contents are normal. The paranasal | | | sinuses are well aerated. No mucosal thickening or air-fluid levels | | | are noted. The mastoid air cells show normal pneumatization | | | bilaterally. No mastoid fluid noted. The osseous structures of | | | the calvaria do not demonstrate fracture. No lytic or blastic | | | lesions are noted. | | + + + + + | Procedure Note | + + | Frank, Rad Results In - 04/08/2018 8:24 AM PDT [facility] BHATIACT HEAD WO | | CONTRAST04/08/2018 8:00 AMHISTORY:67 years. Female. Subdural hematoma. Falls | | frequently. Thrombocytopenia. Subarachnoid hemorrhage following injury without open | | intracranial wound and with no loss of consciousness, sequela.TECHNIQUE:5-mm axial | | noncontrast images were acquired from the foramen magnum through the cranial vertex. | | Radiation dose reduction was performed with automated exposure | | control.COMPARISON:Outside CT head performed at seen at the hospital 03/30/2018, CTA | | head and neck performed here 03/30/2018FINDINGS:The previously seen area of subdural | | hemorrhage at the inferior aspect of the medial mid left temporal lobe situated above | | the tentorium cerebelli is again seen but has significantly decreased in size since | | 03/30/2018. Currently this measures 2.7 x 2.0 x 0.6 cm compared with 4.1 x 3.4 x 1.6 cm | | on 03/30/2018. The ventricles, cisterns and sulci are normal in size and | | configuration. Normal wright-white differentiation is preserved. No new areas of | | extra-axial hemorrhage or intra-axial hemorrhage are identified. There is no midline | | shift or significant mass effect currently identified. No cerebral edema is seen. The | | orbits and their contents are normal. The paranasal sinuses are well aerated. No | | mucosal thickening or air-fluid levels are noted. The mastoid air cells show normal | | pneumatization bilaterally. No mastoid fluid noted. The osseous structures of the | | calvaria do not demonstrate fracture. No lytic or blastic lesions are | | noted.IMPRESSION:1. The previously seen subdural hemorrhage at the inferior aspect of | | the medial mid left temporal lobe situated above the tentorium cerebelli has | | significantly decreased in size since 03/30/2018. See above measurements.2. No other | | acute intracranial findings are identified. | | | + + + + + + + | Performing | Address | City/State/Zipcode | Phone Number | | Organization | | | | + + + + + | [facility] | [address] | [place] [address] | | + + + + + POCT glucose (04/08/2018 6:15 AM) + + + + + | Component | Value | Ref Range | Performed At | + + + + + | GLUCOSE,POC SCREEN | 133 (H)Comment: Testing | 65 - 99 mg/dL | [facility] | | | performed at [facility];[address] | | | | | [address];[place] | | | | | [address] | | | + + + + + + + + + + | Performing | Address | City/State/Zipcode | Phone Number | | Organization | | | | + + + + + | [facility] | [address] | [place] [address] | | + + + + + CBC w/auto diff (reflex to manual) (04/08/2018 5:04 AM) + + + + + | Component | Value | Ref Range | Performed At | + + + + + | WBC | 5.07 | 3.80 - 11.00 K/uL | [facility] | | | | | LABORATORY | + + + + + | RBC | 3.25 (L) | 3.70 - 5.10 M/uL | [facility] | | | | | LABORATORY | + + + + + | HGB | 10.8 (L) | 11.3 - 15.5 g/dL | [facility] | | | | | LABORATORY | + + + + + | HCT | 29.9 (L) | 34.0 - 46.0 % | [facility] | | | | | LABORATORY | + + + + + | MCV | 92.2 | 80.0 - 100.0 fl | [facility] | | | | | LABORATORY | + + + + + | MCH | 33.4 | 27.0 - 34.0 pg | [facility] | | | | | LABORATORY | + + + + + | MCHC | 36.2 (H) | 32.0 - 35.5 g/dL | [facility] | | | | | LABORATORY | + + + + + | RDW SD | 45.9 | 37 - 53 fl | [facility] | | | | | LABORATORY | + + + + + | PLT | 94 (L) | 150 - 400 K/uL | [facility] | | | | | LABORATORY | + + + + + | MPV | 7.3 | fl | [facility] | | | | | LABORATORY | + + + + + | DIFF TYPE | AUTOMATED | | [facility] | | | | | LABORATORY | + + + + + | NEUTROPHILS | 55.66 | % | [facility] | | | | | LABORATORY | + + + + + | LYMPHOCYTES | 28.34 | % | [facility] | | | | | LABORATORY | + + + + + | MONOCYTES | 10.16 | % | [facility] | | | | | LABORATORY | + + + + + | EOSINOPHILS | 4.68 | % | [facility] | | | | | LABORATORY | + + + + + | BASOPHILS | 1.16 | % | [facility] | | | | | LABORATORY | + + + + + | NEUTROPHILS ABS | 2.82 | 1.90 - 7.40 K/uL | [facility] | | | | | LABORATORY | + + + + + | LYMPHOCYTES ABS | 1.44 | 1.00 - 3.90 K/uL | [facility] | | | | | LABORATORY | + + + + + | MONOCYTES ABS | 0.52 | 0.00 - 0.80 K/uL | [facility] | | | | | LABORATORY | + + + + + | EOSINOPHILS ABS | 0.24 | 0.00 - 0.50 K/uL | [facility] | | | | | LABORATORY | + + + + + | BASOPHILS ABS | 0.06Comment: Testing | 0.00 - 0.10 K/uL | [facility] | | | performed at [facility], [address] | | LABORATORY | | | [address], | | | | | [place] [address] | | | + + + + + + + | Specimen | + + | Blood | + + + + + + + | Performing | Address | City/State/Zipcode | Phone Number | | Organization | | | | + + + + + | [facility] | [address] | [place] [address] | [phone] | | LABORATORY | [address] | | | + + + + + Basic metabolic panel (04/08/2018 5:04 AM) + + + + + | Component | Value | Ref Range | Performed At | + + + + + | SODIUM | 143 | 135 - 145 mmol/L | [facility] | | | | | LABORATORY | + + + + + | POTASSIUM | 3.5 | 3.5 - 4.9 mmol/L | [facility] | | | | | LABORATORY | + + + + + | CHLORIDE | 107 | 99 - 109 mmol/L | [facility] | | | | | LABORATORY | + + + + + | CO2 | 29 | 23 - 32 mmol/L | [facility] | | | | | LABORATORY | + + + + + | ANION GAP AGAP | 11 | 5 - 20 mmol/L | [facility] | | | | | LABORATORY | + + + + + | GLUCOSE | 128 (H) | 65 - 99 mg/dL | [facility] | | | | | LABORATORY | + + + + + | BUN | 7 (L) | 8 - 25 mg/dL | [facility] | | | | | LABORATORY | + + + + + | CREATININE | 0.4 (L) | 0.50 - 1.00 mg/dL | [facility] | | | | | LABORATORY | + + + + + | BUN/CREAT | 18 | | [facility] | | | | | LABORATORY | + + + + + | CALCIUM | 8.2 (L) | 8.5 - 10.5 mg/dL | [facility] | | | | | LABORATORY | + + + + + | EGFR | >60Comment: GFR <60: | >60 mL/min/1.73m2 | [facility] | | | CHRONIC KIDNEY DISEASE, | | LABORATORY | | | IF FOUND OVER A 3 MONTH | | | | | PERIOD.GFR <15: KIDNEY | | | | | FAILURE.FOR | | | | | AMERICANS, MULTIPLY THE | | | | | CALCULATED GFR BY | | | | | 1.210.This eGFR is | | | | | calculated using the | | | | | MDRD IDMS traceable | | | | | equation.Testing | | | | | performed at [facility], [address] | | | | [facility], | | | | | [place] [address] | | | + + + + + + + | Specimen | + + | Blood | + + + + + + + | Performing | Address | City/State/Zipcode | Phone Number | | Organization | | | | + + + + + | [facility] | [address] | [place] [address] | [phone] | | LABORATORY | [address] | | | + + + + + POCT glucose (04/07/2018 8:55 PM) + + + + + | Component | Value | Ref Range | Performed At | + + + + + | GLUCOSE,POC SCREEN | 231 (H)Comment: Testing | 65 - 99 mg/dL | [facility] | | | performed at [facility];[address] | | | | | [address];[place] | | | | | [address] | | | + + + + + + + + + + | Performing | Address | City/State/Zipcode | Phone Number | | Organization | | | | + + + + + | [facility] | [address] | [place] [address] | | + + + + + POCT glucose (04/07/2018 11:23 AM) + + + + + | Component | Value | Ref Range | Performed At | + + + + + | GLUCOSE,POC SCREEN | 153 (H)Comment: Testing | 65 - 99 mg/dL | [facility] | | | performed at [facility];[address] | | | | | [address];[place] | | | | | [address] | | | + + + + + + + + + + | Performing | Address | City/State/Zipcode | Phone Number | | Organization | | | | + + + + + | [facility] | [address] | [place] [address] | | + + + + + POCT glucose (04/07/2018 6:06 AM) + + + + + | Component | Value | Ref Range | Performed At | + + + + + | GLUCOSE,POC SCREEN | 121 (H)Comment: Testing | 65 - 99 mg/dL | [facility] | | | performed at [facility];[address] | | | | | [address];[place] | | | | | [address] | | | + + + + + + + + + + | Performing | Address | City/State/Zipcode | Phone Number | | Organization | | | | + + + + + | [facility] | [address] | [place] [address] | | + + + + + CBC w/auto diff (reflex to manual) (04/07/2018 5:08 AM) + + + + + | Component | Value | Ref Range | Performed At | + + + + + | WBC | 5.29 | 3.80 - 11.00 K/uL | [facility] | | | | | LABORATORY | + + + + + | RBC | 3.47 (L) | 3.70 - 5.10 M/uL | [facility] | | | | | LABORATORY | + + + + + | HGB | 11.5 | 11.3 - 15.5 g/dL | [facility] | | | | | LABORATORY | + + + + + | HCT | 32.1 (L) | 34.0 - 46.0 % | [facility] | | | | | LABORATORY | + + + + + | MCV | 92.6 | 80.0 - 100.0 fl | [facility] | | | | | LABORATORY | + + + + + | MCH | 33.2 | 27.0 - 34.0 pg | [facility] | | | | | LABORATORY | + + + + + | MCHC | 35.8 (H) | 32.0 - 35.5 g/dL | [facility] | | | | | LABORATORY | + + + + + | RDW SD | 45.9 | 37 - 53 fl | [facility] | | | | | LABORATORY | + + + + + | PLT | 66 (L) | 150 - 400 K/uL | [facility] | | | | | LABORATORY | + + + + + | MPV | 8.5 | fl | [facility] | | | | | LABORATORY | + + + + + | DIFF TYPE | AUTOMATED | | [facility] | | | | | LABORATORY | + + + + + | NEUTROPHILS | 65.21 | % | [facility] | | | | | LABORATORY | + + + + + | LYMPHOCYTES | 18.97 | % | [facility] | | | | | LABORATORY | + + + + + | MONOCYTES | 10.75 | % | [facility] | | | | | LABORATORY | + + + + + | EOSINOPHILS | 4.22 | % | [facility] | | | | | LABORATORY | + + + + + | BASOPHILS | 0.85 | % | [facility] | | | | | LABORATORY | + + + + + | NEUTROPHILS ABS | 3.45 | 1.90 - 7.40 K/uL | [facility] | | | | | LABORATORY | + + + + + | LYMPHOCYTES ABS | 1.00 | 1.00 - 3.90 K/uL | [facility] | | | | | LABORATORY | + + + + + | MONOCYTES ABS | 0.57 | 0.00 - 0.80 K/uL | [facility] | | | | | LABORATORY | + + + + + | EOSINOPHILS ABS | 0.22 | 0.00 - 0.50 K/uL | [facility] | | | | | LABORATORY | + + + + + | BASOPHILS ABS | 0.05Comment: Testing | 0.00 - 0.10 K/uL | [facility] | | | performed at [facility], [address] | | LABORATORY | | | [address], | | | | | [place] [address] | | | + + + + + + + | Specimen | + + | Blood | + + + + + + + | Performing | Address | City/State/Zipcode | Phone Number | | Organization | | | | + + + + + | [facility] | [address] | [place] [address] | [phone] | | LABORATORY | [address] | | | + + + + + Basic metabolic panel (04/07/2018 5:08 AM) + + + + + | Component | Value | Ref Range | Performed At | + + + + + | SODIUM | 141 | 135 - 145 mmol/L | [facility] | | | | | LABORATORY | + + + + + | POTASSIUM | 3.8Comment: SPECIMEN | 3.5 - 4.9 mmol/L | [facility] | | | SLIGHTLY HEMOLYZED | | LABORATORY | + + + + + | CHLORIDE | 107 | 99 - 109 mmol/L | [facility] | | | | | LABORATORY | + + + + + | CO2 | 26 | 23 - 32 mmol/L | [facility] | | | | | LABORATORY | + + + + + | ANION GAP AGAP | 12 | 5 - 20 mmol/L | [facility] | | | | | LABORATORY | + + + + + | GLUCOSE | 129 (H)Comment: SPECIMEN | 65 - 99 mg/dL | [facility] | | | [facility] | | LAB[facility]ATORY | + + + + + | BUN | 7 (L) | 8 - 25 mg/dL | [facility] | | | | | LABORATORY | + + + + + | CREATININE | 0.5Comment: SPECIMEN | 0.50 - 1.00 mg/dL | [facility] | | | [facility] | | LABORATORY | + + + + + | BUN/CREAT | 14 | | [facility] | | | | | LABORATORY | + + + + + | CALCIUM | 8.2 (L) | 8.5 - 10.5 mg/dL | [facility] | | | | | LABORATORY | + + + + + | EGFR | >60Comment: GFR <60: | >60 mL/min/1.73m2 | [facility] | | | CHRONIC KIDNEY DISEASE, | | LABORATORY | | | IF FOUND OVER A 3 MONTH | | | | | PERIOD.GFR <15: KIDNEY | | | | | FAILURE.FOR | | | | | AMERICANS, MULTIPLY THE | | | | | CALCULATED GFR BY | | | | | 1.210.This eGFR is | | | | | calculated using the | | | | | MDRD IDMS traceable | | | | | equation.Testing | | | | | performed at [facility], [address] | | | [address], | | | | | [place] [address] | | | + + + + + + + | Specimen | + + | Blood | + + + + + + + | Performing | Address | City/State/Zipcode | Phone Number | | Organization | | | | + + + + + | [facility] | [address] | [place] [address] | [phone] | | LABORATORY | [address] | | | + + + + + POCT glucose (04/06/2018 8:22 PM) + + + + + | Component | Value | Ref Range | Performed At | + + + + + | GLUCOSE,POC SCREEN | 190 (H)Comment: Testing | 65 - 99 mg/dL | [facility] | | | performed at [facility] | | | [address] [facility];[place], [place] | | | | | [address] | | | + + + + + + + + + + | Performing | Address | City/State/Zipcode | Phone Number | | Organization | | | | + + + + + | [facility] | [address] | [place] [address] | | + + + + + POCT glucose (04/06/2018 4:56 PM) + + + + + | Component | Value | Ref Range | Performed At | + + + + + | GLUCOSE,POC SCREEN | 178 (H)Comment: Testing | 65 - 99 mg/dL | [facility] | | | performed at [facility];[place] | | | | | [address] | | | + + + + + + + + + + | Performing | Address | City/State/Zipcode | Phone Number | | Organization | | | | + + + + + | [facility] | [address] | [place] [address] | | + + + + + POCT glucose (04/06/2018 12:09 PM) + + + + + | Component | Value | Ref Range | Performed At | + + + + + | GLUCOSE,POC SCREEN | 266 (H)Comment: Testing | 65 - 99 mg/dL | [facility] | | | performed at [facility] | | | | | [address];[place] | | | | | [address] | | | + + + + + + + + + + | Performing | Address | City/State/Zipcode | Phone Number | | Organization | | | | + + + + + | [facility] | [address] | [place] [address] | | + + + + + POCT glucose (04/06/2018 6:09 AM) + + + + + | Component | Value | Ref Range | Performed At | + + + + + | GLUCOSE,POC SCREEN | 90Comment: Testing | 65 - 99 mg/dL | [facility] | | | performed at [facility];[address] | | | | | [address];[place] | | | | | [address] | | | + + + + + + + + + + | Performing | Address | City/State/Zipcode | Phone Number | | Organization | | | | + + + + + | [facility] | [address] | [place] [address] | | + + + + + CBC w/auto diff (reflex to manual) (04/06/2018 5:44 AM) + + + + + | Component | Value | Ref Range | Performed At | + + + + + | WBC | 6.15 | 3.80 - 11.00 K/uL | [facility] | + + + + + | RBC | 3.58 (L) | 3.70 - 5.10 M/uL | [facility] | + + + + + | HGB | 11.7 | 11.3 - 15.5 g/dL | [facility] | + + + + + | HCT | 33.6 (L) | 34.0 - 46.0 % | [facility] | + + + + + | MCV | 93.8 | 80.0 - 100.0 fl | [facility] | + + + + + | MCH | 32.7 | 27.0 - 34.0 pg | [facility] | + + + + + | MCHC | 34.9 | 32.0 - 35.5 g/dL | [facility] | + + + + + | RDW SD | 45.9 | 37 - 53 fl | [facility] | + + + + + | PLT | 94 (L) | 150 - 400 K/uL | [facility] | + + + + + | MPV | 7.4 | fl | [facility] | + + + + + | DIFF TYPE | AUTOMATED | | [facility] | + + + + + | NEUTROPHILS | 66.63 | % | [facility] | + + + + + | LYMPHOCYTES | 18.23 | % | [facility] | + + + + + | MONOCYTES | 10.29 | % | [facility] | + + + + + | EOSINOPHILS | 3.65 | % | [facility] | + + + + + | BASOPHILS | 1.20 | % | [facility] | + + + + + | NEUTROPHILS ABS | 4.10 | 1.90 - 7.40 K/uL | [facility] | + + + + + | LYMPHOCYTES ABS | 1.12 | 1.00 - 3.90 K/uL | [facility] | + + + + + | MONOCYTES ABS | 0.63 | 0.00 - 0.80 K/uL | [facility] | + + + + + | EOSINOPHILS ABS | 0.22 | 0.00 - 0.50 K/uL | [facility] | + + + + + | BASOPHILS ABS | 0.07Comment: Testing | 0.00 - 0.10 K/uL | [facility] | | | performed at [facility];[address] | | | | | [address];[place] | | | | | [address] | | | + + + + + + + | Specimen | + + | Blood | + + + + + + + | Performing | Address | City/State/Zipcode | Phone Number | | Organization | | | | + + + + + | [facility] | [address] | [place] [address] | | + + + + + Basic metabolic panel (04/06/2018 5:44 AM) + + + + + | Component | Value | Ref Range | Performed At | + + + + + | SODIUM | 144 | 135 - 145 mmol/L | [facility] | + + + + + | POTASSIUM | 3.4 (L) | 3.5 - 4.9 mmol/L | [facility] | + + + + + | CHLORIDE | 108 | 99 - 109 mmol/L | [facility] | + + + + + | CO2 | 27 | 23 - 32 mmol/L | [facility] | + + + + + | ANION GAP AGAP | 12 | 5 - 20 mmol/L | [facility] | + + + + + | GLUCOSE | 84 | 65 - 99 mg/dL | [facility] | + + + + + | BUN | 8 | 8 - 25 mg/dL | [facility] | + + + + + | CREATININE | 0.43 (L) | 0.50 - 1.00 mg/dL | [facility] | + + + + + | BUN/CREAT | 18 | | [facility] | + + + + + | CALCIUM | 8.3 (L) | 8.5 - 10.5 mg/dL | [facility] | + + + + + | EGFR | >60Comment: GFR <60: | >60 mL/min/1.73m2 | [facility] | | | CHRONIC KIDNEY DISEASE, | | | | | IF FOUND OVER A 3 MONTH | | | | | PERIOD.GFR <15: KIDNEY | | | | | FAILURE.FOR | | | | | AMERICANS, MULTIPLY THE | | | | | CALCULATED GFR BY | | | | | 1.210.This eGFR is | | | | | calculated using the | | | | | MDRD PRMS traceable | | | | | equation.Testing | | | | | performed at [facility] | | | | | [facility];[place], [place] | | | | | [address] | | | + + + + + + + | Specimen | + + | Blood | + + + + + + + | Performing | Address | City/State/Zipcode | Phone Number | | Organization | | | | + + + + + | [facility] | [address] | [place] [address] | | + + + + + POCT glucose (04/05/2018 8:19 PM) + + + + + | Component | Value | Ref Range | Performed At | + + + + + | GLUCOSE,POC SCREEN | 213 (H)Comment: Testing | 65 - 99 mg/dL | [facility] | | | performed at [facility];[address] | | | | | [address];[place] | | | | | [address] | | | + + + + + + + + + + | Performing | Address | City/State/Zipcode | Phone Number | | Organization | | | | + + + + + | [facility] | [address] | [place] [address] | | + + + + + POCT glucose (04/05/2018 4:28 PM) + + + + + | Component | Value | Ref Range | Performed At | + + + + + | GLUCOSE,POC SCREEN | 162 (H)Comment: Testing | 65 - 99 mg/dL | [facility] | | | performed at [facility];[address] | | | | | [address];[place], [place] | | | | | [address] | | | + + + + + + + + + + | Performing | Address | City/State/Zipcode | Phone Number | | Organization | | | | + + + + + | [facility] | [address] | [place] [address] | | + + + + + POCT glucose (04/05/2018 11:43 AM) + + + + + | Component | Value | Ref Range | Performed At | + + + + + | GLUCOSE,POC SCREEN | 129 (H)Comment: Testing | 65 - 99 mg/dL | [facility] | | | performed at [facility];[address] | | | | | [address] [facility];[place] | | | | | [address] | | | + + + + + + + + + + | Performing | Address | City/State/Zipcode | Phone Number | | Organization | | | | + + + + + | [facility] | [address] | [place] [address] | | + + + + + POCT glucose (04/05/2018 6:26 AM) + + + + + | Component | Value | Ref Range | Performed At | + + + + + | GLUCOSE,POC SCREEN | 103 (H)Comment: Testing | 65 - 99 mg/dL | [facility] | | | performed at [facility];[address] | | | | | [address];[place] | | | | | [address] | | | + + + + + + + + + + | Performing | Address | City/State/Zipcode | Phone Number | | Organization | | | | + + + + + | [facility] | [address] | [place] [address] | | + + + + + CBC w/auto diff (reflex to manual) (04/05/2018 5:16 AM) + + + + + | Component | Value | Ref Range | Performed At | + + + + + | WBC | 5.92 | 3.80 - 11.00 K/uL | [facility] | | | | | [facility] | + + + + + | RBC | 3.40 (L) | 3.70 - 5.10 M/uL | [facility] | | | | | [facility] | + + + + + | HGB | 11.4 | 11.3 - 15.5 g/dL | [facility] | | | | | [facility] | + + + + + | HCT | 31.0 (L) | 34.0 - 46.0 % | [facility] | | | | | [facility] | + + + + + | MCV | 91.0 | 80.0 - 100.0 fl | [facility] | | | | | [facility] | + + + + + | MCH | 33.6 | 27.0 - 34.0 pg | [facility] | | | | | [facility] | + + + + + | MCHC | 36.9 (H)Comment: RESULT | 32.0 - 35.5 g/dL | [facility] | | | VERIFIED | | LABORATORY | + + + + + | RDW SD | 44.6 | 37 - 53 fl | [facility] | | | | | [facility] | + + + + + | PLT | 89 (L) | 150 - 400 K/uL | [facility] | | | | | [facility]AT[facility] | + + + + + | MPV | 7.0 | fl | [facility] | | | | | [facility] | + + + + + | DIFF TYPE | AUTOMATED | | [facility] | | | | | [facility] | + + + + + | NEUTROPHILS | 61.38 | % | [facility] | | | | | [facility] | + + + + + | LYMPHOCYTES | 22.67 | % | [facility] | | | | | [facility] | + + + + + | MONOCYTES | 10.41 | % | [facility] | | | | | [facility] | + + + + + | EOSINOPHILS | 4.16 | % | [facility] | | | | | [facility] | + + + + + | BASOPHILS | 1.38 | % | [facility] | | | | | [facility] | + + + + + | NEUTROPHILS ABS | 3.63 | 1.90 - 7.40 K/uL | [facility] | | | | | [facility] | + + + + + | LYMPHOCYTES ABS | 1.34 | 1.00 - 3.90 K/uL | [facility] | | | | | [facility] | + + + + + | MONOCYTES ABS | 0.62 | 0.00 - 0.80 K/uL | [facility] | | | | | [facility] | + + + + + | EOSINOPHILS ABS | 0.25 | 0.00 - 0.50 K/uL | [facility] | | | | | [facility] | + + + + + | BASOPHILS ABS | 0.08Comment: Testing | 0.00 - 0.10 K/uL | [facility] | | | performed at [facility], [address] | | LABORATORY | | | [address], | | | | | [place] [address] | | | + + + + + + + | Specimen | + + | Blood | + + + + + + + | Performing | Address | City/State/Zipcode | Phone Number | | Organization | | | | + + + + + | [facility] | [address] | [place] [address] | [phone] | | LABORATORY | [address] | | | + + + + + Basic metabolic panel (04/05/2018 5:16 AM) + + + + + | Component | Value | Ref Range | Performed At | + + + + + | SODIUM | 141 | 135 - 145 mmol/L | [facility] | | | | | LABORATORY | + + + + + | POTASSIUM | 3.3 (L) | 3.5 - 4.9 mmol/L | [facility] | | | | | LABORATORY | + + + + + | CHLORIDE | 106 | 99 - 109 mmol/L | [facility] | | | | | LAB[facility]ORY | + + + + + | CO2 | 29 | 23 - 32 mmol/L | [facility] | | | | | LABORATORY | + + + + + | ANION GAP AGAP | 9 | 5 - 20 mmol/L | [facility] | | | | | LABORATORY | + + + + + | GLUCOSE | 96 | 65 - 99 mg/dL | [facility] | | | | | LAB[facility] | + + + + + | BUN | 10 | 8 - 25 mg/dL | [facility] | | | | | LAB[facility]ORY | + + + + + | CREATININE | 0.4 (L) | 0.50 - 1.00 mg/dL | [facility] | | | | | [facility]ATORY | + + + + + | BUN/CREAT | 25 | | [facility] | | | | | LAB[facility]ATORY | + + + + + | CALCIUM | 8.0 (L) | 8.5 - 10.5 mg/dL | [facility] | | | | | LABORATORY | + + + + + | EGFR | >60Comment: GFR <60: | >60 mL/min/1.73m2 | [facility] | | | CHRONIC KIDNEY DISEASE, | | LABORATORY | | | IF FOUND OVER A 3 MONTH | | | | | PERIOD.GFR <15: KIDNEY | | | | | FAILURE.FOR | | | | | AMERICANS, MULTIPLY THE | | | | | CALCULATED GFR BY | | | | | 1.210.This eGFR is | | | | | calculated using the | | | | | MDRD IDMS traceable | | | | | equation.Testing | | | | | performed at [facility], [address] | | | | [facility], | | | | | [place] [address] | | | + + + + + + + | Specimen | + + | Blood | + + + + + + + | Performing | Address | City/State/Zipcode | Phone Number | | Organization | | | | + + + + + | [facility] | [address] | [place] [address] | [phone] | | LABORATORY | [place] | | | + + + + + POCT glucose (04/04/2018 8:42 PM) + + + + + | Component | Value | Ref Range | Performed At | + + + + + | GLUCOSE,POC SCREEN | 224 (H)Comment: Testing | 65 - 99 mg/dL | [facility] | | | performed at [facility];[address] | | | | | [address];[place] | | | | | [address] | | | + + + + + + + + + + | Performing | Address | City/State/Zipcode | Phone Number | | Organization | | | | + + + + + | [facility] | [address] | [place] [address] | | + + + + + POCT glucose (04/04/2018 4:49 PM) + + + + + | Component | Value | Ref Range | Performed At | + + + + + | GLUCOSE,POC SCREEN | 124 (H)Comment: Testing | 65 - 99 mg/dL | [facility] | | | performed at [facility];[address] | | | | | [address];[place] | | | | | [address] | | | + + + + + + + + + + | Performing | Address | City/State/Zipcode | Phone Number | | Organization | | | | + + + + + | [facility] | [address] | [place] [address] | | + + + + + POCT glucose (04/04/2018 11:38 AM) + + + + + | Component | Value | Ref Range | Performed At | + + + + + | GLUCOSE,POC SCREEN | 187 (H)Comment: Testing | 65 - 99 mg/dL | [facility] | | | performed at [facility];[address] | | | | | [facility];[place] | | | | | [address] | | | + + + + + + + + + + | Performing | Address | City/State/Zipcode | Phone Number | | Organization | | | | + + + + + | [facility] | [address] | [place] [address] | | + + + + + POCT glucose (04/04/2018 6:18 AM) + + + + + | Component | Value | Ref Range | Performed At | + + + + + | GLUCOSE,POC SCREEN | 100 (H)Comment: Testing | 65 - 99 mg/dL | [facility] | | | performed at [facility];[address] | | | | | [address];[place] | | | | | [address] | | | + + + + + + + + + + | Performing | Address | City/State/Zipcode | Phone Number | | Organization | | | | + + + + + | [facility] | [address] | [place] [address] | | + + + + + CBC w/auto diff (reflex to manual) (04/04/2018 5:04 AM) + + + + + | Component | Value | Ref Range | Performed At | + + + + + | WBC | 5.10 | 3.80 - 11.00 K/uL | [facility] | | | | | LABORATORY | + + + + + | RBC | 3.64 (L) | 3.70 - 5.10 M/uL | [facility] | | | | | LABORATORY | + + + + + | HGB | 12.2 | 11.3 - 15.5 g/dL | [facility] | | | | | LABORATORY | + + + + + | HCT | 33.2 (L) | 34.0 - 46.0 % | [facility] | | | | | LABORATORY | + + + + + | MCV | 91.2 | 80.0 - 100.0 fl | [facility] | | | | | LABORATORY | + + + + + | MCH | 33.4 | 27.0 - 34.0 pg | [facility] | | | | | LABORATORY | + + + + + | MCHC | 36.6 (H) | 32.0 - 35.5 g/dL | [facility] | | | | | LABORATORY | + + + + + | RDW SD | 44.6 | 37 - 53 fl | [facility] | | | | | LABORATORY | + + + + + | PLT | 84 (L) | 150 - 400 K/uL | [facility] | | | | | LABORATORY | + + + + + | MPV | 7.4 | fl | [facility] | | | | | LAB[facility]ATORY | + + + + + | DIFF TYPE | AUTOMATED | | [facility] | | | | | LAB[facility]ATORY | + + + + + | NEUTROPHILS | 67.45 | % | [facility] | | | | | LABORATORY | + + + + + | LYMPHOCYTES | 17.62 | % | [facility] | | | | | LABORATORY | + + + + + | MONOCYTES | 9.55 | % | [facility] | | | | | LABORATORY | + + + + + | EOSINOPHILS | 4.17 | % | [facility] | | | | | LABORATORY | + + + + + | BASOPHILS | 1.21 | % | [facility] | | | | | LABORATORY | + + + + + | NEUTROPHILS ABS | 3.44 | 1.90 - 7.40 K/uL | [facility] | | | | | LABORATORY | + + + + + | LYMPHOCYTES ABS | 0.90 (L) | 1.00 - 3.90 K/uL | [facility] | | | | | LABORATORY | + + + + + | MONOCYTES ABS | 0.49 | 0.00 - 0.80 K/uL | [facility] | | | | | LABORATORY | + + + + + | EOSINOPHILS ABS | 0.21 | 0.00 - 0.50 K/uL | [facility] | | | | | LABORATORY | + + + + + | BASOPHILS ABS | 0.06Comment: Testing | 0.00 - 0.10 K/uL | [facility] | | | performed at [facility], [address] | | LABORATORY | | | [address], | | | | | [place] [address] | | | + + + + + + + | Specimen | + + | Blood | + + + + + + + | Performing | Address | City/State/Zipcode | Phone Number | | Organization | | | | + + + + + | [facility] | [address] | [place] [address] | [phone] | | LABORATORY | [address] | | | + + + + + Basic metabolic panel (04/04/2018 5:04 AM) + + + + + | Component | Value | Ref Range | Performed At | + + + + + | SODIUM | 140 | 135 - 145 mmol/L | [facility] | | | | | LABORATORY | + + + + + | POTASSIUM | 3.2 (L) | 3.5 - 4.9 mmol/L | [facility] | | | | | LABORATORY | + + + + + | CHLORIDE | 105 | 99 - 109 mmol/L | [facility] | | | | | LABORATORY | + + + + + | CO2 | 25 | 23 - 32 mmol/L | [facility] | | | | | LABORATORY | + + + + + | ANION GAP AGAP | 13 | 5 - 20 mmol/L | [facility] | | | | | LABORATORY | + + + + + | GLUCOSE | 97 | 65 - 99 mg/dL | [facility] | | | | | LABORATORY | + + + + + | BUN | 10 | 8 - 25 mg/dL | [facility] | | | | | LABORATORY | + + + + + | CREATININE | 0.5 | 0.50 - 1.00 mg/dL | [facility] | | | | | LABORATORY | + + + + + | BUN/CREAT | 20 | | [facility] | | | | | LABORATORY | + + + + + | CALCIUM | 8.4 (L) | 8.5 - 10.5 mg/dL | [facility] | | | | | LABORATORY | + + + + + | EGFR | >60Comment: GFR <60: | >60 mL/min/1.73m2 | [facility] | | | CHRONIC KIDNEY DISEASE, | | LABORATORY | | | IF FOUND OVER A 3 MONTH | | | | | PERIOD.GFR <15: KIDNEY | | | | | FAILURE.FOR | | | | | AMERICANS, MULTIPLY THE | | | | | CALCULATED GFR BY | | | | | 1.210.This eGFR is | | | | | calculated using the | | | | | MDRD IDMS traceable | | | | | equation.Testing | | | | | performed at [facility], [address] | | | | [facility], | | | | | [place] [address] | | | + + + + + + + | Specimen | + + | Blood | + + + + + + + | Performing | Address | City/State/Zipcode | Phone Number | | Organization | | | | + + + + + | [facility] | [address] | [place] [address] | [phone] | | LABORATORY | [place] | | | + + + + + POCT glucose (04/03/2018 8:45 PM) + + + + + | Component | Value | Ref Range | Performed At | + + + + + | GLUCOSE,POC SCREEN | 142 (H)Comment: Testing | 65 - 99 mg/dL | [facility] | | | performed at [facility];[address] | | | | | [address];[place] | | | | | [address] | | | + + + + + + + + + + | Performing | Address | City/State/Zipcode | Phone Number | | Organization | | | | + + + + + | [facility] | [address] | [place] [address] | | + + + + + POCT glucose (04/03/2018 4:35 PM) + + + + + | Component | Value | Ref Range | Performed At | + + + + + | GLUCOSE,POC SCREEN | 156 (H)Comment: Testing | 65 - 99 mg/dL | [facility] | | | performed at [facility];[address] | | | | | [facility];[place] | | | | | [address] | | | + + + + + + + + + + | Performing | Address | City/State/Zipcode | Phone Number | | Organization | | | | + + + + + | [facility] | [address] | [place] [address] | | + + + + + MRI pelvis without contrast (04/03/2018 4:20 PM) + + + | Impressions | Performed At | + + + | 1. Abnormal signal intensity involving the right gluteal | [facility] | | musculature which may reflect a muscular strain/partial tear of the | [facility]OLOGY | | gluteus medius and minimus. | | + + + + + + | Narrative | Performed At | + + + | STEF[facility] BHATIA 1950 MRI PELVIS WO CONTRAST 04/03/2018 | [facility] | | 4:20 PM HISTORY: Hip pain COMPARISON: Plain films, 04/03/2018 | RADIOLOGY | | TECHNIQUE: Imaging was performed on a 1.5 Katerina MRI | | | system. Multiplanar sequences according to a standard department | | | protocol were acquired without contrast. Dose: 0 mL. FINDINGS: | | | There is no sacral or pelvic insufficiency fracture present. | | | Sclerotic focus along the right iliac wing may reflect a benign bone | | | island. Additional sclerosis and signal void is seen along the lateral | | | margin of the right sacral wing. No femoral head or neck fracture is | | | present. There is no widening of the symphysis pubis. The bladder | | | is normal in appearance. Prominent edema and fluid signal intensity is | | | seen along the right gluteal musculature. Mild fluid signal intensity | | | is seen deep to the iliacus muscle bilaterally. No inguinal or pelvic | | | lymphadenopathy is present. The piriformis musculature is symmetric | | | in volume with normal signal intensity. | | + + + + + | Procedure Note | + + | Frank, Rad Results In - 04/03/2018 4:31 PM PDT [facility]1948[facility] | | PELVIS WO CONTRAST04/03/2018 4:20 PMHISTORY: Hip painCOMPARISON: Plain films, | | 04/03/2018TECHNIQUE:Imaging was performed on a 1.5 Katerina MRI system. Multiplanar | | sequences according to a standard department protocol were acquired without | | contrast.Dose: 0 mL.FINDINGS:There is no sacral or pelvic insufficiency fracture | | present. Sclerotic focus along the right iliac wing may reflect a benign bone island. | | Additional sclerosis and signal void is seen along the lateral margin of the right | | sacral wing. No femoral head or neck fracture is present. There is no widening of the | | symphysis pubis.The bladder is normal in appearance. Prominent edema and fluid signal | | intensity is seen along the right gluteal musculature. Mild fluid signal intensity is | | seen deep to the iliacus muscle bilaterally. No inguinal or pelvic lymphadenopathy is | | present. The piriformis musculature is symmetric in volume with normal signal | | intensity.IMPRESSION:1. Abnormal signal intensity involving the right gluteal | | musculature which may reflect a muscular strain/partial tear of the gluteus medius and | | minimus. | |There is no sacral or pelvic insufficiency fracture present. Sclerotic focus along the righ t iliac wing may reflect a benign bone island. Additional sclerosis and signal void is seen along the lateral margin of | |the right sacral wing. No femoral head or neck fracture is present. There is no widening of the symphysis pubis. | | | |The bladder is normal in appearance. Prominent edema and fluid signal intensity is seen kim ng the right gluteal musculature. Mild fluid signal intensity is seen deep to the iliacus mu scle bilaterally. No inguinal or | |pelvic lymphadenopathy is present. The piriformis musculature is symmetric in volume with n ormal signal intensity. | | | |IMPRESSION: | |1. Abnormal signal intensity involving the right gluteal musculature which may reflect a m uscular strain/partial tear of the gluteus medius and minimus. | | | | | + + + + + + + | Performing | Address | City/State/Zipcode | Phone Number | | Organization | | | | + + + + + | [facility] | [address] | [place] [id number] | | + + + + + MRI lumbar spine without contrast (04/03/2018 4:03 PM) + + + | Impressions | Performed At | + + + | 1. Annular fissuring of the disc is present at L5-S1. 2. Fat | [facility] | | attenuation lesion is noted at L4-L5 and L5-S1 extending caudally. | RADIOLOGY | | 3. Potential impingement of multiple exiting and transiting nerve | | | roots as discussed above. | | + + + + + + | Narrative | Performed At | + + + | [facility] 1950 67 years Female MRI LUMBAR SPINE | [facility] | | WO CONTRAST 04/03/2018 4:03 PM HISTORY: Back pain with | RADIOLOGY | | radiculopathy COMPARISON: None. TECHNIQUE: Imaging was | | | performed on a 1.5 [employer] MRI system. Multiplanar sequences | | | according to a standard department protocol were acquired without | | | contrast. FINDINGS: Alignment: There is 2.9 mm anterior | | | listhesis of L3 on L4. There is severe disc space narrowing at L4-L5 | | | and L5-S1. There is mild discogenic edema at L3-L4 and L5-S1. Fat | | | attenuation lesion is noted posteriorly along the lumbosacral | | | junction. Vertebra and vertebral marrow signal: Modic changes are | | | seen along the adjacent endplates of L4-L5 and L5-S1. Conus and | | | imaged portions of the caudal cord: Normal. Lumbar disc levels: | | | L1-L2: There is a broad-based disc protrusion contributing to mild | | | spinal canal and bilateral subarticular recess stenosis with mild | | | bilateral facet hypertrophy. L2-L3: A mild circumferential disc is | | | present with mild ligamentum flavum thickening bilaterally. There is | | | mild spinal canal and bilateral subarticular recess stenosis. The | | | neural foramen are minimally narrowed bilaterally. L3-L4: There is | | | a large circumferential disc with moderate bilateral facet | | | arthropathy and ligamentum flavum thickening. There is severe | | | bilateral subarticular recess stenosis with severe spinal canal | | | narrowing with potential impingement of the bilateral L4 nerve root. | | | There is mild right and moderate left neural foraminal stenosis. | | | L4-L5: There appears to be a fat attenuation lesion anteriorly within | | | the thecal sac measuring 11 x 6 mm image 23 series 6. A moderate | | | circumferential disc is noted with moderate right and mild left facet | | | hypertrophy. There is severe left and moderate right subarticular | | | recess narrowing with mild spinal canal stenosis. There is potential | | | impingement of the transiting left L5 nerve root. The neural foramen | | | are moderately narrowed bilaterally. L5-S1: There is a moderate | | | circumferential disc. Mild bilateral facet hypertrophy is present. | | | There is moderate bilateral subarticular recess narrowing with mild | | | spinal canal narrowing. Annular fissuring of the disc is present at | | | this level. There is severe bilateral neural foraminal narrowing with | | | a contour deformity of the exiting bilateral L5 nerve root that may | | | suggest potential impingement. | | + + + + + | Procedure Note | + + | Frank, Rad Results In - 04/03/2018 4:23 PM PDT [place] [id number] years | | FemaleMRI LUMBAR SPINE WO CONTRAST04/03/2018 4:03 PMHISTORY: Back pain with | | radiculopathyCOMPARISON: None.TECHNIQUE: Imaging was performed on a 1.5 Kater[employer] MRI | | system. Multiplanar sequences according to a standard department protocol were acquired | | without contrast.FINDINGS:Alignment: There is 2.9 mm anterior listhesis of L3 on L4. | | There is severe disc space narrowing at L4-L5 and L5-S1. There is mild discogenic edema | | at L3-L4 and L5-S1. Fat attenuation lesion is noted posteriorly along the lumbosacral | | junction.Vertebra and vertebral marrow signal: Modic changes are seen along the adjacent | | endplates of L4-L5 and L5-S1.Conus and imaged portions of the caudal cord: | | Normal.Lumbar disc levels:L1-L2: There is a broad-based disc protrusion contributing to | | mild spinal canal and bilateral subarticular recess stenosis with mild bilateral facet | | hypertrophy.L2-L3: A mild circumferential disc is present with mild ligamentum flavum | | thickening bilaterally. There is mild spinal canal and bilateral subarticular recess | | stenosis. The neural foramen are minimally narrowed bilaterally.L3-L4: There is a large | | circumferential disc with moderate bilateral facet arthropathy and ligamentum flavum | | thickening. There is severe bilateral subarticular recess stenosis with severe spinal | | canal narrowing with potential impingement of the bilateral L4 nerve root. There is mild | | right and moderate left neural foraminal stenosis.L4-L5: There appears to be a fat | | attenuation lesion anteriorly within the thecal sac measuring 11 x 6 mm image 23 series | | 6. A moderate circumferential disc is noted with moderate right and mild left facet | | hypertrophy. There is severe left and moderate right subarticular recess narrowing with | | mild spinal canal stenosis. There is potential impingement of the transiting left L5 | | nerve root. The neural foramen are moderately narrowed bilaterally.L5-S1: There is a | | moderate circumferential disc. Mild bilateral facet hypertrophy is present. There is | | moderate bilateral subarticular recess narrowing with mild spinal canal narrowing. | | Annular fissuring of the disc is present at this level. There is severe bilateral neural | | foraminal narrowing with a contour deformity of the exiting bilateral L5 nerve root | | that may suggest potential impingement.IMPRESSION:1. Annular fissuring of the disc is | | present at L5-S1.2. Fat attenuation lesion is noted at L4-L5 and L5-S1 extending | | caudally.3. Potential impingement of multiple exiting and transiting nerve roots as | | discussed above. | | | |L5-S1: There is a moderate circumferential disc. Mild bilateral facet hypertrophy is presen t. There is moderate bilateral subarticular recess narrowing with mild spinal canal narrowin g. Annular fissuring of the disc | |is present at this level. There is severe bilateral neural foraminal narrowing with a conto ur deformity of the exiting bilateral L5 nerve root that may suggest potential impingement. | | | |IMPRESSION: | |1. Annular fissuring of the disc is present at L5-S1. | |2. Fat attenuation lesion is noted at L4-L5 and L5-S1 extending caudally. | |3. Potential impingement of multiple exiting and transiting nerve roots as discussed above . | | | | | + + + + + + + | Performing | Address | City/State/Zipcode | Phone Number | | Organization | | | | + + + + + | [facility] | [address] | [place] [address] | | + + + + + POCT glucose (04/03/2018 11:33 AM) + + + + + | Component | Value | Ref Range | Performed At | + + + + + | GLUCOSE,POC SCREEN | 125 (H)Comment: Testing | 65 - 99 mg/dL | [facility] | | | performed at [facility] [place];[place], [place] | | | | | [address] | | | + + + + + + + + + + | Performing | Address | City/State/Zipcode | Phone Number | | Organization | | | | + + + + + | [facility] | [address] | [place] [address] | | + + + + + X-ray hip 2 view left (04/03/2018 10:27 AM) + + + | Impressions | Performed At | + + + | 1. No evidence of displaced fractures or dislocations left hip. | [facility] | | If the patient continues to be symptomatic or if occult fracture is | [facility]IOLOG[facility] | | clinically suspect; MRI could be considered more sensitive and | | | specific. 2. Degenerative changes of the lower lumbar spine | | | partially visualized. | | + + + + + + | Narrative | Performed At | + + + | [facility] XR HIP 2 VIEW LEFT 04/03/2018 10:27 AM | [facility] | | HISTORY: 67 years. Female. Left hip pain TECHNIQUE: XR HIP | RADIOLOGY | | 2 VIEW LEFT. Frontal view of the pelvis and hips with frog leg | | | lateral view of the left hip. Total of 2 images presented for | | | interpretation. COMPARISON: Similar study 03/30/2018 from an | | | outside facility FINDINGS: Degenerative changes of the lower | | | lumbar spine partially visualized. Sacroiliac joints are symmetric. | | | Bony pelvic ring appears intact. Mild degenerative changes of the hips | | | as evidenced by marginal acetabular osteophytes. The left femoral | | | head continues be rounded and smooth. No flattening or fragmentation. | | | Femoral neck and proximal femoral shaft as visualized shows no | | | fractures or dislocations. | | + + + + + | Procedure Note | + + | Nate Marie Results In - 04/03/2018 11:48 AM PDT STEF[facility] BHATIAXR HIP 2 VIEW | | LEFT04/03/2018 10:27 AMHISTORY:67 years. Female. Left hip painTECHNIQUE:XR HIP 2 VIEW | | LEFT. Frontal view of the pelvis and hips with frog leg lateral view of the left hip. | | Total of 2 images presented for interpretation.COMPARISON:Similar study 03/30/2018 from | | an outside facilityFINDINGS:Degenerative changes of the lower lumbar spine partially | | visualized. Sacroiliac joints are symmetric. Bony pelvic ring appears intact. Mild | | degenerative changes of the hips as evidenced by marginal acetabular osteophytes. The | | left femoral head continues be rounded and smooth. No flattening or fragmentation. | | Femoral neck and proximal femoral shaft as visualized shows no fractures or | | dislocations.IMPRESSION:1. No evidence of displaced fractures or dislocations left hip. | | If the patient continues to be symptomatic or if occult fracture is clinically suspect; | | MRI could be considered more sensitive and specific.2. Degenerative changes of the | | lower lumbar spine partially visualized.Electronically signed by Barron Fleming MD on | | 04/03/2018 11:43 AM | |Degenerative changes of the lower lumbar spine partially visualized. Sacroiliac joints are symmetric. Bony pelvic ring appears intact. Mild degenerative changes of the hips as evidenc ed by marginal acetabular | |osteophytes. The left femoral head continues be rounded and smooth. No flattening or fragme ntation. Femoral neck and proximal femoral shaft as visualized shows no fractures or disloca tions. | |IMPRESSION: | |1. No evidence of displaced fractures or dislocations left hip. If the patient continues t o be symptomatic or if occult fracture is clinically suspect; MRI could be considered more s ensitive and specific. | |2. Degenerative changes of the lower lumbar spine partially visualized. | | | | | | | | | + + + + + + + | Performing | Address | City/State/Zipcode | Phone Number | | Organization | | | | + + + + + | [facility] | [address] | [place] [address] | | + + + + + POCT glucose (04/03/2018 6:04 AM) + + + + + | Component | Value | Ref Range | Performed At | + + + + + | GLUCOSE,POC SCREEN | 159 (H)Comment: Testing | 65 - 99 mg/dL | [facility] | | | performed at [facility];[place] | | | | | [address] | | | + + + + + + + + + + | Performing | Address | City/State/Zipcode | Phone Number | | Organization | | | | + + + + + | [facility] | [address] | [place] [address] | | + + + + + CBC w/auto diff (reflex to manual) (04/03/2018 4:48 AM) + + + + + | Component | Value | Ref Range | Performed At | + + + + + | WBC | 5.07 | 3.80 - 11.00 K/uL | [facility] | | | | | LAB[facility] | + + + + + | RBC | 3.40 (L) | 3.70 - 5.10 M/uL | [facility] | | | | | LAB[facility]AT[facility] | + + + + + | HGB | 11.5 | 11.3 - 15.5 g/dL | [facility] | | | | | LAB[facility]ATORY | + + + + + | HCT | 31.4 (L) | 34.0 - 46.0 % | [facility] | | | | | LABORATORY | + + + + + | MCV | 92.4 | 80.0 - 100.0 fl | [facility] | | | | | LAB[facility]AT[facility] | + + + + + | MCH | 33.9 | 27.0 - 34.0 pg | [facility] | | | | | LAB[facility]AT[facility] | + + + + + | MCHC | 36.7 (H)Comment: RESULT | 32.0 - 35.5 g/dL | [facility] | | | VERIFIED | | LABORATORY | + + + + + | RDW SD | 44.6 | 37 - 53 fl | [facility] | | | | | LAB[facility]AT[facility] | + + + + + | PLT | 85 (L) | 150 - 400 K/uL | [facility] | | | | | LAB[facility]ATORY | + + + + + | MPV | 7.6 | fl | [facility] | | | | | LAB[facility] | + + + + + | DIFF TYPE | AUTOMATED | | [facility] | | | | | LAB[facility] | + + + + + | NEUTROPHILS | 60.03 | % | [facility] | | | | | [facility] | + + + + + | LYMPHOCYTES | 20.19 | % | [facility] | | | | | [facility] | + + + + + | MONOCYTES | 12.95 | % | [facility] | | | | | LAB[facility] | + + + + + | EOSINOPHILS | 5.65 | % | [facility] | | | | | [facility] | + + + + + | BASOPHILS | 1.18 | % | [facility] | | | | | LAB[facility] | + + + + + | NEUTROPHILS ABS | 3.05 | 1.90 - 7.40 K/uL | [facility] | | | | | [facility] | + + + + + | LYMPHOCYTES ABS | 1.03 | 1.00 - 3.90 K/uL | [facility] | | | | | LAB[facility]AT[facility] | + + + + + | MONOCYTES ABS | 0.66 | 0.00 - 0.80 K/uL | [facility] | | | | | LABORATORY | + + + + + | EOSINOPHILS ABS | 0.29 | 0.00 - 0.50 K/uL | [facility] | | | | | LABORATORY | + + + + + | BASOPHILS ABS | 0.06Comment: Testing | 0.00 - 0.10 K/uL | [facility] | | | performed at [facility], [address] | LABORATORY | | | [address], | | | | | [place] [address] | | | + + + + + + + | Specimen | + + | Blood | + + + + + + + | Performing | Address | City/State/Zipcode | Phone Number | | Organization | | | | + + + + + | [facility] | [address] | [place] [address] | [phone] | | LABORATORY | [address] | | | + + + + + Basic metabolic panel (04/03/2018 4:48 AM) + + + + + | Component | Value | Ref Range | Performed At | + + + + + | SODIUM | 140 | 135 - 145 mmol/L | [facility] | | | | | LABORATORY | + + + + + | POTASSIUM | 3.5 | 3.5 - 4.9 mmol/L | [facility] | | | | | LABORATORY | + + + + + | CHLORIDE | 104 | 99 - 109 mmol/L | [facility] | | | | | LABORATORY | + + + + + | CO2 | 24 | 23 - 32 mmol/L | [facility] | | | | | LABORATORY | + + + + + | ANION GAP AGAP | 16 | 5 - 20 mmol/L | [facility] | | | | | LAB[facility]ATORY | + + + + + | GLUCOSE | 144 (H) | 65 - 99 mg/dL | [facility] | | | | | LAB[facility]ATORY | + + + + + | BUN | 10 | 8 - 25 mg/dL | [facility] | | | | | LABORATORY | + + + + + | CREATININE | 0.5 | 0.50 - 1.00 mg/dL | [facility] | | | | | LABORATORY | + + + + + | BUN/CREAT | 20 | | [facility] | | | | | LABORATORY | + + + + + | CALCIUM | 8.1 (L) | 8.5 - 10.5 mg/dL | [facility] | | | | | LABORATORY | + + + + + | EGFR | >60Comment: GFR <60: | >60 mL/min/1.73m2 | [facility] | | | CHRONIC KIDNEY DISEASE, | | LABORATORY | | | IF FOUND OVER A 3 MONTH | | | | | PERIOD.GFR <15: KIDNEY | | | | | FAILURE.FOR | | | | | AMERICANS, MULTIPLY THE | | | | | CALCULATED GFR BY | | | | | 1.210.This eGFR is | | | | | calculated using the | | | | | MDRD IDMS traceable | | | | | equation.Testing | | | | | performed at [facility], [address] | | | | [facility], | | | | | [place] [address] | | | + + + + + + + | Specimen | + + | Blood | + + + + + + + | Performing | Address | City/State/Zipcode | Phone Number | | Organization | | | | + + + + + | [facility] | [address] | [place] [address] | [phone] | | LABORATORY | [address] | | | + + + + + POCT glucose (04/02/2018 8:48 PM) + + + + + | Component | Value | Ref Range | Performed At | + + + + + | GLUCOSE,POC SCREEN | 201 (H)Comment: Testing | 65 - 99 mg/dL | [facility] | | | performed at [facility];[place], [place] | | | | | [address] | | | + + + + + + + + + + | Performing | Address | City/State/Zipcode | Phone Number | | Organization | | | | + + + + + | [facility] | [address] | [place] [address] | | + + + + + POCT glucose (04/02/2018 5:17 PM) + + + + + | Component | Value | Ref Range | Performed At | + + + + + | GLUCOSE,POC SCREEN | 123 (H)Comment: Testing | 65 - 99 mg/dL | [facility] | | | performed at [facility];[address] | | | | [address];[place] | | | | | [address] | | | + + + + + + + + + + | Performing | Address | City/State/Zipcode | Phone Number | | Organization | | | | + + + + + | [facility] | [address] | [place] [address] | | + + + + + in this encounter Visit Diagnoses + + | Diagnosis | + + | Chronic ITP (idiopathic thrombocytopenia) (HCC) | + + | Immune thrombocytopenic purpura | + + | Essential hypertension | + + | Unspecified essential hypertension | + + | Falls frequently | + + | Personal history of fall | + + | Gait disorder | + + | Abnormality of gait | + + | H/O dizziness | + + | Personal history of other specified diseases | + + | SDH (subdural hematoma) (HCC) | + + | Subdural hemorrhage | + + | Subarachnoid hemorrhage following injury without open intracranial wound and with no | | loss of consciousness, sequela (HCC) | + + | Thrombocytopenia (HCC) | + + | Thrombocytopenia, unspecified | + + | Type 2 diabetes mellitus with complication, without long-term current use of insulin | | (HCC) | + + | Lumbar disc disease with radiculopathy | + + | Displacement of lumbar intervertebral disc without myelopathy | + + | Type 2 diabetes mellitus with complication (HCC) | + + | Asymmetric septal hypertrophy (HCC) | + + | Other hypertrophic cardiomyopathy | + + | Mitral regurgitation | + + | Mitral valve disorders | + + Admitting Diagnoses + + | Diagnosis | + + | Gait disorder | + + | Abnormality of gait | + + | Essential hypertension | + + | Unspecified essential hypertension | + + | Thrombocytopenia (HCC) | + + | Thrombocytopenia, unspecified | + + | Falls frequently | + + | Personal history of fall | + + | SDH (subdural hematoma) (HCC) | + + | Subdural hemorrhage | + + | Chronic ITP (idiopathic thrombocytopenia) (HCC) | + + | Immune thrombocytopenic purpura | + + | Lumbar disc disease with radiculopathy | + + | Displacement of lumbar intervertebral disc without myelopathy | + + | H/O dizziness | + + | Personal history of other specified diseases | + + | Thrombocytopenia, unspecified (HCC) | + + | Thrombocytopenia, unspecified | + + | Subarachnoid hemorrhage following injury without open intracranial wound and with no | | loss of consciousness, sequela (HCC) | + + | Type 2 diabetes mellitus with complication, without long-term current use of insulin | | (HCC) | + + Administered Medications + +--------+---------+------+------+------+ | Medication Order | MAR | Action | Dose | Rate | Site | | | Action | Date | | | | + +--------+---------+------+------+------+ + +---+ | acetaminophen (TYLENOL) | | | suppository 650 mg 650 mg, | | | Rectal, Every 6 Hours PRN, Mild | | | Pain (1-3), Fever, Starting Mon | | | 04/12/18 at 1932 | | + +---+ | | | + +---+ + +-------+ + +---+---+ | acetaminophen (TYLENOL) tablet | Given | | 1,000 mg | | | | 1,000 mg 1,000 mg, Oral, 3 Times | | 8 13:42 | | | | | Daily, First dose on 04/12/18 | | PDT | | | | | at 2200 | | | | | | + +-------+ + +---+---+ +-------+ + +---+---+ | Given | | 1,000 mg | | | | | 8 19:31 | | | | | | PDT | | | | +-------+ + +---+---+ | Given | | 1,000 mg | | | | | 8 05:33 | | | | | | PDT | | | | +-------+ + +---+---+ + +---+ | | | + +---+ | acetaminophen (TYLENOL) tablet | | | 325 mg 325 mg, Oral, Every 6 | | | Hours PRN, Mild Pain (1-3), | | | Fever, Starting 04/12/18 at | | | 1932 | | + +---+ | | | + +---+ + +-------+ +--------+---+---+ | acetaminophen (TYLENOL) tablet | Given | | 500 mg | | | | 500 mg 500 mg, Oral, 4 Times | | 8 08:50 | | | | | Daily, First dose on 04/04/18 | | PDT | | | | | at 1300 | | | | | | + +-------+ +--------+---+---+ +-------+ +--------+---+---+ | Given | | 500 mg | | | | | 8 11:58 | | | | | | PDT | | | | +-------+ +--------+---+---+ | Given | | 500 mg | | | | | 8 16:49 | | | | | | PDT | | | | +-------+ +--------+---+---+ +---+---+ | | | +---+---+ + +-------+ +--------+---+---+ | cholecalciferol (VITAMIN D-3) | Given | | 2,000 | | | | tablet 2,000 Units 2,000 Units, | | 8 08:50 | Units | | | | Oral, Daily, First dose on Sat | | PDT | | | | | 04/03/18 at 0900 | | | | | | + +-------+ +--------+---+---+ +-------+ +--------+---+---+ | Given | | 2,000 | | | | | 8 08:20 | Units | | | | | PDT | | | | +-------+ +--------+---+---+ | Given | | 2,000 | | | | | 8 09:04 | Units | | | | | PDT | | | | +-------+ +--------+---+---+ +---+---+ | | | +---+---+ + +-------+ +-----+---+-------+ | diclofenac (VOLTAREN) 1 % gel 2 | Given | | 2 g | | Other | | g 2 g, Topical, 4 Times Daily | | 8 08:20 | | | | | PRN, PAIN, Starting 04/03/18 | | PDT | | | | | at 0750 | | | | | | + +-------+ +-----+---+-------+ +-------+ +-----+---+-------+ | Given | | 2 g | | Other | | | 8 08:17 | | | | | | PDT | | | | +-------+ +-----+---+-------+ | Given | | 2 g | | Other | | | 8 11:55 | | | | | | PDT | | | | +-------+ +-----+---+-------+ +---+---+ | | | +---+---+ + +-------+ +--------+---+---+ | gabapentin (NEURONTIN) capsule | Given | | 100 mg | | | | 100 mg 100 mg, Oral, Daily, | | 8 08:20 | | | | | First dose on 04/13/18 at 0900 | | PDT | | | | + +-------+ +--------+---+---+ +-------+ +--------+---+---+ | Given | | 100 mg | | | | | 8 09:03 | | | | | | PDT | | | | +-------+ +--------+---+---+ +---+---+ | | | +---+---+ + +-------+ +--------+---+---+ | gabapentin (NEURONTIN) capsule | Given | | 200 mg | | | | 200 mg 200 mg, Oral, Nightly, | | 8 20:32 | | | | | First dose on Thu04/05/18 at 2200 | | PDT | | | | + +-------+ +--------+---+---+ +-------+ +--------+---+---+ | Given | | 200 mg | | | | | 8 20:58 | | | | | | PDT | | | | +-------+ +--------+---+---+ | Given | | 200 mg | | | | | 8 20:55 | | | | | | PDT | | | | +-------+ +--------+---+---+ +---+---+ | | | +---+---+ + +-------+ +--------+---+---+ | gabapentin (NEURONTIN) capsule | Given | | 300 mg | | | | 300 mg 300 mg, Oral, Nightly, | | 8 20:49 | | | | | First dose on Thu04/09/18 at 2100 | | PDT | | | | + +-------+ +--------+---+---+ +-------+ +--------+---+---+ | Given | | 300 mg | | | | | 8 20:59 | | | | | | PDT | | | | +-------+ +--------+---+---+ | Given | | 300 mg | | | | | 8 19:32 | | | | | | PDT | | | | +-------+ +--------+---+---+ +---+---+ | | | +---+---+ + +-------+ + +---+---+ | HYDROcodone-acetaminophen | Given | | 1 tablet | | | | (NORCO) 5-325 MG per tablet 1 | | 8 20:08 | | | | | tablet 1 tablet, Oral, Every 6 | | PDT | | | | | Hours PRN, Moderate Pain (4-6), | | | | | | | Starting 04/02/18 at 1523 | | | | | | + +-------+ + +---+---+ +-------+ + +---+---+ | Given | | 1 tablet | | | | | 8 06:49 | | | | | | PDT | | | | +-------+ + +---+---+ | Given | | 1 tablet | | | | | 8 14:10 | | | | | | PDT | | | | +-------+ + +---+---+ +---+---+ | | | +---+---+ + +-------+ + +---+---+ | insulin detemir (LEVEMIR) | Given | | 10 Units | | | | injection 10 Units 10 Units, | | 8 08:21 | | | | | Subcutaneous, 2 Times Daily, | | PDT | | | | | First dose on Thu04/02/18 at 2100 | | | | | | + +-------+ + +---+---+ +-------+ + +---+---+ | Given | | 10 Units | | | | | 8 19:31 | | | | | | PDT | | | | +-------+ + +---+---+ | Given | | 10 Units | | | | | 8 09:19 | | | | | | PDT | | | | +-------+ + +---+---+ +---+---+ | | | +---+---+ + +-------+ +---------+---+---+ | insulin lispro (human) | Given | | 1 Units | | | | (HUMALOG) injection 0-3 Units | | 8 20:59 | | | | | 0-3 Units, Subcutaneous, Nightly, | | PDT | | | | | First dose on Thu04/02/18 at | | | | | | | 2200 | | | | | | + +-------+ +---------+---+---+ +-------+ +---------+---+---+ | Given | | 1 Units | | | | | 8 20:49 | | | | | | PDT | | | | +-------+ +---------+---+---+ | Given | | 1 Units | | | | | 8 20:28 | | | | | | PDT | | | | +-------+ +---------+---+---+ +---+---+ | | | +---+---+ + +-------+ +---------+---+---+ | insulin lispro (human) | Given | | 1 Units | | | | (HUMALOG) injection 0-6 Units | | 8 16:51 | | | | | 0-6 Units, Subcutaneous, 3 Times | | PDT | | | | | Daily Before Meals, First dose on | | | | | | | 04/02/18 at 1630 | | | | | | + +-------+ +---------+---+---+ +-------+ +---------+---+---+ | Given | | 4 Units | | | | | 8 11:50 | | | | | | PDT | | | | +-------+ +---------+---+---+ | Given | | 2 Units | | | | | 8 11:58 | | | | | | PDT | | | | +-------+ +---------+---+---+ +---+---+ | | | +---+---+ + +-------+ + +---+---+ | levETIRAcetam (KEPPRA) tablet | Given | | 1,000 mg | | | | 1,000 mg 1,000 mg, Oral, 2 Times | | 8 08:50 | | | | | Daily, First dose on Thu04/02/18 | | PDT | | | | | at 2100, For 8 doses | | | | | | + +-------+ + +---+---+ +-------+ + +---+---+ | Given | | 1,000 mg | | | | | 8 20:11 | | | | | | PDT | | | | +-------+ + +---+---+ | Given | | 1,000 mg | | | | | 8 08:43 | | | | | | PDT | | | | +-------+ + +---+---+ +---+---+ | | | +---+---+ + +---------+ +---------+---+-------+ | Lidocaine (SALONPAS) 4 % patch | Patch | | 1 patch | | Other | | 1 patch 1 patch, Transdermal, | Applied | 8 08:50 | | | | | Daily, First dose on 04/04/18 | | PDT | | | | | at 1300 | | | | | | + +---------+ +---------+---+-------+ + + +---------+---+-------+ | Patch Applied | | 1 patch | | Other | | | 8 08:19 | | | | | | PDT | | | | + + +---------+---+-------+ | Patch Applied | | 1 patch | | Other | | | 8 09:03 | | | | | | PDT | | | | + + +---------+---+-------+ +---+---+ | | | +---+---+ + +-------+ +-------+---+---+ | lisinopril (ZESTRIL) tablet 10 | Given | | 10 mg | | | | mg 10 mg, Oral, Daily, First | | 8 08:50 | | | | | dose on 04/10/18 at 0900 | | PDT | | | | + +-------+ +-------+---+---+ +-------+ +-------+---+---+ | Given | | 10 mg | | | | | 8 08:20 | | | | | | PDT | | | | +-------+ +-------+---+---+ | Given | | 10 mg | | | | | 8 09:03 | | | | | | PDT | | | | +-------+ +-------+---+---+ +---+---+ | | | +---+---+ + +-------+ +------+---+---+ | lisinopril (ZESTRIL) tablet 5 | Given | | 5 mg | | | | mg 5 mg, Oral, Daily, First dose | | 8 08:46 | | | | | on 04/03/18 at 0900 | | PDT | | | | + +-------+ +------+---+---+ +-------+ +------+---+---+ | Given | | 5 mg | | | | | 8 08:32 | | | | | | PDT | | | | +-------+ +------+---+---+ | Given | | 5 mg | | | | | 8 08:20 | | | | | | PDT | | | | +-------+ +------+---+---+ +---+---+ | | | +---+---+ + +-------+ +------+---+---+ | lisinopril (ZESTRIL) tablet 5 | Given | | 5 mg | | | | mg 5 mg, Oral, Daily, First dose | | 8 09:19 | | | | | on Thu04/09/18 at 0930, For 1 | | PDT | | | | | dose | | | | | | + +-------+ +------+---+---+ +---+---+ | | | +---+---+ + +-------+ +--------+---+---+ | LORazepam (ATIVAN) injection | Given | | 0.5 mg | | | | 0.5 mg 0.5 mg, Intravenous, | | 8 17:28 | | | | | Once, 04/02/18 at 1800, For 1 | | PDT | | | | | dose | | | | | | + +-------+ +--------+---+---+ +---+---+ | | | +---+---+ + +-------+ +--------+---+---+ | LORazepam (ATIVAN) injection | Given | | 0.5 mg | | | | 0.5 mg 0.5 mg, Intravenous, | | 8 14:53 | | | | | Once, 04/03/18 at 1430, For 1 | | PDT | | | | | dose | | | | | | + +-------+ +--------+---+---+ +---+---+ | | | +---+---+ + +-------+ +--------+---+---+ | LORazepam (ATIVAN) tablet 0.5 | Given | | 0.5 mg | | | | mg 0.5 mg, Oral, Nightly PRN, | | 8 08:13 | | | | | Anxiety, Starting 04/02/18 at | | PDT | | | | | 1717 | | | | | | + +-------+ +--------+---+---+ +---+---+ | | | +---+---+ + +-------+ +--------+---+---+ | LORazepam (ATIVAN) tablet 0.5 | Given | | 0.5 mg | | | | mg 0.5 mg, Oral, Nightly PRN, | | 8 20:32 | | | | | Anxiety, Starting 04/03/18 at | | PDT | | | | | 1508 | | | | | | + +-------+ +--------+---+---+ +-------+ +--------+---+---+ | Given | | 0.5 mg | | | | | 8 08:14 | | | | | | PDT | | | | +-------+ +--------+---+---+ | Given | | 0.5 mg | | | | | 8 19:32 | | | | | | PDT | | | | +-------+ +--------+---+---+ +---+---+ | | | +---+---+ + +-------+ +--------+---+---+ | magnesium hydroxide (MILK OF | Given | | 30 mLs | | | | MAGNESIA) 400 MG/5ML suspension | | 8 08:50 | | | | | 30 mL 30 mL, Oral, Daily PRN, | | PDT | | | | | Constipation, Starting Sun | | | | | | | 04/11/18 at 1856 | | | | | | + +-------+ +--------+---+---+ +-------+ +--------+---+---+ | Given | | 30 mLs | | | | | 8 22:31 | | | | | | PDT | | | | +-------+ +--------+---+---+ +---+---+ | | | +---+---+ + +-------+ +-------+---+---+ | metoprolol (LOPRESSOR) tablet | Given | | 25 mg | | | | 25 mg 25 mg, Oral, 2 Times | | 8 08:20 | | | | | Daily, First dose on Thu04/02/18 | | PDT | | | | | at 2100 | | | | | | + +-------+ +-------+---+---+ +-------+ +-------+---+---+ | Given | | 25 mg | | | | | 8 19:32 | | | | | | PDT | | | | +-------+ +-------+---+---+ | Given | | 25 mg | | | | | 8 09:03 | | | | | | PDT | | | | +-------+ +-------+---+---+ +---+---+ | | | +---+---+ + +-------+ +------+---+---+ | polyethylene glycol (GLYCOLAX) | Given | | 17 g | | | | packet 17 g 17 g, Oral, Daily | | 8 14:53 | | | | | PRN, Constipation, Starting Lashay | | PDT | | | | | 04/08/18 at 1420 | | | | | | + +-------+ +------+---+---+ +-------+ +------+---+---+ | Given | | 17 g | | | | | 8 10:58 | | | | | | PDT | | | | +-------+ +------+---+---+ | Given | | 17 g | | | | | 8 08:17 | | | | | | PDT | | | | +-------+ +------+---+---+ +---+---+ | | | +---+---+ + +-------+ +--------+---+---+ | potassium chloride (K-DUR) CR | Given | | 20 mEq | | | | tablet 20 mEq 20 mEq, Oral, | | 8 16:27 | | | | | Once, 04/04/18 at 1600, For 1 | | PDT | | | | | dose | | | | | | + +-------+ +--------+---+---+ +---+---+ | | | +---+---+ + +-------+ +--------+---+---+ | potassium chloride (K-DUR) CR | Given | | 20 mEq | | | | tablet 20 mEq 20 mEq, Oral, | | 8 14:12 | | | | | Once, 04/05/18 at 1330, For 1 | | PDT | | | | | dose | | | | | | + +-------+ +--------+---+---+ +---+---+ | | | +---+---+ + +---------+ +---------+---+ + | scopolamine (TRANSDERM-SCOP) 1 | Patch | | 1 patch | | Behind | | mg/3days patch 1 patch 1 patch, | Applied | 8 18:23 | | | Left Ear | | Transdermal, Every 72 Hours, | | PDT | | | | | First dose on e 04/06/18 at 1630 | | | | | | + +---------+ +---------+---+ + + + +---------+---+---------+ | Patch Applied | | 1 patch | | Behind | | | 8 16:51 | | | Right | | | PDT | | | Ear | + + +---------+---+---------+ | Patch Applied | | 1 patch | | Behind | | | 8 20:50 | | | Right | | | PDT | | | Ear | + + +---------+---+---------+ +---+---+ | | | +---+---+ + +-------+ +-------+---+---+ | sitaGLIPtin (JANUVIA) tablet 50 | Given | | 50 mg | | | | mg 50 mg, Oral, Daily, First | | 8 08:50 | | | | | dose on 04/03/18 at 0900 | | PDT | | | | + +-------+ +-------+---+---+ +-------+ +-------+---+---+ | Given | | 50 mg | | | | | 8 08:20 | | | | | | PDT | | | | +-------+ +-------+---+---+ | Given | | 50 mg | | | | | 8 09:03 | | | | | | PDT | | | | +-------+ +-------+---+---+ +---+---+ | | | +---+---+ + +-------+ +--------+---+---+ | traMADol (ULTRAM) tablet 100 mg | Given | | 100 mg | | | | 100 mg, Oral, Every 6 Hours | | 8 08:20 | | | | | PRN, Severe Pain (7-10), Starting | | PDT | | | | | 04/04/18 at 1611 | | | | | | + +-------+ +--------+---+---+ +-------+ +--------+---+---+ | Given | | 100 mg | | | | | 8 13:41 | | | | | | PDT | | | | +-------+ +--------+---+---+ | Given | | 100 mg | | | | | 8 19:31 | | | | | | PDT | | | | +-------+ +--------+---+---+ +---+---+ | | | +---+---+ + +-------+ +-------+---+---+ | traMADol (ULTRAM) tablet 50 mg | Given | | 50 mg | | | | 50 mg, Oral, Every 6 Hours PRN, | | 8 06:07 | | | | | Moderate Pain (4-6), Starting Sun | | PDT | | | | | 04/04/18 at 1610 | | | | | | + +-------+ +-------+---+---+ +-------+ +-------+---+---+ | Given | | 50 mg | | | | | 8 22:08 | | | | | | PDT | | | | +-------+ +-------+---+---+ | Given | | 50 mg | | | | | 8 01:15 | | | | | | PDT | | | | +-------+ +-------+---+---+ +---+---+ | | | +---+---+ in this encounter
--- OUTSIDE RECORDS SUMMARY | ~2018-05-20 | XMS | Clinical Summary ---
Demographics + + + | Address | [address] | | | [place] [address] | + + + | Home Phone | | + + + | Preferred Language | Unknown | + + + | Marital Status | | + + + | Jew Affiliation | [id number] | + + + | Race | Unknown | + + + | Ethnic Group | Unknown | + + + Author + + + | Author | [facility] | + + + | Organization | [facility] | + + + | Address | Unknown | + + + | Phone | Unavailable | + + + Support + + + + + | Name | Relationship | Address | Phone | + + + + + | Stefani Bhatia | ELSY | [address] | | | [place] | | [place] | | | | | [phone] | | + + + + + Care Team Providers + +------+ + | Care Tests Superintendent Name | Role | Phone | + +------+ + | Vince Cintron DO | PP | | + +------+ + Allergies + + + + + + | Active Allergy | Reactions | Severity | Noted | Comments | | | | | Date | | + + + + + + | Shellfish Allergy | GI Distress | Low | 03/30/20 | | | | | | 18 | | + + + + + + Current Medications + + +---------+---------+------+------+-------+ | Prescription | Sig. | Disp. | Refills | Star | End | Statu | | | | | | t | Date | s | | | | | | Date | | | + + +---------+---------+------+------+-------+ | Cholecalciferol | Take 2,000 Units by | | | 03/17 | 03/17 | Activ | | 2000 units TABS | mouth daily. | | | 03/05 | 03/05 | e | | | | | | 18 | 19 | | + + +---------+---------+------+------+-------+ | metoprolol | Take 1 tablet by | 60 | 11 | 03/17 | 03/17 | Activ | | (LOPRESSOR) 25 MG | mouth 2 (two) times | tablet | | 03/05 | 03/05 | e | | tablet | daily. | | | 18 | 19 | | + + +---------+---------+------+------+-------+ | phosphorus (K PHOS | Take 1 tablet by | 30 | 11 | 03/17 | 03/17 | Activ | | NEUTRAL) tablet | mouth daily. | tablet | | 03/05 | 03/05 | e | | | | | | 18 | 19 | | + + +---------+---------+------+------+-------+ | gabapentin | Take 1 capsule by | 30 | 0 | 08/ | 03/19 | Activ | | (NEURONTIN) 100 MG | mouth daily. | capsule | | 0/20 | 0/20 | e | | capsule | | | | 18 | 19 | | + + +---------+---------+------+------+-------+ | gabapentin | Take 1 capsule by | 30 | 0 | 08/2 | 03/18 | Activ | | (NEURONTIN) 300 MG | mouth nightly. | capsule | | 05/06 | 05/06 | e | | capsule | | | | 18 | 19 | | + + +---------+---------+------+------+-------+ | lisinopril | Take 1 tablet by | 30 | 0 | 08/3 | 08/3 | Activ | | (ZESTRIL) 10 MG | mouth daily. | tablet | | 0/20 | 0/20 | e | | tablet | | | | 18 | 19 | | + + +---------+---------+------+------+-------+ | scopolamine | Place 1 patch onto | 10 | 0 | 08/2 | | Activ | | (TRANSDERM-SCOP) 1 | the skin every third | patch | | 9/20 | | e | | mg/3days patch | day. Apply to | | | 18 | | | | | hairless area of | | | | | | | | skin behind the ear. | | | | | | + + +---------+---------+------+------+-------+ | traMADol (ULTRAM) | Take 2 tablets by | 60 | 0 | 08/2 | | Activ | | 50 MG tablet | mouth every 8 | tablet | | 9/20 | | e | | | (eight) hours as | | | 18 | | | | | needed. | | | | | | + + +---------+---------+------+------+-------+ | sitagliptan | Take 1 tablet by | 30 | 0 | 08/2 | | Activ | | (JANUVIA) 100 MG | mouth daily. | tablet | | 9/20 | | e | | tablet | | | | 18 | | | + + +---------+---------+------+------+-------+ Active Problems + + + | Problem | Noted Date | + + + | Asymmetric septal hypertrophy (HCC) | 04/11/2018 | + + + | Mitral regurgitation | 04/11/2018 | + + + | Lumbar disc disease with radiculopathy | 04/03/2018 | + + + | Gait disorder | 04/02/2018 | + + + | Subarachnoid hemorrhage following injury without open | 04/02/2018 | | intracranial wound and with no loss of consciousness (HCC) | | + + + | Chronic ITP (idiopathic thrombocytopenia) (HCC) | 04/01/2018 | + + + | Type 2 diabetes mellitus with complication (HCC) | 04/01/2018 | + + + | Essential hypertension | 04/01/2018 | + + + | H/O dizziness | 04/01/2018 | + + + | Falls frequently | 03/30/2018 | + + + | SDH (subdural hematoma) (HCC) | 03/30/2018 | + + + | Metabolic encephalopathy | 03/30/2018 | + + + | Thrombocytopenia (HCC) | 03/30/2018 | + + + Encounters +--------+ + + + + | Date | Type | Specialty | Care Team | Description | +--------+ + + + + | 04/03/ | Procedure | | | | | 2017 | Pass | | | | +--------+ + + + + | 04/03/ | Procedure | | | | | 2017 | Pass | | | | +--------+ + + + + | 04/02/ | Hospital | | Karina Julien, | Chronic ITP | | 2018 - | Encounter | | Wing Tyshawn Mejía MD | (idiopathic | | | | | | thrombocytopenia) | | 04/14/ | | | | (HCC); Essential | | 2018 | | | | hypertension; Falls | | | | | | frequently; Gait | | | | | | disorder; H/O | | | | | | dizziness; SDH | | | | | | (subdural hematoma) | | | | | | (HCC); Subarachnoid | | | | | | hemorrhage following | | | | | | injury without open | | | | | | intracranial wound | | | | | | and with no loss of | | | | | | consciousness, | | | | | | sequela (HCC); | | | | | | Thrombocytopenia | | | | | | (HCC); Type 2 | | | | | | diabetes mellitus | | | | | | with complication, | | | | | | without long-term | | | | | | current use of | | | | | | insulin ([facility]); | | | | | | Lumbar disc disease | | | | | | with radiculopathy | +--------+ + + + + +---+ + | | Discharge | | | Summaries | | | - Leon, | | | Wing Tyshawn MD | | | - | | | 04/14/2018 | | | 3:00 PM | | | PDT | | | Formatting | | | of this | | | note may be | | | different | | | from the | | | original.[facility] | | | Service: | | | Physical | | | Medicine & | | | RehabDischa | | | rge | | | SummaryDate | | | of | | | Admission: | | | | | | 04/02/2018Da | | | te of | | | Discharge: | | | | | | 04/14/2018Di | | | scharge | | | Provider: | | | Wing Jasso | | | Leon, | | | MDTreatment | | | Team: | | | Admitting | | | Provider: | | | Karina | | | Wily | | | MDDischarge | | | Diagnoses: | | | Principal | | | Problem: | | | Subarachnoi | | | d | | | hemorrhage | | | following | | | injury | | | without | | | open | | | intracrania | | | l wound and | | | with no | | | loss of | | | consciousne | | | ss | | | (HCC)Active | | | Problems: | | | Falls | | | frequently | | | SDH | | | (subdural | | | hematoma) | | | (HCC) | | | Thrombocyto | | | penia (HCC) | | | Chronic | | | ITP | | | (idiopathic | | | | | | thrombocyto | | | penia) | | | (HCC) Type | | | 2 diabetes | | | mellitus | | | with | | | complicatio | | | n (HCC) | | | Essential | | | hypertensio | | | n Gait | | | disorder | | | Lumbar disc | | | disease | | | with | | | radiculopat | | | hy | | | Asymmetric | | | septal | | | hypertrophy | | | (HCC) | | | Mitral | | | regurgitati | | | onResolved | | | Problems: | | | * No | | | resolved | | | hospital | | | problems. | | | *Final | | | Diagnoses: | | | CVA | | | Procedures: | | | * No | | | surgery | | | found | | | *Significan | | | t | | | Diagnostic | | | Studies: | | | BRIEF | | | HISTORY OF | | | PRESENTATIO | | | N: | | | The patient | | | is a 67 | | | y.o. female | | | with | | | significant | | | past | | | medical | | | history of | | | chronic | | | thrombocyto | | | penia(ITP), | | | Diabetes, | | | HTN, | | | anxiety, | | | and | | | depression | | | who | | | presents | | | with a 2 | | | week hx of | | | frequent | | | falls, | | | confusion, | | | Left | | | Subdural | | | Hematoma. | | | The patient | | | reports | | | chronic low | | | Platelets | | | and has | | | been seeing | | | an | | | Oncologist | | | in | | | [place]. | | | She is a | | | poor | | | historian | | | but does | | | report | | | falls. She | | | could not | | | figure out | | | what | | | happened | | | but implied | | | that her | | | dogs might | | | have caused | | | her falls. 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 | | | Pt unsure | | | when the | | | falls | | | started but | | | it might | | | have been | | | as far back | | | as Joyce | | | of this | | | year. It | | | sounds like | | | there may | | | have been | | | an | | | evaluation | | | in [place] | | | after a | | | syncope | | | episode but | | | w/u was | | | negative. | | | Per the | | | records the | | | pt had 2 | | | falls with | | | head | | | injuries in | | | the last 2 | | | weeks. | | | When asked | | | about the | | | bruises on | | | the back of | | | her neck | | | she is | | | unsure how | | | these | | | happened. | | | All that | | | she can | | | recall | | | about the | | | falls is | | | that she | | | was out | | | with the | | | animals. I | | | was told | | | that the pt | | | had c/o | | | Hip pain | | | but when I | | | examined pt | | | she | | | complained | | | of | | | bilateral | | | leg pain | | | from her | | | thigh down | | | to her | | | shins.HOSPI | | | AVINASH COURSE: | | | The | | | patient has | | | been | | | afebrile, | | | vital signs | | | have been | | | stable. | | | She is | | | eating well | | | and | | | sleeping | | | adequately. | | | She is | | | continent | | | of bowel | | | and | | | bladder. | | | Patient | | | denied | | | pain. The | | | patient has | | | done well | | | with IPR. | | | By | | | discharge, | | | her | | | functional | | | status is | | | as | | | follows:Act | | | ivities of | | | Daily | | | Living: | | | Reita is | | | completing | | | her | | | eating/feed | | | ing | | | independent | | | ly. She is | | | completing | | | her | | | grooming | | | tasks | | | standing at | | | the sink | | | with | | | supervision | | | . She is | | | completing | | | bathing | | | tasks with | | | assist for | | | obtaining | | | items, | | | opening | | | containers | | | and with | | | supervision | | | . She asks | | | for | | | assistance | | | with upper | | | body | | | dressing | | | but is able | | | to | | | complete it | | | | | | independent | | | ly/supervis | | | ed. Lower | | | body | | | dressing | | | she is also | | | able to | | | complete | | | independent | | | ly/supervis | | | ed but | | | requests | | | assistance | | | at times. | | | She is | | | toileting | | | with | | | modified | | | independenc | | | e, using | | | the grab | | | bars and | | | verbal | | | cues. | | | Functiona | | | l | | | Transfers: | | | She is | | | performing | | | in/out of | | | bed | | | mobility | | | with | | | modified | | | independent | | | assist. | | | She is | | | performing | | | sit to | | | stand and | | | stand pivot | | | transfers | | | with | | | minimal to | | | stand by | | | assist. | | | She can | | | require | | | maximum | | | verbal, | | | visual, and | | | manual | | | cues to | | | sequence | | | transfers. | | | Patient | | | appears | | | limited in | | | participati | | | on in | | | therapy due | | | to limited | | | attention | | | span and | | | memory. She | | | appears | | | very flat | | | in her | | | affect. She | | | is | | | performing | | | toilet and | | | shower | | | transfers | | | with | | | minimal | | | assist to | | | supervision | | | using grab | | | bars. | | | She | | | completes | | | her toilet | | | and shower | | | transfers | | | with | | | supervision | | | for | | | safety. | | | Mobility: | | | She is | | | walking | | | bouts of | | | 200-500+ft | | | with and | | | without a | | | seated | | | walker with | | | stand by | | | to modified | | | | | | independent | | | assist. | | | She | | | verbalizes | | | that she | | | does not | | | notice less | | | back pain | | | when she | | | walks with | | | the walker | | | vs. wthout | | | the walker. | | | Though, it | | | should be | | | noted that | | | the patient | | | tends to | | | walk with | | | her left | | | hand | | | rubbing her | | | back when | | | she is | | | walking | | | without an | | | assistive | | | device and | | | she walks | | | significant | | | ly faster | | | with a | | | seated | | | walker | | | (0.47m/s | | | without | | | walker vs. | | | 0.75m/s | | | with | | | walker). | | | Patient | | | verbalizes | | | occasional | | | low back | | | pain and | | | Left > | | | right lower | | | extremity | | | radicular | | | nerve pain | | | down to her | | | calf and | | | toes. | | | Imaging | | | indicates | | | annular | | | fissuring | | | of the disc | | | at L5-S1. | | | Therapy | | | has | | | educated | | | patient to | | | avoid | | | bending, | | | lifting, | | | and | | | twisting | | | per | | | conservativ | | | e back | | | precautions | | | . Therapy | | | will | | | continue to | | | work on | | | balance, | | | functional | | | endurance, | | | fall | | | prevention | | | education, | | | leg | | | strengtheni | | | ng, and | | | overall | | | safety | | | education | | | prior to | | | discharge. | | | Fall | | | Risk: | | | Tinetti | | | Balance | | | Assessment | | | on 04/03; | | | timed up | | | and go | | | 15.19 | | | seconds on | | | 04/12 Cogni | | | tion/Commun | | | ication: | | | Speech | | | therapy has | | | been | | | targeting | | | increasing | | | Reita's | | | attention | | | skills. She | | | benefits | | | from having | | | reminders | | | about | | | looking at | | | papers one | | | line at a | | | time, going | | | top to | | | bottom, | | | left to | | | right. When | | | she is | | | having | | | conversatio | | | n, it is | | | difficult | | | for her to | | | take turns | | | with the | | | conversatio | | | nal | | | partner, as | | | she likes | | | to continue | | | talking | | | non-stop, | | | but enjoys | | | answering | | | questions | | | asked of | | | her. She is | | | 70% | | | accurate | | | responding | | | to simple | | | questions | | | related to | | | her | | | whiteboard | | | in her | | | room.The | | | Cognitive | | | Linguistic | | | Quick Test | | | was | | | completed | | | to measure | | | her | | | thinking | | | skills | | | compared to | | | other | | | adults her | | | age. In | | | sessions | | | and in | | | standardize | | | d testing, | | | she | | | exhibits | | | severe | | | deficits in | | | paying | | | attention, | | | remembering | | | | | | information | | | required | | | of her, | | | problem-kerri | | | ving, and | | | scanning/pr | | | ocessing | | | information | | | she sees. | | | She has | | | moderate | | | deficits in | | | language. | | | She is at | | | risk for | | | not knowing | | | how to | | | keep | | | herself | | | safe and | | | problem-kerri | | | ving her | | | way out of | | | a situation | | | where she | | | could be | | | hurt. She | | | is at risk | | | for making | | | errors in | | | taking | | | medications | | | , paying | | | bills, and | | | transportin | | | g herself. | | | It is | | | highly | | | recommended | | | that she | | | receives | | | 24/7 | | | supervision | | | upon | | | discharge. | | | Swallowin | | | g: Reita | | | has made | | | progress in | | | her diet | | | tolerance, | | | upgraded | | | now to | | | dysphagia | | | advanced | | | for her | | | solid | | | foods, | | | meaning | | | that her | | | food comes | | | up cut-up | | | and she | | | isn't | | | eating | | | foods that | | | are very | | | dry or | | | crunchy. | | | She states | | | that she | | | appreciates | | | that the | | | food is | | | cut-up so | | | she doesn't | | | have to do | | | it and | | | that it's a | | | little | | | soft as she | | | doesn't | | | have her | | | dental | | | implants | | | currently. | | | No | | | past | | | medical | | | history on | | | file.No | | | past | | | surgical | | | history on | | | file.Allerg | | | ies | | | Allergen | | | Reactions | | | | | | Shellfish | | | Allergy GI | | | Distress | | | No | | | prescriptio | | | ns prior to | | | admission. | | | DISCHARGE | | | EXAMVital | | | Signs:BP | | | 157/77 (BP | | | Location: | | | Right | | | forearm) | | | | Pulse 76 | | | | Temp 98.3 | | | F (36.8 | | | C) (Oral) | | | | Resp 18 | | | | Ht | | | 1.676 m (5' | | | 6") | Wt | | | 68.9 kg | | | (152 lb) | | | | SpO2 97% | | | | | | | Breastfeedi | | | ng? No | | | | BMI 24.53 | | | kg/m | | | Physical | | | ExamGEN: | | | Agitated | | | but | | | cooperative | | | . RESP: | | | Lungs | | | Clear to A | | | & P. No | | | wheezing. | | | CV: No | | | Murmur, | | | Gallop, | | | Carotid | | | Bruit, | | | Pedal | | | Edema. ABD | | | : + BS. | | | Nondistende | | | d. | | | Nontender. | | | No HSM. | | | No rebound. | | | SKIN: | | | Bruising on | | | neck - | | | linear. | | | EXT: | | | Calves | | | Nontender. | | | Negative | | | Gilberto's | | | sign.Shins | | | non tender. | | | Thigh non | | | tender. | | | NEURO: | | | A&O x to | | | name and | | | year but | | | cannot tell | | | me month. | | | She knows | | | she is in | | | the | | | hospital | | | but does | | | not know | | | city. | | | Pupils | | | equal. CN | | | 2 - 12 | | | grossly | | | normal. | | | Rambling | | | speech. Pt | | | does not | | | understand | | | directions | | | (I asked | | | her to look | | | at light | | | and she | | | looked out | | | the window. | | | Moving | | | all 4 | | | extremities | | | . Ataxia. | | | | | | Sensations | | | of light | | | touch and | | | propriocept | | | ion intact | | | in all 4 | | | extremities | | | . First Aid Officer | | | weaker on | | | right. | | | DATA | | | PLANthe | | | patient is | | | ready for | | | discharge | | | home.Dispos | | | ition: | | | HomeConditi | | | on: | | | GoodCode | | | Status: | | | PriorNo | | | discharge | | | procedures | | | on | | | file.Follow | | | up:Vince | | | [place], | | | [address] | | | [id number] | | | [place] | | | [phone] | | | [phone] | | | w upPlease | | | follow-up | | | with your | | | primary | | | care | | | provider | | | within 1-2 | | | weeks after | | | | | | discharge.N | | | eurologyFol | | | low | | | upPlease | | | follow-up | | | with a | | | neurologist | | | .[facility] | | | Physical | | | [id number] | | | | | | [place] | | | [place] | | | [phone] | | | [phone] | | | w upA | | | referral | | | was made to | | | [facility] | [facility] | [facility] | | | Therapy | | | department | | | for | | | physical, | | | occupationa | | | l and | | | speech | | | therapy. | | | If you do | | | not hear | | | from them | | | within | | | 24/48 hours | | | after | | | discharge, | | | please call | | | them. | | | Medication | | | List START | | | taking | | | these | | | medications | | | * | | | gabapentin | | | 300 MG | | | capsuleQTY: | | | 30 | | | capsuleRefi | | | lls: | | | 0Commonly | | | known as: | | | NEURONTINTa | | | ke 1 | | | capsule by | | | mouth | | | nightly. * | | | gabapentin | | | 100 MG | | | capsuleQTY: | | | 30 | | | capsuleRefi | | | lls: | | | 0Commonly | | | known as: | | | NEURONTINTa | | | ke 1 | | | capsule by | | | mouth | | | daily. | | | scopolamine | | | 1 mg/3days | | | patchQTY: | | | 10 | | | patchRefill | | | s: | | | 0Commonly | | | known as: | | | TRANSDERM-S | | | COPPlace 1 | | | patch onto | | | the skin | | | every third | | | day. Apply | | | to | | | hairless | | | area of | | | skin behind | | | the ear. | | | traMADol 50 | | | MG | | | tabletQTY: | | | 60 | | | tabletRefil | | | ls: | | | 0Commonly | | | known as: | | | ULTRAMTake | | | 2 tablets | | | by mouth | | | every 8 | | | (eight) | | | hours as | | | needed. * | | | This list | | | has 2 | | | medication( | | | s) that are | | | the same | | | as other | | | medications | | | prescribed | | | for you. | | | Read the | | | directions | | | carefully, | | | and ask | | | your doctor | | | or other | | | care | | | provider to | | | review | | | them with | | | you. | | | CHANGE how | | | you take | | | these | | | medications | | | | | | lisinopril | | | 10 MG | | | tabletQTY: | | | 30 | | | tabletRefil | | | ls: | | | 0Commonly | | | known as: | | | ZESTRILTake | | | 1 tablet | | | by mouth | | | daily.What | | | changed: | | | medication | | | strength | | | how much to | | | take | | | CONTINUE | | | taking | | | these | | | medications | | | | | | Cholecalcif | | | haley 2000 | | | units | | | TabsRefills | | | : 0Take | | | 2,000 Units | | | by mouth | | | daily. | | | metoprolol | | | 25 MG | | | tabletQTY: | | | 60 | | | tabletRefil | | | ls: | | | 11Commonly | | | known as: | | | LOPRESSORTa | | | ke 1 tablet | | | by mouth 2 | | | (two) | | | times | | | daily. | | | phosphorus | | | 250 MG | | | tabletQTY: | | | 30 | | | tabletRefil | | | ls: | | | 11Commonly | | | known as: | | | K PHOS | | | NEUTRALTake | | | 1 tablet | | | by mouth | | | daily. | | | sitagliptan | | | 100 MG | | | tabletQTY: | | | 30 | | | tabletRefil | | | ls: | | | 0Commonly | | | known as: | | | JANUVIATake | | | 1 tablet | | | by mouth | | | daily. You | | | might also | | | be taking | | | other | | | medications | | | not listed | | | above. If | | | you have | | | questions | | | about any | | | of your | | | other | | | medications | | | , talk to | | | the person | | | who | | | prescribed | | | them or | | | your | | | Primary | | | Care | | | Provider. | | | STOP | | | taking | | | these | | | medications | | | | | | acetaminoph | | | en 325 MG | | | tabletCommo | | | nly known | | | as: | | | TYLENOL | | | acetaminoph | | | en 650 MG | | | suppository | | | Commonly | | | known as: | | | TYLENOL | | | insulin | | | detemir 100 | | | UNIT/ML | | | injectionCo | | | mmonly | | | known as: | | | LEVEMIR | | | insulin | | | lispro | | | (human) 100 | | | UNIT/ML | | | injectionCo | | | mmonly | | | known as: | | | HUMALOG | | | levetiracet | | | am 1000 MG | | | tabletCommo | | | nly known | | | as: KEPPRA | | | | | | ondansetron | | | 4 MG | | | disintegrat | | | ing | | | tabletCommo | | | nly known | | | as: | | | ZOFRAN-ODT | | | Where to | | | Get Your | | | Medications | | | You can | | | get these | | | medications | | | from any | | | pharmacy | | | Bring a | | | paper | | | prescriptio | | | n for each | | | of these | | | medications | | | | | | gabapentin | | | 100 MG | | | capsule | | | gabapentin | | | 300 MG | | | capsule | | | lisinopril | | | 10 MG | | | tablet | | | scopolamine | | | 1 mg/3days | | | patch | | | sitagliptan | | | 100 MG | | | tablet | | | traMADol 50 | | | MG tablet | | | Discharge | | | took 60 | | | minutes, to | | | include | | | final | | | examination | | | , | | | discussion | | | of | | | admission, | | | and | | | preparation | | | of | | | prescriptio | | | ns, | | | instruction | | | s for | | | on-going | | | care, | | | follow-up | | | and | | | documentati | | | on of | | | discharge | | | summary.Win | | | g Louisa Quintero, | | | 04/15/2018 | +---+ + +--------+ +---+ + + | 03/31/ | Orders Only | | Jennifer Paulson, | | | 2017 | | | MD | | +--------+ +---+ + + | 03/30/ | Hospital | | Carlos Schreiber, | Thrombocytopenia | | 2018 - | Encounter | | Robe Dougherty | ([facility]) (Primary Dx); | | | | | [place] | Pain; Chronic ITP | | 04/02/ | | | | (idiopathic | | 2017 | | | | thrombocytopenia) | | | | | | ([facility]) | +--------+ +---+ + + +---+ + | | Discharge | | | Summaries | | | - Phyllis | | | Robe | | | MD [place] - | | | 04/02/2018 | | | 8:36 AM | | | PDT | | | Formatting | | | of this | | | note may be | | | different | | | from the | | | original.[facility] | | | ce: | | | Hospitalist | | | Physician | | | Discharge | | | Summary Pt: | | | Reita | | | Tarsha | | | Bhatia | | | AGE/SEX: 67 | | | y.o. | | | female | | | MRN: | | | [id number] | | | OM: | | | [id number] | | | PCP: VINCE | | | WALKER | | | : | | | 1950 | | | Admit | | | date: | | | 03/30/2018Di | | | scharge | | | date and | | | time: | | | 04/02/18 | | | Admitting | | | Physician: | | | Carlos E | | | Abdoul, | | | Discharge | | | Physician: | | | Robe K | | | Piryani, | | | MDConsults: | | | Dr. Paulson | | | Dr. 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 | | | *Secondary | | | Discharge | | | Diagnoses: | | | Vitamin D | | | deficiency. 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 | | | Acute | | | subdural | | | hemorrhage | | | noted along | | | the left | | | tentorium. | | | Focus of | | | acute | | | subarachnoi | | | d | | | hemorrhage | | | along the | | | left | | | temporal | | | lobe. 2. | | | No | | | hemodynamic | | | ally | | | significant | | | narrowing | | | seen | | | involving | | | the major | | | intracrania | | | l arteries | | | of the | | | anterior | | | and | | | posterior | | | circulation | | | . No | | | aneurysm | | | seen. 3. | | | No | | | hemodynamic | | | ally | | | significant | | | narrowing | | | seen | | | involving | | | the major | | | extracrania | | | l arteries | | | of the | | | anterior | | | and | | | posterior | | | circulation | | | . Less than | | | 50% | | | narrowing | | | of the | | | internal | | | carotid | | | arteries | | | utilizing | | | NASCET | | | criteria. | | | 4. | | | Multiple | | | thyroid | | | nodules. | | | These can | | | be better | | | assessed | | | with | | | thyroid | | | ultrasound | | | examination | | | if | | | clinically | | | warranted. | | | Electronica | | | lly signed | | | by Oli | | | Preet | | | Habbu, MD | | | on | | | 03/30/2018 | | | 11:32 | | | PMEcho | | | Cardiac | | | Adult | | | CompleteRes | | | ult Date: | | | . | | | Overall | | | left | | | ventricular | | | systolic | | | function is | | | normal | | | with, an EF | | | between 60 | | | - 65 %. 2. | | | Moderate | | | asymmetric | | | septal | | | hypertrophy | | | with | | | septal | | | thickness | | | 16 - 19 mm. | | | 3. The | | | right | | | ventricle | | | is mildly | | | enlarged | | | measuring | | | between 3.4 | | | - 3.7 cm. | | | 4. The left | | | atrium is | | | mildly | | | dilated. 5. | | | The right | | | atrium is | | | mildly | | | enlarged. | | | 6. The | | | aortic | | | valve was | | | not well | | | visualized. | | | 7. There | | | is mild | | | aortic | | | valve | | | sclerosis | | | without | | | stenosis. | | | 8. Trace | | | amount of | | | aortic | | | regurgitati | | | on. 9. | | | There is | | | minimal | | | aortic | | | stenosis | | | present. | | | 10. | | | Mild-to-mod | | | erate | | | mitral | | | regurgitati | | | on is | | | present. | | | 11. There | | | may be | | | moderate | | | pulmonary | | | hypertensio | | | n. 12. The | | | right | | | ventricular | | | systolic | | | pressure | | | (pulmonary | | | artery | | | systolic | | | pressure), | | | as measured | | | by | | | Doppler, is | | | .HPI and | | | Hospital | | | Course: | | | Ms. 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 | | | Peter | | | in | | | [place], | | | [place]. | | | Her other | | | problems | | | are | | | essential | | | hypertensio | | | n, diabetes | | | mellitus, | | | generalized | | | anxiety | | | disorder | | | and | | | depression. | | | Patient | | | was brought | | | to the | | | emergency | | | department | | | after she | | | sustained a | | | fall and | | | became | | | confused. | | | CT of head | | | showed | | | left-sided | | | subdural | | | hematoma | | | and mild | | | subarachnoi | | | d | | | hemorrhage. | | | HOSPITAL | | | COURSE: | | | Patient was | | | admitted | | | to ICU and | | | was | | | monitored | | | very | | | closely. | | | Dr. | | | Renee, | | | neurosurgeo | | | n, saw the | | | patient and | | | did not | | | think the | | | patient | | | needs any | | | surgical | | | interventio | | | n. She was | | | started on | | | Keppra for | | | seizure | | | prophylaxis | | | . She | | | remained | | | stable and | | | did not | | | have any | | | new | | | deficits. | | | She was | | | transferred | | | out of the | | | unit on | | | the next | | | day of | | | admission. | | | Since then | | | patient | | | has | | | remained | | | neurologica | | | lly intact | | | and denies | | | any | | | headache, | | | difficulty | | | swallowing, | | | difficulty | | | talking, | | | and also | | | denies any | | | focal motor | | | or sensory | | | deficits. | | | Physical | | | therapist | | | made her | | | walk twice, | | | and apart | | | from mild | | | dysequilibr | | | ium, | | | patient | | | performed | | | well with | | | the | | | physical | | | therapist. | | | IPR | | | consult was | | | obtained | | | and Dr. | | | Wing Quintero | | | was kind | | | enough to | | | see this | | | patient and | | | agreed | | | that she | | | will | | | benefit | | | from | | | transfer to | | | inpatient | | | rehab | | | facility of | | | this | | | hospital | | | for | | | continuatio | | | n of | | | physical | | | therapy and | | | | | | occupationa | | | l therapy.I | | | had a | | | detailed | | | discussion | | | with the | | | patient | | | about her | | | dizziness. | | | She | | | mentioned | | | to me that | | | for the | | | last few | | | years she | | | has been | | | falling a | | | lot but | | | does not | | | lose any | | | consciousne | | | ss prior to | | | fall but | | | feels very | | | dizzy and | | | lightheaded | | | . | | | According | | | to patient, | | | she was | | | diagnosed | | | with a | | | heart | | | murmur and | | | she may | | | also have | | | had a mild | | | heart | | | attack last | | | year. | | | Hence, I | | | ordered | | | echocardiog | | | nannette that | | | showed | | | asymmetric | | | hypertrophy | | | of septum. | | | I | | | reviewed | | | echocardiog | | | nannette with | | | Dr. | | | Alqaisi, | | | who does | | | not think | | | that the | | | patient has | | | | | | hypertrophi | | | c | | | cardiomyopa | | | thy and | | | findings | | | are likely | | | due to | | | hypertensio | | | n. She | | | also has | | | history of | | | ITP and | | | follows | | | with DrArnlufo | | | Peter | | | in | | | [place], | | | [place]. At | | | the time | | | of | | | presentatio | | | n, her | | | platelet | | | count was | | | 93, but | | | then it | | | dropped to | | | 76 today. | | | Dr. Paulson | | | ordered | | | IVIG times | | | 2. Plan is | | | to | | | continue | | | monitoring | | | patient's | | | platelet | | | count, and | | | if it | | | remains | | | stable, | | | then she | | | should | | | follow with | | | Dr. | | | Peter | | | upon | | | discharge. | | | However, | | | if she has | | | further | | | drop in | | | platelet | | | count or | | | has another | | | episode of | | | bleeding, | | | then we | | | will | | | formally | | | consult Dr. | | | Paulson to | | | see this | | | patient in | | | inpatient | | | rehabilitat | | | ion | | | facility.Pa | | | tient also | | | has mild | | | hypokalemia | | | and that | | | was | | | supplemente | | | d. I also | | | checked the | | | vitamin D | | | levels as | | | vitamin D | | | deficiency | | | is known to | | | cause | | | falls. | | | This came | | | back low at | | | 26; hence, | | | I put | | | patient on | | | vitamin D | | | 2000 units | | | every | | | day.Dischar | | | ge Vitals: | | | Vitals: | | | 18 | | | 1900 | | | 04/02/18 | | | 0015 | | | 04/02/18 | | | 0530 | | | 18 | | | 0754 BP: | | | (!) 152/101 | | | 175/71 | | | 164/74 | | | 172/76 BP | | | Location: | | | Right upper | | | arm Left | | | upper arm | | | Pulse: 72 | | | 67 68 66 | | | Resp: 16 20 | | | 20 Temp: | | | 98.7 F | | | (37.1 C) | | | 98.2 F | | | (36.8 C) | | | 98.2 F | | | (36.8 C) | | | TempSrc: | | | Oral Oral | | | Axillary | | | SpO2: 97% | | | 94% | | | Weight: | | | Height: | | | Discharge | | | Exam: | | | Constitutio | | | nal: Alert | | | and | | | oriented to | | | person, | | | place, and | | | time. | | | Appears | | | well-develo | | | ped and | | | well-nouris | | | hed. | | | Cardiovascu | | | lar: Normal | | | rate, | | | regular | | | rhythm, | | | normal | | | heart | | | sounds with | | | S1 and S2 | | | and intact | | | distal | | | pulses. | | | Exam | | | reveals no | | | gallop and | | | no friction | | | rub. | | | Systolic | | | Murmur | | | grade II/ | | | over left | | | sternal | | | border.Pulm | | | onary/Chest | | | : Effort | | | normal and | | | breath | | | sounds | | | normal. No | | | stridor. No | | | | | | respiratory | | | distress. | | | no | | | wheezes. no | | | rales. | | | exhibits no | | | | | | tenderness. | | | Abdominal: | | | Soft. | | | Bowel | | | sounds are | | | normal. | | | exhibits no | | | distension | | | and no | | | mass. There | | | is no | | | tenderness. | | | There is | | | no rebound | | | and no | | | guarding. | | | Musculoskel | | | etal: | | | Normal | | | range of | | | motion.exhi | | | bits no | | | tenderness. | | | exhibits | | | no edema. | | | | | | Neurologica | | | l: Alert | | | and | | | oriented to | | | person, | | | place, and | | | time. No | | | cranial | | | nerve | | | deficit. | | | Exhibits | | | normal | | | muscle | | | tone. | | | Coordinatio | | | n | | | normal.Skin | | | : Skin is | | | warm and | | | dry. No | | | rash noted. | | | No | | | erythema. | | | No pallor. | | | Mild | | | ecchymosis | | | over | | | forehead | | | and neck. | | | Psychiatric | | | : Has a | | | normal mood | | | and | | | affect. | | | Behavior is | | | normal. | | | Impulsive | | | at times. 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 | | | LABS: | | | Recent | | | LabsLab | | | | | | 6 | | | | | | 5 | | | | | | 1 | | | | | | 2 WBC 4.24 | | | 4.83 -- | | | 5.62 HGB | | | 10.7* 10.9* | | | -- 11.4 | | | HCT 29.4* | | | 30.1* -- | | | 31.8* PLT | | | 76* 78* 82* | | | 93* | | | NEUTOPHILPC | | | T 52.94 | | | 60.83 -- | | | 62.11 | | | MONOPCT | | | 14.10 9.88 | | | -- 9.17 | | | Recent | | | LabsLab | | | | | | 6 | | | | | | 5 | | | | | | 2 | | | | | | 9 NA 140 | | | 139 140 140 | | | K 3.4* 3.6 | | | 3.6 3.1* | | | CL 104 102 | | | 104 104 CO2 | | | 24 28 27 | | | 29 BUN 6* 8 | | | 7* 8 | | | CREATININE | | | 0.4* 0.5 | | | 0.5 0.49* | | | PROT -- | | | -- -- | | | 6.2* | | | BILITOT -- | | | -- -- | | | 1.4 ALT | | | -- -- | | | -- 32 AST | | | -- -- | | | -- 30 | | | Invalid | | | input(s): | | | LABALBURece | | | nt LabsLab | | | | | | 6 | | | | | | 5 | | | | | | 2 MG 1.7 | | | 1.9 1.9 No | | | results for | | | input(s): | | | AMYLASE in | | | the last | | | 168 | | | hours.No | | | results for | | | input(s): | | | PHART, | | | PO2ART, | | | ZVI7ZSW, | | | B8XZEIRL, | | | BEART in | | | the last | | | 168 | | | hours.No | | | results for | | | input(s): | | | APTT, INR, | | | PTT in the | | | last 168 | | | hours.No | | | results for | | | input(s): | | | CKTOTAL, | | | TROPONINI, | | | TROPONINT, | | | CKMBINDEX | | | in the last | | | 168 | | | hours.Dispo | | | sition: | | | Final | | | discharge | | | disposition | | | not | | | confirmedPa | | | tient | | | Instruction | | | s: | | | Medication | | | List You | | | have not | | | been | | | prescribed | | | any | | | medications | | | . Activity: | | | activity | | | as | | | toleratedDi | | | et: cardiac | | | dietWound | | | Care: not | | | applicableT | | | otal time | | | of | | | discharge: | | | 35 minutes. | | | This | | | included | | | talking to | | | patient, | | | examining | | | patient, | | | discussing | | | outpatient | | | plan of | | | care, | | | reconciling | | | home | | | medications | | | and | | | dictating | | | discharge | | | summary.Fol | | | low-up with | | | PCP in 2 | | | weeks. | | | Signed:Sure | | | sh K | | | Phyllis, | | | MD04/02/2018 | | | 8:36 AM | +---+ + +--------+ +---+ + + | 03/30/ | Hospital | | See, Medical | Diagnosis unknown | | 2017 | Encounter | | Record | | +--------+ +---+ + + | 03/30/ | Ancillary | | See, Medical | Diagnosis unknown | | 2017 | Orders | | Record | | +--------+ +---+ + + from Last 3 Months Social History + +-------+ +--------+------+ | Tobacco [...] on file | | + + + Last Filed Vital Signs + + + [...] PM PDT | + + + + Plan of Treatment + + + + + | Health Maintenance | Due Date | Last Done | Comments | + + + + + | Diabetic Eye Exam | | | | | | 8 | | | + + + + + | Diabetic Foot Exam | | | | | | 8 | | | + + + + + | Microalbumin | | | | | Screening | 8 | | | + + + + + | Vaccine: | | | | | Dtap/Tdap/Td (1 - | 7 | | | | Tdap) | | | | + + + + + | Breast Cancer | | | | | Screening | 8 | | | | (Mammogram) | | | | + + + + + | Colon Cancer | | | | | Screening | 8 | | | | (Colonoscopy) | | | | + + + + + | Vaccine: Zoster (1 | | | | | of 2) | 8 | | | + + + + + | DEXA SCAN SCREENING | | | | | | 3 | | | + + + + + | Statin Therapy | | | | | (optimal intensity) | 8 | | | + + + + + | Vaccine: Influenza | | 07/02/2017, 06/10/2016, | | | (#1) | 8 | 07/27/2012 | | + + + + + | Hemoglobin A1c | | 03/30/2018 | | | | 9 | | | + + + + + | Vaccine: | Completed | 06/10/2016, 08/07/2014, | | | Pneumococcal 65+ | | 07/27/2012 | | | Low/Medium Risk | | | | + + + + + Procedures + +--------+ + + + | [...] for this | | | e | 11:20 AM | | procedure are in the | | | | PDT | | results section. | + +--------+ + + + | POCT GLUCOSE | Routin | 04/02/2018 | | Results for this | | | e | 5:30 AM | | procedure are in the | | | | PDT | | results section. | + +--------+ + + + | PHOSPHOROUS | Routin | 04/02/2018 | | Results for this | | | e | 3:56 AM | | procedure are in the | | | | PDT | | results section. | + +--------+ + + + | MAGNESIUM | Routin | 04/02/2018 | | Results for this | | | e | 3:56 AM | | procedure are in the | | | | PDT | | results section. | + +--------+ + + + | BASIC METABOLIC | Routin | 04/02/2018 | | Results for this | | PANEL | e | 3:56 AM | | procedure are in the | | | | PDT | | results section. | + +--------+ + + + | CBC W/AUTO DIFF | Routin | 04/02/2018 | | Results for this | | (REFLEX TO MANUAL) | e | 3:56 AM | | procedure are in the | | | | PDT | | results section. | + +--------+ + + + | POCT GLUCOSE | Routin | 04/01/2018 | | Results for this | | | e | 9:46 PM | | procedure are in the | | | | PDT | | results section. | + +--------+ + + + | POCT GLUCOSE | Routin | 04/01/2018 | | Results for this | | | e | 4:48 PM | | procedure are in the | | | | PDT | | results section. | + +--------+ + + + | ECHO CARDIAC ADULT | Routin | 04/01/2018 | | Results for this | | COMPLETE | e | 2:18 PM | | procedure are in the | | | | PDT | | results section. | + +--------+ + + + | POCT GLUCOSE | Routin | 04/01/2018 | | Results for this | | | e | 12:26 PM | | procedure are in the | | | | PDT | | results section. | + +--------+ + + + | VITAMIN D 25 HYDROXY | Routin | 04/01/2018 | | Results for this | | | e | 9:52 AM | | procedure are in the | | | | PDT | | results section. | + +--------+ + + + | POCT GLUCOSE | Routin | 04/01/2018 | | Results for this | | | e | 5:29 AM | | procedure are in the | | | | PDT | | results section. | + +--------+ + + + | PHOSPHOROUS | Routin | 04/01/2018 | | Results for this | | | e | 4:05 AM | | procedure are in the | | | | PDT | | results section. | + +--------+ + + + | MAGNESIUM | Routin | 04/01/2018 | | Results for this | | | e | 4:05 AM | | procedure are in the | | | | PDT | | results section. | + +--------+ + + + | BASIC METABOLIC | Routin | 04/01/2018 | | Results for this | | PANEL | e | 4:05 AM | | procedure are in the | | | | PDT | | results section. | + +--------+ + + + | CBC W/AUTO DIFF | Routin | 04/01/2018 | | Results for this | | (REFLEX TO MANUAL) | e | 4:05 AM | | procedure are in the | | | | PDT | | results section. | + +--------+ + + + | POCT GLUCOSE | Routin | 03/31/2018 | | Results for this | | | e | 8:41 PM | | procedure are in the | | | | PDT | | results section. | + +--------+ + + + | POCT GLUCOSE | Routin | 03/31/2018 | | Results for this | | | e | 4:06 PM | | procedure are in the | | | | PDT | | results section. | + +--------+ + + + | PLATELET COUNT | STAT | 03/31/2018 | | Results for this | | | | 1:01 PM | | procedure are in the | | | | PDT | | results section. | + +--------+ + + + | POCT GLUCOSE | Routin | 03/31/2018 | | Results for this | | | e | 10:57 AM | | procedure are in the | | | | PDT | | results section. | + +--------+ + + + | LIPID PANEL | Routin | 03/31/2018 | | Results for this | | | e - AM | 4:02 AM | | procedure are in the | | | | PDT | | results section. | + +--------+ + + + | PHOSPHOROUS | Routin | 03/31/2018 | | Results for this | | | e | 4:02 AM | | procedure are in the | | | | PDT | | results section. | + +--------+ + + + | MAGNESIUM | Routin | 03/31/2018 | | Results for this | | | e | 4:02 AM | | procedure are in the | | | | PDT | | results section. | + +--------+ + + + | BASIC METABOLIC | Routin | 03/31/2018 | | Results for this | | PANEL | e | 4:02 AM | | procedure are in the | | | | PDT | | results section. | + +--------+ + + + | CBC W/AUTO DIFF | Routin | 03/31/2018 | | Results for this | | (REFLEX TO MANUAL) | e | 4:02 AM | | procedure are in the | | | | PDT | | results section. | + +--------+ + + + | EK STANDARD 12 LEAD | STAT | 03/30/2018 | | Results for this | | | | 11:39 PM | | procedure are in the | | | | PDT | | results section. | + +--------+ + + + | COMPREHENSIVE | STAT | 03/30/2018 | | Results for this | | METABOLIC PANEL | | 11:29 PM | | procedure are in the | | | | PDT | | results section. | + +--------+ + + + | CBC W/AUTO DIFF | STAT | 03/30/2018 | | Results for this | | (REFLEX TO MANUAL) | | 11:29 PM | | procedure are in the | | | | PDT | | results section. | + +--------+ + + + | CTA HEAD NECK W WO | Routin | 03/30/2018 | | Results for this | | CONTRAST | e | 11:12 PM | | procedure are in the | | | | PDT | | results section. | + +--------+ + + + | XR CHEST 1 VIEW | Routin | 03/30/2018 | Pain | Results for this | | | e | 11:03 PM | | procedure are in the | | | | PDT | | results section. | + +--------+ + + + | XR HIP 2 VIEW LEFT | Routin | 03/30/2018 | Pain | Results for this | | | e | 10:50 PM | | procedure are in the | | | | PDT | | results section. | + +--------+ + + + | PREPARE PLATELETS | Timed | 03/30/2018 | | Results for this | | (BLOOD BANK) | | 6:47 PM | | procedure are in the | | | | PDT | | results section. | + +--------+ + + + | POCT GLUCOSE | Routin | 03/30/2018 | | Results for this | | | e | 6:42 PM | | procedure are in the | | | | PDT | | results section. | + +--------+ + + + | TYPE AND SCREEN | Routin | 03/30/2018 | | Results for this | | | e | 6:31 PM | | procedure are in the | | | | PDT | | results section. | + +--------+ + + + | HEMOGLOBIN A1C | Routin | 03/30/2018 | | Results for this | | | e | 6:31 PM | | procedure are in the | | | | PDT | | results section. | + +--------+ + + + | MRSA BY PCR | Routin | 03/30/2018 | | Results for this | | | e | 6:30 PM | | procedure are in the [...] section. | + +--------+ + + + from Last 3 Months Results CBC w/auto diff (reflex to manual) (04/14/2018 6:05 AM)Only the most recent of 12 results within the time period is included. + + + + + | Component [...] | [facility] | | | performed at [facility], [address] | | LABORATORY | | | [address], | | | | | [place] [address] | | | + + + + + + + | Specimen | + + | Blood | + + + + + + + | Performing | Address | City/State/Zipcode | Phone Number | | Organization | | | | + + + + + | [facility] | [address] | [place] [address] | [phone] | | LABORATORY | [address] | | | + + + + + POCT glucose (04/14/2018 5:34 AM)Only the most recent of 53 results within the time period is included. + + + + + | Component | Value | Ref Range | Performed At | + + + + + | GLUCOSE,POC SCREEN | 97Comment: Testing | 65 - 99 mg/dL | [facility] | | | performed at [facility] [place] | | | | [address];[place] | | | | | [address] | | | + + + + + + + + + + | Performing | Address | City/State/Zipcode | Phone Number | | Organization | | | | + + + + + | [facility] | [address] | [place] [address] | | + + + + + Basic metabolic panel (04/10/2018 5:50 AM)Only the most recent of 11 results within the period is included. + + + + + | Component [...] 8.5 | 8.5 - 10.5 mg/dL | [facility] | | | | | LABORATORY | + + + + + | EGFR | >60Comment: GFR <60: | >60 mL/min/1.73m2 | [facility] | | | CHRONIC KIDNEY DISEASE, | [...] | | | | | performed at [facility], [address] | | | | [facility] [place], | | | | | [place] [address] | | | + + + + + + + | Specimen | + + | Blood | + + + + + + + | Performing | Address | City/State/Zipcode | Phone Number | | Organization | | | | + + + + + | [facility] | [address] | [place] [address] | [phone] | | LABORATORY | [address] | | | + + + + + CT head without contrast (04/08/2018 8:00 AM)Only the most recent of 2 results within the time period is included. + + + | Impressions | Performed [...] Performed At | + + + | [facility] HEAD WO CONTRAST 04/08/2018 8:00 AM | [facility] | | HISTORY: 67 years. Female. Subdural [...] [facility] | [address] | [place] [address] | | + + + + + [...] | + + + + + | [facility] | [address] | [place] [address] | | + + + + + MRI lumbar spine without contrast (04/03/2018 4:03 PM) + + + | Impressions | Performed At | + + + | 1. Annular fissuring of the disc is present at L5-S1. 2. Fat | [facility] | | attenuation lesion is noted at L4-L5 and L5-S1 extending caudally. | RADIOLOGY | | 3. Potential impingement of multiple exiting and transiting nerve | | | roots as discussed above. | | + + + + + + | Narrative | Performed At | + + + | [facility] BHATIA 1950 67 years Female MRI LUMBAR [...] - 04/03/2018 4:23 PM PDT [id number] years | | FemaleMRI LUMBAR SPINE WO [...] + + | Performing | Address | City/State[facility] | Phone Number | | Organization | | | | + + + + + | [facility] | [address] | [place] [address] | | + + + + + X-ray hip 2 view left (04/03/2018 10:27 AM)Only the most recent of 2 results within the is included. + + + | Impressions | Performed At | + + + | 1. No evidence of displaced fractures or dislocations left hip. | [facility] | | If the patient continues to [...] 2 VIEW LEFT 04/03/2018 10:27 AM | [facility] | | HISTORY: 67 years. Female. Left [...] In - 04/03/2018 11:48 AM PDT [facility] HIP 2 VIEW | | LEFT04/03/2018 10:27 [...] | + + + + + | [facility] | [address] | [place] [address] | | + + + + + Phosphorus (04/02/2018 3:56 AM)Only the most recent of 3 results within the time period is included. + + + + + | Component | Value | Ref Range | Performed At | + + + + + | PHOSPHORUS | 2.9Comment: Testing | 2.3 - 4.8 mg/dL | [facility] | | | performed at [facility], [address] | LABORATORY | | | [address], | | | | | [place] [address] | | | + + + + + + + | Specimen | + + | Blood | + + + + + + + | Performing | Address | City/State/Zipcode | Phone Number | | Organization | | | | + + + + + | [facility] | [address] | [place] [address] | [phone] | | LABORATORY | [address] | | | + + + + + Magnesium (04/02/2018 3:56 AM)Only the most recent of 3 results within the time period is included. + + + + + | Component | Value | Ref Range | Performed At | + + + + + | MAGNESIUM | 1.7Comment: Testing | 1.7 - 2.4 mg/dL | [facility] | | | performed at [facility], [address] | | LABORATORY | | | [facility], | | | | | [place] [address] | | | + + + + + + + | Specimen | + + | Blood | + + + + + + + | Performing | Address | City/State/Zipcode | Phone Number | | Organization | | | | + + + + + | [facility] | [address] | [place] [address] | [phone] | | LABORATORY | [address] | | | + + + + + Echo cardiac adult complete (04/01/2018 2:18 PM) + +-------+ + + | Component | Value | Ref Range | Performed At | + +-------+ + + | LV EF | 65 | 50 - 70 % | [facility] | | | | | RADIOLOGY | + +-------+ + + + + + | Impressions | Performed At | + + + | 1. Overall left ventricular systolic function is normal with, an EF | [facility] | | between 60 - 65 %. 2. Moderate asymmetric septal hypertrophy with | RADIOLOGY | | septal thickness 16 - 19 mm. 3. The right ventricle is mildly | | | enlarged measuring between 3.4 - 3.7 cm. 4. The left atrium is mildly | | | dilated. 5. The right atrium is mildly enlarged. 6. The aortic | | | valve was not well visualized. 7. There is mild aortic valve | | | sclerosis without stenosis. 8. Trace amount of aortic regurgitation. | | | 9. There is minimal aortic stenosis present. 10. Auqi-at-nxthjpwj | | | mitral regurgitation is present. 11. There may be moderate pulmonary | | | hypertension. 12. The right ventricular systolic pressure (pulmonary | | | artery systolic pressure), as measured by Doppler, is {RVSP}. | | + + + + + + | Narrative | Performed At | + + + | Patient Name: STEFANI BHATIA Date of : 1950 [facility] | | Performing Physician: Emanuel Melissa MD | RADIOLOGY | | | | | INDICATIONS murmur CONCLUSIONS 1. | | | Overall left ventricular systolic function is normal with, an EF | | | between 60 - 65 %. 2. Moderate asymmetric septal hypertrophy with | | | septal thickness 16 - 19 mm. 3. The right ventricle is mildly | | | enlarged measuring between 3.4 - 3.7 cm. 4. The left atrium is mildly | | | dilated. 5. The right atrium is mildly enlarged. 6. The aortic | | | valve was not well visualized. 7. There is mild aortic valve | | | sclerosis without stenosis. 8. Trace amount of aortic regurgitation. | | | 9. There is minimal aortic stenosis present. 10. Mqfk-xr-kimwlzeq | | | mitral regurgitation is present. 11. There may be moderate pulmonary | | | hypertension. 12. The right ventricular systolic pressure (pulmonary | | | artery systolic pressure), as measured by Doppler, is {RVSP}. | | | FINDINGS -------- Study: A 2-dimensional transthoracic | | | echocardiogram with m-mode, spectral and color flow Doppler was | | | perfomed. Study: This was a technically difficult study with | | | suboptimal views. Study: Pt hyperactive. Left Ventricle: Overall | | | left ventricular systolic function is normal with, an EF between 60 - | | | 65 %. Left Ventricle: The left ventricle cavity size is normal. | | | Left Ventricle: Moderate asymmetric septal hypertrophy with septal | | | thickness 16 - 19 mm. Left Ventricle: The diastolic filling pattern | | | is normal for the age of the patient. Right Ventricle: The right | | | ventricle is mildly enlarged measuring between 3.4 - 3.7 cm. Left | | | Atrium: The left atrium is mildly dilated. Right Atrium: The right | | | atrium is mildly enlarged. Aortic Valve: The aortic valve was not | | | well visualized. Aortic Valve: There is mild aortic valve sclerosis | | | without stenosis. Aortic Valve: The aortic valve is minimally | | | calcified. Aortic Valve: Trace amount of aortic regurgitation. | | | Aortic Valve: There is minimal aortic stenosis present. Mitral Valve: | | | Oudd-ng-atwtbocs mitral regurgitation is present. Mitral Valve: | | | Mild mitral annular calcification present. Tricuspid Valve: The | | | tricuspid valve appears structurally normal. Tricuspid Valve: Mild | | | tricuspid regurgitation present. Tricuspid Valve: There may be | | | moderate pulmonary hypertension. Tricuspid Valve: The right | | | ventricular systolic pressure (pulmonary artery systolic pressure), as | | | measured by Doppler, is 55-60 mmHg. Pulmonic Valve: The pulmonic | | | valve was not well visualized. Pericardium: There is no pericardial | | | effusion. IVC/Hepatic Veins: The IVC is normal size (1.5-2.5cm) and | | | collapses <50% with sniff, consistent with central venous pressures of | | | 10-15mmHg. MEASUREMENTS Ao asc: 3.19 cm Ao | | | sinus: 3.17 cm IVC: 2.59 cm LA Major: 5.67 cm | | | EDV(Teich): 44.24 ml IVSd: 2.13 cm LVIDd: 3.30 cm | | | LVPWd: 1.61 cm LVOT Diam: 1.84 cm %FS: 43.76 % | | | EF(Teich): 76.17 % ESV(Teich): 10.54 ml IVSs: 3.09 cm | | | LVIDs: 1.85 cm LVPWs: 1.59 cm SV(Teich): 33.70 ml RA | | | Major: 5.38 cm RVIDd: 3.49 cm LVEF MOD A4C: 58.72 % SV | | | MOD A4C: 70.88 ml LVEDV MOD A4C: 120.70 ml LVLd A4C: | | | 8.64 cm LVESV MOD A4C: 49.82 ml LVLs A4C: 7.06 cm LAAs | | | A4C: 14.61 cm2 LAESV A-L A4C: 34.22 ml LALs A4C: 5.29 cm | | | Antelmo: 16.15 cm2 RAEDV A-L: 43.57 ml RAEDV MOD: 43.26 | | | ml RALd: 5.08 cm Ao Diam: 3.17 cm AV Cusp: 1.81 cm | | | TAPSE: 2.90 cm AV maxP.78 mmHg AV meanP.51 | | | mmHg AV Vmax: 2.10 m/s AV Vmean: 1.53 m/s AV VTI: 57.45 | | | cm ALEC Vmax: 1.67 cm2 ALEC (VTI): 1.44 cm2 AVAI Vmax: | | | 0.00 cm2/m2 AVAI (VTI): 0.00 cm2/m2 LVCI Dopp: 3.21 l/minm2 | | | LVCO Dopp: 5.72 l/min HR: 68.91 BPM LVOT maxP.99 | | | mmHg LVOT meanP.79 mmHg LVSI Dopp: 46.68 ml/m2 LVSV | | | Dopp: 83.10 ml LVOT Vmax: 1.32 m/s LVOT Vmean: 0.90 m/s | | | LVOT VTI: 31.16 cm MV A Michael: 1.20 m/s MV DecT: 281.72 | | | ms MV E Michael: 1.28 m/s MV E/A Ratio: 1.06 E/E' Avg: | | | 22.89 E' Av.05 m/s E/E' Lat: 22.78 E/E' Sept: | | | 23.00 E' Lat: 0.05 m/s E' Sept: 0.05 m/s MV PHT: 92.99 | | | ms MVA By PHT: 2.36 cm2 MV A Dur: 171.26 ms RV S': | | | 0.12 m/s TR maxP.70 mmHg TR Vmax: 3.34 m/s TV A | | | Michael: 0.68 m/s TV Dec Cooke: 2.56 m/s2 TV Dec Time: | | | 264.67 ms TV E Michael: 0.67 m/s TV E/A Ratio: 0.99 | | | Drafter Detail: LAISHA Authenticated by: Emanuel Melissa MD Report Date/Time: | | | 04-01-2018 16:50:35 | | + + + + + | Procedure Note | + + | Nate Marie In - 04/01/2018 5:00 PM PDT Patient Name: Bipin BHATIA of | | : 1950ccession: [id number] Physician: Emanuel Melissa | | INDICATIONS m | | urmurCONCLUSIONS 1. Overall left ventricular systolic function is normal with, | | an EF between 60 - 65 %.2. Moderate asymmetric septal hypertrophy with septal thickness | | 16 - 19 mm.3. The right ventricle is mildly enlarged measuring between 3.4 - 3.7 cm.4. | | The left atrium is mildly dilated.5. The right atrium is mildly enlarged.6. The aortic | | valve was not well visualized.7. There is mild aortic valve sclerosis without | | stenosis.8. Trace amount of aortic regurgitation. 9. There is minimal aortic stenosis | | present.10. Tkww-uj-vzvcsnjk mitral regurgitation is present.11. There may be moderate | | pulmonary hypertension.12. The right ventricular systolic pressure (pulmonary artery | | systolic pressure), as measured by Doppler, is {RVSP}.FINDINGS--------Study: A | | 2-dimensional transthoracic echocardiogram with m-mode, spectral and color flow Doppler | | was perfomed. Study: This was a technically difficult study with suboptimal views. | | Study: Pt hyperactive.Left Ventricle: Overall left ventricular systolic function is | | normal with, an EF between 60 - 65 %. Left Ventricle: The left ventricle cavity size is | | normal. Left Ventricle: Moderate asymmetric septal hypertrophy with septal thickness 16 | | - 19 mm. Left Ventricle: The diastolic filling pattern is normal for the age of the | | patient.Right Ventricle: The right ventricle is mildly enlarged measuring between 3.4 - | | 3.7 cm.Left Atrium: The left atrium is mildly dilated.Right Atrium: The right atrium is | | mildly enlarged.Aortic Valve: The aortic valve was not well visualized. Aortic Valve: | | There is mild aortic valve sclerosis without stenosis. Aortic Valve: The aortic valve is | | minimally calcified. Aortic Valve: Trace amount of aortic regurgitation. Aortic Valve: | | There is minimal aortic stenosis present.Mitral Valve: Gjcf-xh-kalltmzo mitral | | regurgitation is present. Mitral Valve: Mild mitral annular calcification | | present.Tricuspid Valve: The tricuspid valve appears structurally normal. Tricuspid | | Valve: Mild tricuspid regurgitation present. Tricuspid Valve: There may be moderate | | pulmonary hypertension. Tricuspid Valve: The right ventricular systolic pressure | | (pulmonary artery systolic pressure), as measured by Doppler, is 55-60 mmHg.Pulmonic | | Valve: The pulmonic valve was not well visualized.Pericardium: There is no pericardial | | effusion.IVC/Hepatic Veins: The IVC is normal size (1.5-2.5cm) and collapses <50% with | | sniff, consistent with central venous pressures of 10-15mmHg.MEASUREMENTS Ao | | asc: 3.19 cmAo sinus: 3.17 cmIVC: 2.59 cmLA Major: 5.67 cmEDV(Teich): 44.24 | | mlIVSd: 2.13 cmLVIDd: 3.30 cmLVPWd: 1.61 cmLVOT Diam: 1.84 cm%FS: 43.76 | | %EF(Teich): 76.17 %ESV(Teich): 10.54 mlIVSs: 3.09 cmLVIDs: 1.85 cmLVPWs: 1.59 | | cmSV(Teich): 33.70 mlRA Major: 5.38 cmRVIDd: 3.49 cmLVEF MOD A4C: 58.72 %SV MOD | | A4C: 70.88 mlLVEDV MOD A4C: 120.70 mlLVLd A4C: 8.64 cmLVESV MOD A4C: 49.82 | | mlLVLs A4C: 7.06 cmLAAs A4C: 14.61 [id number] A-L A4C: 34.22 mlLALs A4C: 5.29 | | cmRAAd: 16.15 [id number] A-L: 43.57 mlRAEDV MOD: 43.26 mlRALd: 5.08 cmAo Diam: | | 3.17 cmAV Cusp: 1.81 cmTAPSE: 2.90 cmAV maxP.78 mmHgAV meanP.51 mmHgAV | | Vmax: 2.10 m/Haley Vmean: 1.53 m/Haley VTI: 57.45 cmAVA Vmax: 1.67 cm2AVA (VTI): | | 1.44 [id number] Vmax: 0.00 cm2/m2AVAI (VTI): 0.00 cm2/m2LVCI Dopp: 3.21 l/lnzg4BPPS | | Dopp: 5.72 l/minHR: 68.91 BPMLVOT maxP.99 mmHgLVOT meanP.79 mmHgLVSI | | Dopp: 46.68 ml/m2LVSV Dopp: 83.10 mlLVOT Vmax: 1.32 m/sLVOT Vmean: 0.90 m/sLVOT | | VTI: 31.16 cmMV A Michael: 1.20 m/sMV DecT: 281.72 msMV E Michael: 1.28 m/sMV E/A Ratio: | | 1.06 E/E' Av.89 E' Av.05 m/sE/E' Lat: 22.78 E/E' Sept: 23.00 E' Lat: | | 0.05 m/sE' Sept: 0.05 m/sMV PHT: 92.99 msMVA By PHT: 2.36 cm2MV A Dur: 171.26 | | msRV S': 0.12 m/sTR maxP.70 mmHgTR Vmax: 3.34 m/sTV A Michael: 0.68 m/sTV Dec | | Cooke: 2.56 m/s2TV Dec Time: 264.67 msTV E Michael: 0.67 m/sTV E/A Ratio: 0.99 | | Drafter Detail: CMAuthenticated by: Emanuel [facility] Date/Time: 04-01-2018 | | 16:50:35IMPRESSION:1. Overall left ventricular systolic function is normal with, an EF | | between 60 - 65 %.2. Moderate asymmetric septal hypertrophy with septal thickness 16 - | | 19 mm.3. The right ventricle is mildly enlarged measuring between 3.4 - 3.7 cm.4. The | | left atrium is mildly dilated.5. The right atrium is mildly enlarged.6. The aortic valve | | was not well visualized.7. There is mild aortic valve sclerosis without stenosis.8. | | Trace amount of aortic regurgitation. 9. There is minimal aortic stenosis present.10. | | Dfeu-kr-hrwvpwjp mitral regurgitation is present.11. There may be moderate pulmonary | | hypertension.12. The right ventricular systolic pressure (pulmonary artery systolic | | pressure), as measured by Doppler, is {RVSP}. | |LA Major: 5.67 cm | |EDV(Teich): 44.24 ml | |IVSd: 2.13 cm | |LVIDd: 3.30 cm | |LVPWd: 1.61 cm | |LVOT Diam: 1.84 cm | |%FS: 43.76 % | |EF(Teich): 76.17 % | |ESV(Teich): 10.54 ml | |IVSs: 3.09 cm | |LVIDs: 1.85 cm | |LVPWs: 1.59 cm | |SV(Teich): 33.70 ml | |RA Major: 5.38 cm | |RVIDd: 3.49 cm | |LVEF MOD A4C: 58.72 % | |SV MOD A4C: 70.88 ml | |LVEDV MOD A4C: 120.70 ml | |LVLd A4C: 8.64 cm | |LVESV MOD A4C: 49.82 ml | |LVLs A4C: 7.06 cm | |LAAs A4C: 14.61 cm2 | |LAESV A-L A4C: 34.22 ml | |LALs A4C: 5.29 cm | |Antelmo: 16.15 cm2 | |RAEDV A-L: 43.57 ml | |RAEDV MOD: 43.26 ml | |RALd: 5.08 cm | |Ao Diam: 3.17 cm | |AV Cusp: 1.81 cm | |TAPSE: 2.90 cm | |AV maxP.78 mmHg | |AV meanP.51 mmHg | |AV Vmax: 2.10 m/s | |AV Vmean: 1.53 m/s | |AV VTI: 57.45 cm | |ALEC Vmax: 1.67 cm2 | |ALEC (VTI): 1.44 cm2 | |AVAI Vmax: 0.00 cm2/m2 | |AVAI (VTI): 0.00 cm2/m2 | |LVCI Dopp: 3.21 l/minm2 | |LVCO Dopp: 5.72 l/min | |HR: 68.91 BPM | |LVOT maxP.99 mmHg | |LVOT meanP.79 mmHg | |LVSI Dopp: 46.68 ml/m2 | |LVSV Dopp: 83.10 ml | |LVOT Vmax: 1.32 m/s | |LVOT Vmean: 0.90 m/s | |LVOT VTI: 31.16 cm | |MV A Michael: 1.20 m/s | |MV DecT: 281.72 ms | |MV E Michael: 1.28 m/s | |MV E/A Ratio: 1.06 | |E/E' Av.89 | |E' Av.05 m/s | |E/E' Lat: 22.78 | |E/E' Sept: 23.00 | |E' Lat: 0.05 m/s | |E' Sept: 0.05 m/s | |MV PHT: 92.99 ms | |MVA By PHT: 2.36 cm2 | |MV A Dur: 171.26 ms | |RV S': 0.12 m/s | |TR maxP.70 mmHg | |TR Vmax: 3.34 m/s | |TV A Michael: 0.68 m/s | |TV Dec Cooke: 2.56 m/s2 | |TV Dec Time: 264.67 ms | |TV E Michael: 0.67 m/s | |TV E/A Ratio: 0.99 | | | |Drafter Detail: CM | |Authenticated by: Emanuel Melissa MD | |Report Date/Time: 04-01-2018 16:50:35 | | | |IMPRESSION: | |1. Overall left ventricular systolic function is normal with, an EF between 60 - 65 %. | |2. Moderate asymmetric septal hypertrophy with septal thickness 16 - 19 mm. | |3. The right ventricle is mildly enlarged measuring between 3.4 - 3.7 cm. | |4. The left atrium is mildly dilated. | |5. The right atrium is mildly enlarged. | |6. The aortic valve was not well visualized. | |7. There is mild aortic valve sclerosis without stenosis. | |8. Trace amount of aortic regurgitation. | |9. There is minimal aortic stenosis present. | |10. Pwlc-ee-vkmoelfu mitral regurgitation is present. | |11. There may be moderate pulmonary hypertension. | |12. The right ventricular systolic pressure (pulmonary artery systolic pressure), as measur ed by Doppler, is {RVSP}. | + + + + + + + | Performing | Address | City/State/Zipcode | Phone Number | | Organization | | | | + + + + + | [facility] | [address] | [place] [address] | | + + + + + Vitamin D 25 hydroxy (04/01/2018 9:52 AM) + + + + + | Component | Value | Ref Range | Performed At | + + + + + | VITAMIN D,25 HYDROXY | 26 (L)Comment: <20 | 30 - 150 ng/mL | [facility] | | | ng/mL Suggest | | LABORATORY | | | s deficiency of 25-OH | | | | | Vitamin D.20-29 | | | | | ng/mL Suggests a | | | | | relative insufficiency | | | | | of 25-OH Vitamin | | | | | D.30-150 ng/mL | | | | | Suggests a sufficient | | | | | level of 25-OH Vitamin | | | | | D.>150 ng/mL | | | | | Toxic level of 25-OH | | | | | Vitamin D.Blood levels | | | | | of 25 Hydroxy Vitamin D | | | | | vary with the extent of | | | | | sun exposure. Values | | | | | tend to be highest in | | | | | late summer and lowest | | | | | in the spring. Values | | | | | also tend to decrease | | | | | with age, due to | | | | | decreased precursor | | | | | synthesis in the | | | | | skin.Testing performed | | | | | at [facility], [address] | | | | [address], | | | | | [place] [address] | | | + + + + + + + | Specimen | + + | Blood | + + + + + + + | Performing | Address | City/State/Zipcode | Phone Number | | Organization | | | | + + + + + | [facility] | [address] | [place] [address] | [phone] | | LABORATORY | [address] | | | + + + + + Platelet count (03/31/2018 1:01 PM) + + + + + | Component | Value | Ref Range | Performed At | + + + + + | PLT | 82 (L)Comment: Testing | 150 - 400 K/uL | [facility] | | | performed at [facility] [place] | | | | [address];[place] | | | | | [address] | | | + + + + + + + | Specimen | + + | Blood | + + + + + + + | Performing | Address | City/State/Zipcode | Phone Number | | Organization | | | | + + + + + | [facility] | [address] | [place] [address] | | + + + + + Lipid panel (03/31/2018 4:02 AM) + + + + + | Component | Value | Ref Range | Performed At | + + + + + | CHOLESTEROL | 119 | <200 mg/dL | [facility] | | | | | LABORATORY | + + + + + | Triglycerides | 77 | <150 mg/dL | [facility] | | | | | LABORATORY | + + + + + | HDL CHOL | 46 | >40 mg/dL | [facility] | | | | | LABORATORY | + + + + + | LDL CALC | 58Comment: Testing | <100 mg/dL | [facility] | | | performed at [facility], [address] | | LABORATORY | | | [address], | | | | | [place] [address] | | | + + + + + + + | Specimen | + + | Blood | + + + + + + + | Performing | Address | City/State/Zipcode | Phone Number | | Organization | | | | + + + + + | [facility] | [address] | [place] [address] | [phone] | | LABORATORY | [address] | | | + + + + + EKG STANDARD 12 LEAD (03/30/2018 11:39 PM) + + + + + | Component | Value | Ref Range | Performed At | + + + + + | Ventricular Rate | 83 | BPM | [facility] | + + + + + | Atrial Rate | 83 | BPM | [facility] | + + + + + | P-R Interval | 210 | ms | [facility] | + + + + + | QRS Duration | 150 | ms | [facility] | + + + + + | Q-T Interval | 420 | ms | [facility] | + + + + + | QTC Calculation | 493 | ms | [facility] | | (Sherrell) | | | | + + + + + | Calculated P Noonan | 26 | degrees | [facility] | + + + + + | Calculated R Noonan | -23 | degrees | [facility] | + + + + + | Calculated T Noonan | 144 | degrees | [facility] | + + + + + | Diagnosis | Sinus rhythm with 1st | | [facility] | | | degree A-V block with | | | | | Premature atrial | | | | | complexesLeft bundle | | | | | branch blockAbnormal | | | | | ECGNo previous ECGs | | | | | availableConfirmed by | | | | | EMANUEL MELISSA MD ([id number]) | | | | | on 03/31/2018 10:49:10 AM | | | | | | | | + + + + + + + + + + | Performing | Address | City/State/Zipcode | Phone Number | | Organization | | | | + + + + + | [facility] | [address] | [place] [address] | | + + + + + Comprehensive metabolic panel (03/30/2018 11:29 PM) + + + + + | Component | Value | Ref Range | Performed At | + + + + + | SODIUM | 140 | 135 - 145 mmol/L | [facility] | + + + + + | POTASSIUM | 3.1 (L) | 3.5 - 4.9 mmol/L | [facility] | + + + + + | CHLORIDE | 104 | 99 - 109 mmol/L | [facility] | + + + + + | CO2 | 29 | 23 - 32 mmol/L | [facility] | + + + + + | ANION GAP AGAP | 11 | 5 - 20 mmol/L | [facility] | + + + + + | GLUCOSE | 137 (H) | 65 - 99 mg/dL | [facility] | + + + + + | BUN | 8 | 8 - 25 mg/dL | [facility] | + + + + + | CREATININE | 0.49 (L) | 0.50 - 1.00 mg/dL | [facility] | + + + + + | BUN/CREAT | 16 | | [facility] | + + + + + | CALCIUM | 8.0 (L) | 8.5 - 10.5 mg/dL | [facility] | + + + + + | TOTAL PROTEIN | 6.2 (L) | 6.3 - 8.2 g/dL | [facility] | + + + + + | Albumin | 2.7 (L) | 3.3 - 4.8 g/dL | [facility] | + + + + + | GLOBULIN | 3.6 | 1.3 - 4.9 g/dL | [facility] | + + + + + | A/G | 0.7 (L) | 1.0 - 2.4 | [facility] | + + + + + | TBIL | 1.4 | 0.1 - 1.5 mg/dL | [facility] | + + + + + | ALK PHOS | 96 | 35 - 115 U/L | [facility] | + + + + + | AST | 30 | 10 - 45 U/L | [facility] | + + + + + | ALT | 32 | 10 - 65 U/L | [facility] | + + + + + | EGFR | >60Comment: GFR <60: | >60 mL/min/1.73m2 | [facility] | | | CHRONIC KIDNEY DISEASE, [...] | | | | | performed at [facility] [place] | | | | | [address];[place] | | | | | [address] | | | + + + + + + + | Specimen | + + | Blood | + + + + + + + | Performing | Address | City/State/Zipcode | Phone Number | | Organization | | | | + + + + + | [facility] | [address] | [place] [address] | | + + + + + CTA head neck (03/30/2018 11:12 PM) + + + | Impressions | Performed At | + + + | 1. Acute subdural hemorrhage noted along the left tentorium. | [facility] | | Focus of acute subarachnoid hemorrhage along the left temporal lobe. | RADIOLOGY | | 2. No hemodynamically significant narrowing seen involving the | | | major intracranial arteries of the anterior and posterior circulation. | | | No aneurysm seen. 3. No hemodynamically significant narrowing | | | seen involving the major extracranial arteries of the anterior and | | | posterior circulation. Less than 50% narrowing of the internal carotid | | | arteries utilizing NASCET criteria. 4. Multiple thyroid nodules. | | | These can be better assessed with thyroid ultrasound examination if | | | clinically warranted. | | + + + + + + | Narrative | Performed At | + + + | STEFANI BHATIA 1950 67 years Female CTA HEAD NECK W | [facility] | | WO CONTRAST 03/30/2018 11:12 PM INDICATION: Subdural hematoma. | RADIOLOGY | | COMPARISON: CT head examination 03/30/2018 at 1458 hours | | | TECHNIQUE: 5-mm axial pre-contrast and post-contrast images of the | | | head were acquired from the foramen magnum through the cranial vertex. | | | Axial 0.625-mm images were acquired from the skull base to the | | | cranial vertex and then axial 1.25 mm arterial phase images were | | | acquired through the neck according to a CT angiography protocol. | | | Multiplanar CT angiographic MIP reconstructions were performed. The | | | data set was also examined with Astonish Results 3D software for evaluation | | | of the cerebral vasculature. Radiation dose reduction performed | | | with automated exposure control. IV contrast: 100 mL Isovue-370 | | | FINDINGS: CT HEAD: Brain: -Acute subdural hematoma noted along | | | the superior aspect of the left tentorium on series 3, image 14 | | | measuring approximately 3.1 cm in AP dimension and 1.1 cm in CC | | | dimension. Associated mild mass effect identified. No midline shift or | | | hydrocephalus seen. -Focus of acute subarachnoid hemorrhage noted | | | along the lateral aspect of the left upper lobe on series 3, image 15. | | | Osseous structures: appear unremarkable Visualized mastoid air | | | cells: appear clear Visualized paranasal sinuses: appear clear | | | Visualized orbits: appear unremarkable Other findings: Soft tissue | | | hematoma noted along the right occipital region. CT ANGIOGRAM | | | HEAD: No hemodynamically significant narrowing seen involving the | | | internal carotid, middle cerebral and anterior cerebral arteries. No | | | hemodynamically significant narrowing seen involving the vertebral, | | | basilar and posterior cerebral arteries. No aneurysm seen. CTA | | | NECK: Three-vessel left-sided aortic arch. No narrowing seen | | | involving the brachiocephalic and subclavian arteries. No narrowing | | | seen involving the common carotid, internal carotid and vertebral | | | arteries. Less than 50% narrowing of the internal carotid arteries | | | utilizing NASCET criteria. Mild atherosclerosis. Small bilateral | | | pleural effusions. Small amount of dependent atelectasis involving the | | | lungs. No acute or destructive osseous process seen. Multiple thyroid | | | nodules, incompletely characterized. | | + + + + + | Procedure Note | + + | Frank, Rad Results In - 03/30/2018 11:37 PM PDT STEFANI [id number] years | | FemaleCTA HEAD NECK W WO CONTRAST03/30/2018 11:12 PMINDICATION: Subdural | | hematoma.COMPARISON: CT head examination 03/30/2018 at 1458 hoursTECHNIQUE:5-mm axial | | pre-contrast and post-contrast images of the head were acquired from the foramen magnum | | through the cranial vertex. Axial 0.625-mm images were acquired from the skull base to | | the cranial vertex and then axial 1.25 mm arterial phase images were acquired through | | the neck according to a CT angiography protocol. Multiplanar CT angiographic MIP | | reconstructions were performed. The data set was also examined with Astonish Results 3D | | software for evaluation of the cerebral vasculature. Radiation dose reduction performed | | with automated exposure control.IV contrast: 100 mL Isovue-370FINDINGS:CT | | HEAD:Brain:-Acute subdural hematoma noted along the superior aspect of the left | | tentorium on series 3, image 14 measuring approximately 3.1 cm in AP dimension and 1.1 | | cm in CC dimension. Associated mild mass effect identified. No midline shift or | | hydrocephalus seen.-Focus of acute subarachnoid hemorrhage noted along the lateral | | aspect of the left upper lobe on series 3, image 15.Osseous structures: appear | | unremarkableVisualized mastoid air cells: appear clearVisualized paranasal sinuses: | | appear clearVisualized orbits: appear unremarkableOther findings: Soft tissue hematoma | | noted along the right occipital region.CT ANGIOGRAM HEAD:No hemodynamically significant | | narrowing seen involving the internal carotid, middle cerebral and anterior cerebral | | arteries.No hemodynamically significant narrowing seen involving the vertebral, basilar | | and posterior cerebral arteries.No aneurysm seen.CTA NECK:Three-vessel left-sided aortic | | arch. No narrowing seen involving the brachiocephalic and subclavian arteries. No | | narrowing seen involving the common carotid, internal carotid and vertebral arteries. | | Less than 50% narrowing of the internal carotid arteries utilizing NASCET criteria. Mild | | atherosclerosis.Small bilateral pleural effusions. Small amount of dependent | | atelectasis involving the lungs. No acute or destructive osseous process seen. Multiple | | thyroid nodules, incompletely characterized.IMPRESSION:1. Acute subdural hemorrhage | | noted along the left tentorium. Focus of acute subarachnoid hemorrhage along the left | | temporal lobe.2. No hemodynamically significant narrowing seen involving the major | | intracranial arteries of the anterior and posterior circulation. No aneurysm seen.3. No | | hemodynamically significant narrowing seen involving the major extracranial arteries of | | the anterior and posterior circulation. Less than 50% narrowing of the internal carotid | | arteries utilizing NASCET criteria.4. Multiple thyroid nodules. These can be better | | assessed with thyroid ultrasound examination if clinically warranted.Electronically | | signed by Oli Johnson MD on 03/30/2018 11:32 PM | |CTA NECK: | |Three-vessel left-sided aortic arch. No narrowing seen involving the brachiocephalic and brown bclavian arteries. No narrowing seen involving the common carotid, internal carotid and vert ebral arteries. Less than 50% | |narrowing of the internal carotid arteries utilizing NASCET criteria. Mild atherosclerosis. | |Small bilateral pleural effusions. Small amount of dependent atelectasis involving the lung s. No acute or destructive osseous process seen. Multiple thyroid nodules, incompletely rajan acterized. | | | |IMPRESSION: | |1. Acute subdural hemorrhage noted along the left tentorium. Focus of acute subarachnoid h emorrhage along the left temporal lobe. | |2. No hemodynamically significant narrowing seen involving the major intracranial arteries of the anterior and posterior circulation. No aneurysm seen. | |3. No hemodynamically significant narrowing seen involving the major extracranial arteries of the anterior and posterior circulation. Less than 50% narrowing of the internal carotid arteries utilizing NASCET criteria. | |4. Multiple thyroid nodules. These can be better assessed with thyroid ultrasound examinat ion if clinically warranted. | | | | | + + + + + + + | Performing | Address | City/State/Zipcode | Phone Number | | Organization | | | | + + + + + | [facility] | [address] | [place] [address] | | + + + + + X-ray Chest 1 View (03/30/2018 11:03 PM) + + + | Narrative | Performed At | + + + | This is a non-reportable procedure without a radiologist report and | [facility] | | is used for image storage only | [facility] | + + + + + + + + | Performing | Address | City/State/Zipcode | Phone Number | | Organization | | | | + + + + + | [facility] | [address] [facility] | [place] [address] | | + + + + + Transfuse platelets (Nursing) (03/30/2018 10:04 PM)Only the most recent of 2 results within the time period is included.Prepare platelets (Blood Bank) (03/30/2018 6:47 PM) + + + + + | Component | Value | Ref Range | Performed At | + + + + + | BLOOD COMPONENT TYPE | PLATELET GROUP | | [facility] | + + + + + | UNITS ORDERED | 2 | | [facility] | + + + + + | Additional comment: | ORDER RECEIVED IN BLOOD | | [facility] | | | BANK. | | | + + + + + | UNIT NUMBER | [id number] | | [facility] | + + + + + | BLOOD COMPONENT TYPE | PLATELET PHERESIS,LD B | | [facility] | + + + + + | UNIT DIVISION | 00 | | [facility] | + + + + + | STATUS OF UNIT | ISSUED,FINAL | | [facility] | + + + + + | TRANSFUSION STATUS | OK TO TRANSFUSE | | [facility] | + + + + + | UNIT NUMBER | [id number] | | [facility] | + + + + + | BLOOD COMPONENT TYPE | PLATELET PHERESIS,LD B | | [facility] | + + + + + | UNIT DIVISION | 00 | | [facility] | + + + + + | STATUS OF UNIT | ISSUED,FINAL | | [facility] | + + + + + | TRANSFUSION STATUS | OK TO TRANSFUSETesting | | [facility] | | | performed at [facility] | | | | [address];[place] | | | | | [address] | | | + + + + + + + | Specimen | + + | Blood | + + + + + + + | Performing | Address | City/State/Zipcode | Phone Number | | Organization | | | | + + + + + | [facility] | [address] | [place] [address] | | + + + + + Type and screen (03/30/2018 6:31 PM) + + + + + | Component | Value | Ref Range | Performed At | + + + + + | ABO/RH(D) | A POSITIVE | | [facility] | + + + + + | ANTIBODY SCREEN | NEGATIVE | | [facility] | + + + + + | ARM BAND NUMBER | [id number] | | [facility] | | | performed at [facility] | | | | | [address];[place] | | | | | [address] | | | + + + + + + + | Specimen | + + | Blood | + + + + + + + | Performing | Address | City/State/Zipcode | Phone Number | | Organization | | | | + + + + + | [facility] | [address] | [place] [address] | | + + + + + Glycohemoglobin A1C (03/30/2018 6:31 PM) + + + + + | Component | Value | Ref Range | Performed At | + + + + + | HEMOGLOBIN A1C | 6.8 (H)Comment: The | 4.0 - 6.0 % | [facility] | | | [place] [employer] | | LABORATORY | | | Association considers a | | | | | hemoglobin A1c result of | | | | | <7.0% to be the goal of | | | | | diabetic | | | | | therapy. When results | | | | | are consistently >8.0%, | | | | | the ADA suggests | | | | | reevaluation of the | | | | | treatment | | | | | regimen. The testing | | | | | method used is certified | | | | | traceable to the | | | | | Diabetes Control and | | | | | Complications Trial | | | | | reference method. | | | + + + + + | ESTIMATED AVG | 148Comment: The ADA | mg/dL | [facility] | | GLUCOSE | considers an eAG result | | LABORATORY | | | of LT 154 mg/dL to be | | | | | the goal of diabetic | | | | | therapy. Estimated | | | | | Average Glucose | | | | | calculated from | | | | | hemoglobin A1c by use of | | | | | the ADA recommended | | | | | formula.Testing | | | | | performed at [facility], [address] | | | | [facility] [place], | | | | | [place] [address] | | | + + + + + + + | Specimen | + + | Blood | + + + + + + + | Performing | Address | City/State/Zipcode | Phone Number | | Organization | | | | + + + + + | [facility] | [address] [facility] | [place] [address] | [phone] | | LABORATORY | [address] | | | + + + + + MRSA by PCR (03/30/2018 6:30 PM) + + + + + | Component | Value | Ref Range | Performed At | + + + + + | SOURCE | NARES(NOSE) | | [facility] | + + + + + | MRSA PCR | NEGATIVEComment: Testing | NEGATIVE | [facility] | | | performed at [facility];[place], [place] | | | | | [address] | | | + + + + + + + | Specimen | + + | Nasopharyngeal - | | Nasopharyngeal | | Culture | + + + + + + + | Performing | Address | City/State/Zipcode | Phone Number | | Organization | | | | + + + + + | [facility] | [address] | [place] [address] | | + + + + + from Last 3 Months Insurance + +--------+ +------+-------+ + | Payer | Benefi | Subscriber | Type | Phone | Address | | | t Plan | ID | | | | | | / | | | | | | | Group | | | | | + +--------+ +------+-------+ + | MEDICARE | MEDICA | [id number] | | | [address] | | | RE | | | | [place] [address] | | | IP-OP | | | | | + +--------+ +------+-------+ + | PREMERA | PREMER | [id number] | | | [address] [address] | | | A BLUE | | | | [place] | | | [place] | | | | [phone] | | | FED | | | | | | | PPO | | | | | + +--------+ +------+-------+ + + +--------+ +--------+ + + | Guarantor Name | Accoun | Relation to | Date | Phone | Billing Address | | | t Type | Patient | of | | | | | | | | | | + +--------+ +--------+ + + | STEFANI BHATIA | Person | Self [birth year] Home: | [address] | | [place] | leeann/[place]andy | | 1950 | [phone] | [place] | | | tessie | | | [phone] | [address] | + +--------+ +--------+ + +
--- OUTSIDE RECORDS SUMMARY | ~2018-05-20 | XMS | Encounter Summary ---
Demographics + + + | Address | [address] | | | [place] [address] | + + + | Home Phone | | + + + | Preferred Language | Unknown | + + + | Marital Status | | + + + | Restoration Affiliation | [id number] | + + + | Race | Unknown | + + + | Ethnic Group | Unknown | + + + Author + + + | Author | [facility] | + + + | Organization | [facility] [employer] | + + + | Address | Unknown | + + + | Phone | Unavailable | + + + Support + + + + + | Name | Relationship | Address | Phone | + + + + + | Jamaal Parra | [place] | [address] | | | [place] | | [place] | | | | | [address] | | + + + + + Care Team Providers + +------+ + | Care Patient Relations Coordinator Name | Role | Phone | + +------+ + | Vince Cintron DO | PCP | | + +------+ + Encounter Details +--------+ + + + + | Date | Type | Department | Care Team | Description | +--------+ + + + + | 04/03/ | Procedure | [facility] | | | | 2018 | [facility] | | | | | | Inpatient Re[facility] [address] | | | | | [address] | | | | | | [place] [address] | | | | | | [phone] | | | +--------+ + + + [...]
--- OUTSIDE RECORDS SUMMARY | ~2018-05-20 | XMS | Encounter Summary ---
Demographics + + + | Address | [address] | | | [place] [address] | + + + | Home Phone | | + + + | Preferred Language | Unknown | + + + | Marital Status | | + + + | Jainism Affiliation | 1076 | + + + | Race | Unknown | + + + | Ethnic Group | Unknown | + + + Author + + + | Author | [facility] [employer] | + + + | Organization | [facility] [employer] [facility] | + + + | Address | Unknown | + + + | Phone | Unavailable | + + + Support + + + + + | Name | Relationship | Address | Phone | + + + + + | Jamaal Parra | E[place] | [address] | | | [place] | | [place] | | | | | [address] | | + + + + + Care Team Providers + +------+ + | Care Best Worker Name | Role | Phone | + [...] + + | 03/30/ | Hospital | [facility] | See, Medical | Diagnosis unknown | | 2018 | Encounter | [facility] | Record | | | | | RADIOLOGY [address] | | | | | | [place] [address] | | | | | | [phone] | | | +--------+ + + + [...] | + + + + + | [facility] | [address] | [place] [address] | | + + + + + in this encounter Visit Diagnoses + + | Diagnosis | + + | Diagnosis unknown | + + | Other unknown and unspecified cause of morbidity or mortality | + +"
--- OUTSIDE RECORDS SUMMARY | ~2018-05-20 | XMS | Encounter Summary ---
Demographics + + + | Address | [address] | | | [place] [address] | + + + | Home Phone | | + + + | Preferred Language | Unknown | + + + | Marital Status | | + + + | Hinduism Affiliation | 1076 | + + + | Race | Unknown | + + + | Ethnic Group | Unknown | + + + Author + + + | Author | [facility] | + + + | Organization | [facility] | + + + | Address | Unknown | + + + | Phone | Unavailable | + + + Support + + + + + | Name | Relationship | Address | Phone | + + + + + | Stefani Bhatia | ELSY | [address] | | | [place] | | [place] | | | | | [address] | | + + + + + Care Team Providers + +------+ + | Care Culvert Installer Name | Role | Phone | + [...] + + | 03/30/ | Hospital | [facility] | Dayan Schreiber, | Thrombocytopenia | | 2018 - | Encounter | [facility] | MD Mercedes PARIS | ([facility]) (Primary Dx); | | | | Floor [facility] | [place] [address] | Pain; Chronic ITP | | 04/02/ | [address] | [phone] | (idiopathic | | 2018 | | [place] [address] | Piryani Robe | thrombocytopenia) | | | | [phone] | MD Mercedes Herbert | ([facility]) | | | | | vd [place], [place] | | | | | | [address] | | | | | | | [...] note may be different from the original. [facility] Service: Hospitalist Physician Discharge Summary Pt: [...] There is minimal aortic stenosis present. 10. Tqkk-dv-obarukci mitral regurgitation is pr esent. 11. There may be moderate pulmonary hypertension. 12. The right ventricular systolic pressure (pulmonary artery systolic pressure), as measured by Doppler, is . HPI and Hospital Course: Ms. Bhatia is a 67-year-old female who has a past medical history of idiopathic thrombocy topenic purpura and sees Dr. Green in [place], [place]. Her other problems are essen tial [...] from transfer to inpatient rehab facility of [facility] for continuation of physical therapy and occupational [...] and follows with Dr. Petr bauer in [place], [place]. At the time of presentation, her [...] normal. Impulsive at times. Short an d fpc memory impairment. LABS: Recent Labs Lab 04/02/18 [...] hours. No results for input(s): PHART, PO2ART, TOX4WEI, U1NYJKGQ, BEART in the last 168 hours. No [...] reconciling home medications and dictating discharge summ jnen. Follow-up with PCP in 2 weeks. Signed: [...] note may be different from the original. [facility] Service: Hospitalist Progress Note Hospital Day: LOS: 2 days Post-Op Day: * No surgery found * SUBJECTIVE Patient Summary: Events Overnight: Transferred out of ICU yesterday. Admitted for acute left SDH and s ubarachnoid hemorrhage secondary to fall. History of ITP and sees Dr. Joseph, a hemat ologist in [place]. [place]. Hx. of dizziness and recurrent falls [...] days for seizure prophylaxis. ITP. Patient follows obiee [facility] solution architect in [place], [place]. Dr. vee to evaluate patient. She will [...] may be differ ent from the original. [facility] Service: Criminal Lawyer Progress Note Stefani Mathew Fidel 67 y.o. [...] given 2 mg of ativan. At [facility] her plt count were 65 ct head [...] Expected: | | manual) | e | ([facility]) | 04/03/2018, Expires: | [...] | 65 - 99 mg/dL | [facility] | | | performed at [facility];[address] | | | | | [address];[place], [place] | | | | | [address] | | | + + + + + + + + + + | Performing | Address | City/State/Zipcode | Phone Number | | Organization | | | | + + + + + | [facility] | [address] | [place] [address] | | + + + + + POCT glucose (04/02/2018 5:30 AM) + + + + + | Component | Value | Ref Range | Performed At | + + + + + | GLUCOSE,POC SCREEN | 136 (H)Comment: Testing | 65 - 99 mg/dL | [facility] | | | performed at [facility];[address] | | | | | [address];[place] | | | | | [address] | | | + + + + + + + + + + | Performing | Address | City/State/Zipcode | Phone Number | | Organization | | | | + + + + + | [facility] | [address] | [place] [address] | | + + + + + Phosphorus (04/02/2018 3:56 AM) + + + + + | Component | Value | Ref Range | Performed At | + + + + + | PHOSPHORUS | 2.9Comment: Testing | 2.3 - 4.8 mg/dL | [facility] | | | performed at [facility], [address] | | LABORATORY | | | [address], | | | | | [place] [address] | | | + + + + + + + | Specimen | + + | Blood | + + + + + + + | Performing | Address | City/State/Zipcode | Phone Number | | Organization | | | | + + + + + | [facility] | [address] | [place] [address] | [phone] | | LABORATORY | [address]vd[address] | | | + + + + + Magnesium (04/02/2018 3:56 AM) + + + + + | Component | Value | Ref Range | Performed At | + + + + + | MAGNESIUM | 1.7Comment: Testing | 1.7 - 2.4 mg/dL | [facility] | | | performed at [facility], [address] | | LABORATORY | | | [facility], | | | | | [place] [address] | | | + + + + + + + | Specimen | + + | Blood | + + + + + + + | Performing | Address | City/State/Zipcode | Phone Number | | Organization | | | | + + + + + | [facility] | [address] | [place] [address] | [phone] | | LABORATORY | Blvd. | | [...] | | | | | performed at [facility], [address] | | | | | [facility], | | | | | [place] [address] | | | + + + + + + + | Specimen | + + | Blood | + + + + + + + | Performing | Address | City/State/Zipcode | Phone Number | | Organization | | | | + + + + + | [facility] | [address] | [place] [address] | [phone] | | LABORATORY | Blvd. | | [...] | [facility] | | | performed at [facility], [address] | | LABORATORY | | | [address], | | | | | [place] [address] | | | + + + + + + + | Specimen | + + | Blood | + + + + + + + | Performing | Address | City/State/Zipcode | Phone Number | | Organization | | | | + + + + + | [facility] | [address] | [place] [address] | [phone] | | LABORATORY | [address] | | | + + + + + POCT glucose (04/01/2018 9:46 PM) + + + + + | Component | Value | Ref Range | Performed At | + + + + + | GLUCOSE,POC SCREEN | 272 (H)Comment: Testing | 65 - 99 mg/dL | [facility] | | | performed at [facility];[address] | | | | | [address];[place] | | | | | [address] | | | + + + + + + + + + + | Performing | Address | City/State/Zipcode | Phone Number | | Organization | | | | + + + + + | [facility] | [address] | [place] [address] | | + + + + + POCT glucose (04/01/2018 4:48 PM) + + + + + | Component | Value | Ref Range | Performed At | + + + + + | GLUCOSE,POC SCREEN | 140 (H)Comment: Testing | 65 - 99 mg/dL | [facility] | | | performed at [facility];[address] | | | | | [address];[place] | | | | | [address] | | | + + + + + + + + + + | Performing | Address | City/State/Zipcode | Phone Number | | Organization | | | | + + + + + | [facility] | [address] | [place] [address] | | + + + + + [...] There is minimal aortic stenosis present. 10. Ukub-wa-zmalmjho | | | mitral regurgitation is present. 11. There may be moderate pulmonary | | | hypertension. 12. The right ventricular systolic pressure (pulmonary | | | artery systolic pressure), as measured by Doppler, is {RVSP}. | | + + + + + + | Narrative | Performed At | + + + | Patient Name: STEFANI BHATIA Date of : 1950 | [facility] | | Performing Physician: Emanuel Melissa [...] There is minimal aortic stenosis present. 10. Qjci-gr-tyrgoqsr | | | mitral regurgitation is present. [...] stenosis present. Mitral Valve: | | | Jswc-lu-ybvtrauv mitral regurgitation is present. Mitral Valve: | [...] | | Michael: 0.68 m/s TV Dec Candler: 2.56 m/s2 TV Dec Time: | | | 264.67 ms TV E Michael: 0.67 m/s TV E/A Ratio: 0.99 | | | Formulation Chemist: CM Authenticated by: Emanuel Melissa MD Report Date/Time: | | | 04-01-2018 16:50:35 | | + + + + + | Procedure Note | + + | Frank, Rad Results In - 04/01/2018 5:00 PM PDT Patient Name: Latoya BHATIA | | : 1950ccession: [id number] Physician: Emanuel Melissa | | INDICATIONS m [...] is minimal aortic stenosis | | present.10. Lfkn-up-gxzqlnhj mitral regurgitation is present.11. There may be [...] There is minimal aortic stenosis present.Mitral Valve: Zjfm-nv-dfeloyxo mitral | | regurgitation is present. Mitral [...] | mlLVLs A4C: 7.06 cmLAAs A4C: 14.61 ll5SFZNY A-L A4C: 34.22 mlLALs A4C: 5.29 | | cmRAAd: 16.15 ow3IHSKN A-L: 43.57 mlRAEDV MOD: 43.26 mlRALd: 5.08 cmAo Diam: | | 3.17 cmAV Cusp: 1.81 cmTAPSE: 2.90 cmAV maxP.78 mmHgAV meanP.51 mmHgAV | | Vmax: 2.10 m/Haley Vmean: 1.53 m/Haley VTI: 57.45 cmAVA Vmax: 1.67 cm2AVA (VTI): | | 1.44 bc6YHDX Vmax: 0.00 cm2/m2AVAI (VTI): 0.00 cm2/m2LVCI Dopp: 3.21 l/wdzw0JVVX | | Dopp: 5.72 l/minHR: 68.91 BPMLVOT [...] A Michael: 0.68 m/sTV Dec | | Candler: 2.56 m/s2TV Dec Time: 264.67 msTV E Michael: 0.67 m/sTV E/A Ratio: 0.99 | | Formulation Chemist: CMAuthenticated by: Emanuel VAZQUEZeport Date/Time: 04-01-2018 | [...] is minimal aortic stenosis present.10. | | Ieie-au-xbkdxeue mitral regurgitation is present.11. There may be [...] A Michael: 0.68 m/s | |TV Dec Candler: 2.56 m/s2 | |TV Dec Time: 264.67 ms | |TV E Michael: 0.67 m/s | |TV E/A Ratio: 0.99 | | | |Formulation Chemist: CM | |Authenticated by: Emanuel Melissa MD [...] is minimal aortic stenosis present. | |10. Bmfu-mz-biyyllmu mitral regurgitation is present. | |11. There may be moderate pulmonary hypertension. | |12. The right ventricular systolic pressure (pulmonary artery systolic pressure), as measur ed by Doppler, is {RVSP}. | + + + + + + + | Performing | Address | City/State/[facility] | Phone Number | | Organization | | | | + + + + + | [facility] | [address] | [place] [address] | | + + + + + POCT glucose (04/01/2018 12:26 PM) + + + + + | Component | Value | Ref Range | Performed At | + + + + + | GLUCOSE,POC SCREEN | 215 (H)Comment: Testing | 65 - 99 mg/dL | [facility] | | | performed at [facility];[address] | | | | | [address];[place] | | | | | [address] | | | + + + + + + + + + + | Performing | Address | City/State/Zipcode | Phone Number | | Organization | | | | + + + + + | [facility] | [address] | [place] [address] | | + + + + + [...] performed | | | | | at [facility], [address] | | | | | [facility], | | | | | [place] [address] | | | + + + + + + + | Specimen | + + | Blood | + + + + + + + | Performing | Address | City/State/Zipcode | Phone Number | | Organization | | | | + + + + + | [facility] | [address] | [place] [address] | [phone] | | LABORATORY | [address]vd[address] | | | + + + + + POCT glucose (04/01/2018 5:29 AM) + + + + + | Component | Value | Ref Range | Performed At | + + + + + | GLUCOSE,POC SCREEN | 105 (H)Comment: Testing | 65 - 99 mg/dL | [facility] | | | performed at [facility];[address] | | | | | [address];[place] | | | | | [address] | | | + + + + + + + + + + | Performing | Address | City/State/Zipcode | Phone Number | | Organization | | | | + + + + + | [facility] | [address] | [place] [address] | | + + + + + Phosphorus (04/01/2018 4:05 AM) + + + + + | Component | Value | Ref Range | Performed At | + + + + + | PHOSPHORUS | 2.6Comment: Testing | 2.3 - 4.8 mg/dL | [facility] | | | performed at [facility], [address] | | LABORATORY | | | [address], | | | | | [place] [address] | | | + + + + + + + | Specimen | + + | Blood | + + + + + + + | Performing | Address | City/State/Zipcode | Phone Number | | Organization | | | | + + + + + | [facility] | [address] | [place] [address] | [phone] | | LABORATORY | [address] | | | + + + + + Magnesium (04/01/2018 4:05 AM) + + + + + | Component | Value | Ref Range | Performed At | + + + + + | MAGNESIUM | 1.9Comment: Testing | 1.7 - 2.4 mg/dL | [facility] | | | performed at [facility], [address] | | LABORATORY | | | [address], | | | | | [place] [address] | | | + + + + + + + | Specimen | + + | Blood | + + + + + + + | Performing | Address | City/State/Zipcode | Phone Number | | Organization | | | | + + + + + | [facility] | [address] | [place] [address] | [phone] | | LABORATORY | [address]vd[address] | | [...] GFR <60: | >60 mL/min/1.73m2 | [facility] | | | CHRONIC KIDNEY DISEASE, | [...] | | | | | performed at [facility], [address] | | | | | [facility], | | | | | [place] [address] | | | + + + + + + + | Specimen | + + | Blood | + + + + + + + | Performing | Address | City/State/Zipcode | Phone Number | | Organization | | | | + + + + + | [facility] | [address] | [place] [address] | [phone] | | LABORATORY | [address]vd[address] | | [...] | [facility] | | | performed at [facility], [address] | | LABORATORY | | | [address], | | | | | [place] [address] | | | + + + + + + + | Specimen | + + | Blood | + + + + + + + | Performing | Address | City/State/Zipcode | Phone Number | | Organization | | | | + + + + + | [facility] | [address] | [place] [address] | [phone] | | LABORATORY | [address]vd[address] | | | + + + + + POCT glucose (03/31/2018 8:41 PM) + + + + + | Component | Value | Ref Range | Performed At | + + + + + | GLUCOSE,POC SCREEN | 247 (H)Comment: Testing | 65 - 99 mg/dL | [facility] | | | performed at [facility];[address] | | | | | [address];[place] | | | | | [address] | | | + + + + + + + + + + | Performing | Address | City/State/Zipcode | Phone Number | | Organization | | | | + + + + + | [facility] | [address] | [place] [address] | | + + + + + POCT glucose (03/31/2018 4:06 PM) + + + + + | Component | Value | Ref Range | Performed At | + + + + + | GLUCOSE,POC SCREEN | 284 (H)Comment: Testing | 65 - 99 mg/dL | [facility] | | | performed at [facility];[address] | | | | | [address];[place] | | | | | [address] | | | + + + + + + + + + + | Performing | Address | City/State/Zipcode | Phone Number | | Organization | | | | + + + + + | [facility] | [address] | [place] [address] | | + + + + + Platelet count (03/31/2018 1:01 PM) + + + + + | Component | Value | Ref Range | Performed At | + + + + + | PLT | 82 (L)Comment: Testing | 150 - 400 K/uL | [facility] | | | performed at [facility];[address] | | | | | [employer];[place] | | | | | [address] | | | + + + + + + + | Specimen | + + | Blood | + + + + + + + | Performing | Address | City/State/Zipcode | Phone Number | | Organization | | | | + + + + + | [facility] | [address] | [place] [address] | | + + + + + POCT glucose (03/31/2018 10:57 AM) + + + + + | Component | Value | Ref Range | Performed At | + + + + + | GLUCOSE,POC SCREEN | 174 (H)Comment: Testing | 65 - 99 mg/dL | [facility] | | | performed at [facility];[address] | | | | | [address];[place] | | | | | [address] | | | + + + + + + + + + + | Performing | Address | City/State/Zipcode | Phone Number | | Organization | | | | + + + + + | [facility] | [address] [facility] | [place] [address] | | + + + + + Phosphorus (03/31/2018 4:02 AM) + + + + + | Component | Value | Ref Range | Performed At | + + + + + | PHOSPHORUS | 2.2 (L)Comment: Testing | 2.3 - 4.8 mg/dL | [facility] | | | performed at [facility], [address] | | LABORATORY | | | [facility] [address] | | | | | [place] [address] | | | + + + + + + + | Specimen | + + | Blood | + + + + + + + | Performing | Address | City/State/Zipcode | Phone Number | | Organization | | | | + + + + + | [facility] | [address] | [place] [address] | [phone] | | LABORATORY | [address]vd[address] | | | + + + + + Magnesium (03/31/2018 4:02 AM) + + + + + | Component | Value | Ref Range | Performed At | + + + + + | MAGNESIUM | 1.9Comment: Testing | 1.7 - 2.4 mg/dL | [facility] | | | performed at [facility], [address] | | LABORATORY | | | [facility], | | | | | [place] [address] | | | + + + + + + + | Specimen | + + | Blood | + + + + + + + | Performing | Address | City/State/Zipcode | Phone Number | | Organization | | | | + + + + + | [facility] | [address] | [place] [address] | [phone] | | LABORATORY | [address] | | [...] GFR <60: | >60 mL/min/1.73m2 | [facility] | | | CHRONIC KIDNEY DISEASE, | [...] the | | | | | [facility]D [facility] traceable | | | | | equation.Testing | | | | | performed at [facility], [address] | | | | | [facility], | | | | | [place] [address] | | | + + + + + + + | Specimen | + + | Blood | + + + + + + + | Performing | Address | City/State/Zipcode | Phone Number | | Organization | | | | + + + + + | [facility] | [address] | [place] [address] | [phone] | | LABORATORY | [address]vd[address] | | [...] | [facility] | | | performed at [facility], [address] | | LABORATORY | | | [address], | | | | | [place] [address] | | | + + + + + + + | Specimen | + + | Blood | + + + + + + + | Performing | Address | City/State/Zipcode | Phone Number | | Organization | | | | + + + + + | [facility] | [address] | [place] [address] | [phone] | | LABORATORY | Blvd. | | [...] | [facility] | | | performed at [facility], [address] | | LABORATORY | | | [address], | | | | | [place] [address] | | | + + + + + + + | Specimen | + + | Blood | + + + + + + + | Performing | Address | City/State/Zipcode | Phone Number | | Organization | | | | + + + + + | [facility] | [address] | [place] [address] | [phone] | | LABORATORY | [address]vd[address] | | [...] + + + + | Calculated P Rosharon | 26 | degrees | [facility] | + + + + + | Calculated R Rosharon | -23 | degrees | [facility] | + + + + + | Calculated T Rosharon | 144 | degrees | [facility] | + + + + + | Diagnosis | Sinus rhythm with 1st | | [facility] | | | degree A-V block [...] + + + + + | [facility] | [address] | [facility] [place] [address] | | + + + + + Comprehensive metabolic panel (03/30/2018 11:29 PM) + + + + + | Component | Value | Ref Range | Performed At | + + + + + | SODIUM | 140 | 135 - 145 mmol/L | [facility] | + + + + + | POTASSIUM | 3.1 (L) | 3.5 - 4.9 mmol/L | [facility] | + + + + + | CHLORIDE | 104 | 99 - 109 mmol/L | [facility] | + + + + + | CO2 | 29 | 23 - 32 mmol/L | [facility] | + + + + + | ANION GAP AGAP | 11 | 5 - 20 mmol/L | [facility] | + + + + + | GLUCOSE | 137 (H) | 65 - 99 mg/dL | [facility] | + + + + + | BUN | 8 | 8 - 25 mg/dL | [facility] | + + + + + | CREATININE | 0.49 (L) | 0.50 - 1.00 mg/dL | [facility] | + + + + + | BUN/CREAT | 16 | | [facility] | + + + + + | CALCIUM | 8.0 (L) | 8.5 - 10.5 mg/dL | [facility] | + + + + + | TOTAL PROTEIN | 6.2 (L) | 6.3 - 8.2 g/dL | [facility] | + + + + + | Albumin | 2.7 (L) | 3.3 - 4.8 g/dL | [facility] | + + + [...] GFR <60: | >60 mL/min/1.73m2 | [facility] | | | CHRONIC [...] the | | | | | MDRD IDKY traceable | | | | | equation.Testing | | | | | performed at [facility];[address] | | | | | [address] [facility];[place], [place] | | | | | [address] | | | + + + + + + + | Specimen | + + | Blood | + + + + + + + | Performing | Address | City/State/Zipcode | Phone Number | | Organization | | | | + + + + + | [facility] | [address] | [place] [address] | | + + + + + CBC w/auto diff (reflex to manual) (03/30/2018 11:29 PM) + + + + + | Component | Value | Ref Range | Performed At | + + + + + | WBC | 5.91 | 3.80 - 11.00 K/uL | [facility] | + + + + + | RBC | 3.38 (L) | 3.70 - 5.10 M/uL | [facility] | + + + + + | HGB | 10.9 (L) | 11.3 - 15.5 g/dL | [facility] | + + + + + [...] 44.6 | 37 - 53 fl | [facility] | + + + + + | PLT | 93 (L) | 150 - 400 K/uL | [facility] | + + + + + | MPV | 7.6 | fl | [facility] | + + + + + | DIFF TYPE | AUTOMATED | | [facility] | + + + + + | NEUTROPHILS | 63.98 | % | [facility] | + + + + + | LYMPHOCYTES | 17.93 | % | [facility] | + + + + + [...] | 0.00 - 0.10 K/uL | [facility] | | | performed at [facility];[address] | | | | | [address];[place] | | | | | [address] | | | + + + + + + + | Specimen | + + | Blood | + + + + + + + | Performing | Address | City/State/Zipcode | Phone Number | | Organization | | | | + + + + + | [facility] | [address] | [place] [address] | | + + + + + [...] | data set was also examined with [employer] software for evaluation | | | [...] In - 03/30/2018 11:37 PM PDT STEFANI BHATIA[age] years | | FemaleCTA HEAD NECK W [...] The data set was also examined with [employer] | | software for evaluation of [...] [facility] | [address] | [place] [address] | | + + + + + [...] | + + + + + | [facility] | [address] | [place] [address] | | + + + + + [...] + + | [facility] | [address] | [facility] [place] [address] | | + + + + + Prepare platelets (Blood Bank) (03/30/2018 6:47 PM) + + + + + | Component | Value | Ref Range | Performed At | + + + + + | BLOOD COMPONENT TYPE | PLATELET GROUP | | [facility] | + + + + + | UNITS ORDERED | 2 | | [facility] | + + + + + | Additional comment: | ORDER RECEIVED IN BLOOD | | [facility] | | | BANK. | | | + + + + + | UNIT NUMBER | [id number] | | [facility] | + + + + + | BLOOD COMPONENT TYPE | PLATELET PHERESIS,LD B | | [facility] | + + + + + | UNIT DIVISION | 00 | | [facility] | + + + + + | STATUS OF UNIT | ISSUED,FINAL | | [facility] | + + + + + | TRANSFUSION STATUS | OK TO TRANSFUSE | | [facility] | + + + + + | UNIT NUMBER | [id number] | | [facility] | + + + + + | BLOOD COMPONENT TYPE | PLATELET PHERESIS,LD B | | [facility] | + + + + + | UNIT DIVISION | 00 | | [facility] | + + + + + | STATUS OF UNIT | ISSUED,FINAL | | [facility] | + + + + + | TRANSFUSION STATUS | OK TO TRANSFUSETesting | | [facility] | | | performed at [facility] | | | | | [address] [place] | | | | | [id number] | | | + + + + + + + | Specimen | + + | Blood | + + + + + + + | Performing | Address | City/State/Zipcode | Phone Number | | Organization | | | | + + + + + | [facility] | [address] | [place] [address] | | + + + + + POCT glucose (03/30/2018 6:42 PM) + + + + + | Component | Value | Ref Range | Performed At | + + + + + | GLUCOSE,POC SCREEN | 169 (H)Comment: Testing | 65 - 99 mg/dL | [facility] | | | performed at [facility];[address] | | | | | [address] [place] | | | | | [address] | | | + + + + + + + + + + | Performing | Address | City/State/Zipcode | Phone Number | | Organization | | | | + + + + + | [facility] | [address] | [place] [address] | | + + + + + Glycohemoglobin A1C (03/30/2018 6:31 PM) + + + + + | Component | Value | Ref Range | Performed At | + + + + + | HEMOGLOBIN A1C | 6.8 (H)Comment: The | 4.0 - 6.0 % | [facility] | | | [place] [facility] | | LABORATORY | | | [...] | 148Comment: The ADA | mg/dL | [facility] | | GLUCOSE | considers an eAG [...] | | | | | performed at [facility], [address] | | | | | [facility], | | | | | [place], [place] [address] | | | + + + + + + + | Specimen | + + | Blood | + + + + + + + | Performing | Address | City/State/Zipcode | Phone Number | | Organization | | | | + + + + + | [facility] | [address] | [place] [address] | [phone] | | LABORATORY | [address]vd[address] | | | + + + + + Type and screen (03/30/2018 6:31 PM) + + + + + | Component | Value | Ref Range | Performed At | + + + + + | ABO/RH(D) | A POSITIVE | | [facility] | + + + + + | ANTIBODY SCREEN | NEGATIVE | | [facility] | + + + + + | ARM BAND NUMBER | [id number] | | [facility] | | | performed at [facility];[address] | | | | | [address] [place] | | | | | [address] | | | + + + + + + + | Specimen | + + | Blood | + + + + + + + | Performing | Address | City/State/Zipcode | Phone Number | | Organization | | | | + + + + + | [facility] | [address] | [place] [address] | | + + + + + MRSA by PCR (03/30/2018 6:30 PM) + + + + + | Component | Value | Ref Range | Performed At | + + + + + | SOURCE | NARES(NOSE) | | [facility] | + + + + + | MRSA PCR | NEGATIVEComment: Testing | NEGATIVE | [facility] | | | performed at [facility];[address] | | | | | [address];[place] | | | | | [address] | | | + + + + + + + | Specimen | + + | Nasopharyngeal - | | Nasopharyngeal | | Culture | + + + + + + + | Performing | Address | City/State/Zipcode | Phone Number | | Organization | | | | + + + + + | [facility] | [address] | [place] [address] | | + + + + + [...] | | | | | Intravenous, Once, [facility] 03/31/18 at | | PDT | [...] | | | | | Intravenous, Once, [facility] 04/01/18 at | | PDT | [...] | | | | | Intravenous, Once, [facility] 03/31/18 at | | PDT | [...] | | | | | Intravenous, Once, [facility] 04/01/18 at | | PDT | [...] equal to 1.1, | | | Starting [facility] 03/30/18 at 1812, | | | Recheck [...] | | | Daily, First dose on [facility] 04/01/18 | | PDT | | [...] to tolerate oral), | | | Starting [facility] 03/30/18 at 1812 | | + +---+ | | | + +---+ | potassium chloride 20 mEq in | | | 250 mL IVPB 20 mEq, Intravenous, | | | Administer over 2 Hours, PRN, | | | for serum potassium 3.8 to 4, | | | Starting [facility] 03/30/18 at 1812, 1) | | | [...] | | | | | dose on [facility] 04/01/18 at 1000 | | PDT [...]
--- OUTSIDE RECORDS SUMMARY | ~2018-05-20 | XMS | Clinical Summary ---
Demographics + + + | Address | [address] | | | [place] [address] | + + + | Home Phone | | + + + | Preferred Language | Unknown | + + + | Marital Status | | + + + | Amish Affiliation | 1076 | + + + | Race | Unknown | + + + | Ethnic Group | Unknown | + + + Author + + + | Author | [facility] | + + + | Organization | [facility] | + + + | Address | Unknown | + + + | Phone | Unavailable | + + + Support + + + + + | Name | Relationship | Address | Phone | + + + + + | Stefani Bhatia | ELSY | [address] | | | [place] | | [place] | | | | | [address] | | + + + + + Care Team Providers + +------+ + | Care Occupational Therapy Professor Name | Role | Phone | + [...] | | | | | | insulin ([facility]); | | | | | | Lumbar [...] | | | in | | | [place]. | | | She is a | [...] | | extremities | | | . 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) | +--------+ +---+ + + +---+ + [...] | | | MRN: | | | [id number] | | | OM: | | | [...] | | | in | | | [place], | | | [place]. | | | Her other | | [...] | | follows | | | with DrArnulfo | | | Peter | | | in | | | [place], | | | [place]. 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 | | | + + + + + POCT glucose (04/14/2018 5:34 AM)Only the most recent of 53 results within the time period is included. + + + + + | Component | Value | Ref Range | Performed At | + + + + + | GLUCOSE,POC SCREEN | 97Comment: Testing | 65 - 99 mg/dL | [facility] | | | performed at [facility];[address] | | | | | [address];[place] | | | | | [address] | | | + + + + + + + + + + | Performing | Address | City/State/Zipcode | Phone Number | | Organization | | | | + + + + + | [facility] | [address] | [facility] [place] [address] | | + + + + + [...] 8.5 | 8.5 - 10.5 mg/dL | [facility] | | | | | LABORATORY | [...] | | | | | performed at [facility], [address] | | | | | [facility], | | | | | [place] [address] | | | + + + + + + + | Specimen | + + | Blood | + + + + + + + | Performing | Address | City/State/Zipcode | Phone Number | | Organization | | | | + + + + + | [facility] | [address] | [place] [address] | [phone] | | LABORATORY | Blvd. | | [...] | + + + | PATRICADYLAN WILLINGHAM [place] HEAD WO CONTRAST 04/08/2018 8:00 AM [...] [facility] | [address] | [place] [address] | | + + + + + [...] | + + + + + | [facility] | [address] | [place] [address] | | + + + + + MRI lumbar spine without contrast (04/03/2018 4:03 PM) + + + | Impressions | Performed At | + + + | 1. Annular fissuring of the disc is present at L5-S1. 2. Fat | [facility] | | attenuation lesion is noted at [...] | | | performed on a 1.5 Katreina MRI system. Multiplanar sequences | | | [...] - 04/03/2018 4:23 PM PDT PATRICADYLAN WILLINGHAM [id number] years | | FemaleMRI LUMBAR SPINE WO [...] + + | Performing | Address | City/State/[facility] | Phone Number | | Organization | | | | + + + + + | [facility] | [address] | [place] [address] | | + + + + + [...] | + + + + + | [facility] | [address] | [place] [address] | | + + + + + Phosphorus (04/02/2018 3:56 AM)Only the most recent of 3 results within the time period is included. + + + + + | Component | Value | Ref Range | Performed At | + + + + + | PHOSPHORUS | 2.9Comment: Testing | 2.3 - 4.8 mg/dL | [facility] | | | performed at [facility], [address] | | LABORATORY | | | [address], | | | | | [place] [address] | | | + + + + + + + | Specimen | + + | Blood | + + + + + + + | Performing | Address | City/State/Zipcode | Phone Number | | Organization | | | | + + + + + | [facility] | [address] | [place] [address] | [phone] | | LABORATORY | Blvd. | | [...] | [facility] | | | performed at [facility], [address] | | LABORATORY | | | [facility], | | | | | [place] [address] | | | + + + + + + + | Specimen | + + | Blood | + + + + + + + | Performing | Address | City/State/Zipcode | Phone Number | | Organization | | | | + + + + + | [facility] | [address] | [place] [address] | [phone] | | LABORATORY | Blvd. | | [...] There is minimal aortic stenosis present. 10. Skpf-sw-qfneyzvq | | | mitral regurgitation is present. 11. There may be moderate pulmonary | | | hypertension. 12. The right ventricular systolic pressure (pulmonary | | | artery systolic pressure), as measured by Doppler, is {RVSP}. | | + + + + + + | Narrative | Performed At | + + + | Patient Name: STEFANI BHATIA Date of : 1950 [facility] | | Performing Physician: Emanuel Melissa [...] There is minimal aortic stenosis present. 10. Huiv-hl-afhvvhdh | | | mitral regurgitation is present. [...] stenosis present. Mitral Valve: | | | Gerc-op-umwrocld mitral regurgitation is present. Mitral Valve: | [...] | | Michael: 0.68 m/s TV Dec Childress: 2.56 m/s2 TV Dec Time: | | | 264.67 ms TV E Michael: 0.67 m/s TV E/A Ratio: 0.99 | | | Brick Tender: LAISHA Authenticated by: Emanuel Melissa MD Report Date/Time: | | | 04-01-2018 16:50:35 | | + + + + + | Procedure Note | + + | Nate Marie In - 04/01/2018 5:00 PM PDT Patient Name: Bipin BHATIA of | | : 1950ccession: [id number] Physician: Emanuel Melissa | | INDICATIONS m [...] is minimal aortic stenosis | | present.10. Ivql-hj-aepjhtir mitral regurgitation is present.11. There may be [...] There is minimal aortic stenosis present.Mitral Valve: Igyg-co-irquaibi mitral | | regurgitation is present. Mitral [...] | mlLVLs A4C: 7.06 cmLAAs A4C: 14.61 nv0ORBPA A-L A4C: 34.22 mlLALs A4C: 5.29 | | cmRAAd: 16.15 tj4HGXUR A-L: 43.57 mlRAEDV MOD: 43.26 mlRALd: 5.08 cmAo Diam: | | 3.17 cmAV Cusp: 1.81 cmTAPSE: 2.90 cmAV maxP.78 mmHgAV meanP.51 mmHgAV | | Vmax: 2.10 m/Haley Vmean: 1.53 m/Haley VTI: 57.45 cmAVA Vmax: 1.67 cm2AVA (VTI): | | 1.44 zb0GVUD Vmax: 0.00 cm2/m2AVAI (VTI): 0.00 cm2/m2LVCI Dopp: 3.21 l/fuav3WDHA | | Dopp: 5.72 l/minHR: 68.91 BPMLVOT [...] A Michael: 0.68 m/sTV Dec | | Childress: 2.56 m/s2TV Dec Time: 264.67 msTV E Michael: 0.67 m/sTV E/A Ratio: 0.99 | | Brick Tender: CMAuthenticated by: Emanuel VAZQUEZthe institute of living Date/Time: 04-01-2018 | | 16:50:35IMPRESSION:1. Overall left [...] is minimal aortic stenosis present.10. | | Ysns-gg-cmswsahg mitral regurgitation is present.11. There may be [...] A Michael: 0.68 m/s | |TV Dec Childress: 2.56 m/s2 | |TV Dec Time: 264.67 ms | |TV E Michael: 0.67 m/s | |TV E/A Ratio: 0.99 | | | |Brick Tender: CM | |Authenticated by: Emanuel Melissa MD [...] is minimal aortic stenosis present. | |10. Boos-nj-wnfmgjvm mitral regurgitation is present. | |11. There may be moderate pulmonary hypertension. | |12. The right ventricular systolic pressure (pulmonary artery systolic pressure), as measur ed by Doppler, is {RVSP}. | + + + + + + + | Performing | Address | City/State/Zipcode | Phone Number | | Organization | | | | + + + + + | [facility] | [address] | [place] [address] | | + + + + + [...] performed | | | | | at [facility], [address] | | | | | [address], | | | | | [place] [address] | | | + + + + + + + | Specimen | + + | Blood | + + + + + + + | Performing | Address | City/State/Zipcode | Phone Number | | Organization | | | | + + + + + | [facility] | [address] | [place] [address] | [phone] | | LABORATORY | Blvd. | | | + + + + + Platelet count (03/31/2018 1:01 PM) + + + + + | Component | Value | Ref Range | Performed At | + + + + + | PLT | 82 (L)Comment: Testing | 150 - 400 K/uL | [facility] | | | performed at [facility] | | | | | [address];[place] | | | | | [address] | | | + + + + + + + | Specimen | + + | Blood | + + + + + + + | Performing | Address | City/State/Zipcode | Phone Number | | Organization | | | | + + + + + | [facility] | [address] | [place] [address] | | + + + + + [...] | [facility] | | | performed at [facility], [address] | | LABORATORY | | | [address], | | | | | [place] [address] | | | + + + + + + + | Specimen | + + | Blood | + + + + + + + | Performing | Address | City/State/Zipcode | Phone Number | | Organization | | | | + + + + + | [facility] | [address] | [place] [address] | [phone] | | LABORATORY | Blvd[address] | | [...] + + + + | Calculated P Mobile | 26 | degrees | [facility] | + + + + + | Calculated R Mobile | -23 | degrees | [facility] | + + + + + | Calculated T Mobile | 144 | degrees | [facility] [...] | + + + + + | [facility] | [address] | [place] [address] | | + + + + + [...] 96 | 35 - 115 U/L | [facility] | + + + + + | AST | 30 | 10 - 45 U/L | [facility] | + + + + + | ALT | 32 | 10 - 65 U/L | [facility] | + + + + + | EGFR | >60Comment: GFR <60: | >60 mL/min/1.73m2 | [facility] | | | CHRONIC [...] | | | | | performed at [facility];[address] | | | | | [address];[place] | | | | | [address] | | | + + + + + + + | Specimen | + + | Blood | + + + + + + + | Performing | Address | City/State/Zipcode | Phone Number | | Organization | | | | + + + + + | [facility] | [address] | [place] [address] | | + + + + + [...] | data set was also examined with Loco2 3D software for evaluation | | | [...] - 03/30/2018 11:37 PM PDT STEFANI WILLINGHAM [id number] years | | FemaleCTA HEAD NECK W [...] The data set was also examined with Loco2 3D | | software for evaluation of [...] | + + + + + | [facility] | [address] | [place] [address] | | + + + + + [...] + | [facility] | [address] [address] | [place] [address] | | + + + + + Transfuse platelets (Nursing) (03/30/2018 10:04 PM)Only the most recent of 2 results within the time period is included.Prepare platelets (Blood Bank) (03/30/2018 6:47 PM) + + + + + | Component | Value | Ref Range | Performed At | + + + + + | BLOOD COMPONENT TYPE | PLATELET GROUP | | [facility] | + + + + + | UNITS ORDERED | 2 | | [facility] | + + + + + | Additional comment: | ORDER RECEIVED IN BLOOD | | [facility] | | | BANK. | | | + + + + + | UNIT NUMBER | [id number] | | [facility] | + + + + + | BLOOD COMPONENT TYPE | PLATELET PHERESIS,LD B | | [facility] | + + + + + | UNIT DIVISION | 00 | | [facility] | + + + + + | STATUS OF UNIT | ISSUED,FINAL | | [facility] | + + + + + | TRANSFUSION STATUS | OK TO TRANSFUSE | | [facility] | + + + + + | UNIT NUMBER | [id number] | | [facility] | + + + + + | BLOOD COMPONENT TYPE | PLATELET PHERESIS,LD B | | [facility] | + + + + + | UNIT DIVISION | 00 | | [facility] | + + + + + | STATUS OF UNIT | ISSUED,FINAL | | [facility] | + + + + + | TRANSFUSION STATUS | OK TO TRANSFUSETesting | | [facility] | | | performed at [facility];[address] | | | | | [address];[place] | | | | | [address] | | | + + + + + + + | Specimen | + + | Blood | + + + + + + + | Performing | Address | City/State/Zipcode | Phone Number | | Organization | | | | + + + + + | [facility] | [address] | [place] [address] | | + + + + + Type and screen (03/30/2018 6:31 PM) + + + + + | Component | Value | Ref Range | Performed At | + + + + + | ABO/RH(D) | A POSITIVE | | [facility] | + + + + + | ANTIBODY SCREEN | NEGATIVE | | [facility] | + + + + + | ARM BAND NUMBER | [id number] | | [facility] | | | performed at [facility];[address] | | | | | [address];[place] | | | | | [address] | | | + + + + + + + | Specimen | + + | Blood | + + + + + + + | Performing | Address | City/State/Zipcode | Phone Number | | Organization | | | | + + + + + | [facility] | [address] | [place] [address] | | + + + + + Glycohemoglobin A1C (03/30/2018 6:31 PM) + + + + + | Component | Value | Ref Range | Performed At | + + + + + | HEMOGLOBIN A1C | 6.8 (H)Comment: The | 4.0 - 6.0 % | [facility] | | | [place] Diabetes | | LABORATORY | | | [...] | | | | | performed at [facility], [address] | | | | | [facility], | | | | | [place] [address] | | | + + + + + + + | Specimen | + + | Blood | + + + + + + + | Performing | Address | City/State/Zipcode | Phone Number | | Organization | | | | + + + + + | [facility] | [address] | [place] [address] | [phone] | | LABORATORY | Blvd. | | | + + + + + MRSA by PCR (03/30/2018 6:30 PM) + + + + + | Component | Value | Ref Range | Performed At | + + + + + | SOURCE | NARES(NOSE) | | [facility] | + + + + + | MRSA PCR | NEGATIVEComment: Testing | NEGATIVE | [facility] | | | performed at [facility];[address] | | | | [address];[place], [place] | | | | | [address] | | | + + + + + + + | Specimen | + + | Nasopharyngeal - | | Nasopharyngeal | | Culture | + + + + + + + | Performing | Address | City/State/Zipcode | Phone Number | | Organization | | | | + + + + + | [facility] | [address] | [place] [address] | | + + + + + [...] +------+-------+ + | MEDICARE | MEDICA | [id number] | | | [address] | | | RE | | | | [place] [address] | | | IP-OP | | | | | + +--------+ +------+-------+ + | PREMERA | PREMER | [id number] | | | [address] [address] | | | A BLUE | | | | [place] | | | [place] | | | | [address] | | | FED | | | [...] | Self | [birth year] | Home: | [address] | | [place] | le[place] | | 1950 | [phone] | [place] | | | [place] | | | [phone] | [phone] | + +--------+ +--------+ + +
--- OUTSIDE RECORDS SUMMARY | ~2018-05-20 | XMS | Clinical Summary ---
Demographics + + + | Address | [address] | | | [place] [address] | + + + | Home Phone | | + + + | Preferred Language | Unknown | + + + | Marital Status | | + + + | Samaritan Affiliation | Unknown | + + + | Race | Unknown | + + + | Ethnic Group | Unknown | + + + Author + + + | Author | [facility] | | | and Nikoana | + + + | Organization | [facility] | | | and Nikoana [...] Team Providers + +------+ + | Care Day Care Provider Name | Role | Phone | + [...] +--------+ +---------+ | MEDICARE | MEDICA | [id number] | Medica | [phone]- | | | | RE | | re | [phone] | | | | PART A | | | | | | | AND B | | | | | + +--------+ +--------+ +---------+ | BCBS | BCBS | [id number] | PPO | | | | | [...] | Self | [birth year] | Home: | [address] | | | al/[place] | | 1950 | [phone] | [place] | | | t[place] | | | [phone] | [phone] | + +--------+ +--------+ + +"
--- OUTSIDE RECORDS SUMMARY | ~2018-05-20 | XMS | Encounter Summary ---
Demographics + + + | Address | [address] | | | [place] [address] | + + + | Home Phone | | + + + | Preferred Language | Unknown | + + + | Marital Status | | + + + | Episcopal Affiliation | 1076 | + + + | Race | Unknown | + + + | Ethnic Group | Unknown | + + + Author + + + | Author | [facility] | + + + | Organization | [facility] [facility] [facility] | + + + | Address | Unknown | + + + | Phone | Unavailable | + + + Support + + + + + | Name | Relationship | Address | Phone | + + + + + | Jamaal Parra | ELSY | [address] | | | [place] | | [place] | | | | | [address] | | + + + + + Care Team Providers + +------+ + | Care Entry Level Programmer Name | Role | Phone | + [...] [address] | | | | | [address] | [place] [address] | | | | | [place] | [phone] | | | | | [address] | | | | | | [phone] | | | +--------+ + + + [...]
--- OUTSIDE RECORDS SUMMARY | ~2018-05-20 | XMS | Encounter Summary ---
Demographics + + + | Address | [address] | | | [place] [address] | + + + | Home Phone | | + + + | Preferred Language | Unknown | + + + | Marital Status | | + + + | Zoroastrian Affiliation | 1076 | + + + | Race | Unknown | + + + | Ethnic Group | Unknown | + + + Author + + + | Author | [facility] [employer] | + + + | Organization | [facility] | + + + | Address | Unknown | + + + | Phone | Unavailable | + + + Support + + + + + | Name | Relationship | Address | Phone | + + + + + | Jamaal Parra | [place] | [address] | | | [place] | | [place] | | | | | [address] | | + + + + + Care Team Providers + +------+ + | Care Lens Finisher Name | Role | Phone | + [...] + + | 03/30/ | Hospital | [facility] | See, Medical | Diagnosis unknown | | 2018 | Encounter | [facility] | Record | | | | | RADIOLOGY [address] | | | | | | [place] [address] | | | | | | [phone] | | | +--------+ + + + [...] | + + + + + | [facility] | [address] | [place] [address] | | + + + + + in this encounter Visit Diagnoses + + | Diagnosis | + + | Diagnosis unknown | + + | Other unknown and unspecified cause of morbidity or mortality | + +"
--- OUTSIDE RECORDS SUMMARY | ~2018-05-20 | XMS | Encounter Summary ---
Demographics + + + | Address | [address] | | | [place] [address] | + + + | Home Phone | | + + + | Preferred Language | Unknown | + + + | Marital Status | | + + + | Yazdanism Affiliation | [id number] | + + + | Race | Unknown | + + + | Ethnic Group | Unknown | + + + Author + + + | Author | [facility] [email or web address] | + + + | Organization | [facility] | + + + | Address | Unknown | + + + | Phone | Unavailable | + + + Support + + + + + | Name | Relationship | Address | Phone | + + + + + | Jamaal Parra | ELSY | [address] | | | [place] | | [place] | | | | | [address] | | + + + + + Care Team Providers + +------+ + | Care Health And Safety Trainer Name | Role | Phone | + +------+ + | Vince Cintron DO | PCP | | + +------+ + Encounter Details +--------+ + + + + | Date | Type | Department | Care Team | Description | +--------+ + + + + | 04/03/ | Procedure | [facility] | | | | 2018 | [facility] | | | | | | Inpatient Rehab [address] | | | | | | [address] | | | | | | [place] [address] | | | | | | [phone] | | | +--------+ + + + [...]
--- OUTSIDE RECORDS SUMMARY | ~2018-05-20 | XMS | Encounter Summary ---
Demographics + + + | Address | [address] | | | [place] [address] | + + + | Home Phone | | + + + | Preferred Language | Unknown | + + + | Marital Status | | + + + | Church Affiliation | 1076 | + + + | Race | Unknown | + + + | Ethnic Group | Unknown | + + + Author + + + | Author | [email or web address] | + + + | Organization | [facility] | + + + | Address | Unknown | + + + | Phone | Unavailable | + + + Support + + + + + | Name | Relationship | Address | Phone | + + + + + | Stefani Bhatia | ELSY | [address] | | | [place] | | [place] | | | | | [address] | | + + + + + Care Team Providers + +------+ + | Care Multimedia Technician Name | Role | Phone | [...] + + | 03/30/ | Hospital | [facility] | Dayan Schreiber, | Thrombocytopenia | | 2018 - | Encounter | [facility] | MD Mercedes PARIS | ([facility]) (Primary Dx); | | | | Floor [address] | [place] [address] | Pain; Chronic ITP | | 04/02/ | [address] | [phone] | (idiopathic | | 2018 | | [place] [address] | Piryani Robe | thrombocytopenia) | | | | [phone] | MD Mercedes Herbert | ([facility]) | | | | | vd [place], [place] | | | | | | [address] | | | | | | | [...] note may be different from the original. [facility] Service: Hospitalist Physician Discharge Summary Pt: Stefani [...] There is minimal aortic stenosis present. 10. Ghii-px-bosmrymp mitral regurgitation is pr esent. 11. There may be moderate pulmonary hypertension. 12. The right ventricular systolic pressure (pulmonary artery systolic pressure), as measured by Doppler, is . HPI and Hospital Course: Ms. Bhatia is a 67-year-old female who has a past medical history of idiopathic thrombocy topenic purpura and sees Dr. Green in [place], [place]. Her other problems are essen tial [...] from transfer to inpatient rehab facility of [facility] for continuation of physical therapy [...] and follows with Dr. Petr bauer in [place], [place]. At the time of presentation, her [...] normal. Impulsive at times. Short an d longterm memory impairment. LABS: Recent Labs Lab 04/02/18 [...] hours. No results for input(s): PHART, PO2ART, UTR0KAG, O9DDRAHG, BEART in the last 168 hours. No [...] note may be different from the original. [facility]: Hospitalist Progress Note Hospital Day: LOS: 2 days Post-Op Day: * No surgery found * SUBJECTIVE Patient Summary: Events Overnight: Transferred out of ICU yesterday. Admitted for acute left SDH and s ubarachnoid hemorrhage secondary to fall. History of ITP and sees Dr. Joseph, a hemat ologist in [place]. [place]. Hx. of dizziness and recurrent falls [...] days for seizure prophylaxis. ITP. Patient follows service inspector in [place], [place]. Dr. vee to evaluate patient. She will [...] may be differ ent from the original. [facility] Service: Internal Combustion Engine Assembler Progress Note Stefani Mathew Fidel 67 y.o. [...] was given 2 mg of ativan. [facility] her plt count were 65 ct [...] Expected: | | manual) | e | ([facility]) | 04/03/2018, Expires: | | | [...] Testing | 65 - 99 mg/dL | [facility] | | | performed at [facility];[address] | | | | | [address];[place], [place] | | | | | [address] | | | + + + + + + + + + + | Performing | Address | City/State/Zipcode | Phone Number | | Organization | | | | + + + + + | [facility] | [address] | [place] [address] | | + + + + + POCT glucose (04/02/2018 5:30 AM) + + + + + | Component | Value | Ref Range | Performed At | + + + + + | GLUCOSE,POC SCREEN | 136 (H)Comment: Testing | 65 - 99 mg/dL | [facility] | | | performed at [facility];[address] | | | | | [address];[place] | | | | | [address] | | | + + + + + + + + + + | Performing | Address | City/State/Zipcode | Phone Number | | Organization | | | | + + + + + | [facility] | [address] | [place] [address] | | + + + + + Phosphorus (04/02/2018 3:56 AM) + + + + + | Component | Value | Ref Range | Performed At | + + + + + | PHOSPHORUS | 2.9Comment: Testing | 2.3 - 4.8 mg/dL | [facility] | | | performed at [facility], [address] | | LABORATORY | | | [address], | | | | | [place] [address] | | | + + + + + + + | Specimen | + + | Blood | + + + + + + + | Performing | Address | City/State/Zipcode | Phone Number | | Organization | | | | + + + + + | [facility] | [address] | [place] [address] | [phone] | | LABORATORY | [address]vd[address] | | | + + + + + Magnesium (04/02/2018 3:56 AM) + + + + + | Component | Value | Ref Range | Performed At | + + + + + | MAGNESIUM | 1.7Comment: Testing | 1.7 - 2.4 mg/dL | [facility] | | | performed at [facility], [address] | | LABORATORY | | | [facility], | | | | | [place] [address] | | | + + + + + + + | Specimen | + + | Blood | + + + + + + + | Performing | Address | City/State/Zipcode | Phone Number | | Organization | | | | + + + + + | [facility] | [address] | [place] [address] | [phone] | | LABORATORY | Blvd. | | [...] | | | | | performed at [facility], [address] | | | | | [facility], | | | | | [place] [address] | | | + + + + + + + | Specimen | + + | Blood | + + + + + + + | Performing | Address | City/State/Zipcode | Phone Number | | Organization | | | | + + + + + | [facility] | [address] | [place] [address] | [phone] | | LABORATORY | Blvd. | | [...] | [facility] | | | performed at [facility], [address] | | LABORATORY | | | [address], | | | | | [place] [address] | | | + + + + + + + | Specimen | + + | Blood | + + + + + + + | Performing | Address | City/State/Zipcode | Phone Number | | Organization | | | | + + + + + | [facility] | [address] | [place] [address] | [phone] | | LABORATORY | [address] | | | + + + + + POCT glucose (04/01/2018 9:46 PM) + + + + + | Component | Value | Ref Range | Performed At | + + + + + | GLUCOSE,POC SCREEN | 272 (H)Comment: Testing | 65 - 99 mg/dL | [facility] | | | performed at [facility];[address] | | | | | [address];[place] | | | | | [address] | | | + + + + + + + + + + | Performing | Address | City/State/Zipcode | Phone Number | | Organization | | | | + + + + + | [facility] | [address] | [place] [address] | | + + + + + POCT glucose (04/01/2018 4:48 PM) + + + + + | Component | Value | Ref Range | Performed At | + + + + + | GLUCOSE,POC SCREEN | 140 (H)Comment: Testing | 65 - 99 mg/dL | [facility] | | | performed at [facility];[address] | | | | | [address];[place] | | | | | [address] | | | + + + + + + + + + + | Performing | Address | City/State/Zipcode | Phone Number | | Organization | | | | + + + + + | [facility] | [address] | [place] [address] | | + + + + + [...] There is minimal aortic stenosis present. 10. Wusf-kj-bbtyhduf | | | mitral regurgitation is present. 11. There may be moderate pulmonary | | | hypertension. 12. The right ventricular systolic pressure (pulmonary | | | artery systolic pressure), as measured by Doppler, is {RVSP}. | | + + + + + + | Narrative | Performed At | + + + | Patient Name: STEFANI BHATIA Date of : 1950 | [facility] | | Performing Physician: Emanuel [...] There is minimal aortic stenosis present. 10. Uzzp-gr-cexfcjkp | | | mitral regurgitation is present. [...] stenosis present. Mitral Valve: | | | Heas-nl-zzmundkb mitral regurgitation is present. Mitral Valve: | [...] | | Michael: 0.68 m/s TV Dec Gregory: 2.56 m/s2 TV Dec Time: | | | 264.67 ms TV E Michael: 0.67 m/s TV E/A Ratio: 0.99 | | | Inside Sales Associate: CM Authenticated by: Emanuel Melissa MD Report Date/Time: | | | 04-01-2018 16:50:35 | | + + + + + | Procedure Note | + + | Frank, Rad Results In - 04/01/2018 5:00 PM PDT Patient Name: Latoya BHATIA | | : 1950ccession: [id number] Physician: Emanuel Melissa | | INDICATIONS m [...] is minimal aortic stenosis | | present.10. Vasd-ui-aerhwkma mitral regurgitation is present.11. There may be [...] There is minimal aortic stenosis present.Mitral Valve: Ukcr-ho-tpyrxoou mitral | | regurgitation is present. Mitral [...] | mlLVLs A4C: 7.06 cmLAAs A4C: 14.61 ep9GMEBH A-L A4C: 34.22 mlLALs A4C: 5.29 | | cmRAAd: 16.15 fo2DQNMB A-L: 43.57 mlRAEDV MOD: 43.26 mlRALd: 5.08 cmAo Diam: | | 3.17 cmAV Cusp: 1.81 cmTAPSE: 2.90 cmAV maxP.78 mmHgAV meanP.51 mmHgAV | | Vmax: 2.10 m/Haley Vmean: 1.53 m/Haley VTI: 57.45 cmAVA Vmax: 1.67 cm2AVA (VTI): | | 1.44 ad8RRGV Vmax: 0.00 cm2/m2AVAI (VTI): 0.00 cm2/m2LVCI Dopp: 3.21 l/iqvu1DQUC | | Dopp: 5.72 l/minHR: 68.91 BPMLVOT [...] A Michael: 0.68 m/sTV Dec | | Gregory: 2.56 m/s2TV Dec Time: 264.67 msTV E Michael: 0.67 m/sTV E/A Ratio: 0.99 | | Inside Sales Associate: CMAuthenticated by: Emanuel VAZQUEZeport Date/Time: 04-01-2018 | [...] is minimal aortic stenosis present.10. | | Xqcm-yr-livsrsmg mitral regurgitation is present.11. There may be [...] A Michael: 0.68 m/s | |TV Dec Gregory: 2.56 m/s2 | |TV Dec Time: 264.67 ms | |TV E Michael: 0.67 m/s | |TV E/A Ratio: 0.99 | | | |Inside Sales Associate: CM | |Authenticated by: Emanuel Melissa MD [...] is minimal aortic stenosis present. | |10. Pxre-qr-zufkettj mitral regurgitation is present. | |11. There may be moderate pulmonary hypertension. | |12. The right ventricular systolic pressure (pulmonary artery systolic pressure), as measur ed by Doppler, is {RVSP}. | + + + + + + + | Performing | Address | City/State/[facility] | Phone Number | | Organization | | | | + + + + + | [facility] | [address] | [place] [address] | | + + + + + POCT glucose (04/01/2018 12:26 PM) + + + + + | Component | Value | Ref Range | Performed At | + + + + + | GLUCOSE,POC SCREEN | 215 (H)Comment: Testing | 65 - 99 mg/dL | [facility] | | | performed at [facility];[address] | | | | | [address];[place] | | | | | [address] | | | + + + + + + + + + + | Performing | Address | City/State/Zipcode | Phone Number | | Organization | | | | + + + + + | [facility] | [address] | [place] [address] | | + + + + + [...] performed | | | | | at [facility], [address] | | | | | [facility], | | | | | [place] [address] | | | + + + + + + + | Specimen | + + | Blood | + + + + + + + | Performing | Address | City/State/Zipcode | Phone Number | | Organization | | | | + + + + + | [facility] | [address] | [place] [address] | [phone] | | LABORATORY | [address]vd[address] | | | + + + + + POCT glucose (04/01/2018 5:29 AM) + + + + + | Component | Value | Ref Range | Performed At | + + + + + | GLUCOSE,POC SCREEN | 105 (H)Comment: Testing | 65 - 99 mg/dL | [facility] | | | performed at [facility];[address] | | | | | [address];[place] | | | | | [address] | | | + + + + + + + + + + | Performing | Address | City/State/Zipcode | Phone Number | | Organization | | | | + + + + + | [facility] | [address] | [place] [address] | | + + + + + Phosphorus (04/01/2018 4:05 AM) + + + + + | Component | Value | Ref Range | Performed At | + + + + + | PHOSPHORUS | 2.6Comment: Testing | 2.3 - 4.8 mg/dL | [facility] | | | performed at [facility], [address] | | LABORATORY | | | [address], | | | | | [place] [address] | | | + + + + + + + | Specimen | + + | Blood | + + + + + + + | Performing | Address | City/State/Zipcode | Phone Number | | Organization | | | | + + + + + | [facility] | [address] | [place] [address] | [phone] | | LABORATORY | [address] | | | + + + + + Magnesium (04/01/2018 4:05 AM) + + + + + | Component | Value | Ref Range | Performed At | + + + + + | MAGNESIUM | 1.9Comment: Testing | 1.7 - 2.4 mg/dL | [facility] | | | performed at [facility], [address] | | LABORATORY | | | [address], | | | | | [place] [address] | | | + + + + + + + | Specimen | + + | Blood | + + + + + + + | Performing | Address | City/State/Zipcode | Phone Number | | Organization | | | | + + + + + | [facility] | [address] | [place] [address] | [phone] | | LABORATORY | [address]vd. | | [...] >60Comment: GFR <60: | >60 mL/min/1.73m2 | [facility] | | | CHRONIC KIDNEY [...] | | | | | performed at [facility], [address] | | | | | [facility], | | | | | [place] [address] | | | + + + + + + + | Specimen | + + | Blood | + + + + + + + | Performing | Address | City/State/Zipcode | Phone Number | | Organization | | | | + + + + + | [facility] | [address] | [place] [address] | [phone] | | LABORATORY | [address]vd. | | [...] | [facility] | | | performed at [facility], [address] | | LABORATORY | | | [address], | | | | | [place] [address] | | | + + + + + + + | Specimen | + + | Blood | + + + + + + + | Performing | Address | City/State/Zipcode | Phone Number | | Organization | | | | + + + + + | [facility] | [address] | [place] [address] | [phone] | | LABORATORY | [address]vd[address] | | | + + + + + POCT glucose (03/31/2018 8:41 PM) + + + + + | Component | Value | Ref Range | Performed At | + + + + + | GLUCOSE,POC SCREEN | 247 (H)Comment: Testing | 65 - 99 mg/dL | [facility] | | | performed at [facility];[address] | | | | | [address];[place] | | | | | [address] | | | + + + + + + + + + + | Performing | Address | City/State/Zipcode | Phone Number | | Organization | | | | + + + + + | [facility] | [address] | [place] [address] | | + + + + + POCT glucose (03/31/2018 4:06 PM) + + + + + | Component | Value | Ref Range | Performed At | + + + + + | GLUCOSE,POC SCREEN | 284 (H)Comment: Testing | 65 - 99 mg/dL | [facility] | | | performed at [facility];[address] | | | | | [address];[place] | | | | | [address] | | | + + + + + + + + + + | Performing | Address | City/State/Zipcode | Phone Number | | Organization | | | | + + + + + | [facility] | [address] | [place] [address] | | + + + + + Platelet count (03/31/2018 1:01 PM) + + + + + | Component | Value | Ref Range | Performed At | + + + + + | PLT | 82 (L)Comment: Testing | 150 - 400 K/uL | [facility] | | | performed at [facility];[address] | | | | | [address];[place] | | | | | [address] | | | + + + + + + + | Specimen | + + | Blood | + + + + + + + | Performing | Address | City/State/Zipcode | Phone Number | | Organization | | | | + + + + + | [facility] | [address] | [place] [address] | | + + + + + POCT glucose (03/31/2018 10:57 AM) + + + + + | Component | Value | Ref Range | Performed At | + + + + + | GLUCOSE,POC SCREEN | 174 (H)Comment: Testing | 65 - 99 mg/dL | [facility] | | | performed at [facility];[address] | | | | | [address];[place] | | | | | [address] | | | + + + + + + + + + + | Performing | Address | City/State/Zipcode | Phone Number | | Organization | | | | + + + + + | [facility] | [address] [facility] | [place] [address] | | + + + + + Phosphorus (03/31/2018 4:02 AM) + + + + + | Component | Value | Ref Range | Performed At | + + + + + | PHOSPHORUS | 2.2 (L)Comment: Testing | 2.3 - 4.8 mg/dL | [facility] | | | performed at [facility], [address] | | LABORATORY | | | [facility] [address] | | | | | [place] [address] | | | + + + + + + + | Specimen | + + | Blood | + + + + + + + | Performing | Address | City/State/Zipcode | Phone Number | | Organization | | | | + + + + + | [facility] | [address] | [place] [address] | [phone] | | LABORATORY | [address]vd[address] | | | + + + + + Magnesium (03/31/2018 4:02 AM) + + + + + | Component | Value | Ref Range | Performed At | + + + + + | MAGNESIUM | 1.9Comment: Testing | 1.7 - 2.4 mg/dL | [facility] | | | performed at [facility], [address] | | LABORATORY | | | [facility], | | | | | [place] [address] | | | + + + + + + + | Specimen | + + | Blood | + + + + + + + | Performing | Address | City/State/Zipcode | Phone Number | | Organization | | | | + + + + + | [facility] | [address] | [place] [address] | [phone] | | LABORATORY | [address]. | | [...] >60Comment: GFR <60: | >60 mL/min/1.73m2 | [facility] | | | CHRONIC KIDNEY [...] the | | | | | [facility]D [facility] traceable | | | | | equation.Testing | | | | | performed at [facility], [address] | | | | | [facility], | | | | | [place] [address] | | | + + + + + + + | Specimen | + + | Blood | + + + + + + + | Performing | Address | City/State/Zipcode | Phone Number | | Organization | | | | + + + + + | [facility] | [address] | [place] [address] | [phone] | | LABORATORY | Blvd. | | [...] | [facility] | | | performed at [facility], [address] | | LABORATORY | | | [address], | | | | | [place] [address] | | | + + + + + + + | Specimen | + + | Blood | + + + + + + + | Performing | Address | City/State/Zipcode | Phone Number | | Organization | | | | + + + + + | [facility] | [address] | [place] [address] | [phone] | | LABORATORY | Blvd. | | [...] | [facility] | | | performed at [facility], [address] | | LABORATORY | | | [address], | | | | | [place] [address] | | | + + + + + + + | Specimen | + + | Blood | + + + + + + + | Performing | Address | City/State/Zipcode | Phone Number | | Organization | | | | + + + + + | [facility] | [address] | [place] [address] | [phone] | | LABORATORY | [address]vd. | | [...] + + + + | Calculated P [place] | 26 | degrees | [facility] | + + + + + | Calculated R [place] | -23 | degrees | [facility] | + + + + + | Calculated T [place] | 144 | degrees | [facility] | + + + + + | Diagnosis | Sinus rhythm with 1st | | [facility] | | | degree A-V [...] | + + + + + | [facility] | [address] | [place] [place] [address] | | + + + + + Comprehensive metabolic panel (03/30/2018 11:29 PM) + + + + + | Component | Value | Ref Range | Performed At | + + + + + | SODIUM | 140 | 135 - 145 mmol/L | [facility] | + + + + + | POTASSIUM | 3.1 (L) | 3.5 - 4.9 mmol/L | [facility] | + + + + + | CHLORIDE | 104 | 99 - 109 mmol/L | [facility] | + + + + + | CO2 | 29 | 23 - 32 mmol/L | [facility] | + + + + + | ANION GAP AGAP | 11 | 5 - 20 mmol/L | [facility] | + + + + + | GLUCOSE | 137 (H) | 65 - 99 mg/dL | [facility] | + + + + + | BUN | 8 | 8 - 25 mg/dL | [facility] | + + + + + | CREATININE | 0.49 (L) | 0.50 - 1.00 mg/dL | [facility] | + + + + + | BUN/CREAT | 16 | | [email or web address] | + + + + + | CALCIUM | 8.0 (L) | 8.5 - 10.5 mg/dL | [facility] | + + + + + | TOTAL PROTEIN | 6.2 (L) | 6.3 - 8.2 g/dL | [facility] | + + + + + | Albumin | 2.7 (L) | 3.3 - 4.8 g/dL | [facility] | + + + + [...] >60Comment: GFR <60: | >60 mL/min/1.73m2 | [facility] | | | CHRONIC KIDNEY [...] the | | | | | MDRD IDMI traceable | | | | | equation.Testing | | | | | performed at [facility];[address] | | | | | [address] [facility];[place], [place] | | | | | [address] | | | + + + + + + + | Specimen | + + | Blood | + + + + + + + | Performing | Address | City/State/Zipcode | Phone Number | | Organization | | | | + + + + + | [facility] | [address] | [place] [address] | | + + + + + CBC w/auto diff (reflex to manual) (03/30/2018 11:29 PM) + + + + + | Component | Value | Ref Range | Performed At | + + + + + | WBC | 5.91 | 3.80 - 11.00 K/uL | [email or web address] | + + + + + | RBC | 3.38 (L) | 3.70 - 5.10 M/uL | [email or web address] | + + + + + | HGB | 10.9 (L) | 11.3 - 15.5 g/dL | [email or web address] | + + + + + [...] 44.6 | 37 - 53 fl | [facility] | + + + + + | PLT | 93 (L) | 150 - 400 K/uL | [facility] | + + + + + | MPV | 7.6 | fl | [facility] | + + + + + | DIFF TYPE | AUTOMATED | | [facility] | + + + + + | NEUTROPHILS | 63.98 | % | [facility] | + + + + + | LYMPHOCYTES | 17.93 | % | [facility] | + + + + + [...] Testing | 0.00 - 0.10 K/uL | [facility] | | | performed at [facility];[address] | | | | | [address];[place] | | | | | [address] | | | + + + + + + + | Specimen | + + | Blood | + + + + + + + | Performing | Address | City/State/Zipcode | Phone Number | | Organization | | | | + + + + + | [facility] | [address] | [place] [address] | | + + + + + [...] | data set was also examined with [employer] 3[employer] software for evaluation | | | [...] In - 03/30/2018 11:37 PM PDT STEFANI BHATIA[age] years | | FemaleCTA HEAD NECK W [...] The data set was also examined with [employer] | | software for evaluation of [...] osseous process seen. Multiple thyroid nodules, incompletely rajna acterized. | | | |IMPRESSION: | |1. [...] [facility] | [address] | [place] [address] | | + + + + + [...] [facility] | [address] | [place] [address] | | + + + + + [...] [facility] | [address] | [facility] [address] | | + + + + + Prepare platelets (Blood Bank) (03/30/2018 6:47 PM) + + + + + | Component | Value | Ref Range | Performed At | + + + + + | BLOOD COMPONENT TYPE | PLATELET GROUP | | [facility] | + + + + + | UNITS ORDERED | 2 | | [email or web address] | + + + + + | Additional comment: | ORDER RECEIVED IN BLOOD | | [facility] | | | BANK. | | | + + + + + | UNIT NUMBER | [id number] | | [email or web address] | + + + + + | BLOOD COMPONENT TYPE | PLATELET PHERESIS,LD B | | [email or web address] | + + + + + | UNIT DIVISION | 00 | | [email or web address] | + + + + + | STATUS OF UNIT | ISSUED,FINAL | | [email or web address] | + + + + + | TRANSFUSION STATUS | OK TO TRANSFUSE | | [email or web address] | + + + + + | UNIT NUMBER | [id number] | | [facility] | + + + + + | BLOOD COMPONENT TYPE | PLATELET PHERESIS,LD B | | [facility] | + + + + + | UNIT DIVISION | 00 | | [facility] | + + + + + | STATUS OF UNIT | ISSUED,FINAL | | [facility] | + + + + + | TRANSFUSION STATUS | OK TO TRANSFUSETesting | | [facility] | | | performed at [facility];[address] | | | | | [address] [place] | | | | | [id number] | | | + + + + + + + | Specimen | + + | Blood | + + + + + + + | Performing | Address | City/State/Zipcode | Phone Number | | Organization | | | | + + + + + | [facility] | [address] | [place] [address] | | + + + + + POCT glucose (03/30/2018 6:42 PM) + + + + + | Component | Value | Ref Range | Performed At | + + + + + | GLUCOSE,POC SCREEN | 169 (H)Comment: Testing | 65 - 99 mg/dL | [facility] | | | performed at [facility];[address] | | | | | [address] [place] | | | | | [address] | | | + + + + + + + + + + | Performing | Address | City/State/Zipcode | Phone Number | | Organization | | | | + + + + + | [facility] | [address] | [place] [address] | | + + + + + Glycohemoglobin A1C (03/30/2018 6:31 PM) + + + + + | Component | Value | Ref Range | Performed At | + + + + + | HEMOGLOBIN A1C | 6.8 (H)Comment: The | 4.0 - 6.0 % | [facility] | | | [facility] | | LABORATORY | | | [...] | 148Comment: The ADA | mg/dL | [facility] | | GLUCOSE | considers an [...] | | | | | performed at [facility], [address] | | | | [facility], | | | | | [place], [place] [address] | | | + + + + + + + | Specimen | + + | Blood | + + + + + + + | Performing | Address | City/State/Zipcode | Phone Number | | Organization | | | | + + + + + | [facility] | [address] | [place] [address] | [phone] | | LABORATORY | [address] | | | + + + + + Type and screen (03/30/2018 6:31 PM) + + + + + | Component | Value | Ref Range | Performed At | + + + + + | ABO/RH(D) | A POSITIVE | | [facility] | + + + + + | ANTIBODY SCREEN | NEGATIVE | | [facility] | + + + + + | ARM BAND NUMBER | [id number] | | [facility] | | | performed at [facility];[address] | | | | | [place] | | | | | [address] | | | + + + + + + + | Specimen | + + | Blood | + + + + + + + | Performing | Address | City/State/Zipcode | Phone Number | | Organization | | | | + + + + + | [facility] | [address] | [place] [address] | | + + + + + MRSA by PCR (03/30/2018 6:30 PM) + + + + + | Component | Value | Ref Range | Performed At | + + + + + | SOURCE | NARES(NOSE) | | [facility] | + + + + + | MRSA PCR | NEGATIVEComment: Testing | NEGATIVE | [facility] | | | performed at [facility];[address] | | | | | [address];[place] | | | | | [address] | | | + + + + + + + | Specimen | + + | Nasopharyngeal - | | Nasopharyngeal | | Culture | + + + + + + + | Performing | Address | City/State/Zipcode | Phone Number | | Organization | | | | + + + + + | [facility] | [address] | [place] [address] | | + + + + + [...] | | | | | Intravenous, Once, [facility] 03/31/18 at | | PDT | [...] | | | | | Intravenous, Once, [facility] 04/01/18 at | | PDT | | [...] | | | | | Intravenous, Once, [facility] 03/31/18 at | | PDT | [...] | | | | | Intravenous, Once, [facility] 04/01/18 at | | PDT | | [...] equal to 1.1, | | | Starting [facility] 03/30/18 at 1812, | | | Recheck [...] | | | Daily, First dose on [facility] 04/01/18 | | PDT | | | [...] to tolerate oral), | | | Starting [facility] 03/30/18 at 1812 | | + +---+ | | | + +---+ | potassium chloride 20 mEq in | | | 250 mL IVPB 20 mEq, Intravenous, | | | Administer over 2 Hours, PRN, | | | for serum potassium 3.8 to 4, | | | Starting [facility] 03/30/18 at 1812, 1) | | | [...] | | | | | dose on [facility] 04/01/18 at 1000 | | PDT | [...]
--- OUTSIDE RECORDS SUMMARY | ~2018-05-20 | XMS | Encounter Summary ---
Demographics + + + | Address | [address] | | | [place] [address] | + + + | Home Phone | | + + + | Preferred Language | Unknown | + + + | Marital Status | | + + + | Adventist Affiliation | [id number] | + + + | Race | Unknown | + + + | Ethnic Group | Unknown | + + + Author + + + | Author | [facility] | + + + | Organization | [facility] [employer] | + + + | Address | Unknown | + + + | Phone | Unavailable | + + + Support + + + + + | Name | Relationship | Address | Phone | + + + + + | Stefani Bhatia | ELSY | [address] | | | [place] | | [place] | | | | | [address] | | + + + + + Care Team Providers + +------+ + | Care Medical Reviewer Name | Role | Phone | + +------+ + | Vince Cintron DO | PCP | | + +------+ + Encounter Details +--------+ + + + + | Date | Type | Department | Care Team | Description | +--------+ + + + + | 04/02/ | Hospital | [facility] | Missy Rivera, | Chronic ITP | | 2018 - | Encounter | [facility] | MD [address] | (idiopathic | | | | Inpatient Rehab [address] | [place] | thrombocytopenia) | | 04/14/ | | [address] | [phone] | ([facility]); Essential | | 2018 | | [place] [address] | [phone] | hypertension; Falls | | | | [phone] | | frequently; Gait | | | | | Wing Tyshawn Quintero MD | disorder; H/O | | | | | [address] | dizziness; SDH | | | | | [place] [address] | (subdural hematoma) | | | | | [phone] | (HCC); Subarachnoid | | | | | | hemorrhage following | | | | | | injury without open | | | | | | intracranial wound | | | | | | and with no loss of | | | | | | consciousness, | | | | | | sequela ([facility]); | | | | | | Thrombocytopenia | | | | | | ([facility]); 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 [facility] Service: Physical Medicine & Rehab Discharge [...] and has been seeing an Oncologist in [place]. She is a poor historian but does report falls. She could not figure out what happened but i mplied that her dogs might have caused her falls. 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 Bank Accountant weaker on right. DATA PLAN the patient is ready for discharge home. Disposition: Home Condition: Good Code Status: Prior No discharge procedures on file. Follow up: DO JULIO Sherman [address] [place] [id number] Follow up Please follow-up with your primary care provider within 1-2 weeks after discharge. Neurology Follow up Please follow-up with a neurologist. [facility] [address] [place] [id number] Follow up A referral was made to [...] e and it works. Date Last Reviewed: 02/15/201619992263-4654 [employer]. [address] [place] [address]. All righ ts reserved. This information is not intended as a substitute for professional medical care. Always follow your healthcare professional's instructions. A 4 wheel walker was obtained from [facility] in [place] (ph [phone]). If you have any issues with the [...] note may be different from the original. [facility] Service: Internal Medicine Progress Note Hospital [...] Chronic ITP. PLTs stable since admission to [facility]. Plan as per Heme. 5. Lower Back [...] alls, and possible syncope. . F/U with collection team lead after discharge. Possible c 9. Disposition. SW to assist with discharge planning. Estimated discharge date 03/18. MISSY RIVERA MD 04/12/2018 Galilea Christianson, RD - 04/12/2018 4:04 PM PDTFormatting of this note may be different from t seda original. 04/12/18 0976 Subjective Timepoint Follow up Pt c/o Pt intake improved, no c/o's. Fluid / Beverage Intake Oral Fluids Amount ad morris thins Liquid Meal Replacement or Supplement politely declines supplement Food Intake Amount of Food eating average 70% meals over the past week Type of Food / Meals ROLLER TURNER working with pt - now on dysphagia advanced/thins for mild aspirat ion risk Meal / Snack Pattern house trays Nutrition-Focused Physical Findings Digestive System (Mouth to Rectum) mild aspiration risk - working with ROLLER TURNER Biochemical data, medical tests, and procedures reviewed Biochemical data, medical tests, and procedures reviewed labs reviewed Recommendations Recommended energy needs Continue diet as Rx'd, texture per ROLLER TURNER, with house trays. Will f/ u weekly and offer oral nutrition supplements if po intake decreases. Nutritional Risk Nutritional risk Low Follow up date 04/19/18 NICOLE Kruse Barbara, MD - 04/11/2018 5:34 PM PDTFormatting of this note may be different from the original. [facility] Service: Physical Medicine and Rehab Progress Note Hospital Day: LOS: 9 days Post-Op Day: * No surgery found * SUBJECTIVE Patient Summary: history of chronic thrombocytopenia(ITP), Diabetes, HTN, anxiety, and depressionwho presents with hx of frequent falls, confusion, Left Subdural Hematoma. Events Overnight: pt ambulated in hallway with RN and with MARINE DRAFTER this morning. Contin ued c/o leg pain bilaterally. Mild Lower backache. No SOB or CP. Pt telling nurse that she is going home tomorrow. She refused [facility] in [place]. She thinks she is going home and [...] Chronic ITP. PLTs stable since admission to [facility]. Plan as per Heme. 5. Left leg/HipPain: [...] note may be different from the original. [facility] Service: Physical Medicine and Rehab Progress [...] planning. MISSY RIVERA MD 04/10/2018 Gisel Davies, MCKAYLA-ROLLER TURNER - 04/10/2018 9:00 AM PDTSPEECH - LANGUAGE - COGNITION ROLLER TURNER Received On: 04/10/18 Requires ROLLER TURNER Follow Up: Yes Treatment Plan: Continue with [...] evidence of learning [] Refused Gisel Davies CCC-ROLLER TURNER Wing Tyshawn Quintero MD - 04/09/2018 7:53 AM PDTFormatting of this note may be different from the original. [facility] Service: Physical Medicine & Rehab Progress [...] note may be different from the original. [facility] Service: Physical Medicine & Rehab Progress [...] may be differe nt from the original. [facility] Service: Hematology and Oncology Progress Note Hospital Day: LOS: 6 days Patient Summary: Ms. Stefani Bhatia is a 67 year old woman with a history of chronic thrombocytopenia followed by Dr. Green in [place] in addition to progressive confusion, gait inst ability, and multiple falls who apparently fell approximately two weeks prior to admission, hitting the back of her head. She was transported to [facility] in [facility] 2017 secondary to increased confusion and agitation after her most recent fall and fo und to have from cytopenia with platelet level 65,000. CT of the head was performed revealin g a subdural hematoma along the left tentorium and the patient was transferred to [facility] for f urther management and admitted to ICU. She is transitioned to hospitalist services March. The patient was given IVIG 400 mg/kg IV March 31-2017. She was transferred to [facility] rehab April 02, 2018. Hematological opinion was [...] thrombocytopenia followed by Dr. Milton dominguez at [facility] in [place], [place]. She is now admitted with subdural [...] may be di fferent from the original. [facility] Service: Physical Medicine & Rehab Progress [...] seemed somewhat relieved by this conversation, thanking [facility] for visit. Shannon Wick RD - [...] note may be different from the original. [facility] Service: Physical Medicine and Rehab Progress [...] disc disease with radiculopathy [facility] 67 [facility] Female with Hx of [...] IVIG x 2 prior to transfer to [facility]. Plts sli ghtly better today. Plan as [...] may be elaina nt from the original. [facility] Service: Hematology and Oncology Progress Note Hospital Day: LOS: 3 days Patient Summary: Ms. Stefani Bhatia is a 67 year old woman with a history of chronic thrombocytopenia followed by Dr. Green in [place] in addition to progressive confusion, gait inst ability, and multiple falls who apparently fell approximately two weeks prior to admission, hitting the back of her head. She was transported to [facility] in [facility] 2017 secondary to increased confusion and agitation after her most recent fall and fo und to have from cytopenia with platelet level 65,000. CT of the head was performed revealin g a subdural hematoma along the left tentorium and the patient was transferred to [facility] for f urther management and admitted to ICU. She is transitioned to hospitalist services March. The patient was given IVIG 400 mg/kg IV March 31-2017. She was transferred to [facility] rehab April 02, 2018. Hematological opinion was [...] thrombocytopenia followed by Dr. Milton dominguez at [facility] in [place], [place]. She is now admitted with subdural [...] note may be different from the original. [facility] Service: Physical Medicine and Rehab Progress [...] to . He is working for the [employer] for [employer]. This is his busy season and he works 12 hours a day. He admits that pt has been confused for at least a franklin h and a half. He believes her fall was 3 weeks ago. She was alone and laid on the ground f or 3 hrs before she was able to get up. This is when she injured her neck. Jjbijm-ns-ijm is visiting pt and says that patient has been confused a long time. 1 1/2 yr s ago they were at pt's cabin in [place]. She fell fracturing ribs. She was extremely confu sed. Teltfg-zn-wpa called pt's to come get her because [...] while she was having dental implants but ealmmf-gz-yil thinks she forget s to eat. Scheduled [...] PT and OT. 3. Cognitive Dysfunction. Continue ROLLER TURNER Therapy. 4. Chronic ITP. Pt recd 2 units Plts and IVIG x 2 prior to transfer to [facility]. Plts sli ghtly better today. Plan as [...] note may be different from the original. [facility] Service: Internal Medicine Progress Note Hospital [...] and proprioception intact in all 4 extremities. Bank Accountant weaker on right. DATA CBC: Lab Results [...] Apr 2017 but is worse no w. ROLLER TURNER evaluation and therapy 4. Chronic ITP. Pt [...] Testing | 0.00 - 0.10 K/uL | [facility] | | | performed at [facility], [address] | | LABORATORY | | | [address], | | | | | [place] [address] | | | + + + + + + + | Specimen | + + | Blood | + + + + + + + | Performing | Address | City/State/Zipcode | Phone Number | | Organization | | | | + + + + + | [facility] | [address] | [place] [address] | [phone] | | LABORATORY | [address] | | | + + + + + POCT glucose (04/14/2018 5:34 AM) + + + + + | Component | Value | Ref Range | Performed At | + + + + + | GLUCOSE,POC SCREEN | 97Comment: Testing | 65 - 99 mg/dL | [facility] | | | performed at [facility] | | | | [address];[place], [place] | | | | | [address] | | | + + + + + + + + + + | Performing | Address | City/State/Zipcode | Phone Number | | Organization | | | | + + + + + | [facility] | [address] | [place] [address] | | + + + + + POCT glucose (04/13/2018 6:22 AM) + + + + + | Component | Value | Ref Range | Performed At | + + + + + | GLUCOSE,POC SCREEN | 112 (H)Comment: Testing | 65 - 99 mg/dL | [facility] | | | performed at [facility];[address] | | | | | [address];[place] | | | | | [address] | | | + + + + + + + + + + | Performing | Address | City/State/Zipcode | Phone Number | | Organization | | | | + + + + + | [facility] | [address] | [place] [address] | | + + + + + POCT glucose (04/12/2018 8:27 PM) + + + + + | Component | Value | Ref Range | Performed At | + + + + + | GLUCOSE,POC SCREEN | 223 (H)Comment: Testing | 65 - 99 mg/dL | [facility] | | | performed at [facility];[address] | | | | [address];[place], [place] | | | | | [address] | | | + + + + + + + + + + | Performing | Address | City/State/Zipcode | Phone Number | | Organization | | | | + + + + + | [facility] | [address] | [place] [address] | | + + + + + POCT glucose (04/12/2018 4:22 PM) + + + + + | Component | Value | Ref Range | Performed At | + + + + + | GLUCOSE,POC SCREEN | 146 (H)Comment: Testing | 65 - 99 mg/dL | [facility] | | | performed at [facility];[address] | | | | | [address];[place] | | | | | [address] | | | + + + + + + + + + + | Performing | Address | City/State/Zipcode | Phone Number | | Organization | | | | + + + + + | [facility] | [address] | [place] [address] | | + + + + + POCT glucose (04/12/2018 11:53 AM) + + + + + | Component | Value | Ref Range | Performed At | + + + + + | GLUCOSE,POC SCREEN | 222 (H)Comment: Testing | 65 - 99 mg/dL | [facility] | | | performed at [facility];[address] | | | | | [address];[place], [place] | | | | | [address] | | | + + + + + + + + + + | Performing | Address | City/State/Zipcode | Phone Number | | Organization | | | | + + + + + | [facility] | [address] | [place] [address] | | + + + + + POCT glucose (04/12/2018 6:28 AM) + + + + + | Component | Value | Ref Range | Performed At | + + + + + | GLUCOSE,POC SCREEN | 103 (H)Comment: Testing | 65 - 99 mg/dL | [facility] | | | performed at [facility];[address] | | | | | [address];[place] | | | | | [address] | | | + + + + + + + + + + | Performing | Address | City/State/Zipcode | Phone Number | | Organization | | | | + + + + + | [facility] | [address] | [place] [address] | | + + + + + POCT glucose (04/11/2018 8:47 PM) + + + + + | Component | Value | Ref Range | Performed At | + + + + + | GLUCOSE,POC SCREEN | 224 (H)Comment: Testing | 65 - 99 mg/dL | [facility] | | | performed at [facility];[address] | | | | | [address];[place] | | | | | [address] | | | + + + + + + + + + + | Performing | Address | City/State/Zipcode | Phone Number | | Organization | | | | + + + + + | [facility] | [address] | [place] [address] | | + + + + + POCT glucose (04/11/2018 4:36 PM) + + + + + | Component | Value | Ref Range | Performed At | + + + + + | GLUCOSE,POC SCREEN | 121 (H)Comment: Testing | 65 - 99 mg/dL | [facility] | | | performed at [facility];[address] | | | | | [address];[place] | | | | | [address] | | | + + + + + + + + + + | Performing | Address | City/State/Zipcode | Phone Number | | Organization | | | | + + + + + | [facility] | [address] | [place] [address] | | + + + + + POCT glucose (04/11/2018 11:41 AM) + + + + + | Component | Value | Ref Range | Performed At | + + + + + | GLUCOSE,POC SCREEN | 123 (H)Comment: Testing | 65 - 99 mg/dL | [facility] | | | performed at [facility];[address] | | | | | [address];[place] | | | | | [address] | | | + + + + + + + + + + | Performing | Address | City/State/Zipcode | Phone Number | | Organization | | | | + + + + + | [facility] | [address] | [place] [address] | | + + + + + POCT glucose (04/11/2018 6:02 AM) + + + + + | Component | Value | Ref Range | Performed At | + + + + + | GLUCOSE,POC SCREEN | 126 (H)Comment: Testing | 65 - 99 mg/dL | [facility] | | | performed at [facility];[address] | | | | | [address] [facility];[place], [place] | | | | | [address] | | | + + + + + + + + + + | Performing | Address | City/State/Zipcode | Phone Number | | Organization | | | | + + + + + | [facility] | [address] | [place] [address] | | + + + + + [...] | [facility] | | | performed at [facility], [address] | | LABORATORY | | | [address], | | | | | [place] [address] | | | + + + + + + + | Specimen | + + | Blood | + + + + + + + | Performing | Address | City/State/Zipcode | Phone Number | | Organization | | | | + + + + + | [facility] | [address] | [place] [address] | [phone] | | LABORATORY | [address] | | | + + + + + POCT glucose (04/10/2018 8:46 PM) + + + + + | Component | Value | Ref Range | Performed At | + + + + + | GLUCOSE,POC SCREEN | 254 (H)Comment: Testing | 65 - 99 mg/dL | [facility] | | | performed at [facility];[address] | | | | | [address];[place] | | | | | [address] | | | + + + + + + + + + + | Performing | Address | City/State/Zipcode | Phone Number | | Organization | | | | + + + + + | [facility] | [address] | [place] [address] | | + + + + + POCT glucose (04/10/2018 4:31 PM) + + + + + | Component | Value | Ref Range | Performed At | + + + + + | GLUCOSE,POC SCREEN | 93Comment: Testing | 65 - 99 mg/dL | [facility] | | | performed at [facility];[address] | | | | | [address];[place], [place] | | | | | [address] | | | + + + + + + + + + + | Performing | Address | City/State/Zipcode | Phone Number | | Organization | | | | + + + + + | [facility] | [address] | [place] [address] | | + + + + + POCT glucose (04/10/2018 11:31 AM) + + + + + | Component | Value | Ref Range | Performed At | + + + + + | GLUCOSE,POC SCREEN | 301 (H)Comment: Testing | 65 - 99 mg/dL | [facility] | | | performed at [facility];[address] | | | | | [address];[place] | | | | | [address] | | | + + + + + + + + + + | Performing | Address | City/State/Zipcode | Phone Number | | Organization | | | | + + + + + | [facility] | [address] | [facility] [place] [address] | | + + + + + POCT glucose (04/10/2018 5:54 AM) + + + + + | Component | Value | Ref Range | Performed At | + + + + + | GLUCOSE,POC SCREEN | 132 (H)Comment: Testing | 65 - 99 mg/dL | [facility] | | | performed at [facility];[address] | | | | | [address];[place] | | | | | [address] | | | + + + + + + + + + + | Performing | Address | City/State/Zipcode | Phone Number | | Organization | | | | + + + + + | [facility] | [address] | [facility] [place] [address] | | + + + + + [...] >60Comment: GFR <60: | >60 mL/min/1.73m2 | [facility] | | | CHRONIC KIDNEY DISEASE, [...] the | | | | | MDRD IDCT traceable | | | | | equation.Testing | | | | | performed at [facility], [address] | | | | | [facility], | | | | | [place] [address] | | | + + + + + + + | Specimen | + + | Blood | + + + + + + + | Performing | Address | City/State/Zipcode | Phone Number | | Organization | | | | + + + + + | [facility] | [address] | [place] [address] | [phone] | | LABORATORY | [address]vd[address] | | | + + + + + POCT glucose (04/09/2018 8:54 PM) + + + + + | Component | Value | Ref Range | Performed At | + + + + + | GLUCOSE,POC SCREEN | 185 (H)Comment: Testing | 65 - 99 mg/dL | [facility] | | | performed at [facility];[address] | | | | | [address];[place] | | | | | [address] | | | + + + + + + + + + + | Performing | Address | City/State/Zipcode | Phone Number | | Organization | | | | + + + + + | [facility] | [address] | [facility] [place] [facility] [place] [address] | | + + + + + POCT glucose (04/09/2018 4:39 PM) + + + + + | Component | Value | Ref Range | Performed At | + + + + + | GLUCOSE,POC SCREEN | 152 (H)Comment: Testing | 65 - 99 mg/dL | [facility] | | | performed at [facility];[address] | | | | | [address];[place] | | | | | [address] | | | + + + + + + + + + + | Performing | Address | City/State/Zipcode | Phone Number | | Organization | | | | + + + + + | [facility] | [address] | [place] [address] | | + + + + + POCT glucose (04/09/2018 11:35 AM) + + + + + | Component | Value | Ref Range | Performed At | + + + + + | GLUCOSE,POC SCREEN | 178 (H)Comment: Testing | 65 - 99 mg/dL | [facility] | | | performed at [facility];[address] | | | | | [address];[place] | | | | | [address] | | | + + + + + + + + + + | Performing | Address | City/State/Zipcode | Phone Number | | Organization | | | | + + + + + | [facility] | [address] | [place] [address] | | + + + + + POCT glucose (04/09/2018 6:10 AM) + + + + + | Component | Value | Ref Range | Performed At | + + + + + | GLUCOSE,POC SCREEN | 181 (H)Comment: Testing | 65 - 99 mg/dL | [facility] | | | performed at [facility];[address] | | | | | [address];[place] | | | | | [address] | | | + + + + + + + + + + | Performing | Address | City/State/Zipcode | Phone Number | | Organization | | | | + + + + + | [facility] | [address] | [place] [address] | | + + + + + [...] | | | | | performed at [facility], [address] | | | | | [facility], | | | | | [place] [address] | | | + + + + + + + | Specimen | + + | Blood | + + + + + + + | Performing | Address | City/State/Zipcode | Phone Number | | Organization | | | | + + + + + | [facility] | [address] | [place] [address] | [phone] | | LABORATORY | [address] | | | + + + + + POCT glucose (04/08/2018 8:35 PM) + + + + + | Component | Value | Ref Range | Performed At | + + + + + | GLUCOSE,POC SCREEN | 218 (H)Comment: Testing | 65 - 99 mg/dL | [facility] | | | performed at [facility];[address] | | | | | [address];[place] | | | | | [address] | | | + + + + + + + + + + | Performing | Address | City/State/Zipcode | Phone Number | | Organization | | | | + + + + + | [facility] | [address] | [place] [address] | | + + + + + POCT glucose (04/08/2018 4:22 PM) + + + + + | Component | Value | Ref Range | Performed At | + + + + + | GLUCOSE,POC SCREEN | 152 (H)Comment: Testing | 65 - 99 mg/dL | [facility] LABORATORY | | | performed at [facility] | | | | | [address] [facility];[place], [place] | | | | | [address] | | | + + + + + + + + + + | Performing | Address | City/State/Zipcode | Phone Number | | Organization | | | | + + + + + | [facility] | [address] | [place] [address] | | + + + + + POCT glucose (04/08/2018 11:26 AM) + + + + + | Component | Value | Ref Range | Performed At | + + + + + | GLUCOSE,POC SCREEN | 274 (H)Comment: Testing | 65 - 99 mg/dL | [facility] | | | performed at [facility];[address] | | | | | [address];[place] | | | | | [address] | | | + + + + + + + + + + | Performing | Address | City/State/Zipcode | Phone Number | | Organization | | | | + + + + + | [facility] | [address] | [place] [address] | | + + + + + [...] Results In - 04/08/2018 8:24 AM PDT TSEFANI BHATIACT HEAD WO | | CONTRAST04/08/2018 8:00 [...] MIKKI HERNANDEZ | [address] | [place] [address] | | + + + + + POCT glucose (04/08/2018 6:15 AM) + + + + + | Component | Value | Ref Range | Performed At | + + + + + | GLUCOSE,POC SCREEN | 133 (H)Comment: Testing | 65 - 99 mg/dL | [facility] | | | performed at [facility];[address] | | | | | [address];[place] | | | | | [address] | | | + + + + + + + + + + | Performing | Address | City/State/Zipcode | Phone Number | | Organization | | | | + + + + + | [facility] | [address] | [place] [address] | | + + + + + [...] | [facility] | | | performed at [facility], [address] | | LABORATORY | | | [address], | | | | | [place] [address] | | | + + + + + + + | Specimen | + + | Blood | + + + + + + + | Performing | Address | City/State/Zipcode | Phone Number | | Organization | | | | + + + + + | [facility] | [address] [facility] | [place] [address] | [phone] | | LABORATORY | [address]vd[address] | | [...] (L) | 0.50 - 1.00 mg/dL | [facility] | | | | | LABORATORY | + + + + + | BUN/CREAT | 18 | | [facility] | | | | | LABORATORY | + + + + + | CALCIUM | 8.2 (L) | 8.5 - 10.5 mg/dL | [facility] | | | | | LABORATORY | + + + + + | EGFR | >60Comment: GFR <60: | >60 mL/min/1.73m2 | [facility] | | | CHRONIC KIDNEY DISEASE, [...] | | | | | performed at [facility], [address] | | | | | [facility], | | | | | [place] [address] | | | + + + + + + + | Specimen | + + | Blood | + + + + + + + | Performing | Address | City/State/Zipcode | Phone Number | | Organization | | | | + + + + + | [facility] | [address] | [place] [address] | [phone] | | LABORATORY | Blvd. | | | + + + + + POCT glucose (04/07/2018 8:55 PM) + + + + + | Component | Value | Ref Range | Performed At | + + + + + | GLUCOSE,POC SCREEN | 231 (H)Comment: Testing | 65 - 99 mg/dL | [facility] | | | performed at [facility];[address] | | | | | [address];[place] | | | | | [address] | | | + + + + + + + + + + | Performing | Address | City/State/Zipcode | Phone Number | | Organization | | | | + + + + + | [facility] | [address] | [place] [address] | | + + + + + POCT glucose (04/07/2018 11:23 AM) + + + + + | Component | Value | Ref Range | Performed At | + + + + + | GLUCOSE,POC SCREEN | 153 (H)Comment: Testing | 65 - 99 mg/dL | [facility] | | | performed at [facility];[address] | | | | | [address];[place] | | | | | [address] | | | + + + + + + + + + + | Performing | Address | City/State/Zipcode | Phone Number | | Organization | | | | + + + + + | [facility] | [address] | [place] [address] | | + + + + + POCT glucose (04/07/2018 6:06 AM) + + + + + | Component | Value | Ref Range | Performed At | + + + + + | GLUCOSE,POC SCREEN | 121 (H)Comment: Testing | 65 - 99 mg/dL | [facility] | | | performed at [facility];[address] | | | | | [address];[place] | | | | | [address] | | | + + + + + + + + + + | Performing | Address | City/State/Zipcode | Phone Number | | Organization | | | | + + + + + | [facility] | [address] | [place] [address] | | + + + + + [...] | [facility] | | | performed at [facility], [address] | | LABORATORY | | | [address], | | | | | [place] [address] | | | + + + + + + + | Specimen | + + | Blood | + + + + + + + | Performing | Address | City/State/Zipcode | Phone Number | | Organization | | | | + + + + + | [facility] | [address] | [place] [address] | [phone] | | LABORATORY | Blvd[address] | | [...] | | | | | performed at [facility], [address] | | | | | [facility], | | | | | [place] [address] | | | + + + + + + + | Specimen | + + | Blood | + + + + + + + | Performing | Address | City/State/Zipcode | Phone Number | | Organization | | | | + + + + + | [facility] | [address] [facility] | [place] [address] | [phone] | | LABORATORY | [address] | | | + + + + + POCT glucose (04/06/2018 8:22 PM) + + + + + | Component | Value | Ref Range | Performed At | + + + + + | GLUCOSE,POC SCREEN | 190 (H)Comment: Testing | 65 - 99 mg/dL | [facility] | | | performed at [facility];[address] | | | | | [address] [facility];[place], [place] | | | | | [address] | | | + + + + + + + + + + | Performing | Address | City/State/Zipcode | Phone Number | | Organization | | | | + + + + + | [facility] | [address] | [place] [address] | | + + + + + POCT glucose (04/06/2018 4:56 PM) + + + + + | Component | Value | Ref Range | Performed At | + + + + + | GLUCOSE,POC SCREEN | 178 (H)Comment: Testing | 65 - 99 mg/dL | [facility] | | | performed at [facility];[address] | | | | | [address];[place] | | | | | [address] | | | + + + + + + + + + + | Performing | Address | City/State/Zipcode | Phone Number | | Organization | | | | + + + + + | [facility] | [address] | [place] [address] | | + + + + + POCT glucose (04/06/2018 12:09 PM) + + + + + | Component | Value | Ref Range | Performed At | + + + + + | GLUCOSE,POC SCREEN | 266 (H)Comment: Testing | 65 - 99 mg/dL | [facility] | | | performed at [facility];[address] | | | | | [address];[place] | | | | | [address] | | | + + + + + + + + + + | Performing | Address | City/State/Zipcode | Phone Number | | Organization | | | | + + + + + | [facility] | [address] | [place] [address] | | + + + + + POCT glucose (04/06/2018 6:09 AM) + + + + + | Component | Value | Ref Range | Performed At | + + + + + | GLUCOSE,POC SCREEN | 90Comment: Testing | 65 - 99 mg/dL | [facility] | | | performed at [facility];[address] | | | | | [address];[place] | | | | | [address] | | | + + + + + + + + + + | Performing | Address | City/State/Zipcode | Phone Number | | Organization | | | | + + + + + | [facility] | [address] | [place] [address] | | + + + + + CBC w/auto diff (reflex to manual) (04/06/2018 5:44 AM) + + + + + | Component | Value | Ref Range | Performed At | + + + + + | WBC | 6.15 | 3.80 - 11.00 K/uL | [facility] | + + + + + | RBC | 3.58 (L) | 3.70 - 5.10 M/uL | [facility] | + + + + + | HGB | 11.7 | 11.3 - 15.5 g/dL | [facility] | + + + + + [...] 34.9 | 32.0 - 35.5 g/dL | [facility] | + + + + + [...] 0.22 | 0.00 - 0.50 K/uL | [facility] | + + + + + | BASOPHILS ABS | 0.07Comment: Testing | 0.00 - 0.10 K/uL | [facility] | | | performed at [facility];[address] | | | | | [address];[place] | | | | | [address] | | | + + + + + + + | Specimen | + + | Blood | + + + + + + + | Performing | Address | City/State/Zipcode | Phone Number | | Organization | | | | + + + + + | [facility] | [address] | [place] [address] | | + + + + + Basic metabolic panel (04/06/2018 5:44 AM) + + + + + | Component | Value | Ref Range | Performed At | + + + + + | SODIUM | 144 | 135 - 145 mmol/L | [facility] | + + + + + | POTASSIUM | 3.4 (L) | 3.5 - 4.9 mmol/L | [facility] | + + [...] (L) | 0.50 - 1.00 mg/dL | [facility] | + + + + + | BUN/CREAT | 18 | | [facility] | + + + + + | CALCIUM | 8.3 (L) | 8.5 - 10.5 mg/dL | [facility] | + + + + + | EGFR | >60Comment: GFR <60: | >60 mL/min/1.73m2 | [facility] | | | [...] the | | | | | MDRD MIMS traceable | | | | | equation.Testing | | | | | performed at [facility];[address] | | | | | [facility];[place], [place] | | | | | [address] | | | + + + + + + + | Specimen | + + | Blood | + + + + + + + | Performing | Address | City/State/Zipcode | Phone Number | | Organization | | | | + + + + + | [facility] | [address] | [place] [address] | | + + + + + POCT glucose (04/05/2018 8:19 PM) + + + + + | Component | Value | Ref Range | Performed At | + + + + + | GLUCOSE,POC SCREEN | 213 (H)Comment: Testing | 65 - 99 mg/dL | [facility] | | | performed at [facility];[address] | | | | | [address];[place] | | | | | [address] | | | + + + + + + + + + + | Performing | Address | City/State/Zipcode | Phone Number | | Organization | | | | + + + + + | [facility] | [address] | [place] [address] | | + + + + + POCT glucose (04/05/2018 4:28 PM) + + + + + | Component | Value | Ref Range | Performed At | + + + + + | GLUCOSE,POC SCREEN | 162 (H)Comment: Testing | 65 - 99 mg/dL | [facility] | | | performed at [facility];[address] | | | | | [address];[place], [place] | | | | | [address] | | | + + + + + + + + + + | Performing | Address | City/State/Zipcode | Phone Number | | Organization | | | | + + + + + | [facility] | [address] | [place] [address] | | + + + + + POCT glucose (04/05/2018 11:43 AM) + + + + + | Component | Value | Ref Range | Performed At | + + + + + | GLUCOSE,POC SCREEN | 129 (H)Comment: Testing | 65 - 99 mg/dL | [facility] | | | performed at [facility];[address] | | | | | [address] [facility];[place] | | | | | [address] | | | + + + + + + + + + + | Performing | Address | City/State/Zipcode | Phone Number | | Organization | | | | + + + + + | [facility] | [address] | [place] [address] | | + + + + + POCT glucose (04/05/2018 6:26 AM) + + + + + | Component | Value | Ref Range | Performed At | + + + + + | GLUCOSE,POC SCREEN | 103 (H)Comment: Testing | 65 - 99 mg/dL | [facility] | | | performed at [facility];[address] | | | | | [address];[place] | | | | | [address] | | | + + + + + + + + + + | Performing | Address | City/State/Zipcode | Phone Number | | Organization | | | | + + + + + | [facility] | [address] | [facility] [place] [address] | | + + + + + [...] | [facility] | | | performed at [facility], [address] | | LABORATORY | | | [address], | | | | | [place] [address] | | | + + + + + + + | Specimen | + + | Blood | + + + + + + + | Performing | Address | City/State/Zipcode | Phone Number | | Organization | | | | + + + + + | [facility] | [address] | [place] [address] | [phone] | | LABORATORY | [address]vd[address] | | [...] (L) | 0.50 - 1.00 mg/dL | [facility] | | | | | LABORATORY | + + + + + | BUN/CREAT | 25 | | [facility] | | | | | LABORATORY | + + + + + | CALCIUM | 8.0 (L) | 8.5 - 10.5 mg/dL | [facility] | | | | | LABORATORY | + + + + + | EGFR | >60Comment: GFR <60: | >60 mL/min/1.73m2 | [facility] | | | CHRONIC KIDNEY DISEASE, [...] | | | | | performed at [facility], [address] | | | | | [facility], | | | | | [place] [address] | | | + + + + + + + | Specimen | + + | Blood | + + + + + + + | Performing | Address | City/State/Zipcode | Phone Number | | Organization | | | | + + + + + | [facility] | [address] | [place] [address] | [phone] | | LABORATORY | [address] | | | + + + + + POCT glucose (04/04/2018 8:42 PM) + + + + + | Component | Value | Ref Range | Performed At | + + + + + | GLUCOSE,POC SCREEN | 224 (H)Comment: Testing | 65 - 99 mg/dL | [facility] | | | performed at [facility];[address] | | | | | [address];[place] | | | | | [address] | | | + + + + + + + + + + | Performing | Address | City/State/Zipcode | Phone Number | | Organization | | | | + + + + + | [facility] | [address] | [place] [address] | | + + + + + POCT glucose (04/04/2018 4:49 PM) + + + + + | Component | Value | Ref Range | Performed At | + + + + + | GLUCOSE,POC SCREEN | 124 (H)Comment: Testing | 65 - 99 mg/dL | [facility] | | | performed at [facility];[address] | | | | | [address];[place] | | | | | [address] | | | + + + + + + + + + + | Performing | Address | City/State/Zipcode | Phone Number | | Organization | | | | + + + + + | [facility] | [address] | [place] [address] | | + + + + + POCT glucose (04/04/2018 11:38 AM) + + + + + | Component | Value | Ref Range | Performed At | + + + + + | GLUCOSE,POC SCREEN | 187 (H)Comment: Testing | 65 - 99 mg/dL | [facility] | | | performed at [facility];[address] | | | | | [facility];[place] | | | | | [address] | | | + + + + + + + + + + | Performing | Address | City/State/Zipcode | Phone Number | | Organization | | | | + + + + + | [facility] | [address] | [facility] [place] [address] | | + + + + + POCT glucose (04/04/2018 6:18 AM) + + + + + | Component | Value | Ref Range | Performed At | + + + + + | GLUCOSE,POC SCREEN | 100 (H)Comment: Testing | 65 - 99 mg/dL | [facility] | | | performed at [facility];[address] | | | | | [address];[place] | | | | | [address] | | | + + + + + + + + + + | Performing | Address | City/State/Zipcode | Phone Number | | Organization | | | | + + + + + | [facility] | [address] | [place] [address] | | + + + + + [...] | [facility] | | | performed at [facility], [address] | | LABORATORY | | | [address], | | | | | [place] [address] | | | + + + + + + + | Specimen | + + | Blood | + + + + + + + | Performing | Address | City/State/Zipcode | Phone Number | | Organization | | | | + + + + + | [facility] | [address] | [place] [address] | [phone] | | LABORATORY | [address]vd[address] | | [...] 0.5 | 0.50 - 1.00 mg/dL | [facility] | | | | | LABORATORY | + + + + + | BUN/CREAT | 20 | | [facility] | | | | | LABORATORY | + + + + + | CALCIUM | 8.4 (L) | 8.5 - 10.5 mg/dL | [facility] | | | | | LABORATORY | + + + + + | EGFR | >60Comment: GFR <60: | >60 mL/min/1.73m2 | [facility] | | | CHRONIC KIDNEY DISEASE, [...] | | | | | performed at [facility], [address] | | | | | [facility], | | | | | [place] [address] | | | + + + + + + + | Specimen | + + | Blood | + + + + + + + | Performing | Address | City/State/Zipcode | Phone Number | | Organization | | | | + + + + + | [facility] | [address] | [place] [address] | [phone] | | LABORATORY | [address] | | | + + + + + POCT glucose (04/03/2018 8:45 PM) + + + + + | Component | Value | Ref Range | Performed At | + + + + + | GLUCOSE,POC SCREEN | 142 (H)Comment: Testing | 65 - 99 mg/dL | [facility] | | | performed at [facility];[address] | | | | | [address];[place] | | | | | [address] | | | + + + + + + + + + + | Performing | Address | City/State/Zipcode | Phone Number | | Organization | | | | + + + + + | [facility] | [address] | [place] [address] | | + + + + + POCT glucose (04/03/2018 4:35 PM) + + + + + | Component | Value | Ref Range | Performed At | + + + + + | GLUCOSE,POC SCREEN | 156 (H)Comment: Testing | 65 - 99 mg/dL | [facility] | | | performed at [facility];[address] | | | | | [facility];[place] | | | | | [address] | | | + + + + + + + + + + | Performing | Address | City/State/Zipcode | Phone Number | | Organization | | | | + + + + + | [facility] | [address] | [place] [address] | | + + + + + [...] | [address] | [place] [address] | | + + + + + [...] - 04/03/2018 4:23 PM PDT PATRICADYLAN WILLINGHAM [id number] years | | FemaleMRI LUMBAR SPINE WO [...] | [address] | [place] [address] | | + + + + + POCT glucose (04/03/2018 11:33 AM) + + + + + | Component | Value | Ref Range | Performed At | + + + + + | GLUCOSE,POC SCREEN | 125 (H)Comment: Testing | 65 - 99 mg/dL | [facility] | | | performed at [facility];[address] | | | | | [address];[place], [place] | | | | | [address] | | | + + + + + + + + + + | Performing | Address | City/State/Zipcode | Phone Number | | Organization | | | | + + + + + | [facility] | [address] | [place] [address] | | + + + + + [...] [facility] | [address] | [place] [address] | | + + + + + POCT glucose (04/03/2018 6:04 AM) + + + + + | Component | Value | Ref Range | Performed At | + + + + + | GLUCOSE,POC SCREEN | 159 (H)Comment: Testing | 65 - 99 mg/dL | [facility] | | | performed at [facility];[address] | | | | | [address];[place] | | | | | [address] | | | + + + + + + + + + + | Performing | Address | City/State/Zipcode | Phone Number | | Organization | | | | + + + + + | [facility] | [address] | [facility] [place] [address] | | + + + + + [...] | [facility] | | | performed at [facility], [address] | | LABORATORY | | | [address], | | | | | [place] [address] | | | + + + + + + + | Specimen | + + | Blood | + + + + + + + | Performing | Address | City/State/Zipcode | Phone Number | | Organization | | | | + + + + + | [facility] | [address] | [place] [address] | [phone] | | LABORATORY | [address] | | [...] | | | | | performed at [facility], [address] | | | | | [facility], | | | | | [place] [address] | | | + + + + + + + | Specimen | + + | Blood | + + + + + + + | Performing | Address | City/State/Zipcode | Phone Number | | Organization | | | | + + + + + | [facility] | [address] | [place] [address] | [phone] | | LABORATORY | [address] | | | + + + + + POCT glucose (04/02/2018 8:48 PM) + + + + + | Component | Value | Ref Range | Performed At | + + + + + | GLUCOSE,POC SCREEN | 201 (H)Comment: Testing | 65 - 99 mg/dL | [facility] | | | performed at [facility];[address] | | | | | [address];[place], [place] | | | | | [address] | | | + + + + + + + + + + | Performing | Address | City/State/Zipcode | Phone Number | | Organization | | | | + + + + + | [facility] | [address] | [place] [address] | | + + + + + POCT glucose (04/02/2018 5:17 PM) + + + + + | Component | Value | Ref Range | Performed At | + + + + + | GLUCOSE,POC SCREEN | 123 (H)Comment: Testing | 65 - 99 mg/dL | [facility] | | | performed at [facility];[address] | | | | | [address];[place] | | | | | [address] | | | + + + + + + + + + + | Performing | Address | City/State/Zipcode | Phone Number | | Organization | | | | + + + + + | [facility] | [address] | [place] [address] | | + + + + + [...]
--- OUTSIDE RECORDS SUMMARY | ~2018-05-20 | XMS | Encounter Summary ---
Demographics + + + | Address | [address] | | | [place] [address] | + + + | Home Phone [...] + + | Author | [facility] [employer] | + + + | Organization | [facility] | + + + | Address | Unknown | + + + | Phone | Unavailable | + + + Support + + + + + | Name | Relationship | Address | Phone | + + + + + | Jamaal Parra | ELSY | [address] | | | [place] | | [place] | | | | | [phone] | | + + + + + Care Team Providers + +------+ + | Care Meat Manager Name | Role | Phone | + +------+ + | Vince Cintron DO | PCP | | + +------+ + Encounter Details +--------+ + + + + | Date | Type | Department | Care Team | Description | +--------+ + + + + | 04/03/ | Procedure | [facility] | | | | 2018 | [facility] | | | | | | Inpatient Rehab [address] | | | | | | [address] | | | | | | [place] [address] | | | | | | [phone] | | | +--------+ + + + [...]
--- OUTSIDE RECORDS SUMMARY | ~2018-05-20 | XMS | Encounter Summary ---
Demographics + + + | Address | [address] | | | [place] [address] | + + + | Home Phone | | + + + | Preferred Language | Unknown | + + + | Marital Status | | + + + | Denominational Affiliation | [id number] | + + + | Race | Unknown | + + + | Ethnic Group | Unknown | + + + Author + + + | Author | [facility] [employer] | + + + | Organization | [facility] | + + + | Address | Unknown | + + + | Phone | Unavailable | + + + Support + + + + + | Name | Relationship | Address | Phone | + + + + + | Jamaal Parra | ELSY | [address] | | | [place] | | [place] | | | | | [phone] | | + + + + + Care Team Providers + +------+ + | Care Mysql Database Developer Name | Role | Phone | + [...] | | | | 2018 | [facility] | | | | | | Inpatient Rehab [address] | | | | | | [address] | | | | | | [place] [address] | | | | | | [phone] | | | +--------+ + + + [...]
--- OUTSIDE RECORDS SUMMARY | ~2018-05-20 | XMS | Encounter Summary ---
Demographics + + + | Address | [address] | | | [place] [address] | + + + | Home Phone | | + + + | Preferred Language | Unknown | + + + | Marital Status | | + + + | Latter-Day Affiliation | 1076 | + + + | Race | Unknown | + + + | Ethnic Group | Unknown | + + + Author + + + | Author | [facility] | + + + | Organization | [facility] | + + + | Address | Unknown | + + + | Phone | Unavailable | + + + Support + + + + + | Name | Relationship | Address | Phone | + + + + + | Jamaal Parra | ELSY | [address] | | | [place] | | [place] | | | | | [address] | | + + + + + Care Team Providers + +------+ + | Care Tour Actor Name | Role | Phone | + [...] [address] | | | | | [address] | [place] [address] | | | | | [place] | [phone] | | | | | [address] | | | | | | [phone] | | | +--------+ + + + [...]
--- OUTSIDE RECORDS SUMMARY | ~2018-05-20 | XMS | Encounter Summary ---
Demographics + + + | Address | [address] | | | [place] [address] | + + + | Home Phone | | + + + | Preferred Language | Unknown | + + + | Marital Status | | + + + | Rastafarian Affiliation | 1076 | + + + | Race | Unknown | + + + | Ethnic Group | Unknown | + + + Author + + + | Author | [facility] | + + + | Organization | [facility] | + + + | Address | Unknown | + + + | Phone | Unavailable | + + + Support + + + + + | Name | Relationship | Address | Phone | + + + + + | Jamaal Parra | ELSY | [address] | | | [place] | | [place] | | | | | [address] | | + + + + + Care Team Providers + +------+ + | Care Applications Systems Analyst Name | Role | Phone | + [...] + | 03/30/ | Ancillary | [facility] | See, Medical | Diagnosis unknown | | 2018 | [facility] | [facility] [address] | Record | | | | | [address] | | | | | | [place] [address] | | | | | | [phone] | | | +--------+ + + + [...] MIKKI HERNANDEZ | [address] | [place] [address] | | + + + + + in this encounter Visit Diagnoses + + | Diagnosis | + + | Diagnosis unknown | + + | Other unknown and unspecified cause of morbidity or mortality | + +"
--- OUTSIDE RECORDS SUMMARY | ~2018-05-20 | XMS | Clinical Summary ---
Demographics + + + | Address | [address] | | | [place] [address] | + + + | Home Phone | | + + + | Preferred Language | Unknown | + + + | Marital Status | | + + + | Cheondoism Affiliation | Unknown | + + + | Race | Unknown | + + + | Ethnic Group | Unknown | + + + Author + + + | Author | [facility] | | | and [place] | + + + | Organization | [facility] | | | and [...] Team Providers + +------+ + | Care Data Processing Mechanic Name | Role | Phone | + [...] +--------+ +---------+ | MEDICARE | MEDICA | [id number] | Medica | [phone]- | | | | RE | | re | [phone] | | | | PART A | | | | | | | AND B | | | | | + +--------+ +--------+ +---------+ | BCBS | BCBS | [id number] | PPO | | | | | [...] | Self | [birth year] Home: | [address] | | | al/Randy | | 1950 | [phone] [place] | | | tessie | | | [phone] | + +--------+ +--------+ + +"
[~2018-05-20 16:12] MED LIST changes: +GABAPENTIN100 MG PO; +GABAPENTIN300 MG PO; +LISINOPRIL10 MG PO; +MOTION RELIEF25 MG PO; +SIMVASTATIN10 MG PO; +TRANSDERM-SCOP1 EACH TD
--- OUTSIDE RECORDS SUMMARY | 2018-05-20 16:16 | XMS ---
PreManage Notification: STEFANI BHATIA Security Development Lead Events No recent Security Events currently on file CRITERIA MET - [facility] - 2 Visits in 30 Days CARE PROVIDERS There are no care providers on record at this time. Pooja has no Care Guidelines for this patient. [facility] MO.) [facility] NOTE: Visits indicate total known visits. ED/C VISIT TRACKING (12 MO.) 05/20/2018 16:[address] 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 - Headache - Laceration without foreign body of other part of head, initial encounter - Anxiety disorder, unspecified - Laceration without foreign body of left eyelid and periocular area, initial encounter - Allergy status to other drugs, medicaments and biological substances status - Type 2 diabetes mellitus without complications 03/30/2018 14:56 [facility] [place] TYPE: Emergency COMPLAINT: - POSS STROKE DIAGNOSES: - Other group home (current) drug therapy - Fall on same level from slipping, tripping and stumbling with subsequent striking against other object, initial encounter - Allergy to seafood - Traumatic subdural hemorrhage with loss of consciousness of unspecified duration, initial encounter - Traumatic subdural hemorrhage with loss of consciousness of unspecified duration, initial encounter INPATIENT VISIT TRACKING (12 MO.) [facility] [place] [facility] DIAGNOSES: - Immune thrombocytopenic purpura - Traumatic subarachnoid hemorrhage without loss of consciousness, sequela - Essential (primary) hypertension - Nontraumatic subdural hemorrhage, unspecified - Personal history of other specified conditions - Intervertebral disc disorders with radiculopathy, lumbar region - Thrombocytopenia, unspecified - Type 2 diabetes mellitus with unspecified complications - Repeated falls - Unspecified abnormalities of gait and mobility 03/30/2018 17:57 [facility] [place] TYPE: General Medicine DIAGNOSES: - Immune thrombocytopenic purpura - Pain, unspecified - Thrombocytopenia, unspecified - Subdural Hematoma [email or web address]
[2018-05-20] MEDS ORDERED: LASIX20 MG PO (18:30)
[2018-05-20] MEDS ORDERED: POTASSIUM CHLO10 MEQ PO (18:30)
--- NOTE | 2018-05-21 14:34 | EKG ---
[facility] [address] [place] [address] Signed Normal sinus rhythm Left bundle branch block Abnormal ECG When compared with ECG of 30-MAR-2018 15:07, No significant change was found Confirmed by REYMUNDO CERVANTES DO ([id number]) on 05/21/2018 2:34:15 PM Electronically Signed By: REYMUNDO CERVANTES DO 05/21/18 1434 PATIENT NAME: BHATIAPATRICADYLAN TARSHA Electrocardiogram DATE OF : 46 PHYSICIAN: REYMUNDO CERVANTES DO REPORT #: [id number] REPORT IS CONFIDENTIAL AND NOT TO BE RELEASED WITHOUT AUTHORIZATION
== END 2018-05-20 18:38 | disposition home or self-care (01) ==
LOC: ED 16:12
DX: R60.0 Localized edema (principal); I10 Essential (primary) hypertension; E11.9 Type 2 diabetes mellitus without complications; Z91.013 Allergy to seafood; Z79.899 Other long term (current) drug therapy
CPT/HCPCS: 71045; 80053; 83880; 84484; 85025; 85610; 85730; 93005; 93010; 99285